=== PATIENT | male | born 1975 | race Caucasian/White ===

== ENCOUNTER 2019-09-21 13:01 | Emergency (ER) | payer OTHER, SELFPAY ==
[2019-09-21 13:05] VITALS: BP 135/97; PULSE 77; RESP 19; TEMP 36.5; O2SAT 97
[2019-09-21] MEDS: KETOROLAC 30 MG/ML VIAL (*BKC) IV PUSH (13:42)
[2019-09-21] MEDS: SODIUM CHLORIDE 0.9% IV 1,000 ML 999 ML IV CONT (13:43)
[2019-09-21 13:52] LABS: Basophils Percent Auto 0.3 % (0.2-1.2); Eosinophils Percent Auto 0.2 % (0-4.4); Hemoglobin 14.9 g/dL (14.0-18.0); Immature Granulocyte Absolute 0.02 K/mm3 (0.00-0.031); Immature Granulocyte Percent A 0.3 % (0-0.5); Lymphocytes Absolute Auto 1.05 K/mm3 (0.9-3.2); Lymphocytes Percent Auto 16.6 % (18.3-44.2); Mean Corpuscular HGB Conc 35.5 g/dl (32-36); Mean Corpuscular Hemoglobin 31.5 pg (26-34); Mean Corpuscular Volume 88.8 fl (80-100); Mean Platelet Volume 10.4 fl (7.4-10.4); Monocytes Absolute Auto 0.8 K/mm3 (0.1-0.6); Monocytes Percent Auto 12.1 % (2.6-8.5); Neutrophils Absolute Auto 4.5 K/mm3 (1.3-6.7); Neutrophils Percent Auto 70.5 % (45.5-73.1); Platelet Count Result 156 k/mm3 (150-375); Red Blood Count 4.73 M/mm3 (4.6-6.20); Red Cell Distribution Width 12.9 % (11.5-14.5); White Blood Count 6.3 K/mm3 (4.5-10.0)
[2019-09-21 14:04] LABS: Alanine Aminotransferase 34 U/L (4-50); Albumin Level 4.3 g/dL (3.5-5.1); Alkaline Phosphatase 56 U/L (38-126); Aspartate Amino Transferase 37 U/L (17-59); Bilirubin,Total 0.7 mg/dL (0.2-1.3); Blood Urea Nitrogen 16 mg/dL (9-20); Calcium 8.4 mg/dL (8.4-10.2); Carbon Dioxide 27 mmol/L (22-30); Chloride 98 mmol/L (98-107); Estimated CRCL calculation 99 ml/min; Estimated Glomerular Filt Rate > 60; Glucose 103 mg/dL (75-110); Potassium 3.5 mmol/L (3.4-5.0); Sodium 135 mmol/L (137-145)
--- NOTE | 2019-09-21 14:13 | ED.FEVER ---
HPI - Fever General Chief Complaint: Fever Stated Complaint: , PATRICIA, fever Time Seen by Provider: 09/21/19 13:04 Source: patient Mode of arrival: ambulatory Limitations: no limitations History of Present Illness HPI Narrative: Patient is a 44-year-old male who presents to emergency department for evaluation of sore throat fever chills body aches had negative COVID testing Wednesday in urgent care patient notes that he has not had any known sick contacts denies vomiting diarrhea or cough has been taking Augmentin prescribed at the urgent care with minimal improvement noting he continues to have moderate aching pain to the throat worse with swallowing Related Data Allergies Allergy/AdvReac Type Severity Reaction Status Date / Time codeine Allergy Mild Unknown Verified 09/21/19 13:34 Review of Systems Review of Systems: All systems reviewed & are unremarkable except as noted in HPI and below PMFSH Social History Social History (Updated 09/21/19 @ 14:14 by Andi Chu PA-C) Smoking status: Never smoker Gender identity (if verbalized by the patient): Male Exam Narrative: Exam Narrative: GENERAL: Well-appearing, well-nourished, and in no acute distress. HEAD: Normocephalic, atraumatic. EYES: PERRLA and EOMI. ENT: Nares clear, no rhinorrhea or epistaxis. Mucous membranes moist. Oropharynx with erythema tonsillar and without hypertrophy exudate or other lesions. Bilateral TMs pearly jenkins nonbulging NECK: Supple. Anterior adenopathy noted CHEST: Clear to auscultation. No respiratory distress. No wheezes rales or rhonchi HEART: Regular rate and rhythm. No murmur heard. EXTREMITIES: Normal range of motion. No edema. SKIN: Warm, dry, no rash. NEURO: No focal deficits. Alert and oriented x3. Cranial nerves II through XII grossly intact PSYCH: Normal mood and affect. 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 Patient in the room in no distress afebrile nontoxic-appearing no distress will be discharged home with medications for his symptoms Vital Signs Vital signs: Vital Signs Temperature 97.7 F 09/21/19 13:05 Pulse Rate 77 09/21/19 13:05 Respiratory Rate 19 09/21/19 13:05 Blood Pressure 135/97 H 09/21/19 13:05 Pulse Oximetry 97 09/21/19 13:05 Temperature 98.2 F 09/21/19 14:44 Pulse Rate 88 09/21/19 14:44 Respiratory Rate 20 09/21/19 14:44 Blood Pressure 127/87 09/21/19 14:44 Pulse Oximetry 99 09/21/19 14:44 MDM - Fever MDM Narrative Medical decision making narrative: Patient in the room in no distress aware of case findings treatment plan and diagnosis agreeing to follow-up as directed or to return if symptoms worsen or concerns patient is afebrile nontoxic-appearing no distress and felt appropriate for outpatient reevaluation patient provided with reasons to return and ENT follow-up Lab Data Result diagrams: 09/21/19 13:46 09/21/19 13:46 Labs: Lab Results 09/21/19 09/21/19 09/21/19 Range/Units 13:46 13:46 13:46 WBC 6.3 (4.5-10.0) K/mm3 RBC 4.73 (4.6-6.20) M/mm3 Hgb 14.9 (14.0-18.0) g/dL Hct 42.0 (42.0-52.0) % MCV 88.8 (80-100) fl MCH 31.5 (26-34) pg MCHC 35.5 (32-36) g/dl RDW 12.9 (11.5-14.5) % Plt Count 156 (150-375) k/mm3 MPV 10.4 (7.4-10.4) fl Immature Gran % (Auto) 0.3 (0-0.5) % Neut % (Auto) 70.5 (45.5-73.1) % Lymph % (Auto) 16.6 L (18.3-44.2) % [place] % (Auto) 12.1 H (2.6-8.5) % Eos % (Auto) 0.2 (0-4.4) % Baso % (Auto) 0.3 (0.2-1.2) % Lymph # (Auto) 1.05 (0.9-3.2) K/mm3 [place] # (Auto) 0.8 H (0.1-0.6) K/mm3 Eos # (Auto) 0.0 (0-0.3) K/mm3 Baso # (Auto) 0.0 (0.0-0.1) K/mm3 Abs Immat Gran (auto) 0.02 (0.00-0.031) K/mm3 Absolute Neuts (auto) 4.5 (1.3-6.7) K/mm3 Absolute Nucleated RBC 0.0 (0.0-0.012) K/mm3 Nucleated RBC % 0.0 (0.0-0.2) % Sodium 135 L (137-145) mmol/L Potassium 3.5 (3.4-5.0) mmol/L Chloride 98 (98-1
[2019-09-21 14:36] LABS: Monoscreen Negative (Negative); Negative Monotest Control Negative (Negative); Positive Monotest Control Positive (Positive)
[2019-09-21 14:44] VITALS: BP 127/87; PULSE 88; RESP 20; TEMP 36.8; O2SAT 99
[2019-09-21 15:19] VITALS: BP 120/70; PULSE 80; RESP 18; O2SAT 99
== END 2019-09-21 15:21 | disposition home or self-care (01) ==
PROVIDERS: Emergency Medicine Emergency Medical Services; Emergency Provider Emergency Medicine
DX: J02.9 Acute pharyngitis, unspecified (principal)
CPT/HCPCS: 36415; 80053; 85025; 86308; 87081; 87880; 96361; 96374; 96375; 99284; J1100; J1885; J7030

== ENCOUNTER 2020-08-27 09:56 | Emergency (ER) | payer OTHER, SELFPAY ==
--- NOTE | ~2020-08-27 | CT_ITS ---
EXAMINATION: CT abdomen pelvis wo con DATE: 08/27/2020 12:13 INDICATION: Left flank pain TECHNIQUE: Computed tomography (CT) of the abdomen and pelvis was performed without intravenous contr ast. The dose-length product (DLP) was 1233.16 mGy-cm. Automated exposure control and iterative recon struction technique were employed. COMPARISON: None FINDINGS: Minimal dependent atelectasis is present in the lung bases. The heart size is normal. The l iver is diffusely low in attenuation when compared with the spleen, consistent with hepatic steatosis . The spleen, pancreas, gallbladder, and adrenal glands are normal. The kidneys are unremarkable. No stones are identified in the kidneys, ureters, or bladder. There is no hydronephrosis or hydroureter. No pathologically enlarged abdominal or pelvic lymph nodes are identified. There is no free intraper itoneal gas or evidence of bowel obstruction. There is moderate lumbar spondylosis at L5-S1. A fat-co ntaining umbilical hernia is noted. IMPRESSION: 1. No CT correlate for the patient's symptoms. 2. Diffuse hepatic steatosis. Reviewed, dictated and finalized at location A.
[2020-08-27 10:07] VITALS: BP 161/57; PULSE 75; RESP 18; TEMP 36.3; O2SAT 94
[2020-08-27 10:24] LABS: Basophils Percent Auto 0.5 % (0.2-1.2); Eosinophils Absolute Auto 0.1 K/mm3 (0-0.3); Eosinophils Percent Auto 1.8 % (0-4.4); Hematocrit 42.8 % (42.0-52.0); Hemoglobin 14.5 g/dL (14.0-18.0); Immature Granulocyte Absolute 0.01 K/mm3 (0.00-0.031); Immature Granulocyte Percent A 0.2 % (0-0.5); Lymphocytes Absolute Auto 0.83 K/mm3 (0.9-3.2); Lymphocytes Percent Auto 18.9 % (18.3-44.2); Mean Corpuscular HGB Conc 33.9 g/dl (32-36); Mean Corpuscular Hemoglobin 30.5 pg (26-34); Mean Corpuscular Volume 90.1 fl (80-100); Mean Platelet Volume 9.5 fl (7.4-10.4); Monocytes Absolute Auto 0.4 K/mm3 (0.1-0.6); Neutrophils Percent Auto 68.6 % (45.5-73.1); Platelet Count Result 188 k/mm3 (150-375); Red Blood Count 4.75 M/mm3 (4.6-6.20); Red Cell Distribution Width 13.4 % (11.5-14.5); White Blood Count 4.4 K/mm3 (4.5-10.0)
[2020-08-27 10:33] LABS: Anion Gap 7 mmol/L (8-16); Blood Urea Nitrogen 16 mg/dL (9-20); Carbon Dioxide 28 mmol/L (22-30); Chloride 107 mmol/L (98-107); Estimated CRCL calculation 84 ml/min; Estimated Glomerular Filt Rate > 60; Glucose 109 mg/dL (75-110); Potassium 4.4 mmol/L (3.4-5.0); Sodium 142 mmol/L (137-145)
[2020-08-27 10:41] LABS: Add Urine Microscopic? YES; Appearance Urine Clear (Clear); Bilirubin Urine Negative (Negative); Blood Urine 1+ (Negative); Color Urine Yellow (Yellow); Glucose Urine UA Negative (Negative); Ketones Urine Negative (Negative); Leukocyte Esterase Ur Negative LEU/UL (Negative); Mucus Urine Rare /lpf; Nitrate Urine Negative (Negative); Protein Urine Negative (Negative); RBC Urine 0-2 /hpf (0-2); Specific Grav Ur 1.019 (1.001-1.035); Urobilinogen Urine Negative mg/dL (<2.0)
--- NOTE | 2020-08-27 11:08 | PC.NURSE ---
Bedside report given to Ronal BALLESTEROS at this time.
[2020-08-27 11:17] LABS: Lipase 101 U/L (23-300)
[2020-08-27 11:21] LABS: Alanine Aminotransferase 59 U/L (4-50); Albumin Level 4.5 g/dL (3.5-5.1); Alkaline Phosphatase 66 U/L (38-126); Aspartate Amino Transferase 50 U/L (17-59); Bilirubin,Total 0.7 mg/dL (0.2-1.3)
--- NOTE | 2020-08-27 12:08 | PC.NURSE ---
Patient in CT
[2020-08-27] MEDS: SODIUM CHLORIDE 0.9% IV 1,000 ML 999 ML IV CONT (12:27)
--- NOTE | 2020-08-27 12:38 | ED.GENADULT ---
HPI - General Adult General Chief complaint: Abdominal Pain Stated complaint: ABDOMINAL PAIN Time Seen by Provider: 08/27/20 10:34 Source: patient and RN notes reviewed Mode of arrival: ambulatory Limitations: no limitations History of Present Illness HPI narrative: Patient is a 45-year-old male who presents to emergency department for evaluation of left flank pain that began acutely this morning was seen by primary care given a shot of Toradol referred to emergency department noting that his pain resolved after the Toradol shot patient denies similar occurrence noted chills sweats and nausea with the intense pain that he had experienced Related Data Home Medications Medication Instructions Recorded Confirmed No Home Medications 08/27/20 08/27/20 Allergies Allergy/AdvReac Type Severity Reaction Status Date / Time codeine Allergy Mild Unknown Verified 08/27/20 10:13 Review of Systems Review of Systems: All systems reviewed & are unremarkable except as noted in HPI and below PMFSH Social History Social History (Updated 08/27/20 @ 12:39 by Andi Chu PA-C) Smoking status: Never smoker Gender identity (if verbalized by the patient): Male Exam Narrative: Exam Narrative: GENERAL: Well-appearing, well-nourished, and in no acute distress. HEAD: Normocephalic, atraumatic. EYES: PERRLA and EOMI. ENT: Nares clear, no rhinorrhea or epistaxis. Mucous membranes moist. CHEST: Clear to auscultation. No respiratory distress. No wheezes rales or rhonchi HEART: Regular rate and rhythm. No murmur heard. Normal peripheral pulses. ABDOMEN: Soft, nontender, nondistended EXTREMITIES: Normal range of motion. No edema. SKIN: Warm, dry, no rash. NEURO: No focal deficits. Alert and oriented x3. PSYCH: Normal mood and affect. Course Course Emergency Course: Patient in the room no distress aware of case findings treatment plan diagnosis afebrile nontoxic-appearing Vital Signs Vital signs: Vital Signs Temperature 97.3 F L 08/27/20 10:07 Pulse Rate 75 08/27/20 10:07 Respiratory Rate 18 08/27/20 10:07 Blood Pressure 161/57 H 08/27/20 10:07 Pulse Oximetry 94 08/27/20 10:07 Temperature 97.3 F L 08/27/20 10:07 Pulse Rate 75 08/27/20 10:07 Respiratory Rate 18 08/27/20 10:07 Blood Pressure 161/57 H 08/27/20 10:07 Pulse Oximetry 94 08/27/20 10:07 Medical Decision Making [facility] Narrative Medical decision making narrative: Patient presents in no distress aware of case findings treatment plan diagnosis ABCs and vital signs intact and stable nontoxic-appearing no pain hydrated medicated in the emergency department potential for passed kidney stone Vital Signs Vital Signs: Vital Signs Temperature 97.3 F L 08/27/20 10:07 Pulse Rate 75 08/27/20 10:07 Respiratory Rate 18 08/27/20 10:07 Blood Pressure 161/57 H 08/27/20 10:07 Pulse Oximetry 94 08/27/20 10:07 Temperature 97.3 F L 08/27/20 10:07 Pulse Rate 75 08/27/20 10:07 Respiratory Rate 18 08/27/20 10:07 Blood Pressure 161/57 H 08/27/20 10:07 Pulse Oximetry 94 08/27/20 10:07 Lab Data Result diagrams: 08/27/20 10:17 08/27/20 10:17 Labs: Lab Results 08/27/20 08/27/20 08/27/20 Range/Units 10:17 10:17 10:17 WBC 4.4 L (4.5-10.0) K/mm3 RBC 4.75 (4.6-6.20) M/mm3 Hgb 14.5 (14.0-18.0) g/dL Hct 42.8 (42.0-52.0) % MCV 90.1 (80-100) fl MCH 30.5 (26-34) pg MCHC 33.9 (32-36) g/dl RDW 13.4 (11.5-14.5) % Plt Count 188 (150-375) k/mm3 MPV 9.5 (7.4-10.4) fl Immature Gran % (Auto) 0.2 (0-0.5) % Neut % (Auto) 68.6 (45.5-73.1) % Lymph % (Auto) 18.9 (18.3-44.2) % [place] % (Auto) 10.0 H (2.6-8.5) % Eos % (Auto) 1.8 (0-4.4) % Baso % (Auto) 0.5 (0.2-1.2) % Lymph # (Auto) 0.83 L (0.9-3.2) K/mm3 [place] # (Auto) 0.4 (0.1-0.6) K/mm3 Eos # (Auto) 0.1 (0-0.3) K/mm3 Baso # (Auto) 0.0 (0.0-0.1) K/mm3 Abs
[2020-08-27 12:58] VITALS: BP 160/59; PULSE 73; RESP 18; O2SAT 97
== END 2020-08-27 12:59 | disposition home or self-care (01) ==
PROVIDERS: Emergency Medicine Emergency Medical Services; Emergency Provider Emergency Medicine; PCP Nurse Practitioner Family
DX: R10.9 Unspecified abdominal pain (principal); K76.0 Fatty (change of) liver, not elsewhere classified
CPT/HCPCS: 36415; 74176; 80048; 80076; 81001; 83690; 85025; 96360; 99284; J7030

== ENCOUNTER 2024-03-13 07:40 | Emergency (ER) | payer OTHER, SELFPAY ==
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
[2024-03-13 07:45] VITALS: BP 155/94; PULSE 75; RESP 20; TEMP 36.7; O2SAT 97
[2024-03-13] MEDS: ACETAMINOPHEN 325 MG TABLET 650 MG PO (07:55)
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
[2024-03-13 09:17] VITALS: BP 144/88; PULSE 80; RESP 20; O2SAT 100
--- NOTE | 2024-03-13 09:20 | PC.NURSE ---
Per verbal order by EDP thumb spica placed to right thumb/hand.
== END 2024-03-13 09:17 | disposition home or self-care (01) ==
LOC: ANHED 08:52
PROVIDERS: Emergency Provider Emergency Medicine; PCP Nurse Practitioner Family
DX: S63.91XA Sprain of unspecified part of right wrist and hand, initial encounter (principal); I10 Essential (primary) hypertension; V49.40XA Driver injured in collision with unspecified motor vehicles in traffic accident, initial encounter
CPT/HCPCS: 29125; 73130; 99283; 99284; A9270

== ENCOUNTER 2024-03-19 11:06 | Emergency (ER) | payer OTHER, SELFPAY ==
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
[2024-03-19 11:14] VITALS: BP 147/86; PULSE 69; RESP 20; TEMP 36.6; O2SAT 98
[2024-03-19 11:24] VITALS: BP 152/100; PULSE 57; RESP 16; O2SAT 95
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
[2024-03-19 12:52] VITALS: BP 147/106; PULSE 60; RESP 16; TEMP 36.6; O2SAT 95
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
--- OUTSIDE RECORDS SUMMARY | 2024-03-24 01:43 | XMS_ITS | Encounter Summary ---
Author Organization [facility] Address [address] [place] [address]. [place], [place] [phone] [place] [address] Care Team Providers Care Music Professionals Name Role Phone Zeus Vo MD Primary Care Provider [phone] Encounter Details Date Type Department Care Team (Latest Contact Info) Description 03/15/2024 Travel Social History Tobacco Use Types Packs/Day Years Used Date Smoking Tobacco: Never Smokeless Tobacco: Never Comments:counseled by Dr Patricia oconnor Alcohol Use Standard Drinks/Week Comments Yes 3.3 [...] Recorded Patient Health Questionnaire-2 Score 0 07/22/2022 [facility]at [facility] Health - Occupational Stress [...] on file documented as of this encounter Plan of Treatment Upcoming Encounters Date Type Department Care Team (Late st Contact Info) Description 04/07/2024 7:40 AM DIAGNOSTIC MEDICAL SONOGRAPHER Office Visit [facility] Multispecialty Care - [place] [address] [address] [place] [address] Zeus Vo MD [address] [place] [id number] documented as of this encounter Visit Diagnoses Not on filedocumented in this encounter Additional Health Concerns Assessment Noted Time PHQ-9 Depression Total Score: 0 05/14/19 7:24 AM DIAGNOSTIC MEDICAL SONOGRAPHER documented as of this encounter Care Teams Music Professionals Relationship Specialty Start Date End Date Zeus Vo MD [address] [place] [address] PCP - General INTERNAL MEDICINE 04/07/21 documented as of this encounter
--- OUTSIDE RECORDS SUMMARY | 2024-03-24 01:43 | XMS_ITS | Encounter Summary ---
Author Organization [facility] Address [address] [place] [address] [place] [address] Care Team Providers Care Holistic Health Practitioner Name Role Phone Zeus Vo MD Primary Care Provider Reason for Visit * Reason Comments Hypertension Patient presents wit h c/o heart fluttering last pm, blood pressure running high at 150/100, use to take bp medication but has been off for a few months. He did take a Losartan Encounter Details Date Type Department Care Team (Late st Contact Info) Description 07/01/2023 9:00 AM CDT Office Visit [facility] Family Medicine - [place] [address] [place] [phone] Teagan Pierre, AILYN [address] [place] [address] [place] [phone] Hypertension (Patient presents with c/o heart fluttering last pm, blood pressure running high at 150/100, use to take bp medication but has been off for a few months. He did take a Losartan ) Social History Tobacco Use Types Packs/Day Years Used Date Smoking Tobacco: Never Smokeless Tobacco: Never Tobacco Cessation:Counseling Given: No Comments:counseled by Dr Vo Alcohol Use Standard [...] Recorded Patient Health Questionnaire-2 Score 0 07/22/2022 [facility] Occupat ional Health - Occupational Stress [...] Sign Reading Time Taken Comments Blood Pressure 118/80 07/01/2023 9:36 AM CDT Pulse 71 07/01/2023 9:15 AM CDT Temperature 36.6 ??C (97.9 ??F) 07/01/2023 9:15 AM CD T Respiratory Rate 18 07/01/2023 9:15 AM CDT Oxygen Saturation 97% 07/01/2023 9:15 AM CDT Inhaled Oxygen Concentration - - Weight 108 kg (238 lb) 07/01/2023 9:15 AM CDT Height 175.3 cm (5' 9 ) 07/01/2023 9:15 AM CDT Body Mass Index 35.15 07/01/2023 9:15 AM CDT documented in this encounter Progress Notes * Teagan Pierre NP - 07/01/2023 9:00 AM CDT Reason for Visit: Hypertension (Patient presents with c/o heart fluttering last pm, blood pressure running high at 150/100, use to take bp medication but has been off for a few months. He did take a Losartan ) History of Present Illness: Manuel is a 47-year-old male with hx of hypertension, severe HAYLEY, obesity, gout patient of Dr. 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 Patient states he used to takelosartan 25 mg but has not taken for a few months d/t running out.yesterday his BP was checked ant it was running 145/100 but cuff was small. He had some tea yesterday and has been caffeine free for 2 years so he thinks that maybe what caused his fluttering in his chest. States the flutter only lasted for 5 seconds. Patient also has hx of severe sleep apnea. Follows with Dr. Parekh. Has not been wearing his CPAP d/tnot tolerating. He is needing to discuss with his pulm other options. Denies chest pain, palpitations, shortness of breath, dizziness, lightheadedness, or lower extremity edema. Medications: Current Outpatient Medications: amLODIPine (NORVASC) 2.5 MG tablet, Take 1 tablet (2.5 mg total) by mouth daily., Disp: 90 tablet, Rfl: 1 CPAP DEVICE, DME,, 1 Device by Does not apply route nightly at bedtime. Sending to [employer] Disp:1 Device, Rfl: 0 Review of patient's allergies indicates: Allergen Reactions Codeine Hyperactive Past Medical History: Diagnosis Date Essential (primary) hypertension Gout, unspecified HAYLEY (obstructive sleep apnea) Past Surgical History: Procedure Laterality Date NONE Social History Tobacco Use Smoking status: Never Smokeless tobacco: Never Tobacco comments: counseled by Dr Vo Vaping Use Vaping Use: Never used Substance Use Topics Alcohol use: Yes Alcohol/week: 3.3 standard drinks of alcohol Types: 2 Cans of beer per week Drug use: Never Family History Problem Relation Name Age of Onset Diabetes Father Diabetes Paternal Grandmother Diabetes Paternal Grandfather ROS: Review of Systems Constitutional: Negative for chills, diaphoresis, fever, malaise/fatigue and weight loss. HENT: Negative for congestion, ear discharge, ear pain, hearing loss, nosebleeds, sinus pain, sore throat and tinnitus. Eyes: Negative for blurred vision, double vision, photophobia, pain, discharge and redness. Respiratory: Negative for cough, hemoptysis, sputum production, shortness of breath, wheezing and stridor. Cardiovascular: Negative for chest pain, palpitations, orthopnea, claudication, leg swelling and PND. Gastrointestinal: Negative for abdominal pain, blood in stool, constipation, diarrhea, heartburn, melena, nausea and vomiting. Genitourinary: Negative for dysuria, flank pain, frequency, hematuria and urgency. Musculoskeletal: Negative for back pain, falls, joint pain, myalgias and neck pain. Skin: Negative for itching and rash. Neurological: Negative for dizziness, tingling, tremors, sensory change, speech change, focal weakness, seizures, loss of consciousness, weakness and headaches. Endo/Heme/Allergies: Negative for environmental allergies and polydipsia. Does not bruise/bleed easily. Psychiatric/Behavioral: Negative for depression, hallucinations, memory loss, substance abuse and suicidal ideas. The patient is not nervous/anxious and does not have insomnia. Physical Exam Constitutional: General: He is not in acute distress. Appearance: Normal appearance. He is obese. He is not ill-appearing, toxic- appearing or diaphoretic. HENT: Nose: Nose normal. Mouth/Throat: Mouth: Mucous membranes are moist. Eyes: Pupils: Pupils are equal, round, and reactive to light. Cardiovascular: Rate and Rhythm: Normal rate and regular rhythm. Pulses: Normal pulses. Heart sounds: Normal heart sounds. Pulmonary: Effort: Pulmonary effort is normal. Breath sounds: Normal breath sounds. Musculoskeletal: Cervical back: Normal range of motion. Right lower leg: No edema. Left lower leg: No edema. Skin: General: Skin is warm and dry. Findings: No rash. Neurological: General: No focal deficit present. Mental Status: He is alert and oriented to person, place, and time. Psychiatric: Mood and Affect: Mood normal. Behavior: Behavior normal. Thought Content: Thought content normal. Judgment: Judgment normal. Filed Vitals: 07/01/23 0915 07/01/23 0936 BP: (!) 148/82 118/80 Pulse: 71 Resp: 18 Temp: 97.9 ??F (36.6 ??C) TempSrc: Temporal SpO2: 97% Weight: 108 kg (238 lb) Height: 1.753 m (5' 9 ) Assessment/Recommendations/Plan 1. Hypertension, unspecified type BP stable with recheck with large cuff. Patient was instructed to monitor blood pressure closely athome and if running higher than 140/90 to begin low-dose amlodipine. Discussed with patient how to take and side effects No palpitations noted on exam. Encourage lifestyle modifications to include healthy eating, decrease salt and caffeine in diet, routine exercise, and weight loss, - amLODIPine (NORVASC) 2.5 MG tablet; Take 1 tablet (2.5 mg total) by mouth daily. Dispense: 90 tablet; Refill: 1 2. Severe obstructive sleep apnea -Patient was highly encouraged to follow back up with his edge trimming machine operator to discuss other treatment options for his sleep apnea since patient has severe HAYLEY and not on CPAP. Follow up: With PCP within 4 weeks for BP check, annual physical and labs. TEAGAN PIERRE NP 07/01/2023 9:41 AM documented in this encounter Plan of Treatment Upcoming Encounters Date Type Department Care Team (Late st Contact Info) Description 04/07/2024 7:40 AM FOOD EQUIPMENT SERVICE TECHNICIAN Office Visit [facility] Multispecialty [facility] [place] [address] [address] [place] [address] Zeus Vo MD [address] [place] [id number] documented as of this encounter Visit Diagnoses Diagnosis Hypertension, unspecified type Severe obstructive sleep apnea Obstructive sleep apnea (adult) (pediatric) documented in this encounter Additional Health Concerns Assessment Noted Time PHQ-9 Depression Total Score: 0 05/14/19 22 7:24 AM FOOD EQUIPMENT SERVICE TECHNICIAN documented as of this encounter Care Teams Holistic Health Practitioner Relationship Specialty Start Date End Date Zeus Vo MD [address] [place] [id number] PCP - General INTERNAL MEDICINE 04/07/21 documented as of this encounter
--- OUTSIDE RECORDS SUMMARY | 2024-03-24 01:43 | XMS_ITS | Encounter Summary ---
Author Organization [facility] Address [address] [place] [address]. [place], [place] [address] [place] [address] Care Team Providers Care Biztalk Software Developer Name Role Phone Zeus Vo MD Primary Care Provider [phone] Reason for Visit * Reason Comments Hypertension 6 month f/u Follow Up Follow up chronic me dical issues Encounter Details Date Type Department Care Team (Latest Contact Info) Description 01/13/2023 7:00 AM CDT Office Visit [facility] Medical Group Multispecialty Care - [address] [address] [address] [place] [address] Zeus Vo MD [address] [place] [address] [address] [place], [place] [id number] Hypertension (6 month f/u ); Follow Up (Follow up chronic medical issues) Social History Tobacco Use Types Packs/Day Years Used Date Smoking Tobacco: Never Smokeless Tobacco: Never Tobacco Cessation:Counseling Given: Yes Comments:counseled by Dr Vo Alcohol Use Standard [...] Recorded Patient Health Questionnaire-2 Score 0 07/22/2022 [facility] Occupat ional Health - Occupational Stress [...] Sign Reading Time Taken Comments Blood Pressure 138/88 01/13/2023 7:44 AM CDT done manually per pt. request Pulse 62 01/13/2023 7:07 AM CDT Temperature 36.4 ??C (97.5 ??F) 01/13/2023 7 :07 AM CDT Respiratory Rate - - Oxygen Saturation 98% 01/13/2023 7:0 7 AM CDT Inhaled Oxygen Concentration - - Weight 106.6 kg (235 lb) 01/13/2023 7:0 7 AM CDT Height 175.3 cm (5' 9 ) 01/13/2023 7:07 AM CDT Body Mass Index 34.7 01/13/2023 7:07 AM CDT documented in this encounter Patient Instructions * Patient Instructions* Zeus Vo MD - 01/13/2023 7:00 AM CDT Follow up in March 2023 for your blood pressure and weight. * Attachments The following attachments cannot be sent through Care Everywhere. * DASH Diet (Czech) documented in this encounter Progress Notes * Zeus Vo MD - 01/13/2023 7:00 AM CDTSummary: Follow-up note Images from the original note were not included. Internal Medicine Outpatient Progress Note CC: Hypertension (6 month f/u ) and Follow Up (Follow up chronic medical issues) HPI: Manuel Hall is a 47-year-old male who presents for follow-up for chronic medical issues and reports he has been taking only allopurinol 100 mg daily instead of 200 mg daily. Patient reports he was not taking his medication prior to the dose increase in the setting of elevated uric acid levels. He is back on taking regularly his allopurinol 100 mg daily and will be checking his uric acid levels at today's visit. Has long standing history of hyperuricemia. Denies any recent concerns for kidney stones. Denies any flank pain. Patient also with hypertension and currently not taking his valsartan- hydrochlorothiazide 320-25 mg1 tablet daily. He reports after his pneumonia, he has not been on medication. His medication was held during his admission. Currently patient reports his home blood pressures have been averaging around 1 32-1 35 for his systolics and 82 mmhg for his diastolics. Denies any headaches or shortness ofbreath or chest pain with activity. He has underlining obstructive sleep apnea and tells me he has been using his CPAP machine but not very frequently throughout the night. He usually has difficulty sleeping on his back and therefore is unable to maintain using his CPAP throughout the night. He wasscheduled to have seen pulmonary in January 2023 but this appointment was canceled. Patient encouraged to call to schedule his appointment with pulmonary. His repeat blood pressure at today's visit was still not optimally controlled. He has not had his colon cancer screening done and will prefer to have a Cologuard done instead. Nofamily history of colon cancer or recent concerns for blood in stool or melena. He would like to hold off getting his flu shot at this time. He wants to read up on pneumonia vaccine prior to getting this done. Problem List Patient Active Problem List Diagnosis Primary hypertension Fatigue Obese Elevated liver enzymes HAYLEY (obstructive sleep apnea) Gout Past Medical History: Diagnosis Date Essential (primary) hypertension Gout, unspecified HAYLEY (obstructive sleep apnea) Past Surgical History: Procedure Laterality Date NONE Family History Problem Relation Name Age of Onset Diabetes Father Diabetes Paternal Grandmother Diabetes Paternal Grandfather Social History Tobacco Use Smoking status: Never Smokeless tobacco: Never Tobacco comments: counseled by Dr Vo Vaping Use Vaping Use: Never used Substance Use Topics Alcohol use: Yes Alcohol/week: 3.3 standard drinks Types: 2 Cans of beer per week Drug use: Never Medications: Outpatient Medications Marked as Taking for the 01/13/23 encounter (Office Visit) with Zeus Vo MD Medication Sig Dispense Refill allopurinol (ZYLOPRIM) 100 MG tablet Take 1 tablet (100 mg total) by mouth daily. 90 tablet 1 CPAP DEVICE, DME, 1 Device by Does not apply route nightly at bedtime. Sending to [facility]. Ad Summos Device 0 losartan (COZAAR) 25 MG tablet Take 1 tablet (25 mg total) by mouth daily. 90 tablet 1 Allergies: Review of patient's allergies indicates: Allergen Reactions Codeine Hyperactive Review of Systems Constitutional: Negative for chills, diaphoresis, fever, malaise/fatigue and weight loss. HENT: Negative. Eyes: Negative. Respiratory: Negative. Cardiovascular: Negative for chest pain, palpitations, orthopnea, claudication, leg swelling and PND. Gastrointestinal: Negative. Genitourinary: Negative. Musculoskeletal: Negative. Neurological: Negative. Psychiatric/Behavioral: Negative. Objective: Filed Vitals: 01/13/23 0707 01/13/23 0743 01/13/23 0744 BP: (!) 144/94 (!) 140/90 138/88 Pulse: 62 Temp: 97.5 ??F (36.4 ??C) SpO2: 98% Weight: 106.6 kg (235 lb) Height: 5' 9 (1.753 m) Body mass index is 34.7 kg/m??. General alert, cooperative, no distress HEENT EOM's intact. Oral mucosa normal. Nasal septum is midline. Neck Supple, symmetrical, trachea midline, no adenopathy, no thyromegaly, no JVD. Lungs No acute respiratory distress, no accessory muscle use, symmetric motion of the chest wall, lungs are clear to auscultation bilaterally, no wheezes or rales. Heart Regular rate and regular rhythm. S1, S2 normal. No murmurs. No rubs, clicks, or gallops. Abdomen Soft, non-tender, non-distended. Bowel sounds normal. No masses. No hepatomegaly appreciated. Extremities Extremities atraumatic, no cyanosis, 2+ pedal pulses, no edema Skin Skin color, texture, turgor normal. No rashes or lesions appreciated. Neurologic No focal deficits, motor strength is grossly normal and symmetric Psych Normal mood and affect MSK No synovitis, no bony tenderness, no joint effusions Lymph No cervical or supraclavicular adenopathy Assessment and Plan: Encounter Diagnose(s) ICD-10-CM SNOMED CT(R) 1. Primary hypertension I10 ESSENTIAL HYPERTENSION COMPREHENSIVE METABOLIC PANEL LIPID PANEL losartan (COZAAR) 25 MG tablet COMPREHENSIVE METABOLIC PANEL LIPID PANEL 2. HAYLEY (obstructive sleep apnea) G47.33 OBSTRUCTIVE SLEEP APNEA SYNDROME 3. Class 1 obesity due to excess calories with serious comorbidity and body mass index (BMI) of 34.0 to 34.9 in adult E66.09 OBESITY CAUSED BY ENERGY IMBALANCE Z68.34 4. Gout, unspecified cause, unspecified chronicity, unspecified site M10.9 GOUT URIC ACID BLOOD allopurinol (ZYLOPRIM) 100 MG tablet URIC ACID BLOOD 5. Elevated liver enzymes R74.8 LIVER ENZYMES LEVEL ABOVE REFERENCE RANGE COMPREHENSIVE METABOLIC PANEL 6. Hyperuricemia E79.0 HYPERURICEMIA allopurinol (ZYLOPRIM) 100 MG tablet 7. Screen for colon cancer Z12.11 PATIENT ENCOUNTER STATUS DARREN (7digital) 1. Primary hypertension -Currently blood pressures not optimally controlled. Patient has not been taking blood pressure medications at home. He reports his home blood pressures have been averaging less than 140/90 but closer to 138 for the systolics. Repeat blood pressure at today's visit manually also confirmed. Discontinue valsartan hydrochlorothiazide for now. Changing to losartan 25 mg daily with close follow- up in 2 months. DASH diet recommended. Exercise 150 minutes/week. - Patient currently controlled on current treatment for hypertension. Will continue. Continued to discuss weight loss, adequate cardiovascular fitness. DASH diet was discussed as well as decrease in sodium intake. BP goal of < 140/90 expressed. Recent labs reviewed. - COMPREHENSIVE METABOLIC PANEL; Future - LIPID PANEL; Future -Changed to losartan (COZAAR) 25 MG tablet; Take 1 tablet (25 mg total) by mouth daily. Dispense: 90 tablet; Refill: 1 - COMPREHENSIVE METABOLIC PANEL - LIPID PANEL 2. HAYLEY (obstructive sleep apnea) -CPAP compliance encouraged. Patient encouraged to schedule with pulmonary. Weight loss encouraged. 3. Class 1 obesity due to excess calories with serious comorbidity and body mass index (BMI) of 34.0 to 34.9 in adult --Pt has elevated weight with BMI Body mass index is 34.7 kg/m??., and will need to work hard on reducing carbohydrates and total calories. -You may use the free smart phone apps such as yuilop SL to help track calories and try to reduce by 15% every 4 weeks. -Patient will work on reducing total portion sizes to try to reduce the size of their stomach. -Exercising about 30 minutes every day with cardio work outs. -Avoid regular soda, juices and alcohol. -Recommended limiting GPS foods (Grains, Potatoes, Sugars) as much as possible. Eating food that itis not highly processed and that they can recognize. Eating when they are hungry and not by a time schedule. -Lets aim to have them loose about 1 pound per week and 5 pounds per month. -Follow-up in March to discuss weight loss again 4. Gout, unspecified cause, unspecified chronicity, unspecified site - URIC ACID BLOOD; Future -Continue with allopurinol (ZYLOPRIM) 100 MG tablet; Take 1 tablet (100 mg total) by mouth daily. Dispense: 90 tablet; Refill: 1 - URIC ACID BLOOD -Patient never changed to 200 mg of allopurinol. He tells me he previously was not taking his medication and therefore felt he needed to take the lower dose. I agree. Checking his uric acid levels atthis time and will adjust dose as appropriate 5. Elevated liver enzymes - COMPREHENSIVE METABOLIC PANEL; Future 6. Hyperuricemia -Continue with allopurinol (ZYLOPRIM) 100 MG tablet; Take 1 tablet (100 mg total) by mouth daily. Dispense: 90 tablet; Refill: 1 7. Screen for colon cancer - DARREN (7digital) Counseling given: Yes Tobacco comments: counseled by Dr Vo I personally spent a total of 30 minutes on the day of the encounter. This includes ojgs-in-cazh and gux-ucxi-dy-face time I provided on the day of the encounter & excludes time spent performing separately reportable services. Side effects and less common but more severe adverse effects of recommended medical therapies were explained to the patient. Follow up office visit in 6 months. Requested MyChart or telephone follow up prn if symptoms change, worsen, or persist, or if side effect of treatment is experienced. CARA: This dictation was at least in part performed using [employer] and there may be some inherent flaws in this chemist physical due to the nature of this program. Zeus Vo MD Internal Medicine [facility], [facility]. documented in this encounter Plan of Treatment Upcoming Encounters Date Type Department Care Team (Late st Contact Info) Description 04/07/2024 7:40 AM PLANER CHAIN OFFBEARER Office Visit [facility] Medical Group Multispecialty Care - [address] [address] [address] [place] [address] Zeus Vo MD [address] [place] [address] Scheduled Orders Name Type Priority Associated Diagnoses Orde r Schedule COMPREHENSIVE METABOLIC PANEL Lab Routine Primary hypertension Elevated liver enzymes Expected: 01/13/2023, Expires: 01/10/2024 URIC ACID BLOOD Lab Routine Gout, unspecified cause, unspecified chronicity, unspecified site Expected: 01/13/2023, Expires: 01/09/2024 LIPID PANEL Lab Routine Primary hypertension Expected: 01/13/2023, Expires: 01/14/2024 documented as of this encounter Visit Diagnoses Diagnosis Primary hypertension- Primary Unspecified essential hypertension HAYLEY (obstructive sleep apnea) Obstructive sleep apnea (adult) (pediatric) Class 1 obesity due to excess calories with serious comorbidity and body mass index (BMI) of 34.0 to 34.9 in adult Gout, unspecified cause, unspecified chronicity, unspecified site Elevated liver enzymes Nonspecific elevation of levels of transaminase or lactic acid dehydrogenase (LDH) Hyperuricemia Other abnormal blood chemistry Screen for colon cancer Special screening for malignant neoplasms, colon documented in this encounter Additional Health Concerns Assessment Noted Time PHQ-9 Depression Total Score: 0 05/14/19 22 7:24 AM PLANER CHAIN OFFBEARER documented as of this encounter Care Teams Biztalk Software Developer Relationship Specialty Start Date End Date Zeus Vo MD [address] [place] [id number] PCP - General INTERNAL MEDICINE 04/07/21 documented as of this encounter
--- OUTSIDE RECORDS SUMMARY | 2024-03-24 01:43 | XMS_ITS | Encounter Summary ---
Author Organization [facility] Address [address] [place] [address]. [place], [place] [address] [place] [address] Care Team Providers Care Horse Trader Name Role Phone Zeus Vo MD Primary Care Provider [phone] Encounter Details Date Type Department Care Team (Latest Contact Info) Description 12/28/2022 Scan [facility] HEALTH INFO SRVCS Scanned, Doc Med Group Social History Tobacco Use Types Packs/Day Years [...] Recorded Patient Health Questionnaire-2 Score 0 07/22/2022 [facility] [place] of Occupat ional Health - Occupational Stress [...] st Contact Info) Description 04/07/2024 7:40 AM FIELD APPLICATIONS SPECIALIST Office Visit [facility] Medical Group Multispecialty [address] [address] [address] [place] [address] Zeus Vo MD [address] [place] [address] documented as of this encounter Visit Diagnoses Not on filedocumented in this encounter Additional Health Concerns Assessment Noted Time PHQ-9 Depression Total Score: 0 05/14/19 7:24 AM FIELD APPLICATIONS SPECIALIST documented as of this encounter Care Teams Horse Trader Relationship Specialty Start Date End Date Zeus Vo MD [address] [place] [phone] PCP - General INTERNAL MEDICINE 04/07/21 documented as of this encounter
--- OUTSIDE RECORDS SUMMARY | 2024-03-24 01:43 | XMS_ITS | Encounter Summary ---
Author Organization [facility] Address [address] [place] [address]. [place], [place] [address] [place] [address] Care Team Providers Care Implementation Project Manager Name Role Phone Zeus Vo MD Primary Care Provider [phone] Encounter Details Date Type Department Care Team (Latest Contact Info) Description 03/13/2024 Scan [facility] HEALTH INFO SRVCS Scanned, Doc [...] Recorded Patient Health Questionnaire-2 Score 0 07/22/2022 [facility] [place] of Occupat ional Health - Occupational Stress [...] st Contact Info) Description 04/07/2024 7:40 AM OIL WELL DRILLER Office Visit [facility] Medical Group Multispecialty [address] [address] [address] [place] [address] Zeus Vo MD [address] [place] [address] documented as of this encounter Visit Diagnoses Not on filedocumented in this encounter Additional Health Concerns Assessment Noted Time PHQ-9 Depression Total Score: 0 05/14/19 7:24 AM OIL WELL DRILLER documented as of this encounter Care Teams Implementation Project Manager Relationship Specialty Start Date End Date Zeus Vo MD [address] [place] [id number] PCP - General INTERNAL MEDICINE 04/07/21 documented as of this encounter
--- OUTSIDE RECORDS SUMMARY | 2024-03-24 01:43 | XMS_ITS | Encounter Summary ---
Author Organization [facility] Address [address] [place] [address]. [place], [place] [id number] [place] [address] Care Team Providers Care Senior Sales Consultant Name Role Phone Zeus Vo MD Primary Care Provider [phone] Encounter Details Date Type Department Care Team (Latest Contact Info) Description 01/13/2023 Travel Social History Tobacco Use Types Packs/Day [...] Recorded Patient Health Questionnaire-2 Score 0 07/22/2022 [facility] of Occupat ional Health - Occupational [...] st Contact Info) Description 04/07/2024 7:40 AM CAKE BATTER MIXER Office Visit [facility] Medical Group Multispecialty Care - [place] [address] [address] [address] [place] [address] Zeus Vo MD [address] [place] [address] documented as of this encounter Visit Diagnoses Not on filedocumented in this encounter Additional Health Concerns Assessment Noted Time PHQ-9 Depression Total Score: 0 05/14/19 7:24 AM CAKE BATTER MIXER documented as of this encounter Care Teams Senior Sales Consultant Relationship Specialty Start Date End Date Zeus Vo MD [address] [place] [address] PCP - General INTERNAL MEDICINE 04/07/21 documented as of this encounter
--- OUTSIDE RECORDS SUMMARY | 2024-03-24 01:43 | XMS_ITS | Patient Health Summary ---
Author Organization [facility] Address [address] [place] [address] Care Team Providers Care Hall Clerk Name Role Phone Unknown, Provider Primary Care Provider Unavaila ble Note from [facility],non-owned Affiliates and Associated Physician Practices is amultiple site organization consisting of ambulatory clinics and hospital sitesin [place], [place], [place] and [place]. This disclosure is being madepursuant to the Care Everywhere program and may not contain all information available regarding this patient. Last updated 17.[facility] Allergies * Codeine Medications Be aware that medications may not be up to date on this document. Always verify current medications with the patient. No known medications Social History Tobacco Use Types Packs/Day Years Used Date Smoking Tobacco: Never Sex and Gender Information Value Date Recorded Sex Assigned at Not on file Gender Identity Not on file Sexual Orientation Not on file Last Filed Vital Signs Vital Sign Reading Time Taken Comments Blood Pressure 104/72 04/25/2016 12:20 PM ROLLER MILL TENDER Pulse 87 04/25/2016 12:20 PM ROLLER MILL TENDER Temperature 36.5 ??C (97.7 ??F) 04/25/2016 12:[address] Respiratory Rate 16 04/25/2016 12:20 PM ROLLER MILL TENDER Oxygen Saturation 98% 04/25/2016 12:20 PM ROLLER MILL TENDER Inhaled Oxygen Concentration - - Weight 104.3 kg (230 lb) 04/25/2016 12:20 PM ROLLER MILL TENDER Height 175.3 cm (5' 9 ) 04/25/2016 12:20 PM ROLLER MILL TENDER Body Mass Index 33.97 04/25/2016 12:20 PM ROLLER MILL TENDER Procedures * CALL/FAX/TEST RESULTS(Performed 10/10/2009) * LAB MISC TEST(Performed 10/10/2009) Care Teams Hall Clerk Relationship Specialty Start Date End Date Unknown, Provider PCP - General 04/25/16
--- OUTSIDE RECORDS SUMMARY | 2024-03-24 01:43 | XMS_ITS | Encounter Summary ---
Author Organization [facility] Address [address] [place] [address]. [place], [place] [address] [place] [address] Care Team Providers Care Pharmacy Intake Coordinator Name Role Phone Zeus Vo MD Primary Care Provider [phone] Encounter Details Date Type Department Care Team (Latest Contact Info) Description 02/11/2024 Travel Social History Tobacco Use Types Packs/Day [...] Recorded Patient Health Questionnaire-2 Score 0 07/22/2022 [facility] of Occupat ional Health - [...] st Contact Info) Description 04/07/2024 7:40 AM FLIGHT OPERATIONS DISPATCH CLERK Office Visit [facility] Medical Group Multispecialty Care - [place] [address] [address] [address] [place] [address] Zeus Vo MD [address] [place] [address] documented as of this encounter Visit Diagnoses Not on filedocumented in this encounter Additional Health Concerns Assessment Noted Time PHQ-9 Depression Total Score: 0 05/14/19 7:24 AM FLIGHT OPERATIONS DISPATCH CLERK documented as of this encounter Care Teams Pharmacy Intake Coordinator Relationship Specialty Start Date End Date Zeus Vo MD [address] [place] [id number] PCP - General INTERNAL MEDICINE 04/07/21 documented as of this encounter
--- OUTSIDE RECORDS SUMMARY | 2024-03-24 01:43 | XMS_ITS | Encounter Summary ---
Author Organization [facility] Address [facility] [place] [address] Care Team Providers Care Ship Engines Operating Engineer Name Role Phone Unknown, Provider Primary Care Provider Unavaila ble Reason for Visit * Reason Comments Sinusitis Encounter Details Date Type Department Care Team (Late st Contact Info) Description 04/25/2016 12:20 PM HIDE HANDLER Office Visit [facility] AT [address] [id number] Provider, [facility] Acute maxillary sinusitis, recurrence not specified (Primary Dx) Social History Tobacco Use Types Packs/Day Years Used Date Smoking Tobacco: Never Sex and Gender Information Value Date Recorded Sex Assigned at Not on file Gender Identity Not on file Sexual Orientation Not on file documented as of this encounter Last Filed Vital Signs Vital Sign Reading Time Taken Comments Blood Pressure 104/72 04/25/2016 12:20 PM HIDE HANDLER Pulse 87 04/25/2016 12:20 PM HIDE HANDLER Temperature 36.5 ??C (97.7 ??F) 04/25/2016 12:[address] Respiratory Rate 16 04/25/2016 12:20 PM HIDE HANDLER Oxygen Saturation 98% 04/25/2016 12:20 PM HIDE HANDLER Inhaled Oxygen Concentration - - Weight 104.3 kg (230 lb) 04/25/2016 12:20 PM HIDE HANDLER Height 175.3 cm (5' 9 ) 04/25/2016 12:20 PM HIDE HANDLER Body Mass Index 33.97 04/25/2016 12:20 PM HIDE HANDLER documented in this encounter Patient Instructions * Patient Instructions* Rober Gray, JUAN-SUPERVISING LIBRARIAN - 04/25/2016 12:32 PM HIDE HANDLER Drink plenty of fluids Get plenty of rest Cool mist humidifier Elevate head of bed Tylenol or Ibuprofen per package direction for discomfort\fever (if not allergic) HANDLER documented in this encounter Progress Notes * Rober Gray APRN-CNP - 04/25/2016 12:31 PM CST Subjective: Manuel Hall is a 40 y.o. male who presents for evaluation of congestion, sinus pressure, non productive cough. Symptoms: congestion, sinus pressure, non productive cough with no fever, chills, or night sweats Onset: 1 week Course: gradually worsening Hydration history: is drinking plenty of fluids.. Past history: no history of pneumonia or bronchitis. Smoker: non-smoker. Past Medical History Diagnosis Date ??? NEGATIVE PAST MEDICAL HISTORY - SEE PROBLEM LIST No family history on file. Current Outpatient Prescriptions Medication Sig Dispense Refill ??? amoxicillin-clavulanate (AUGMENTIN) 875-125 MG tablet Take 1 Tab by mouth every 12 hours for 10days 20 Tab 0 No current facility-administered medications for this visit. Allergies Allergen Reactions ??? Codeine Social History Occupational History ??? Not on file. Social History Main Topics ??? Smoking status: Never Smoker ??? Smokeless tobacco: Not on file ??? Alcohol use: Not on file ??? Drug use: Not on file ??? Sexual activity: Not on file Review of Systems Pertinent items are noted in HPI Objective: BP 104/72 (BP SITE: LEFT ARM, BP POSITION: SITTING, BP CUFF SIZE: Large Adult) Pulse 87 Temp 97.7 ??F (Oral) Resp 16 Ht 1.753 m (5' 9 ) Wt 104.3 kg (230 lb) SpO2 98% BMI 33.97 kg/m2 Ears: canals clear, tympanic membranes normal, hearing intact to voice Nose: nares open; no septal deviation is noted, mucosa erythematous and swollen, maxillary tenderness bilaterally Throat: no mucous membrane abnormalities Lungs: breath sounds normal and symmetric; no rales or wheezes Heart: regular rhythm, normal S1 and S2, without murmurs, gallops or rubs Assessment: Acute bacterial sinusitis Plan: Follow up in 2 days or return if symptoms worsen or persist. HANDLER documented in this encounter Plan of Treatment Not on file documented as of this encounter Visit Diagnoses Diagnosis Acute maxillary sinusitis, recurrence not specified- Primary documented in this encounter Care Teams Ship Engines Operating Engineer Relationship Specialty Start Date End Date Unknown, Provider PCP - General 04/25/16 documented as of this encounter
--- OUTSIDE RECORDS SUMMARY | 2024-03-24 01:43 | XMS_ITS | Encounter Summary ---
Author Organization [facility] Address [address] [place] [address]. [place], [place] [id number] [place] [address] Care Team Providers Care Aircraft Powertrain Repairer Name Role Phone Zeus Vo MD Primary Care Provider [phone] Reason for Visit * Reason Onset Date Comments Information 03/17/2024 Encounter Details Date Type Department Care Team (Late st Contact Info) Description 03/17/2024 Telephone [facility] - [place] [address] [address] [place], [place] [phone] Zeus Vo MD [address] [place] [address] [address] [place] [address] Information Social History Tobacco Use Types Packs/Day Years [...] Questionnaire-2 Score 0 07/22/2022 [facility] - Occupational Stress Questionnaire Answer Date Recorded [...] on file documented as of this encounter Progress Notes * Judy Dominguez MA - 03/17/2024 8:44 AM CST Rubi [facility] [place] called and said that this pt contacted their office but is a pt of Dr. Vo's. Attempted to call but the mail box is full and I wasn't able to leave a message. ING MACHINE TENDER HELPER documented in this encounter Plan of Treatment Upcoming Encounters Date Type Department Care Team (Late st Contact Info) Description 04/07/2024 7:40 AM CUTTING MACHINE TENDER HELPER Office Visit [facility] - [place] [address] [address] [place] [address] Zeus Vo MD [address] [place] [id number] documented as of this encounter Visit Diagnoses Not on filedocumented in this encounter Additional Health Concerns Assessment Noted Time PHQ-9 Depression Total Score: 0 05/14/19 22 7:24 AM CUTTING MACHINE TENDER HELPER documented as of this encounter Care Teams Aircraft Powertrain Repairer Relationship Specialty Start Date End Date Zeus Vo MD [address] [place] [id number] PCP - General INTERNAL MEDICINE 04/07/21 documented as of this encounter
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
--- OUTSIDE RECORDS SUMMARY | 2024-03-24 01:43 | XMS_ITS | Encounter Summary ---
Author Organization [facility] Address [address] [place] [address] Care Team Providers Care Corrugator Machine Operator Name Role Phone None, Pcp Primary Care Provider Unavailabl e Encounter Details Date Type Department Care Team (Late st Contact Info) Description 10/10/2009 11:19 AM CDT - 10/10/2009 11:59 PM CDT Hospital Encounter [facility] Laboratory [address] [place] [address] Paul Aguirre MD [facility] [address] [place] [address] Laboratory Discharge Disposition: Home or Self Care Social History Tobacco Use Types Packs/Day Years Used Date Smoking Tobacco: Never Assessed Sex and Gender Information Value Date Recorded Sex Assigned at Not on file Gender Identity Not on file Sexual Orientation Not on file documented as of this encounter Miscellaneous Notes * Miscellaneous Scans - Document, Scanned - 11/09/2009 2:38 PM CDT * Miscellaneous Scans - Document, Scanned - 10/10/2009 12:00 AM CDT * Miscellaneous Scans - Document, Scanned - 10/10/2009 12:00 AM CDT * Miscellaneous Scans - Document, Scanned - 10/10/2009 12:00 AM CDT documented in this encounter Plan of Treatment Pending Results Name Type Priority Associated Diagnoses Date /Time LAB MISC TEST Lab Routine 10/10/2009 12:15 PM CDT CALL/FAX/TEST RESULTS Lab Routine 11/2009 12:15 PM CDT documented as of this encounter Procedures Procedure Name Priority Date/Time Associated Diagnosis Comments LAB MISC TEST Routine 10/10/2009 12:15 PM CDT CALL/FAX/TEST RESULTS Routine 10/10/2009 12:15 PM CDT documented in this encounter Visit Diagnoses Not on filedocumented in this encounter Care Teams Corrugator Machine Operator Relationship Specialty Start Date End Date None, Pcp [place] [address] PCP - General 10/10/09 documented as of this encounter
--- OUTSIDE RECORDS SUMMARY | 2024-03-24 01:43 | XMS_ITS | Encounter Summary ---
Author Organization [facility] Address [address] [place] [address]. [place], [place] [id number] [place] [address] Care Team Providers Care Hand Former Name Role Phone Zeus Vo MD Primary Care Provider [phone] Reason for Visit * Reason Comments Hypertension Encounter Details Date Type Department Care Team (Late st Contact Info) Description 02/11/2024 3:20 PM UPHOLSTERER APPRENTICE Office Visit [facility] Mult[facility] Care - [place] [address] [place] [address] Kiara Estrada, ASSISTANT STORE MANAGER [address] [facility] [address] [place] [address] Hypertension Social History Tobacco Use Types Packs/Day Years [...] Recorded Patient Health Questionnaire-2 Score 0 07/22/2022 [facility] - Occupational Stress Questionnaire Answer Date Recorded [...] Sign Reading Time Taken Comments Blood Pressure 142/102 02/11/2024 3:52 PM UPHOLSTERER APPRENTICE Pulse 73 02/11/2024 3:23 PM UPHOLSTERER APPRENTICE Temperature 36.8 ??C (98.2 ??F) 02/11/2024 3:23 PM CS T Respiratory Rate 18 02/11/2024 3:23 PM UPHOLSTERER APPRENTICE Oxygen Saturation 97% 02/11/2024 3:23 PM UPHOLSTERER APPRENTICE Inhaled Oxygen Concentration - - Weight 109.8 kg (242 lb) 02/11/2024 3:23 PM UPHOLSTERER APPRENTICE Height 175.3 cm (5' 9 ) 02/11/2024 3:23 PM UPHOLSTERER APPRENTICE Body Mass Index 35.74 02/11/2024 3:23 PM UPHOLSTERER APPRENTICE documented in this encounter Patient Instructions * Patient Instructions* Kiara Estrada NP - 02/11/2024 3:20 PM UPHOLSTERER APPRENTICE Losartan once daily in the morning Monitor BP at nurses office Follow up in April Fasting labs before appointment LSTERER APPRENTICE documented in this encounter Progress Notes * Kiara Estrada NP - 02/11/2024 3:20 PM CSTSummary: annual physical Images from the original note were not included. ANNUAL PHYSICAL NOTES Encounter Date: 02/11/2024 Chief Complaint: 48-year-old male presents for Hypertension . HPI: The patient is being seen for a health maintenance evaluation. The last health maintenance exam wasover one year ago. 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 Parekh Nose/mouth mask, wears intermittent trouble tolerating Gout Intermittent flares every few years Patient Active Problem List Diagnosis Primary hypertension Fatigue Obese Elevated liver enzymes HAYLEY (obstructive sleep apnea) Gout General Health: good Dental Health: Sees dentist regularly and Brushes regularly Vision Health: No vision correction Hearing Health: No hearing problems Immunizations Needed: UTD Weight: Overweight Body mass index is 35.74 kg/m??. Physical Activity: Excersises regularly and Acitve lifestyle - lifting 4 times weekly, not much cardio Prostate Cancer Screening: n/a, no family history Colorectal Cancer Screening: None Metabolic Screening: Patient has not been screened previously within the past year. HCV Screening: Patient does not meet criteria for screening PHQ-9 Screening Score: PHQ-9: 07/22/2022 7:29 AM 01/07/2022 8:32 AM PHQ2/PHQ 9 DEPRESSION SCREEN QUESTIONAIRE Little interest or pleasure in doing things Not at all Feeling down, depressed, or hopeless Not at all Patient Health Questionnaire-2 Score 0 How difficult have these problems made it for you to do your work, take care of things at home, or get along with other people? Not difficult at all LITTLE INTEREST OR PLEASURE IN DOING THINGS 0-Not at All FEELING DOWN, DEPRESSSED,OR HOPELESS 0-Not at All PHQ2 DEPRESSION TOTAL SCORE 0 CALEB-7 (Generalized Anxiety Disorder) Screening 05/14/2021 7:00 AM 07/22/2022 7:00 AM CAELB-7 Feeling nervous, anxious and on edge 2 - more than half the days 0 - not at all Not being able to stop or control worrying 0 - not at all 0 - not at all Worrying too much about different things 0 - not at all 0 - not at all Trouble Relaxing 0 - not at all 0 - not at all Being so restless that it's hard to sit still 0 - not at all 0 - not at all Becoming easily annoyed or irritable 0 - not at all 0 - not at all Feeling afraid as if something awful might happen 0 - not at all 0 - not at all Total Score 2 0 If you checked off any problems, how difficult have those problems made it for you to do your work take care of things at home or get along with other people? not difficult at all not difficult at all Smoking Status: History Smoking Status Never Smokeless Tobacco Never Patient does not meet criteria for Low Dose CT screening Sleep Apnea Risk Factors: has HAYLEY Review of Systems Constitutional: Negative. Negative for chills and fever. HENT: Negative. Eyes: Negative. Respiratory: Negative. Negative for cough and shortness of breath. Cardiovascular: Negative. Negative for palpitations and leg swelling. Gastrointestinal: Negative. Negative for abdominal pain, constipation, diarrhea, nausea and vomiting. Genitourinary: Negative. Musculoskeletal: Negative. Skin: Negative. Neurological: Negative. Psychiatric/Behavioral: Negative. Negative for depression. The patient is not nervous/anxious. Past Medical History: Diagnosis Date Essential (primary) hypertension Gout, unspecified HAYLEY (obstructive sleep apnea) Past Surgical History: Procedure Laterality Date NONE Family History Problem Relation Name Age of Onset Diabetes Father Fred Hall Diabetes Paternal Grandmother Allyn Hall Diabetes Paternal Grandfather Jorge Hall Social History Socioeconomic History Marital status: Spouse name: Not on file Number of children: Not on file Years of education: Not on file Highest education level: Not on file Occupational History Not on file Tobacco Use Smoking status: Never Smokeless tobacco: Never Tobacco comments: counseled by Dr Vo Vaping Use Vaping status: Never Used Substance and Sexual Activity Alcohol use: Yes Alcohol/week: 3.3 standard drinks of alcohol Types: 2 Cans of beer per week Drug use: Never Sexual activity: Yes Partners: Female Other Topics Concern Not on file Social History Narrative Not on file Social Drivers of Health Financial Resource Strain: Not on file Food Insecurity: Not on file Transportation Needs: Not on file Physical Activity: Unknown (03/21/2020) Exercise Vital Sign Days of Exercise per Week: 3 days Minutes of Exercise per Session: Not on file Stress: Stress Concern Present (03/21/2020) [facility] - Occupational Stress Questionnaire Feeling of Stress : To some extent Social Connections: Not on file Intimate Partner Violence: Not on file Housing Stability: Not on file Immunization History Administered Date(s) Administered Fluzone 6 Months+ Quad (0.5 mL Prefilled Syringe) 01/13/2020, 01/14/2020 Hepatitis B (Generic: Adult) 04/27/2000, 06/02/2000 Influenza Adult (Generic) 01/14/2020, 01/11/2021 MODERNA COVID-19 (12+) MRNA, LNP-S, PF, 100 MCG/ 0.5 ML DOSE 05/07/2020, 06/04/2020 Tdap (Adacel) 11/05/2020 Tdap (Generic) 04/05/2009, 04/05/2009 Current Outpatient Medications Medication Sig Dispense Refill CPAP DEVICE, DME, 1 Device by Does not apply route nightly at bedtime. Sending to [employer]. 1 Device 0 losartan (COZAAR) 25 MG tablet Take 1 tablet (25 mg total) by mouth daily. 30 tablet 2 No current facility-administered medications for this visit. Current Outpatient Medications on File Prior to Visit Medication Sig CPAP DEVICE, DME, 1 Device by Does not apply route nightly at bedtime. Sending to [facility]. No current facility-administered medications on file prior to visit. Review of patient's allergies indicates: Allergen Reactions Codeine Hyperactive Objective: Filed Vitals: 02/11/24 1523 02/11/24 1552 BP: (!) 138/92 (!) 142/102 Pulse: 73 Resp: 18 Temp: 98.2 ??F (36.8 ??C) TempSrc: Temporal SpO2: 97% Weight: 109.8 kg (242 lb) Height: 1.753 m (5' 9 ) Physical Exam Constitutional: Appearance: Normal appearance. HENT: Right Ear: Tympanic membrane and ear canal normal. Left Ear: Tympanic membrane and ear canal normal. Eyes: Pupils: Pupils are equal, round, and reactive to light. Neck: Thyroid: Thyromegaly present. Cardiovascular: Rate and Rhythm: Normal rate and regular rhythm. Heart sounds: Normal heart sounds. No murmur heard. Pulmonary: Effort: Pulmonary effort is normal. No respiratory distress. Breath sounds: Normal breath sounds. No wheezing. Abdominal: General: Abdomen is flat. Bowel sounds are normal. Palpations: Abdomen is soft. Tenderness: There is no abdominal tenderness. Musculoskeletal: Cervical back: Normal range of motion and neck supple. Right lower leg: No edema. Left lower leg: No edema. Lymphadenopathy: Cervical: Cervical adenopathy present. Right cervical: Superficial cervical adenopathy present. Left cervical: Superficial cervical adenopathy present. Skin: General: Skin is warm and dry. Neurological: General: No focal deficit present. Mental Status: He is alert. Psychiatric: Mood and Affect: Mood normal. Behavior: Behavior normal. Assessment & Plan: Manuel was seen today for hypertension. Diagnoses and all orders for this visit: Annual physical exam -Patient past medical, surgical, family history and social history updated. Allergies, immunizations and medications updated. Also did discuss healthy lifestyle including exercising, dietary changes and safe sexual practices as well as safe habits common to patient age group including wearing seat belt when transporting in a vehicle and limiting alcohol and avoiding smoking/second hand smoking. - Reviewed with the patient BMI, blood pressure, diet, exercise, and encouraged healthy lifestyle choices. Screened for substance use, risk factors for STIs, diet and exercise habits, and symptoms ofdepression. Emphasized normal blood pressure of < 140/90 and lipid and diabetes screening for all men > 35 or for men 20-34 with risk factors. Recommended US screening for AAA for all men 65-75 who have ever smoked. Recommended prostate screening. Colon screening starting at 45. Recommended preventive immunizations according to age. Order cologuard Vaccinations UTD Declines flu and covid vaccine Schedule nurse visit for labs - CBC W/DIFF AUTOMATED; Future - COMPREHENSIVE METABOLIC PANEL; Future - LIPID PANEL; Future - TSH W/REFLEX; Future - VITAMIN D, 25 OH; Future - URINALYSIS; Future Screening for colon cancer - COLOGUARD (EXACT SCIENCE) Gout, unspecified cause, unspecified chronicity, unspecified site Stable without treatment uses colchicine every few years for flare. Repeat level. - URIC ACID BLOOD; Future Elevated liver enzymes Repeat labs, alcohol intermittent not frequently Screening for diabetes mellitus - HEMOGLOBIN, GLYCOSYLATED; Future Primary hypertension Not controlled. Resume Losartan once daily. Monitor at home. Egfr reduced on last set of labs. Add microalbumin to labs. - losartan (COZAAR) 25 MG tablet; Take 1 tablet (25 mg total) by mouth daily. RTC in April to see PCP and follow up on blood pressure. Getting new insurance now has high deductible would like to discuss his left shoulder pain at follow up next year. Nurse visit for fasting labs I personally spent a total of 40 minutes on the day of the encounter. This includes [id number] and [id number]-face time I provided on the day of the encounter & excludes time spent performing separately reportable services. CARA: This dictation was at least in part performed using [employer] and there may be some inherent flaws in this health education teacher due to the nature of this program. KIARA ESTRADA NP 02/11/2024 [place], [place] LSTERER APPRENTICE documented in this encounter Plan of Treatment Upcoming Encounters Date Type Department Care Team (Late st Contact Info) Description 04/07/2024 7:40 AM UPHOLSTERER APPRENTICE Office Visit [facility] Multispecialty Care - [place] [address] [address] [place] [address] Zeus Vo MD [address] [facility] [address] [place], [place] [id number] Scheduled Orders Name Type Priority Associated Diagnoses Orde r Schedule COLOGUARD (EXACT SCIENCE) Microbiology Routine Screening for colon cancer Ordered: 02/11/2024 CBC W/DIFF AUTOMATED Lab Routine Annual physical exam Expected: 02/11/2024, Expires: 02/10/2025 COMPREHENSIVE METABOLIC PANEL Lab Routine Annual physical exam Expected: 02/11/2024, Expires: 02/10/2025 LIPID PANEL Lab Routine Annual physical exam Expected: 02/11/2024, Expires: 02/10/2025 TSH W/REFLEX Lab Routine Annual physical exam Expected: 02/11/2024, Expires: 02/10/2025 VITAMIN D, 25 OH Lab Routine Annual physical exam Expected: 02/11/2024, Expires: 02/10/2025 URINALYSIS Lab Routine Annual physical exam Expected: 02/11/2024, Expires: 02/10/2025 URIC ACID BLOOD Lab Routine Gout, unspecified cause, unspecified chronicity, unspecified site Expected: 02/11/2024, Expires: 02/10/2025 HEMOGLOBIN, GLYCOSYLATED Lab Routine Screening for diabetes mellitus Expected: 02/11/2024, Expires: 02/10/2025 ALBUMIN URINE RANDOM W/CREATININE Lab Routine Type 2 diabetes mellitus without complication, without long-term current use of insulin ([facility]) Expected: 02/11/2024, Expires: 02/10/2025 documented as of this encounter Procedures Procedure Name Priority Date/Time Associated Diagnosis Comments VENIPUNC ARM DRAW Routine 02/11/2024 4:00 PM UPHOLSTERER APPRENTICE Annual physical exam documented in this encounter Visit Diagnoses Diagnosis Annual physical exam- Primary Routine general medical examination at a health care facility Screening for colon cancer Special screening for malignant neoplasms, colon Gout, unspecified cause, unspecified chronicity, unspecified site Elevated liver enzymes Nonspecific elevation of levels of transaminase or lactic acid dehydrogenase (LDH) Screening for diabetes mellitus Primary hypertension Unspecified essential hypertension Type 2 diabetes mellitus without complication, without long-term current use of insulin ([facility]) documented in this encounter Additional Health Concerns Assessment Noted Time PHQ-9 Depression Total Score: 0 05/14/19 7:24 AM UPHOLSTERER APPRENTICE documented as of this encounter Care Teams Hand Former Relationship Specialty Start Date End Date Zeus Vo MD [address] [address] PCP - General INTERNAL MEDICINE 04/07/21 documented as of this encounter
--- OUTSIDE RECORDS SUMMARY | 2024-03-24 01:43 | XMS_ITS | Clinical Summary ---
Author Organization [facility] Address [address] [place] [address]. [place] [address] [place] [address] Care Team Providers Care Log Deckman Name Role Phone Zeus Vo MD Primary Care Provider [phone] Allergies Active Allergy Reactions Criticality Noted Date Comments Codeine Hyperactive 04/25/2016 Medications CPAP DEVICE, DME,Indications: HAYLEY (obstructive sleep apnea) 1 Device by Does not apply route nightly at bedtime. Sending to [employer] [facility] 08/07/19 22 Active losartan (COZAAR) 25 MG tabletIndication s:Primary hypertension Take 1 tablet (25 mg total) by mouth daily. 30 tablet 2 02/11/20 24 Active HYDROcodone-acet aminophen (NORCO) 5-325 MG tabletIndication s:Acute Pain < 7 Day Supply Take 1 tablet by mouth every 6 (six) hours as needed for Pain. Indications : Acute Pain < 7 Day Supply 28 tablet 03/22/20 24 Active diclofenac potassium (CATAFLAM) 50 MG tabletIndication s:Pain in lower jaw Take 1 tablet (50 mg total) by mouth 3 (three) times daily as needed. FOR PAIN 90 tablet 1 03/22/20 24 Active naproxen (NAPROSYN) 375 MG tablet Take 1 tablet (375 mg total) by mouth 2 (two) times daily with meals. 024 Discontinued ibuprofen (MOTRIN) 600 MG tabletIndication s:Right wrist pain,Right hand pain Take 1 tablet (600 mg total) by mouth every 6 (six) hours as needed for Pain. 120 tablet 1 03/15/20 24 024 Discontinued diclofenac potassium (CATAFLAM) 50 MG tablet Take 1 tablet (50 mg total) by mouth 3 (three) times daily as needed. FOR PAIN 03/19/20 024 Discontinued(Re order) HYDROcodone-acet aminophen (NORCO) 5-325 MG tablet Take 1 tablet by mouth every 6 (six) hours as needed for Pain. 03/19/20 24 024 Discontinued Active Problems Problem Noted Date Diagnosed Date HAYLEY (obstructive sleep apnea) 08/06/2021 Gout 08/06/2021 Elevated liver enzymes 05/15/2021 Primary hypertension 05/14/2021 Fatigue 05/14/2021 Obese 05/14/2021 Resolved Problems Problem Noted Date Diagnosed Date Resolved Date Overactive bladder 08/27/2020 Encounters Date Type Department Care Team Description 03/22/2024 12:40 PM HEAD COOK Office Visit [place] [address] [place] [address] [address] [place] [address] Pauline Estrada, MANAGER OF APPLICATION DEVELOPMENT ER F/U 03/22/2024 Travel 03/21/2024 Telephone [place] [address] [place] [address] [place] [address] Zeus Vo MD Results 03/17/2024 Telephone [place] [address] [place] [address] [place] [id number] Zeus Vo MD Referral 03/17/2024 Telephone [place] [address] [place] [address] [place] [address] Zeus Vo MD Information 03/15/2024 10:40 AM HEAD COOK Office Visit [place] [address] [place] [address] [place] [address] Pauline Estrada, MANAGER OF APPLICATION DEVELOPMENT ER F/U 03/15/2024 Travel 03/13/2024 Scan HEALTH INFO SRVCS Scanned, [facility] 02/11/2024 3:20 PM HEAD COOK Office Visit [facility]pec[facility] Care - [address] [place] [address] Pauline Estrada NP Hypertension 02/11/2024 Travel from Last 3 Months Immunizations Name Administration Dates Next Due Fluzone 6 Months+ Quad (0.5 mL Prefilled Syringe ) 01/14/2020,01/13/2020 Hepatitis B (Generic: Adult) 06/02/2000,04/27/19 Influenza Adult (Generic) 01/11/2021,01/14/2020 Tdap (Adacel) 11/05/2020 Tdap (Generic) 04/05/2009,04/05/2009 Family History Medical History Relation Comments Diabetes Father Diabetes Paternal Grandfather Diabetes Paternal Grandmother Relation Status Comments Father Paternal Grandfather Paternal Grandmother Social History Tobacco Use Types Packs/Day Years [...] Recorded Patient Health Questionnaire-2 Score 0 07/22/2022 [facility] [...] Sign Reading Time Taken Comments Blood Pressure 128/84 03/22/2024 3:40 PM HEAD COOK Pulse 77 03/22/2024 12:47 PM HEAD COOK Temperature 37 ??C (98.6 ??F) 03/22/2024 12:47 PM HEAD COOK Respiratory Rate 18 03/22/2024 12:47 PM HEAD COOK Oxygen Saturation 99% 03/22/2024 12:47 PM HEAD COOK Inhaled Oxygen Concentration - - Weight 108.9 kg (240 lb) 03/22/2024 12:47 PM HEAD COOK Height 175.3 cm (5' 9 ) 03/22/2024 12:47 PM HEAD COOK Body Mass Index 35.44 03/22/2024 12:47 PM HEAD COOK Plan of Treatment Upcoming Encounters Date Type Department Care Team (Late st Contact Info) Description 04/07/2024 7:40 AM HEAD COOK Office Visit [facility] Multispecialty Care - [place] [address] [address] [place] [address] [place] [address] [place] [address] [address] [place] [address] Health Maintenance Due Date Last Done Comments Colorectal Cancer Screening Colonoscopy (10 Years) 1976 Kidney Health Evaluation 1976 Pneumococcal Vaccine: Pediatrics (0 to 5 Years) and At-Risk Patients (6 to 64 Years) (1 of 2 - PCV) 1982 Diabetes: Retinopathy Eye Exam 1994 Hepatitis B Vaccines (3 of 3 - 19+ 3-dose series) 10/25/2000 06/02/2000, 04/27/2000 Hemoglobin A1C 01/21/2023 07/22/2022, 05/14/2021 Lipid Panel 07/23/2023 07/22/2022, 02/0 12/2021, 10/21/2020, Additional history exists COVID-19 Vaccine ( - season) 2023 06/04/2020, 05/07/2020 Influenza Adult (#1) 2024 01/11/2021, 01/14/2020, 01/14/2020, Additional history exists Annual Physical 02/10/2025 02/11/2024, 07/04, 05/14/2021, Additional history exists DTaP, Tdap and Td Vaccines (4 - Td or Tdap) 11/05/2030 11/05/2020, 04/05/2009, 04/05/2009 Hepatitis C Completed 05/14/2021 Meningococcal Vaccine Aged Out No beau jana eligible based on patient's age to complete this topic RSV Immunizations Under 20 Months Aged Out No longer eligible based on patient's age to complete this topic Procedures Procedure Name Priority Date/Time Associated Diagnosis Comments VENIPUNC ARM DRAW Routine 02/11/2024 4:0 0 PM HEAD COOK Annual physical exam LIPID PANEL Routine 07/22/2022 7:45 AM CDT Annual physical exam General medical exam Screening for hyperlipidemia Primary hypertension HEMOGLOBIN, GLYCOSYLATED Routine 07/22/2022 7:45 AM CDT Annual physical exam General medical exam Screening for diabetes mellitus Primary hypertension HEPATITIS C ANTIBODY Routine 05/14/2021 7:46 AM HEAD COOK Annual physical exam General medical exam Encounter for hepatitis C screening test for low risk patient from Last 3 Months or Most Recently Relevant to Health Maintenance Results * (ABNORMAL) HEMOGLOBIN, GLYCOSYLATED (07/22/2022 7:45 AM CDT) Pathologist [facility] HGB A1C 5.4 4.5 - 6.2 % 07/22/2022 4:20 PM CDT [facility] ESTIMATED AVG GLUCOSE 108(H) 74 - 106 MG/DL 07/22/2022 4:20 PM CDT [facility] 07/22/2022 7:45 AM CDT Zeus Vo MD LABORATORY Final Result [facility] [address] [place] [address], [place] [phone] * (ABNORMAL) LIPID PANEL (07/22/2022 7:45 AM CDT) [facility] CHOLESTEROL 165 <200 MG/DL 07/22/2022 4:20 PM CDT [facility] TRIGLYCERIDES 121 <150 MG/DL 07/22/2022 4:20 PM CDT [facility] HDL 37(L) >40 MG/DL 07/22/2022 4:20 PM CDT [facility] LDL-C 104(H) <100 MG/DL 07/22/2022 4:20 PM CDT [facility] VLDL CALCULATION 24 5 - 28 MG/DL 07/22/2022 4:20 PM CDT [facility] CHOL/HDL RATIO 4.5(H) 0.0 - 4.0 07/22/2022 4:20 PM CDT [facility] LDL/HDL 2.8(H) 0.41 - 2.13 07/22/2022 4:20 PM CDT [facility] NON HDL CHOLESTEROL 128 <140 MG/DL 07/22/2022 4:20 PM CDT [facility] 07/22/2022 7:45 AM CDT us Zeus Vo MD LABORATORY Final Result [facility] [address] [place] [address], * HEPATITIS C ANTIBODY (05/14/2021 7:46 AM HEAD COOK) Pathologist [facility] HEPATITIS C AB NON-REACTI VE NON-REACT ADAM 05/14/2021 8:31 PM HEAD COOK [facility] Comment: ANTIBODIES TO HCV NOT DETECTED. DOES NOT EXCLUDE THE POSSIBILITY OF EXPOSURE TO HCV. 05/14/2021 7:46 AM HEAD COOK us Zeus Vo MD LABORATORY Final Result [facility] [address] [place] [address], [id number] from Last 3 Months or Most Recently Relevant to Health Maintenance [place] [address] [place] [address] Care Teams Log Deckman Relationship Specialty Start Date End Date Zeus Vo MD [address] [address] PCP - General INTERNAL MEDICINE 04/07/21
--- OUTSIDE RECORDS SUMMARY | 2024-03-24 01:43 | XMS_ITS | Clinical Summary ---
Author Organization [facility] Address [address] [place] [address] Care Team Providers Care Intermediate Teacher Name Role Phone Unknown, Provider Primary Care Provider Unavaila ble Source Comments [facility],non-owned Affiliates and Associated Physician Practices is amultiple site organization consisting of ambulatory clinics and hospital sitesin [place], [place], [place] and [place]. This disclosure is being madepursuant to the Care Everywhere program and may not contain all information available regarding this patient. Last updated 17.[facility] Allergies Active Allergy Reactions Criticality Noted Date Comments Codeine 04/25/2016 Medications Be aware that medications may not [...] Comments Blood Pressure 104/72 04/25/2016 12:20 PM SOLE TRIMMER Pulse 87 04/25/2016 12:20 PM SOLE TRIMMER Temperature 36.5 ??C (97.7 ??F) 04/25/2016 12:[address] Respiratory Rate 16 04/25/2016 12:20 PM SOLE TRIMMER Oxygen Saturation 98% 04/25/2016 12:20 PM SOLE TRIMMER Inhaled Oxygen Concentration - - Weight 104.3 kg (230 lb) 04/25/2016 12:20 PM SOLE TRIMMER Height 175.3 cm (5' 9 ) 04/25/2016 12:20 PM SOLE TRIMMER Body Mass Index 33.97 04/25/2016 12:20 PM SOLE TRIMMER Plan of Treatment Health Maintenance Due Date Last Done Comments COLOGUARD (AGES 45-75) - COL ON CA SCREENING 1976 COLON MONITORING 1976 COLONOSCOPY - COLON CA SCREENING 1976 CT COLONOGRAPHY - COLON CA SCREENING 1976 Colorectal Cancer Screening 1976 FIT - COLON CA SCREENING 1976 FLEX SIG - COLON CA SCREENING 1976 LIPID TESTING 1976 HIV SCREENING 08/20/1991 HEPATITIS C SCREENING 08/15/1994 DTAP/TDAP/TD VACCINES (1 - Tdap) 08/20/1995 HEPATITIS B VACCINE (1 of 3 - 19+ 3-dose series) 08/20/1995 DEPRESSION SCREENING 04/05/2023 COVID-19 VACCINE (1 - 2023-2 5 season) 2023 INFLUENZA VACCINE (#1) 2023 ZOSTER VACCINE (1 of 2) 2026 HIB VACCINE Aged Out No longer eligi ble based on patient's age to complete this topic HPV VACCINE Aged Out No longer eligi ble based on patient's age to complete this topic MENINGOCOCCAL VACCINE Aged Out No beau jana eligible based on patient's age to complete this topic PNEUMOCOCCAL VACCINE Aged Out No long er eligible based on patient's age to complete this topic Care Teams Intermediate Teacher Relationship Specialty Start Date End Date Unknown, Provider PCP - General 04/25/16
--- OUTSIDE RECORDS SUMMARY | 2024-03-24 01:43 | XMS_ITS | Encounter Summary ---
Author Organization [facility] Address [address] [place] [address]. [place], [place] [address] [place] [address] Care Team Providers Care Mail Service Coordinator Name Role Phone Zeus Vo MD Primary Care Provider [phone] Encounter Details Date Type Department Care Team (Latest Contact Info) Description 07/01/2023 Travel Social History Tobacco Use Types Packs/Day [...] Recorded Patient Health Questionnaire-2 Score 0 07/22/2022 [facility] Occupat ional Health - Occupational [...] st Contact Info) Description 04/07/2024 7:40 AM METROLOGY MANAGER Office Visit [facility] Medical Group Multispecialty Care - [place] [address] [address] [place] [address] Zeus Vo MD [address] [place] [address] documented as of this encounter Visit Diagnoses Not on filedocumented in this encounter Additional Health Concerns Assessment Noted Time PHQ-9 Depression Total Score: 0 05/14/19 7:24 AM METROLOGY MANAGER documented as of this encounter Care Teams Mail Service Coordinator Relationship Specialty Start Date End Date Zeus Vo MD [address] [place] [address] PCP - General INTERNAL MEDICINE 04/07/21 documented as of this encounter
--- OUTSIDE RECORDS SUMMARY | 2024-03-24 01:43 | XMS_ITS | Referral Summary ---
Author Organization [facility] Address [address] [place] [address] Care Team Providers Care Water Trainer Name Role Phone Unknown, Provider Primary Care Provider Unavaila ble Source Comments [facility],non-owned Affiliates and Associated Physician Practices is amultiple site organization consisting of ambulatory clinics and hospital sitesin [place], [place], [place] and [place]. This disclosure is being madepursuant to the Care Everywhere program and may not contain all information available regarding this patient. Last updated 17.[facility] Allergies Active Allergy Reactions Criticality Noted Date [...] Comments Blood Pressure 104/72 04/25/2016 12:20 PM MACHINE SLAT BASKET MAKER Pulse 87 04/25/2016 12:20 PM MACHINE SLAT BASKET MAKER Temperature 36.5 ??C (97.7 ??F) 04/25/2016 12:[address] Respiratory Rate 16 04/25/2016 12:20 PM MACHINE SLAT BASKET MAKER Oxygen Saturation 98% 04/25/2016 12:20 PM MACHINE SLAT BASKET MAKER Inhaled Oxygen Concentration - - Weight 104.3 kg (230 lb) 04/25/2016 12:20 PM MACHINE SLAT BASKET MAKER Height 175.3 cm (5' 9 ) 04/25/2016 12:20 PM MACHINE SLAT BASKET MAKER Body Mass Index 33.97 04/25/2016 12:20 PM MACHINE SLAT BASKET MAKER Plan of Treatment Not on file Care Teams Water Trainer Relationship Specialty Start Date End Date Unknown, Provider PCP - General 04/25/16
--- OUTSIDE RECORDS SUMMARY | 2024-03-24 01:44 | XMS_ITS | Encounter Summary ---
Author Organization [facility] Address [address] [place] [address]. [place] [address] [place] [address] Care Team Providers Care Project Manager Industrial Name Role Phone Zeus Vo MD Primary Care Provider Reason for Visit * Reason Onset Date Comments Orders 01/07/2022 Encounter Details Date Type Department Care Team (Late st Contact Info) Description 01/07/2022 Telephone [facility] Medical Group Multispecialty Care - [facility] [address] [facility] [place] [phone] Daniel Parekh MD [address] [facility] [address] [place] [address] Orders Social History Tobacco Use Types Packs/Day Years [...] than monthly 03/21/2020 PHQ-2 Answer Date Recorded PHQ-2 Score - If the patient scores above 3, please move on to questions 3-9 0 01/07/2022 [facility] [place] [facility] - Occupational Stress [...] on file Sexual Orientation Not on file COVID-19 Exposure Response Date Recorded In the last 10 days, have yo u been in contact with someone who was confirmed or suspected to have Coronavirus/COVID-19? No / Unsure 01/07/2022 8:23 AM CDT documented as of this encounter Progress Notes * Cece [place] MA - 01/07/2022 8:54 AM CDT Order faxed to IV * Cece [place] MA - 01/07/2022 8:54 AM CDT ----- Message from Daniel Parekh MD sent at 01/07/2022 8:41 AM CDT ----- Regarding: Start autoCPAP Start autoCPAP 4-20 cmH2O. Daniel Parekh MD documented in this encounter Plan of Treatment Upcoming Encounters Date Type Department Care Team (Late st Contact Info) Description 04/07/2024 7:40 AM ELECTRICAL LINE WORKER Office Visit [facility] Medical Group Multispecialty Care - [place] [address] [address] [place] [address] Zeus Vo MD [address] [place] [address] [address] [place], [place] [phone] documented as of this encounter Visit Diagnoses Not on filedocumented in this encounter Additional Health Concerns Assessment Noted Time PHQ-9 Depression Total Score: 0 05/14/19 22 7:24 AM ELECTRICAL LINE WORKER documented as of this encounter Care Teams Project Manager Industrial Relationship Specialty Start Date End Date Zeus Vo MD [address] [address] PCP - General INTERNAL MEDICINE 04/07/21 documented as of this encounter
--- OUTSIDE RECORDS SUMMARY | 2024-03-24 01:44 | XMS_ITS | Encounter Summary ---
Author Organization [facility] Address [address] [place] [address]. [place], [place] [address] [place] [address] Care Team Providers Care Mandrel Maker Name Role Phone Zeus Vo MD Primary Care Provider [phone] Reason for Visit * Reason Comments Lab (SCAN) Encounter Details Date Type Department Care Team (Latest Contact Info) Description 08/31/2022 Scan HEALTH INFO [facility] Scanned, Doc Med Group Lab (SCAN) Social History Tobacco Use Types Packs/Day Years [...] Recorded Patient Health Questionnaire-2 Score 0 07/22/2022 [facility] - Occupational Stress Questionnaire Answer [...] st Contact Info) Description 04/07/2024 7:40 AM LINE OUT MAN Office Visit [facility] Medical Group Multispecialty Care - [place] [address] [address] [place] [address] Zeus Vo MD [address] [place] [address] documented as of this encounter Procedures Procedure Name Priority Date/Time Associated Diagnosis Comments OUTSIDE LAB COVID-19 (SCAN ORDER) Routine 08/31/2022 documented in this encounter Results * OUTSIDE LAB COVID-19 (SCAN) (08/31/2022) CORONAVIRUS SARS COV 2 PCR (RESP) NOT DETECTED HS ONBASE 08/31/2022 us Doc Med Group Scanned SCANNING Final Resu lt [facility] ONBASE documented in this encounter Visit Diagnoses Not on filedocumented in this encounter Additional Health Concerns Assessment Noted Time PHQ-9 Depression Total Score: 0 05/14/19 22 7:24 AM LINE OUT MAN documented as of this encounter Care Teams Mandrel Maker Relationship Specialty [place] [address] [place] [address] PCP - General INTERNAL MEDICINE 04/07/21 documented as of this encounter
--- OUTSIDE RECORDS SUMMARY | 2024-03-24 01:44 | XMS_ITS | Encounter Summary ---
Author Organization [facility] Address [address] [place] [address]. [place], [place] [address] [place] [address] Care Team Providers Care Engineering Clerk Name Role Phone Zeus Vo MD Primary Care Provider [phone] Reason for Visit * Reason Onset Date Comments Medication 07/27/2022 Encounter Details Date Type Department Care Team (Late st Contact Info) Description 07/27/2022 Telephone [facility] Medical Group Multispecialty Care - [place] [address] [address] [place], [place] [phone] Zeus Vo MD [address] [place] [address] [address] [place] [address] Medication Social History Tobacco Use Types Packs/Day Years [...] Recorded Patient Health Questionnaire-2 Score 0 07/22/2022 [facility] - Occupational Stress Questionnaire Answer Date [...] suspected to have Coronavirus/COVID-19? No / Unsure 07/22/2022 6:51 AM CDT documented as of this encounter Progress Notes * Chuyita Luu MA - 07/27/2022 12:55 PM CDT Pharmacy sent 2nd fax requesting Allopurinol 100mg , take 2 tabs daily * Chuyita Luu MA - 07/27/2022 7:38 AM CDT Pharmacy sent fax stating the Allopurinol needs to be sent in as generic for insurance to cover it documented in this encounter Plan of Treatment Upcoming Encounters Date Type Department Care Team (Late st Contact Info) Description 04/07/2024 7:40 AM ELECTRONICS PROCESSOR Office Visit [facility] Medical Group Multispecialty Care - [address] [place] [address] Zeus Vo MD [address] [place] [address] [address] [place] [address] documented as of this encounter Visit Diagnoses Diagnosis Gout, unspecified cause, unspecified chronicity, unspecified site- Primary Hyperuricemia Other abnormal blood chemistry documented in this encounter Additional Health Concerns Assessment Noted Time PHQ-9 Depression Total Score: 0 05/14/19 22 7:24 AM ELECTRONICS PROCESSOR documented as of this encounter Care Teams Engineering Clerk Relationship Specialty Start Date End Date Zeus Vo MD [address] [address] PCP - General INTERNAL MEDICINE 04/07/21 documented as of this encounter
--- OUTSIDE RECORDS SUMMARY | 2024-03-24 01:44 | XMS_ITS | Encounter Summary ---
Author Organization [facility] Address [address] [facility] [place], [place] [address] [place] [address] Care Team Providers Care Glue Size Machine Operator Name Role Phone Zeus Vo MD Primary Care Provider [phone] Reason for Visit * Reason Comments Obstructive Sleep Apnea Here to get CPAP * Consultation (Routine) - Closed Specialty Diagnoses / Procedures Referred By Contac t Referred To Contact SLEEP & RESPIRATORY CARE Diagnoses HAYLEY (obstructive sleep apnea) Zeus Vo MD [address] [facility] [address] [place] [address] Phone: tel: fax: Daniel Parekh MD [address] [facility] [address] [place] [address] Phone: tel: fax: Referral ID Status Reason Start Date Expiration Date V isits Requested Visits Authorized [id number] Closed Specialty Services 08/06/2021 09/05/2022 100 100 Encounter Details Date Type Department Care Team (Latest Contact Info) Description 01/07/2022 8:20 AM CDT Office Visit [facility] Medical [facility] Multispecialty Care - [facility] [address] [facility] [place] [address] Daniel Parekh MD [address] [facility] [address] [place] [address] Obstructive Sleep Apnea (Here to get CPAP ) Social History Tobacco Use Types Packs/Day [...] move on to questions 3-9 0 01/07/2022 [facility] Occupat ional Health - Occupational Stress [...] AM CDT documented as of this encounter Last Filed Vital Signs Vital Sign Reading Time Taken Comments Blood Pressure 116/80 01/07/2022 8:27 AM CDT Pulse 67 01/07/2022 8:27 AM CDT Temperature 36.7 ??C (98.1 ??F) 01/07/2022 8:27 AM CD T Respiratory Rate 12 01/07/2022 8:27 AM CDT Oxygen Saturation 98% 01/07/2022 8:27 AM CDT Inhaled Oxygen Concentration - - Weight 105.7 kg (233 lb) 01/07/2022 8:27 AM CDT Height 175.3 cm (5' 9 ) 01/07/2022 8:27 AM CDT Body Mass Index 34.41 01/07/2022 8:27 AM CDT documented in this encounter Progress Notes * Daniel Parekh MD - 01/07/2022 8:20 AM CDT [facility] PULMONARY MEDICINE History Chief Complaint Patient presents with ??? Obstructive Sleep Apnea Here to get CPAP Referring provider: MD Manuel Ibarra Marquise Hall is a 46-year-old male with a past medical history of hypertension who is referred to pulmonary clinic for evaluation of obstructive sleep apnea. He describes his sleep as horrible. He goes to bed between 10 and 10:30 PM. He wakes of the day around 5:45 in the morning. Notes that he wakes up a few times throughout the night either to use therestroom or because of the feels uncomfortable. He does not feel refreshed in the morning. 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 He has never fallen asleep while driving. Notes dry mouth in the morning. Deniesmorning headaches. Endorses snoring and witnessed apnea. Denies snort arousals. Never smoker. 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 Past Medical History: Diagnosis Date ??? Essential (primary) hypertension ??? Gout, unspecified ??? HAYLEY (obstructive sleep apnea) Past Surgical History: Procedure Laterality Date ??? NONE Social History Tobacco Use ??? Smoking status: Never Smoker ??? Smokeless tobacco: Never Used ??? Tobacco comment: counseled by Dr Vo Vaping Use ??? Vaping Use: Never used Substance Use Topics ??? Alcohol use: Yes Alcohol/week: 3.3 standard drinks Types: 2 Cans of beer per week ??? Drug use: Never Family History Problem Relation Name Age of Onset ??? Diabetes Father ??? Diabetes Paternal Grandmother ??? Diabetes Paternal Grandfather Current Outpatient Medications Medication Sig Dispense Refill ??? allopurinol (ZYLOPRIM) 100 MG tablet Take 1 tablet (100 mg total) by mouth daily. 90 tablet 2 ??? lisinopril (PRINIVIL) 40 MG tablet Take 1 tablet (40 mg total) by mouth daily. 90 tablet 1 ??? CPAP DEVICE, DME, 1 Device by Does not apply route nightly at bedtime. Sending to [facility]. 1 Device 0 ??? phentermine (ADIPEX-P) 37.5 MG tablet Take one tablet every other morning 30 min with water only before breakfast. 30 tablet 0 No current facility-administered medications for this visit. Allergies Allergen Reactions ??? Codeine Hyperactive Immunization History Administered Date(s) Administered ??? Fluzone 6 Months+ Quad (0.5 mL Prefilled Syringe) 01/13/2020, 01/14/2020 ??? Hepatitis B (Generic: Adult) 04/27/2000, 06/02/2000 ??? Influenza Adult (Generic) 01/14/2020, 01/11/2021 ??? MODERNA COVID-19, MRNA, LNP-S, PF, 100 MCG/ 0.5 ML DOSE 05/07/2020, 06/04/2020 ??? Tdap (Adacel) 11/05/2020 ??? Tdap (Generic) 04/05/2009, 04/05/2009 Review of Systems Constitutional: Negative for chills, fever and weight loss. HENT: Negative for ear pain, hearing loss and nosebleeds. Eyes: Negative for blurred vision, double vision and redness. Respiratory: Negative for cough, hemoptysis, sputum production, shortness of breath and wheezing. Cardiovascular: Negative for chest pain, palpitations, orthopnea, leg swelling and PND. Gastrointestinal: Negative for heartburn, nausea and vomiting. Genitourinary: Negative for dysuria, frequency and urgency. Musculoskeletal: Negative for myalgias. Skin: Negative for rash. Neurological: Negative for dizziness, tingling and headaches. Endo/Heme/Allergies: Does not bruise/bleed easily. Psychiatric/Behavioral: Negative for depression and suicidal ideas. Physical Exam Filed Vitals: 01/07/22 0827 BP: 116/80 Pulse: 67 Resp: 12 Temp: 98.1 ??F (36.7 ??C) TempSrc: Temporal SpO2: 98% Weight: 105.7 kg (233 lb) Height: 5' 9 (1.753 m) Body mass index is 34.41 kg/m??. Physical Exam: General: Alert, pleasant, in NAD Neuro: Alert, appropriate Psych: Affect normal Head: NC, AT EENT: No Sinus tenderness to palpation, mallampati 4 Neck: Supple Lymph: No appreciable cervical lymphadenopathy Respiratory: non-labored, ctab, no wheezes/crackles Cardiovascular: s1,s2, rrr, no audible murmur GI: non-distended, bs+ Musc: Bilateral wrist ROM wnl Ext: no edema, no clubbing Skin: No visible rashes, No visible tattoos Sleep Studies: 07/01/2021 home sleep study AHI 54.7/h Pertinent Labs Reviewed [place] Sleepiness Scale Score: No flowsheet data found. Assessment 1. Severe obstructive sleep apnea 2. Hypertension Plan -Start auto CPAP 4 to 20 cm H2O - Use distilled water - Change the mask and straps, tubing every 3 to 6 months Return in about 6 months (around 07/08/2022). Daniel Parekh MD documented in this encounter Plan of Treatment Upcoming Encounters Date Type Department Care Team (Late st Contact Info) Description 04/07/2024 7:40 AM WAITER/WAITRESS CABIN CLASS Office Visit [facility] Medical Group Multispecialty Care - [place] [address] [address] [place] [address] Zeus Vo MD [address] [place] [address] documented as of this encounter Visit Diagnoses Diagnosis HAYLEY (obstructive sleep apnea)- Primary Obstructive sleep apnea (adult) (pediatric) documented in this encounter Additional Health Concerns Assessment Noted Time PHQ-9 Depression Total Score: 0 05/14/19 7:24 AM WAITER/WAITRESS CABIN CLASS documented as of this encounter Care Teams Glue Size Machine Operator Relationship Specialty Start Date End Date Zeus Vo MD [address] [place] [address] PCP - General INTERNAL MEDICINE 04/07/21 documented as of this encounter
--- OUTSIDE RECORDS SUMMARY | 2024-03-24 01:44 | XMS_ITS | Encounter Summary ---
Author Organization [facility] Address [address] [place] [address]. [place], [place] [address] [place] [address] Care Team Providers Care Anaesthesiologist Name Role Phone Zeus Vo MD Primary Care Provider [phone] Reason for Visit * Reason Onset Date Comments Follow Up Call 11/07/2021 Encounter Details Date Type Department Care Team (Late st Contact Info) Description 11/07/2021 Telephone [facility] Medical Group Multispecialty Care - [place] [address] [address] [place] [address] Zeus Vo MD [address] [place] [address] 157 [place] [address] Follow Up Call Social History Tobacco Use Types Packs/Day Years [...] please move on to questions 3-9 0 05/14/2021 [facility] [place] of Occupat ional Health - Occupational Stress [...] suspected to have Coronavirus/COVID-19? No / Unsure 11/05/2021 10:15 AM CDT documented as of this encounter Progress Notes * Zeus Vo MD - 11/07/2021 4:12 PM CDT I called patient. All questions answered. Has not been consistent with taking his allopurinol. Decrease allopurinol to 100 mg daily. We will plan to check uric acid levels in 3 months. Zeus Vo MD Internal Medicine [facility]. documented in this encounter Plan of Treatment Upcoming Encounters Date Type Department Care Team (Late st Contact Info) Description 04/07/2024 7:40 AM BOX TOE STITCHER Office Visit [facility] Multispecialty Care - [place] [address] [address] [place] [address] Zeus Vo MD [address] [place] [address] documented as of this encounter Visit Diagnoses Diagnosis Hyperuricemia Other abnormal blood chemistry documented in this encounter Additional Health Concerns Assessment Noted Time PHQ-9 Depression Total Score: 0 05/14/19 22 7:24 AM BOX TOE STITCHER documented as of this encounter Care Teams Anaesthesiologist Relationship Specialty Start Date End Date Zeus Vo MD [address] [place] [address] PCP - General INTERNAL MEDICINE 04/07/21 documented as of this encounter
--- OUTSIDE RECORDS SUMMARY | 2024-03-24 01:44 | XMS_ITS | Encounter Summary ---
Author Organization [facility] Address [address] [place] [address]. [place], [place] [address] [place] [id number] Care Team Providers Care Police Sergeant Precinct Name Role Phone Zeus Vo MD Primary Care Provider [phone] Reason for Visit * Reason Comments Respiratory Symptoms Exposed to COVID 19 Encounter Details Date Type Department Care Team (Latest Contact Info) Description 03/03/2022 1:00 PM KENO MANAGER Office Visit [facility] Multispecialty Care - [place] [address] [address] [address] [place] [address] Zeus Vo MD [address] [place] [address] [address] [place], [place] [id number] Respiratory Symptoms (Exposed to COVID 19) Social History Tobacco Use Types Packs/Day Years [...] move on to questions 3-9 0 01/07/2022 [facility] [place] of Occupat ional Health - Occupational Stress [...] suspected to have Coronavirus/COVID-19? No / Unsure 03/03/2022 12:52 PM KENO MANAGER documented as of this encounter Last Filed Vital Signs Vital Sign Reading Time Taken Comments Blood Pressure 157/91 03/03/2022 8:11 PM KENO MANAGER Pulse 96 03/03/2022 1:33 PM KENO MANAGER Temperature 36.8 ??C (98.2 ??F) 03/03/2022 1:33 PM CS T Respiratory Rate 18 03/03/2022 1:33 PM KENO MANAGER Oxygen Saturation 98% 03/03/2022 1:33 PM KENO MANAGER Inhaled Oxygen Concentration - - Weight 107.5 kg (237 lb) 03/03/2022 1:33 PM KENO MANAGER Height 175.3 cm (5' 9 ) 03/03/2022 1:33 PM KENO MANAGER Body Mass Index 35 03/03/2022 1:33 PM KENO MANAGER documented in this encounter Patient Instructions * Attachments The following attachments cannot be sent through Care Everywhere. * Cough Discharge Instructions, Adult (Jamaican) documented in this encounter Progress Notes * Zeus Vo MD - 03/03/2022 1:00 PM CSTSummary: Acute visit notes Images from the original note were not included. Internal Medicine Outpatient Progress Note CC: Respiratory Symptoms (Exposed to COVID 19) HPI: Manuel Hall is a 46-year-old male who presents for acute concerns for acute respiratory symtpoms that started about four days ago. According to patient, her girlfriend recently came down with respiratory symptoms and upon subsequent testing was also positive for COVID-19. He tells me he was around girlfriend during all this while. Started to experience sinus congestion with a productive cough that is thick and dark greenish in color. Has since felt very congested and fatigued. No concerns for shortness of breath or chest tightness with breathing. Notes heaviness in the sinuses. No fever or chills. Notes associated headache with a mild sore throat. He also noticed loss of voice. Gi isauro persistent nature of symptoms, patient decided to report today. He has tried conservative management without any significant improvement. His blood pressures are noted to be elevated at today's visit. Patient tells me he has been taking all his medications for his blood pressure as directed. Problem List Patient Active Problem List Diagnosis ??? Primary hypertension ??? Fatigue ??? Obese ??? Elevated liver enzymes ??? HAYLEY (obstructive sleep apnea) ??? Gout Past Medical History: Diagnosis Date ??? Essential (primary) hypertension ??? Gout, unspecified ??? HAYLEY (obstructive sleep apnea) Past Surgical History: Procedure Laterality Date ??? NONE Family History Problem Relation Name Age of Onset ??? Diabetes Father ??? Diabetes Paternal Grandmother ??? Diabetes Paternal Grandfather Social History Tobacco Use ??? Smoking status: Never ??? Smokeless tobacco: Never ??? Tobacco comments: counseled by Dr Vo Vaping Use ??? Vaping Use: Never used Substance Use Topics ??? Alcohol use: Yes Alcohol/week: 3.3 standard drinks Types: 2 Cans of beer per week ??? Drug use: Never Medications: Outpatient Medications Marked as Taking for the 03/03/22 encounter (Office Visit) with Zeus Vo MD Medication Sig Dispense Refill ??? allopurinol (ZYLOPRIM) 100 MG tablet Take 1 tablet (100 mg total) by mouth daily. 90 tablet 2 ??? amoxicillin-clavulanate (AUGMENTIN) 875-125 MG tablet Take 1 tablet (875 mg total) by mouth 2 (two) times daily for 7 days. 14 tablet 0 ??? benzonatate (TESSALON PERLES) 100 MG capsule Take 1 capsule (100 mg total) by mouth 3 (three) times daily as needed for Cough. 20 capsule 0 ??? CPAP DEVICE, DME, 1 Device by Does not apply route nightly at bedtime. Sending to [employer]. 1 Device 0 ??? lisinopril (PRINIVIL) 40 MG tablet Take 1 tablet (40 mg total) by mouth daily. 90 tablet 1 ??? methylPREDNISolone, RAMIN, (MEDROL DOSEPAK) 4 MG tablet 6 TABLETS ON DAY ONE, 5 TABLETS DAY TWO, 4 TABLETS DAY THREE, 3 TABLETS DAY FOUR, 2 TABLETS DAY FIVE, AND 1 TABLET DAY SIX 1 each 0 ??? phentermine (ADIPEX-P) 37.5 MG tablet Take one tablet every other morning 30 min with water only before breakfast. 30 tablet 0 ??? pseudoephedrine-guaiFENesin ER (MUCINEX D) 60-600 MG TABLET SR 12 HR 12 hr tablet Take 1 tabletby mouth 2 (two) times daily. 30 tablet 0 Allergies: Allergies Allergen Reactions ??? Codeine Hyperactive Review of Systems Constitutional: Negative for chills, diaphoresis, fever, malaise/fatigue and weight loss. HENT: Positive for congestion, sinus pain and sore throat. Negative for ear discharge, ear pain, hearing loss, nosebleeds and tinnitus. Eyes: Negative. Respiratory: Positive for cough and sputum production. Negative for hemoptysis, shortness of breath, wheezing and stridor. Cardiovascular: Negative for chest pain, palpitations, orthopnea, claudication, leg swelling and PND. Gastrointestinal: Negative. Genitourinary: Negative. Musculoskeletal: Negative. Skin: Negative. Objective: Filed Vitals: 03/03/22 1333 03/03/222010 BP: (!) 157/91 (!) 157/91 Pulse: 96 Resp: 18 Temp: 98.2 ??F (36.8 ??C) TempSrc: Temporal SpO2: 98% Weight: 107.5 kg (237 lb) Height: 5' 9 (1.753 m) Body mass index is 35 kg/m??. General alert, cooperative, no distress HEENT [...] adenopathy Assessment and Plan: Encounter Diagnose(s) ICD-10-CM ICD-9-CM SNOMED CT(R) 1. Acute maxillary sinusitis, recurrence not specified J01.00 461.0 ACUTE MAXILLARY SINUSITIS methylPREDNISolone, RAMIN, (MEDROL DOSEPAK) 4 MG tablet benzonatate (TESSALON PERLES) 100 MG capsule amoxicillin-clavulanate (AUGMENTIN) 875-125 MG tablet pseudoephedrine-guaiFENesin ER (MUCINEX D) 60-600 MG TABLET SR 12 HR 12 hr tablet CORONAVIRUS (COVID-19) INFLUENZA A & B ANTIGEN IA PANEL CORONAVIRUS (COVID 19) PCR RAPID STREP A CULTURE STREP A (MG/SJS/SMD Only) CULTURE STREP A (MG/SJS/SMD Only) CORONAVIRUS (COVID 19) PCR 2. Exposure to confirmed case of COVID-19 Z20.822 V01.79 EXPOSURE TO SARS-COV-2 CORONAVIRUS (COVID-19) INFLUENZA A & B ANTIGEN IA PANEL CORONAVIRUS (COVID 19) PCR CORONAVIRUS (COVID 19) PCR 1. Acute maxillary sinusitis, recurrence not specified - methylPREDNISolone, RAMIN, (MEDROL DOSEPAK) 4 MG tablet; 6 TABLETS ON DAY ONE, 5 TABLETS DAY TWO, 4TABLETS DAY THREE, 3 TABLETS DAY FOUR, 2 TABLETS DAY FIVE, AND 1 TABLET DAY SIX Dispense: 1 each; Refill: 0 - benzonatate (TESSALON PERLES) 100 MG capsule; Take 1 capsule (100 mg total) by mouth 3 (three) times daily as needed for Cough. Dispense: 20 capsule; Refill: 0 - amoxicillin-clavulanate (AUGMENTIN) 875-125 MG tablet; Take 1 tablet (875 mg total) by mouth 2 (two) times daily for 7 days. Dispense: 14 tablet; Refill: 0 - pseudoephedrine-guaiFENesin ER (MUCINEX D) 60-600 MG TABLET SR 12 HR 12 hr tablet; Take 1 tablet by mouth 2 (two) times daily. Dispense: 30 tablet; Refill: 0 - CORONAVIRUS (COVID-19) INFLUENZA A & B ANTIGEN IA PANEL - CORONAVIRUS (COVID 19) PCR; Future - RAPID STREP A - CULTURE STREP A (MG/SJS/SMD Only); Future - CULTURE STREP A (MG/SJS/SMD Only) - CORONAVIRUS (COVID 19) PCR 2. Exposure to confirmed case of COVID-19 - CORONAVIRUS (COVID-19) INFLUENZA A & B ANTIGEN IA PANEL - CORONAVIRUS (COVID 19) PCR; Future - CORONAVIRUS (COVID 19) PCR Counseling given: Yes Tobacco comments: counseled by Dr Vo I spent 30 minutes today reviewing the patient's medical record, obtaining history, performing an exam, ordering medications, tests, and/or procedures, documenting in the medical record, referring and/or communicating with other health care providers, counseling and educating the patient, reviewingand communicating test results and coordinating care. Side effects and less common but more severe adverse effects of recommended medical therapies were explained to the patient. Requested MyChart or telephone follow up prn if symptoms change, worsen, or persist, or if side effect of treatment is experienced. DRAGON: This dictation was at least in part performed using SkyPhrase and there may be some inherent flaws in this metal sponge making machine operator due to the nature of this program. Zeus Vo MD Internal Medicine [facility], [facility]. MANAGER documented in this encounter Plan of Treatment Upcoming Encounters Date Type Department Care Team (Late st Contact Info) Description 04/07/2024 7:40 AM KENO MANAGER Office Visit [facility] Medical Group Multispecialty Care - [place] [address] [address] [place] [address] Zeus Vo MD [address] [place] [address] documented as of this encounter Procedures Procedure Name Priority Date/Time Associated Diagnosis Comments CULTURE STREP A Routine 03/03/2022 2:54 PM KENO MANAGER Acute maxillary sinusitis, recurrence not specified CORONAVIRUS (COVID 19) PCR Routine 03/03/2022 2:54 PM KENO MANAGER Acute maxillary sinusitis, recurrence not specified Exposure to confirmed case of COVID-19 CORONAVIRUS (COVID-19) INFLUENZA A & B ANTIGEN IA PANEL Routine 03/03/2022 Acute maxillary sinusitis, recurrence not specified Exposure to confirmed case of COVID-19 RAPID STREP A Routine 03/03/2022 Acute maxillary sinusitis, recurrence not specified documented in this encounter Results * CULTURE STREP A (MG/SJS/SMD Only) (03/03/2022 2:54 PM KENO MANAGER) SPEC DESCRIPTION THROAT 03/03/2022 2:55 PM KENO MANAGER [facility] SPECIAL REQUESTS NO SPECIAL REQUEST 03/03/2022 2:55 PM KENO MANAGER [facility] CULTURE RESULT NO STREPTOCOCCUS PYOGENES (GROUP A) ISOLATED 03/06/2022 2:16 PM KENO MANAGER [facility] THROAT SWAB / Unknown 03/03/2022 2:54 PM KENO MANAGER 03/04/2022 2:31 PM KENO MANAGER Zeus Vo MD MICROBIOLOGY - GENERAL ORDERABLE S Final Result [facility] [address] [place] [address], [id number] * CORONAVIRUS (COVID 19) PCR (03/03/2022 2:54 PM KENO MANAGER) SPEC DESCRIPTION NASAL 03/03/20 2:55 PM KENO MANAGER [facility] () [facility] CORONAVIRUS SARS COV 2 PCR (RESP) NEGATIVE NEGATIVE 03/05/2022 1:12 AM KENO MANAGER [facility] Comment: THE SARS-CoV-2 TEST HAS BEEN AUTHORIZED BY THE FDA UNDER AN EUA FOR USE BY AUTHORIZED LABORATORIES. PERFORMED BY NUCLEIC ACID AMPLIFICATION PCR FIRST TEST NO 03/03/2022 2:55 PM [facility] EMPLOYED IN HEALTHCARE NO 03/03/2022 2:55 PM [facility] SYMPTOMATIC DEFINED BY CDC YES 03/03/2022 2:55 PM KENO MANAGER [facility] DATE OF SYMPTOM ONSET 2022030203/03/2022 2:55 PM KENO MANAGER [facility] HOSPITALIZATION STATUS NO 03/03/2022 2:55 PM [facility] PATIENT IN ICU NO 03/03/2022 2:55 PM [facility] RESIDENT OF [facility] CARE NO 03/03/2022 2:55 PM [facility] NASOPHARYNGEAL SWAB / Unknown 03/03/2022 2:54 PM KENO MANAGER Zesu Vo MD MICROBIOLOGY - GENERAL ORDERABLE S Final Result [facility] [address] [place] [address], [place] [phone] * RAPID STREP A (03/03/2022) [facility] RAPID STREP TEST NEGATIVE NEGATIVE [address], [place] Internal Control: VALID VALID [address], [place] STRUCTURE OF ANTERIOR PORTION OF NECK / Unknown 03/03/2022 Zeus oV MD MICROBIOLOGY - GENERAL ORDERABLE S Final Result Performing Organization Address City/[facility]/ZIP Co de Phone Number [id number], [place] [address] [place] [address], [place] [phone] * CORONAVIRUS (COVID-19) INFLUENZA A & B ANTIGEN IA PANEL (03/03/2022) CORONAVIRUS ANTIGEN IA NEGATIVE NEGATIVE [id number], [place] INFLUENZA A NEGATIVE NEGATIVE [address], [place] INFLUENZA B NEGATIVE NEGATIVE MG[address], [place] Internal Control: VALID VALID [address], [place] NASAL STRUCTURE / Unknown 03/03/2022 us Zeus Vo MD MICROBIOLOGY - GENERAL ORDERABLE S Final Result [address], [place] [address] [facility] [address] [place] [address], documented in this encounter Visit Diagnoses Diagnosis Acute maxillary sinusitis, recurrence not specified- Primary Exposure to confirmed case of COVID-19 documented in this encounter Additional Health Concerns Assessment Noted Time PHQ-9 Depression Total Score: 0 05/14/19 22 7:24 AM KENO MANAGER documented as of this encounter Care Teams Police Sergeant Precinct Relationship Specialty Start Date End Date Zeus Vo MD [address] [facility] [address] [place] [address] PCP - General INTERNAL MEDICINE 04/07/21 documented as of this encounter
--- OUTSIDE RECORDS SUMMARY | 2024-03-24 01:44 | XMS_ITS | Encounter Summary ---
Author Organization [facility] Address [address] [place] [address]. [place], [place] [address] [place] [address] Care Team Providers Care Social Work Faculty Member Name Role Phone Zeus Vo MD Primary Care Provider [phone] Reason for Visit * Reason Comments Hypertension Sleep Apnea Gout Encounter Details Date Type Department Care Team (Latest Contact Info) Description 04/21/2022 7:20 AM PROJECT ENGINEERING MANAGER Office Visit [facility] Medical Group Multispecialty Care - [place] [address] [address] [place] [address] Zeus Vo MD [address] [place] [address] [address] [place] [address] Hypertension; Sleep Apnea; Gout Social History Tobacco Use Types Packs/Day Years [...] move on to questions 3-9 0 01/07/2022 [facility] [place] of Occupat ional Health - Occupational Stress [...] suspected to have Coronavirus/COVID-19? No / Unsure 04/21/2022 7:16 AM PROJECT ENGINEERING MANAGER documented as of this encounter Last Filed Vital Signs Vital Sign Reading Time Taken Comments Blood Pressure 141/86 04/21/2022 7:42 AM PROJECT ENGINEERING MANAGER Pulse 69 04/21/2022 7:24 AM PROJECT ENGINEERING MANAGER Temperature 36.4 ??C (97.5 ??F) 04/21/2022 7:24 AM CS T Respiratory Rate 18 04/21/2022 7:24 AM PROJECT ENGINEERING MANAGER Oxygen Saturation 96% 04/21/2022 7:24 AM PROJECT ENGINEERING MANAGER Inhaled Oxygen Concentration - - Weight 109.6 kg (241 lb 9.6 oz) 04/21/2022 7:24 AM PROJECT ENGINEERING MANAGER Height 175.3 cm (5' 9 ) 04/21/2022 7:24 AM PROJECT ENGINEERING MANAGER Body Mass Index 35.68 04/21/2022 7:24 AM PROJECT ENGINEERING MANAGER documented in this encounter Patient Instructions * Patient Instructions* Zeus Vo MD - 04/21/2022 7:20 AM PROJECT ENGINEERING MANAGER Follow-up in 3 months for your annual physical. Please come fasting during that visit. ECT ENGINEERING MANAGER * Attachments The following attachments cannot be sent through Care Everywhere. * Lowering Your Risk of High Blood Pressure (Yi) documented in this encounter Progress Notes * Zeus Vo MD - 04/21/2022 7:20 AM CSTSummary: Follow up notes Images from the original note were not included. Internal Medicine Outpatient Progress Note CC: Hypertension, Sleep Apnea, and Gout HPI: Manuel Hall is a 46-year-old male who presents for follow-up for uncontrolled hypertension. Previously, patient was on lisinopril 40 mg daily and medication was changed in March 2022 from lisinopril to losartan hydrochlorothiazide 100-12.5 mg daily. He comes in today for follow-up forhis uncontrolled hypertension. Patient tells me he has been taking medications as directed without side effects. Denies any concerns for lightheadedness. Denies any concerns with chest pain at rest or with activity, shortness of breath, palpitations or ankle swelling. Blood pressure at today's visit is still uncontrolled. Home blood pressures average 110/70 mmhg. Not a known diabetic and currently does not follow with cardiology. Of note, patient with sleep apnea currently on CPAP. He tells me he has been using his machine as directed most days but misses using other days. He follows with Dr Parekh and missed his April 2022 appointment. ?? Patient is also here for follow-up for hyperuricemia. He is currently on allopurinol 100 mg daily. His last gout flare was some time last year. He tells me he has since not taken his alloupurinol in the last 30 days. We discussed taking his medications as directed. Will defer checking his uric acidlevels today and check during his next visit. Problem List Patient Active Problem List Diagnosis [...] Outpatient Medications Marked as Taking for the 04/21/22 encounter (Office Visit) with Zeus Vo MD Medication Sig Dispense Refill ??? allopurinol (ZYLOPRIM) 100 MG tablet Take 1 tablet (100 mg total) by mouth daily. 90 tablet 2 ??? CPAP DEVICE, DME, 1 Device by Does not apply route nightly at bedtime. Sending to [employer]. 1 Device 0 ??? valsartan-hydroCHLOROthiazide (DIOVAN-HCT) 320-12.5 MG tablet Take 1 tablet by mouth daily. 90 tablet 1 Allergies: Allergies Allergen Reactions ??? Codeine Hyperactive Review of Systems Constitutional: Negative for chills, diaphoresis, fever, malaise/fatigue and weight loss. HENT: Negative. Eyes: Negative. Respiratory: Negative. Cardiovascular: Negative for chest pain, palpitations, orthopnea, claudication, leg swelling and PND. Gastrointestinal: Negative. Genitourinary: Negative. Musculoskeletal: Negative. Neurological: Negative. Psychiatric/Behavioral: Negative. Objective: Filed Vitals: 04/21/22 0724 04/21/22 0742 BP: (!) 146/87 (!) 141/86 Pulse: 69 Resp: 18 Temp: 97.5 ??F (36.4 ??C) TempSrc: Temporal SpO2: 96% Weight: 109.6 kg (241 lb 9.6 oz) Height: 5' 9 (1.753 m) Body mass index is 35.68 kg/m??. General alert, cooperative, no distress HEENT [...] Encounter Diagnose(s) ICD-10-CM ICD-9-CM SNOMED CT(R) 1. Primary hypertension I10 401.9 ESSENTIAL HYPERTENSION valsartan- hydroCHLOROthiazide (DIOVAN-HCT)320-12.5 MG tablet 2. HAYLEY (obstructive sleep apnea) G47.33 327.23 OBSTRUCTIVE SLEEP APNEA SYNDROME 3. Gout, unspecified cause, unspecified chronicity, unspecified site M10.9 274.9 GOUT 4. Hyperuricemia E79.0 790.6 HYPERURICEMIA allopurinol (ZYLOPRIM) 100 MG tablet 1. Primary hypertension -Patient blood pressure still uncontrolled - Patient currently uncontrolled on current treatment for hypertension. Will continue and adjust medications as ordered. Continued to discuss weight loss, adequate cardiovascular fitness. DASH diet was discussed as well as decrease in sodium intake. BP goal of < 140/90 expressed. - Lifestyle modification including dietary changes to include less saturated fats, lean meat, more vegetables and exercise at least 30 min every day. -Changed to valsartan-hydroCHLOROthiazide (DIOVAN-HCT) 320-12.5 MG tablet; Take 1 tablet by mouth daily. Dispense: 90 tablet; Refill: 1 2. HAYLEY (obstructive sleep apnea) -CPAP usage compliance encouraged. Currently not as compliant as he would have wished to be. Follow-up with pulmonary as planned for future appointments. Patient encouraged to continue to work on weight loss. 3. Gout, unspecified cause, unspecified chronicity, unspecified site -Stable with no acute flares. Has been off his medications for the past 1 month. No recent flares. His last flareup was many months ago. Encouraged to take his allopurinol as directed. Will defer checking uric acid levels and check during subsequent visits. 4. Hyperuricemia -Continue allopurinol (ZYLOPRIM) 100 MG tablet; Take 1 tablet (100 mg total) by mouth daily. Dispense: 90 tablet; Refill: 2 Counseling given: Yes Tobacco comments: counseled by [...] was at least in part performed using Tebla and there may be some inherent flaws in this photographic reproduction technician due to the nature of this program. Zeus Vo MD Internal Medicine [facility], [facility]. ECT ENGINEERING MANAGER documented in this encounter Plan of Treatment Upcoming Encounters Date Type Department Care Team (Late st Contact Info) Description 04/07/2024 7:40 AM PROJECT ENGINEERING MANAGER Office Visit [facility] Medical Group Multispecialty [facility] [place] - [place] [address] [address] [place] [address] Zeus Vo MD [address] [place] [address] documented as of this encounter Visit Diagnoses Diagnosis Primary hypertension- Primary Unspecified essential hypertension HAYLEY (obstructive sleep apnea) Obstructive sleep apnea (adult) (pediatric) Gout, unspecified cause, unspecified chronicity, unspecified site Hyperuricemia Other abnormal blood chemistry documented in this encounter Additional Health Concerns Assessment Noted Time PHQ-9 Depression Total Score: 0 05/14/19 7:24 AM PROJECT ENGINEERING MANAGER documented as of this encounter Care Teams Social Work Faculty Member Relationship Specialty Start Date End Date Zeus Vo MD [address] [place] [address] PCP - General INTERNAL MEDICINE 04/07/21 documented as of this encounter
--- OUTSIDE RECORDS SUMMARY | 2024-03-24 01:44 | XMS_ITS | Encounter Summary ---
Author Organization [facility] Address [address] [place] [address]. [place], [place] [address] [place] [address] Care Team Providers Care Hosiery Mender Name Role Phone Zeus Vo MD Primary Care Provider [phone] Encounter Details Date Type Department Care Team (Latest Contact Info) Description 03/13/2022 Travel Social History Tobacco Use Types Packs/Day [...] move on to questions 3-9 0 01/07/2022 [facility] [place] of Occupat ional Health - Occupational Stress [...] suspected to have Coronavirus/COVID-19? No / Unsure 03/13/2022 7:19 AM GRINDER OUTSIDE DIAMETER documented as of this encounter Plan of Treatment Upcoming Encounters Date Type Department Care Team (Late st Contact Info) Description 04/07/2024 7:40 AM GRINDER OUTSIDE DIAMETER Office Visit [facility] Medical Group Multispecialty Care - [place] [address] [address] [place] [address] Zeus Vo MD [address] [place] [phone] documented as of this encounter Visit Diagnoses Not on filedocumented in this encounter Additional Health Concerns Assessment Noted Time PHQ-9 Depression Total Score: 0 05/14/19 7:24 AM GRINDER OUTSIDE DIAMETER documented as of this encounter Care Teams Hosiery Mender Relationship Specialty Start Date End Date Zeus Vo MD [address] [place] [address] [phone] PCP - General INTERNAL MEDICINE 04/07/21 documented as of this encounter
--- OUTSIDE RECORDS SUMMARY | 2024-03-24 01:44 | XMS_ITS | Encounter Summary ---
Author Organization [facility] Address [address] [place] [address]. [place], [place] [id number] [place] [address] Care Team Providers Care Lsat Instructor Name Role Phone Zeus Vo MD Primary Care Provider Encounter Details Date Type Department Care Team (Late st Contact Info) Description 11/05/2021 [employer] Message Enc [facility] Multispecialty Care - [address] [place] [address] Zeus Vo MD [address] [place] [address] [address] [place] [address] Order for CPAP Social History Tobacco Use Types Packs/Day Years [...] move on to questions 3-9 0 05/14/2021 [facility] [place] of Occupat ional Health - Occupational Stress [...] AM CDT documented as of this encounter Plan of Treatment Upcoming Encounters Date Type Department Care Team (Late st Contact Info) Description 04/07/2024 7:40 AM CHEF DE PARTIE Office Visit [facility] Multispecialty Care - [address] [address] [address] [place] [address] Zeus Vo MD [address] [place] [address] documented as of this encounter Visit Diagnoses Not on filedocumented in this encounter Additional Health Concerns Infection Onset Date Last Indicated Resolved Time COVID-19 Rule Out 03/03/2022 03/03/2022 03/03/2022 2:54 PM CHEF DE PARTIE COVID-19 Rule Out 03/03/2022 03/03/2022 03/05/2022 1:12 AM CHEF DE PARTIE Assessment Noted Time PHQ-9 Depression Total Score: 0 05/14/19 7:24 AM CHEF DE PARTIE documented as of this encounter Care Teams Lsat Instructor Relationship Specialty Start Date End Date Zeus Vo MD [address] [place] [address] PCP - General INTERNAL MEDICINE 04/07/21 documented as of this encounter
--- OUTSIDE RECORDS SUMMARY | 2024-03-24 01:44 | XMS_ITS | Encounter Summary ---
Author Organization [facility] Address [address] [place] [address]. [place], [place] [id number] [place] [address] Care Team Providers Care Auto Radiator Mechanic Name Role Phone Zeus Vo MD Primary Care Provider Encounter Details Date Type Department Care Team (Latest Contact Info) Description 12/09/2022 Scan [facility] Scanned, Doc [...] Recorded Patient Health Questionnaire-2 Score 0 07/22/2022 [facility] [place] of Occupat ional Health - Occupational Stress [...] st Contact Info) Description 04/07/2024 7:40 AM FLANGE TURNER Office Visit [facility] [place] [facility] Multispecialty [place] [address] [address] [address] [place] [address] Zeus Vo MD [address] [place] [address] documented as of this encounter Visit Diagnoses Not on filedocumented in this encounter Additional Health Concerns Assessment Noted Time PHQ-9 Depression Total Score: 0 05/14/19 7:24 AM FLANGE TURNER documented as of this encounter Care Teams Auto Radiator Mechanic Relationship Specialty Start Date End Date Zeus oV MD [address] [place] [address] PCP - General INTERNAL MEDICINE 04/07/21 documented as of this encounter
--- OUTSIDE RECORDS SUMMARY | 2024-03-24 01:44 | XMS_ITS | Encounter Summary ---
Author Organization [facility] Address [address] [place] [address]. [place] [address] [place] [address] Care Team Providers Care Pillar Man Name Role Phone Zeus Vo MD Primary Care Provider [phone] Reason for Visit * Reason Onset Date Comments Appointment Request 01/29/2022 Encounter Details Date Type Department Care Team (Late st Contact Info) Description 01/29/2022 Telephone [facility] Multispecialty Care - [facility] [address] [facility] [place] [phone] Daniel Parekh MD [address] [facility] [address] [place] [address] Appointment Request Social History Tobacco Use Types Packs/Day Years [...] move on to questions 3-9 0 01/07/2022 [facility] of Occupat ional Health - Occupational Stress [...] as of this encounter Progress Notes * Ana Maria Bell CRT - 01/29/2022 11:28 AM CDT called patient and LMOM stating that his appointment with Dr. Parekh 06/2022 will be cancelled since he needs to be seen sooner for CPAP compliance. Advised patient to call back to get rescheduled. - if patient calls back, please see if the patient can come in on 04/09/[address] at [address] Parekh at [facility] * Ana Maria Bell CRT - 01/29/2022 11:26 AM CDT Images from the original note were not included. documented in this encounter Plan of Treatment Upcoming Encounters Date Type Department Care Team (Late st Contact Info) Description 04/07/2024 7:40 AM SHELL SHOP SUPERVISOR Office Visit [facility] Multispecialty Care - [place] [address] [address] [address] [place] [address] Zeus Vo MD [address] [place] [address] [address] [place] [address] documented as of this encounter Visit Diagnoses Not on filedocumented in this encounter Additional Health Concerns Assessment Noted Time PHQ-9 Depression Total Score: 0 05/14/19 22 7:24 AM SHELL SHOP SUPERVISOR documented as of this encounter Care Teams Pillar Man Relationship Specialty Start Date End Date Zeus Vo MD [address] [facility] [address] [place] [address] PCP - General INTERNAL MEDICINE 04/07/21 documented as of this encounter
--- OUTSIDE RECORDS SUMMARY | 2024-03-24 01:44 | XMS_ITS | Encounter Summary ---
Author Organization [facility] Address [address] [place] [address]. [place], [place] [id number] [place] [address] Care Team Providers Care Stone Chimney Mason Name Role Phone Zeus Vo MD Primary Care Provider [phone] Encounter Details Date Type Department Care Team (Late st Contact Info) Description 09/04/2022 [employer] Message Enc [facility] Multispecialty Care - [place] [address] [address] [address] [place] [address] Zeus Vo MD [address] [place] [address] [address] [place] [address] Meds Social History Tobacco Use Types Packs/Day Years [...] Recorded Patient Health Questionnaire-2 Score 0 07/22/2022 [facility] [place] of Occupat ional Health - Occupational Stress [...] st Contact Info) Description 04/07/2024 7:40 AM DENTAL HYGIENE ADMINISTRATIVE ASSISTANT Office Visit [facility] Multispecialty [facility] - [place] [address] [address] [address] [place] [address] Zeus Vo MD [address] [place] [address] documented as of this encounter Visit Diagnoses Not on filedocumented in this encounter Additional Health Concerns Assessment Noted Time PHQ-9 Depression Total Score: 0 05/14/19 22 7:24 AM DENTAL HYGIENE ADMINISTRATIVE ASSISTANT documented as of this encounter Care Teams Stone Chimney Mason Relationship Specialty Start Date End Date Zeus Vo MD [address] [place] [address] PCP - General INTERNAL MEDICINE 04/07/21 documented as of this encounter
--- OUTSIDE RECORDS SUMMARY | 2024-03-24 01:44 | XMS_ITS | Encounter Summary ---
Author Organization [facility] Address [address] [place] [address]. [place], [place] [address] [place] [address] Care Team Providers Care Senior Ruby Developer Name Role Phone Zeus Vo MD Primary Care Provider [phone] Encounter Details Date Type Department Care Team (Latest Contact Info) Description 08/06/2021 Travel Social History Tobacco Use Types Packs/Day [...] move on to questions 3-9 0 05/14/2021 [facility] [place] of Occupat ional Health - Occupational Stress [...] suspected to have Coronavirus/COVID-19? No / Unsure 08/06/2021 6:57 AM CDT documented as of this encounter Plan of Treatment Upcoming Encounters Date Type Department Care Team (Late st Contact Info) Description 04/07/2024 7:40 AM SHIP PROPELLER FINISHER Office Visit [facility] Group Multispecialty Care - [place] [address] [address] [address] [place] [address] Zeus Vo MD [address] [place] [address] documented as of this encounter Visit Diagnoses Not on filedocumented in this encounter Additional Health Concerns Assessment Noted Time PHQ-9 Depression Total Score: 0 05/14/19 22 7:24 AM SHIP PROPELLER FINISHER documented as of this encounter Care Teams Senior Ruby Developer Relationship Specialty Start Date End Date Zeus Vo MD [address] [place] [address] PCP - General INTERNAL MEDICINE 04/07/21 documented as of this encounter
--- OUTSIDE RECORDS SUMMARY | 2024-03-24 01:44 | XMS_ITS | Encounter Summary ---
Author Organization [facility] Address [address] [place] [address]. [place], [place] [address] [place] [id number] Care Team Providers Care Bandoleer Packer Name Role Phone Zeus Vo MD Primary Care Provider [phone] Reason for Visit * Reason Comments Physical Follow Up Chronic medical issu es Encounter Details Date Type Department Care Team (Latest Contact Info) Description 07/22/2022 7:00 AM CDT Office Visit [facility] Multispecialty Care - [place] [address] [address] [place] [address] Zeus Vo MD [address] [place] [address] [address] [place], [place] [id number] Physical; Follow Up (Chronic medical issues) Social History Tobacco Use Types [...] Recorded Patient Health Questionnaire-2 Score 0 07/22/2022 [facility] [place] [facility] Occup[facility] ional Health - Occupational Stress [...] Sign Reading Time Taken Comments Blood Pressure 120/80 07/22/2022 7:29 AM CDT manual/148/86 machine Pulse 60 07/22/2022 7:09 AM CDT Temperature 36.6 ??C (97.8 ??F) 07/22/2022 7 :09 AM CDT Respiratory Rate 18 07/22/2022 7:09 AM CDT Oxygen Saturation 98% 07/22/2022 7:0 9 AM CDT Inhaled Oxygen Concentration - - Weight 105.9 kg (233 lb 6.4 oz) 07/22/2022 7:09 AM CDT Height 175.3 cm (5' 9 ) 07/22/2022 7:09 AM CDT Body Mass Index 34.47 07/22/2022 7:09 AM CDT documented in this encounter Patient Instructions * Patient Instructions* Zeus Vo MD - 07/22/2022 7:00 AM CDT Follow up in 6 months from now. See me for your weight if you have any issues. * Attachments The following attachments cannot be sent through Care Everywhere. * Yearly Physical for Adults ([place] Citizen) documented in this encounter Progress Notes * Zeus Vo MD - 07/22/2022 7:00 AM CDTAddended by: ZEUS VO on: 07/22/2022 08:09 PM Modules accepted: Orders * Zeus Vo MD - 07/22/2022 7:00 AM CDTSummary: Annual physical notes Images from the original note were not included. ANNUAL PHYSICAL NOTES Encounter Date: 07/22/2022 Chief Complaint: 46-year-old male presents for Physical and Follow Up (Chronic medical issues) HPI The patient is being seen for a health maintenance evaluation and for follow-up of chronic medical issues. Hypertension Currently patient is on valsartan hydrochlorothiazide 320-25 mg and takes 1 tablet daily. Compliantwith medications without any adverse side effects. Denies any concerns for lightheadedness, chest pain at rest or with activity, shortness of breath, palpitations or ankle swelling. His home blood pressures usually average 1289/78 mmhg. He currently does not follow routinely with cardiology. Exercising regularly by mainly lifting weights. His blood pressure at today's visit is controlled. Hyperuricemia with gout Currently patient is on allopurinol 100 mg daily. His last uric acid levels was 9.5. Since then, patient has made significant dietary changes. No flareups of gout since his last blood work. Overall patient doing well and tolerating medications. Obstructive sleep apnea on CPAP He got his cpap from [employer] and has been on since February 2022. Has a referral to pulmonary and plans to call them to schedule his next follow-up. Patient has been using his CPAP machine as directed. He is working also on his weight. His weight at today's visit is 233 pounds. Obesity Currently patient weight at 233 pounds. Lost about 10 pounds since his heaviest weight in the last time. Currently exercising regularly by mainly lifting weights. Occasionally does jogging. No prior history of weight loss surgery. He was last on phentermine to help with weight loss around November 2021. Patient Active Problem List Diagnosis ??? Primary hypertension ??? Fatigue ??? Obese ??? Elevated liver enzymes ??? HAYLEY (obstructive sleep apnea) ??? Gout General Health: good Dental Health: Sees dentist regularly Vision Health: No vision correction Hearing Health: No hearing problems Immunizations Needed: COVID Weight: Obese Body mass index is 34.47 kg/m??. Physical Activity: Excersises regularly and Acitve lifestyle Prostate Cancer Screening: none Testicular Cancer Screening: None Colorectal Cancer Screening: Due and patient will complete his Cologuard at home Metabolic Screening: Patient needs to be screened today. HCV Screening: done PHQ-9 Screening Score: PHQ-9: 01/07/2022 8:32 AM 07/22/2022 7:29 AM PHQ2/PHQ 9 DEPRESSION SCREEN QUESTIONAIRE Little [...] Screening 05/14/2021 7:00 AM 07/22/2022 7:00 AM CALEB-7 Feeling nervous, anxious and on edge 2 [...] at all Smoking Status: History Smoking Status ??? Never Smokeless Tobacco ??? Never Patient does not meet criteria for Low Dose CT screening Sleep Apnea Risk Factors: None Review of Systems Constitutional: Negative for chills, diaphoresis, fever, malaise/fatigue and weight loss. HENT: Negative. Eyes: Negative. Respiratory: Negative. Cardiovascular: Negative for chest pain, palpitations, orthopnea, claudication, leg swelling and PND. Gastrointestinal: Negative. Genitourinary: Negative. Musculoskeletal: Negative. Neurological: Negative. Psychiatric/Behavioral: Negative. Past Medical History: Diagnosis Date ??? Essential (primary) hypertension ??? Gout, unspecified ??? HAYLEY (obstructive sleep apnea) Past Surgical History: Procedure Laterality Date ??? NONE Family History Problem Relation Name Age of Onset ??? Diabetes Father ??? Diabetes Paternal Grandmother ??? Diabetes Paternal Grandfather Social History Socioeconomic History ??? Marital status: Spouse name: Not on file ??? Number of children: Not on file ??? Years of education: Not on file ??? Highest education level: Not on file Occupational History ??? Not on file Tobacco Use ??? Smoking status: Never ??? Smokeless tobacco: Never ??? Tobacco comments: counseled by Dr Vo Vaping Use ??? Vaping Use: Never used Substance and Sexual Activity ??? Alcohol use: Yes Alcohol/week: 3.3 standard drinks Types: 2 Cans of beer per week ??? Drug use: Never ??? Sexual activity: Yes Other Topics Concern ??? Not on file Social History Narrative ??? Not on file Social Determinants of Health Financial Resource Strain: Not on file Food Insecurity: Not on file Transportation Needs: Not on file Physical Activity: Not on file Stress: Not on file Social Connections: Not on file Intimate Partner Violence: Not on file Housing Stability: Not on file Immunization History Administered Date(s) Administered ??? Fluzone 6 Months+ Quad (0.5 mL Prefilled Syringe) 01/13/2020, 01/14/2020 ??? Hepatitis B (Generic: Adult) 04/27/2000, 06/02/2000 ??? Influenza Adult (Generic) 01/14/2020, 01/11/2021 ??? MODERNA COVID-19, MRNA, LNP-S, PF, 100 MCG/ 0.5 ML DOSE 05/07/2020, 06/04/2020 ??? Tdap (Adacel) 11/05/2020 ??? Tdap (Generic) 04/05/2009, 04/05/2009 Current Outpatient Medications Medication Sig Dispense Refill ??? allopurinol (ZYLOPRIM) 100 MG tablet Take 1 tablet (100 mg total) by mouth daily. 90 tablet 2 ??? CPAP DEVICE, DME, 1 Device by Does not apply route nightly at bedtime. Sending to [facility]. 1 Device 0 ??? valsartan-hydroCHLOROthiazide (DIOVAN-HCT) 320-25 MG tablet Take 1 tablet by mouth daily. 90 tablet 1 No current facility-administered medications for this visit. Current Outpatient Medications on File Prior to Visit Medication Sig ??? CPAP DEVICE, DME, 1 Device by Does not apply route nightly at bedtime. Sending to [facility]. No current facility-administered medications on file prior to visit. Allergies Allergen Reactions ??? Codeine Hyperactive Objective: Filed Vitals: 07/22/22 0709 07/22/22 0729 BP: (!) 153/86 120/80 Pulse: 60 Resp: 18 Temp: 97.8 ??F (36.6 ??C) TempSrc: Temporal SpO2: 98% Weight: 105.9 kg (233 lb 6.4 oz) Height: 5' 9 (1.753 m) Physical Exam Vitals and nursing note reviewed. Constitutional: General: He is not in acute distress. Appearance: He is normal weight. He is not ill-appearing, toxic-appearing or diaphoretic. HENT: Head: Normocephalic and atraumatic. Right Ear: Tympanic membrane, ear canal and external ear normal. There is no impacted cerumen. Left Ear: Tympanic membrane, ear canal and external ear normal. There is no impacted cerumen. Nose: Nose normal. Mouth/Throat: Mouth: Mucous membranes are moist. Pharynx: Oropharynx is clear. No oropharyngeal exudate. Eyes: General: No scleral icterus. Right eye: No discharge. Left eye: No discharge. Conjunctiva/sclera: Conjunctivae normal. Pupils: Pupils are equal, round, and reactive to light. Neck: Thyroid: No thyromegaly. Vascular: No carotid bruit or JVD. Trachea: No tracheal deviation. Cardiovascular: Rate and Rhythm: Normal rate and regular rhythm. Pulses: Normal pulses. Heart sounds: Normal heart sounds. No murmur heard. No friction rub. No gallop. Pulmonary: Effort: Pulmonary effort is normal. No respiratory distress. Breath sounds: Normal breath sounds. No stridor. No wheezing, rhonchi or rales. Chest: Chest wall: No tenderness. Abdominal: General: Bowel sounds are normal. There is no distension. Palpations: Abdomen is soft. There is no mass. Tenderness: There is no abdominal tenderness. There is no right CVA tenderness, left CVA tenderness, guarding or rebound. Hernia: No hernia is present. Musculoskeletal: General: No swelling, tenderness, deformity or signs of injury. Normal range of motion. Cervical back: Normal range of motion and neck supple. No rigidity or tenderness. Right lower leg: No edema. Left lower leg: No edema. Lymphadenopathy: Cervical: No cervical adenopathy. Skin: General: Skin is warm. Coloration: Skin is not jaundiced or pale. Findings: No bruising, erythema, lesion or rash. Neurological: Mental Status: He is alert and oriented to person, place, and time. Cranial Nerves: No cranial nerve deficit. Sensory: No sensory deficit. Motor: No weakness or abnormal muscle tone. Coordination: Coordination normal. Gait: Gait is intact. Gait normal. Deep Tendon Reflexes: Reflexes are normal and symmetric. Reflexes normal. Psychiatric: Mood and Affect: Mood and affect normal. Behavior: Behavior normal. Thought Content: Thought content normal. Cognition and Memory: Memory normal. Judgment: Judgment normal. Assessment & Plan: Manuel was seen today for physical and follow up. Diagnoses and all orders for this visit: Annual physical exam - Patient past medical, surgical, family history and social history updated. Allergies, immunizations and medications updated. Also did discuss healthy lifestyle including exercising, dietary changes and safe sexual practices as well as safe habits common to patient age group including wearing seat belt when transporting in a vehicle and limiting alcohol and avoiding smoking/second hand smoking. Patient will set up [employer]. Patient will fax over any remaining outside records that would be relevant to care provided. Complete cologuard. He is not interested in getting Covid booster shots at this time. - VENIPUNC ARM DRAW - CBC W/DIFF AUTOMATED; Future - COMPREHENSIVE METABOLIC PANEL; Future - LIPID PANEL; Future - TSH W/REFLEX; Future - HEMOGLOBIN, GLYCOSYLATED; Future - URINALYSIS AUTO DIP - URIC ACID BLOOD; Future - ALBUMIN URINE RANDOM - URIC ACID BLOOD - HEMOGLOBIN, GLYCOSYLATED - TSH W/REFLEX - LIPID PANEL - COMPREHENSIVE METABOLIC PANEL - CBC W/DIFF AUTOMATED General medical exam - Patient past medical, surgical, family history and social history updated. Allergies, immunizations and medications updated. Also did discuss healthy lifestyle including exercising, dietary changes and safe sexual practices as well as safe habits common to patient age group including wearing seat belt when transporting in a vehicle and limiting alcohol and avoiding smoking/second hand smoking. Patient will set up [employer]. Patient will fax over any remaining outside records that would be relevant to care provided. - VENIPUNC ARM DRAW - CBC W/DIFF AUTOMATED; Future - COMPREHENSIVE METABOLIC PANEL; Future - LIPID PANEL; Future - TSH W/REFLEX; Future - HEMOGLOBIN, GLYCOSYLATED; Future - URINALYSIS AUTO DIP - URIC ACID BLOOD; Future - ALBUMIN URINE RANDOM - URIC ACID BLOOD - HEMOGLOBIN, GLYCOSYLATED - TSH W/REFLEX - LIPID PANEL - COMPREHENSIVE METABOLIC PANEL - CBC W/DIFF AUTOMATED Screening for diabetes mellitus - HEMOGLOBIN, GLYCOSYLATED; Future - URINALYSIS AUTO DIP - ALBUMIN URINE RANDOM - HEMOGLOBIN, GLYCOSYLATED Screening for hyperlipidemia - LIPID PANEL; Future - LIPID PANEL Screening for hypothyroidism - TSH W/REFLEX; Future - TSH W/REFLEX Primary hypertension - Controlled - Patient currently controlled on current treatment for hypertension. Will continue. Continued to discuss weight loss, adequate cardiovascular fitness. DASH diet was discussed as well as decrease in sodium intake. BP goal of < 140/90 expressed. - Lifestyle modification including dietary changes to include less saturated fats, lean meat, more vegetables and exercise at least 30 min every day. - CBC W/DIFF AUTOMATED; Future - COMPREHENSIVE METABOLIC PANEL; Future - LIPID PANEL; Future - TSH W/REFLEX; Future - HEMOGLOBIN, GLYCOSYLATED; Future - URINALYSIS AUTO DIP - valsartan-hydroCHLOROthiazide (DIOVAN-HCT) 320-25 MG tablet; Take 1 tablet by mouth daily. - HEMOGLOBIN, GLYCOSYLATED - TSH W/REFLEX - LIPID PANEL - COMPREHENSIVE METABOLIC PANEL - CBC W/DIFF AUTOMATED Elevated liver enzymes - CBC W/DIFF AUTOMATED; Future - COMPREHENSIVE METABOLIC PANEL; Future - COMPREHENSIVE METABOLIC PANEL - CBC W/DIFF AUTOMATED HAYLEY (obstructive sleep apnea) - continue to use CPAP - Follow up with pulmonary- call to schedule an appointment - Weight loss encouraged - This patient should maintain good sleep hygiene techniques, maintain a consistent sleep/wake schedule with adequate hours of sleep, and avoid hazardous activities when sleepy. The patient should becautioned about factors that may potentially exacerbate snoring and sleep-related problems, such asCNS depressants, especially at bedtime. Gout, unspecified cause, unspecified chronicity, unspecified site - Doing well and no recent flare up - URIC ACID BLOOD; Future - Goal uric acid of less than 6.0 - For now continue with allopurinol (ZYLOPRIM) 100 MG tablet; Take 1 tablet (100 mg total) by mouthdaily. - URIC ACID BLOOD Class 1 obesity due to excess calories with serious comorbidity and body mass index (BMI) of 34.0 to 34.9 in adult - -Pt has elevated weight with BMI Body mass index is 34.47 kg/m??., and will need to work hard on reducing carbohydrates and total calories. -You may use the free smart phone apps such as [employer]is[employer] to help track calories and try to [...] per week and 5 pounds per month. - he will follow up sooner if having difficulty with weight loss Hyperuricemia - Checking uric acid today; will aim for uric acid levels of less than 6.0 - continue allopurinol (ZYLOPRIM) 100 MG tablet; Take 1 tablet (100 mg total) by mouth daily. I personally spent a total of 50 minutes on the day of the encounter. This includes [id number] and gub-fufo-by-face time I provided on the day of the encounter & excludes time spent performing separately reportable services. CARA: This dictation was at least in part performed using Jamn and there may be some inherent flaws in this brim stitcher due to the nature of this program. MD Zeus BRUNNER MD Internal Medicine [facility], [facility] [place]. 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 Office Visit [facility] Multispecialty Care - [place] [address] [facility] [address] [place] [address] Zeus Vo MD [address] [facility] [address] [place] [address] documented as of this encounter Procedures Procedure Name Priority Date/Time Associated Diagnosis Comments TSH W/REFLEX Routine 07/22/2022 7:45 AM CDT Annual physical exam General medical exam Screening for hypothyroidism Primary hypertension HEMOGLOBIN, GLYCOSYLATED Routine 07/22/2022 7:45 AM CDT Annual physical exam General medical exam Screening for diabetes mellitus Primary hypertension COMPREHENSIVE METABOLIC PANEL Routine 07/22/2022 7:45 AM CDT Annual physical exam General medical exam Primary hypertension Elevated liver enzymes LIPID PANEL Routine 07/22/2022 7:45 AM CDT Annual physical exam General medical exam Screening for hyperlipidemia Primary hypertension CBC W/DIFF AUTOMATED Routine 07/22/2022 7:45 AM CDT Annual physical exam General medical exam Primary hypertension Elevated liver enzymes URIC ACID BLOOD Routine 07/22/2022 7:45 AM CDT Annual physical exam General medical exam Gout, unspecified cause, unspecified chronicity, unspecified site VENIPUNC ARM DRAW Routine 07/22/2022 7:2 4 AM CDT Annual physical exam General medical exam URINALYSIS AUTO DIP Routine 07/22/2022 Annual physical exam General medical exam Screening for diabetes mellitus Primary hypertension ALBUMIN URINE RANDOM W/CREATININE Routine 07/22/2022 Annual physical exam General medical exam Screening for diabetes mellitus documented in this encounter Results * (ABNORMAL) URIC ACID BLOOD (07/22/2022 7:45 AM CDT) URIC ACID 8.4(H) 3.5 - 7.2 MG/DL 07/22/2022 3:55 PM CDT [facility] 07/22/2022 7:45 AM CDT us Zeus Vo MD LABORATORY Final Result Performing Organization Address [facility]/ZIP Co de Phone Number [facility] [address] [place] [address], [place] [phone] * (ABNORMAL) HEMOGLOBIN, GLYCOSYLATED (07/22/2022 7:45 AM CDT) HGB A1C 5.4 4.5 - 6.2 % 07/22/2022 4:20 PM CDT [facility] ESTIMATED AVG GLUCOSE 108(H) 74 - 106 MG/DL 07/22/2022 4:20 PM CDT [facility] 07/22/2022 7:45 AM CDT us Zeus Vo MD LABORATORY Final Result Performing Organization Address [facility] Co de Phone Number [place] [address] [place] [address], [place] [phone] * TSH W/REFLEX (07/22/2022 7:45 AM CDT) TSH 1.992 0.358 - 3.740 uIU/ML 07/22/2022 4:20 PM CDT [facility] 07/22/2022 7:45 AM CDT us Zeus Vo MD LABORATORY Final Result Performing Organization Address City/[facility]/ZIP Co de Phone Number [facility] [address] [place] [address], [place] [phone] * (ABNORMAL) LIPID PANEL (07/22/2022 7:45 AM CDT) CHOLESTEROL 165 <200 MG/DL 07/22/2022 4:20 PM CDT [facility] TRIGLYCERIDES 121 <150 MG/DL 07/22/2022 4:20 PM CDT [facility] HDL 37(L) >40 MG/DL 07/22/2022 4:20 PM CDT [facility] LDL-C 104(H) <100 MG/DL 07/22/2022 4:20 PM CDT [facility] VLDL CALCULATION 24 5 - 28 MG/DL 07/22/2022 4:20 PM CDT [facility] CHOL/HDL RATIO 4.5(H) 0.0 - 4.0 07/22/2022 4:20 PM CDT [facility] LDL/HDL 2.8(H) 0.41 - 2.13 07/22/2022 4:20 PM CDT [facility] NON HDL CHOLESTEROL 128 <140 MG/DL 07/22/2022 4:20 PM CDT [facility] 07/22/2022 7:45 AM CDT Zeus Vo MD LABORATORY Final Result [facility] [address] [place] [address], * (ABNORMAL) COMPREHENSIVE METABOLIC PANEL (07/22/2022 7:45 AM CDT) SODIUM S/P/B 141 136 - 145 MMOL/L 07/22/2022 4:20 PM CDT [facility] POTASSIUM S/P/B 4.3 3.5 - 5.1 MMOL/L 07/22/2022 4:20 PM CDT [facility] CHLORIDE S/P/B 106 98 - 107 MMOL/L 07/22/2022 4:20 PM CDT -[facility] CO2 23.7 21 - 32 MMOL/L 07/22/2022 4:20 PM T [facility] GLUCOSE 89 70 - 99 MG/DL 07/22/2022 4:20 PM T -[facility] BUN 11 7 - 18 MG/DL 07/22/2022 4:20 PM CDT [facility] CREATININE S/P/B 1.17 0.70 - 1.30 MG/DL 07/22/2022 4:20 PM T [facility] CALCIUM S/P/B 9.2 8.4 - 10.5 MG/DL 07/22/2022 4:20 PM T [facility] BILIRUBIN TOTAL S/P/B 1.0 0.2 - 1.0 MG/DL 07/22/2022 4:20 PM T [facility] ALKALINE PHOSPHATASE S/P/B 65 45 - 115 U/L 07/22/2022 4:20 PM CDT [facility] AST 37 15 - 37 U/L 07/22/2022 4:20 PM T [facility] ALT 69(H) 16 - 63 U/L 07/22/2022 4:20 PM T [facility] TOTAL PROTEIN S/P/B 7.4 6.4 - 8.2 G/DL 07/22/2022 4:20 PM CDT [facility] ALBUM[facility] S/P/B 4.3 3.4 - 5.0 G/DL 07/22/2022 4:20 PM T [facility] ANION GAP 11.3 5 - 15 MMOL/L 07/22/2022 4:20 PM T [facility] Comment:REFERENCE RANGE NOT ESTABLISHED OSMOLALITY (CALC) 291 MOSM/KG 023 4:20 PM CDT [facility] Comment:REFERENCE RANGE NOT ESTABLISHED GFR ESTIMATE 78(L) >90 ML/MIN/1. 73 M2 07/22/2022 4:20 PM CDT [facility] GFR NOTES GFR REFERENCE S: 07/22/2022 4:20 PM CDT [facility] Comment: THE ESTIMATED GFR IS CALCULATED USING THE 2020 CKD-EPI EQUATION. THE FOLLOWING CATEGORIES FOR GRADING RENAL FUNCTION ARE RECOMMENDED BY THE INTERNATIONAL SOCIETY OF NEPHROLOGY (KDIGO 2012 CLINICAL PRACTICE GUIDELINE). G1,NORMAL OR HIGH: >89 ml/min/1.73 m2 G2,MILDLY DECREASED: 60-89 ml/min/1.73 m2 G3A,MILDLY TO MODERATELY DECREASED: 45-59 ml/min/1.73 m2 G3B,MODERATELY TO SEVERELY DECREASED: 30-44 ml/min/1.73 m2 G4,SEVERELY DECREASED: 15-29 ml/min/1.73 m2 G5,KIDNEY FAILURE: <15 ml/min/1.73 m2 07/22/2022 7:45 AM CDT Zeus Vo MD LABORATORY Final Result [facility] [address] [place] [address], * (ABNORMAL) CBC W/DIFF AUTOMATED (07/22/2022 7:45 AM CDT) WBC 3.58(L) 4.00 - 10.80 x10'3/uL 07/22/2022 3:20 PM CDT [facility] RBC 4.77 4.50 - 6.10 x10'6/uL 07/22/2022 3:20 PM CDT [facility] HGB 15.1 13.0 - 18.0 G/DL 07/22/2022 3:20 PM CDT [facility] HCT 43.7 37.0 - 52.0 % 07/22/2022 3:20 PM CDT [facility] MCV 91.6 78.0 - 100.0 FL 07/22/2022 3:20 PM CDT [facility] MCH 31.7(H) 27.0 - 31.0 PG 07/22/2022 3:20 PM CDT [facility] MCHC 34.6 33.0 - 36.0 G/DL 07/22/2022 3:20 PM CDT -[facility] RDW 12.8 11.5 - 14.5 % 07/22/2022 3:20 PM CDT [facility] PLT 217 150 - 350 x10'3/uL 07/22/2022 3:20 PM CDT [facility] MPV 11.0(H) 7.4 - 10.4 FL 07/22/2022 3:20 PM CDT [facility] DIFFERENTIAL TYPE AUTOMATED DIFFERENTIAL 07/22/2022 3:20 PM CDT -[facility] NEUTROPHILS % 53.0 % 07/22/2022 3:20 PM CDT [facility] LYMPHOCYTES % 34.6 % 07/22/2022 3:20 PM CDT [facility] MONOCYTES % 9.8 % 07/22/2022 3:20 PM CDT [facility] EOSINOPHILS % 2.0 % 07/22/2022 3:20 PM CDT [facility] BASOPHILS % 0.6 % 07/22/2022 3:20 PM CDT [facility] IMMATURE GRANS % 0.0 % 07/22/2022 3:20 PM CDT -[facility] ABS. NEUTROPHILS 1.90 1.60 - 8.30 x10'3/uL 07/22/2022 3:20 PM CDT [facility] ABS. LYMPHOCYTES 1.24 0.80 - 4.70 x10'3/uL 07/22/2022 3:20 PM CDT [facility] ABS. MONOCYTES 0.35 0.00 - 1.50 x10'3/uL 07/22/2022 3:20 PM CDT [facility] ABS. EOSINOPHILS 0.07 0.00 - 0.40 x10'3/uL 07/22/2022 3:20 PM CDT [facility] ABS. BASOPHILS 0.02 0.00 - 0.20 x10'3/uL 07/22/2022 3:20 PM CDT [facility] ABS. IMMATURE GRANULOCYTES 0.00 0.00 - 0.03 x10'3/uL 07/22/2022 3:20 PM CDT [facility] 07/22/2022 7:45 AM CDT us Zeus Vo MD LABORATORY Final Result Performing Organization Address [facility]/ZIP Co de Phone Number [facility] [address] [place] [address], [place] [phone] * ALBUMIN URINE RANDOM (07/22/2022) MICROALBUMIN (U) 10 MG- [address] [place] CREATININE RANDOM (U) 300 [address] [place] MICROALB/CREAT <30 MG-[address], [place] Comment:normal URINE SPECIMEN / Unknown 07/22/2022 us Zeus Vo MD URINE ORDERABLES Final Result Performing Organization Address City/[facility]/ZIP Co de Phone Number [address], [place] [address] [place] [address], [place] [phone] * URINALYSIS AUTO DIP (07/22/2022) COLOR (U) YELLOW [address], [place] TRANSPARENCY CLEAR [address], [place] GLUCOSE (U) NEGATIVE MG/DL [address], [place] BILIRUBIN (U) NEGATIVE MG[address], [place] KETONES MG/DL (U) NEGATIVE MG/DL [address], [place] SPECIFIC GRAVITY (U) >=1.030 [address], [place] BLOOD (U) NEGATIVE [address], [place] U PH 6.0 [address], [place] PROTEIN (U) NEGATIVE mg/dL MG[address], [place] UROBILINOGEN 0.2 EU/dL = mg/dL MG[address], [place] NITRITES NEGATIVE MG/DL MG[address], [place] LEUKOCYTES (U) NEGATIVE MG-[address], [place] URINE SPECIMEN OBTAINED BY CLEAN CATCH PROCEDURE / Unknown 07/22/2022 Zeus Vo MD URINE ORDERABLES Final Result [address], [place] [address] [facility] [address] [place] [address], [place] [phone] documented in this encounter Visit Diagnoses Diagnosis Annual physical exam- Primary Routine general medical examination at a health care facility General medical exam Unspecified general medical examination Screening for diabetes mellitus Screening for hyperlipidemia Screening for lipoid disorders Screening for hypothyroidism Screening for thyroid disorder Primary hypertension Unspecified essential hypertension Elevated liver enzymes Nonspecific elevation of levels of transaminase or lactic acid dehydrogenase (LDH) [place] (obstructive sleep apnea) Obstructive sleep apnea (adult) (pediatric) Gout, unspecified cause, unspecified chronicity, unspecified site Class 1 obesity due to excess calories with serious comorbidity and body mass index (BMI) of 34.0 to 34.9 in adult Hyperuricemia Other abnormal blood chemistry documented in this encounter Additional Health Concerns Assessment Noted Time PHQ-9 Depression Total Score: 0 05/14/19 22 7:24 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
--- OUTSIDE RECORDS SUMMARY | 2024-03-24 01:44 | XMS_ITS | Encounter Summary ---
Author Organization [facility] Address [address] [place] [address]. [place], [place] [id number] [place] [id number] Care Team Providers Care Marketing Support Specialist Name Role Phone Zeus Vo MD Primary Care Provider [phone] Encounter Details Date Type Department Care Team (Latest Contact Info) Description 03/03/2022 Hospital Encounter [facility] [address] [facility] [place] [address] Zeus Vo MD [address] [address] Discharge Disposition: Home or Self Care (Routine Discharge) Social History Tobacco Use Types Packs/Day Years [...] move on to questions 3-9 0 01/07/2022 [facility] [place] [facility] - Occupational Stress [...] on file documented as of this encounter Medications at Time of Discharge CPAP DEVICE, DME,Indications:OS A (obstructive sleep apnea) 1 Device by Does not apply route nightly at bedtime. Sending to [facility]. 1 Device 08/06/2021 allopurinol (ZYLOPRIM) 100 MG tabletIndications: Hyperuricemia Take 1 tablet (100 mg total) by mouth daily. 90 tablet 2 12/10/2021 3 lisinopril (PRINIVIL) 40 MG tabletIndications: Primary hypertension Take 1 tablet (40 mg total) by mouth daily. 90 tablet 1 12/03/2021 2 phentermine (ADIPEX-P) 37.5 MG tabletIndications: Class 1 obesity due to excess calories with serious comorbidity and body mass index (BMI) of 34.0 to 34.9 in adult Take one tablet every other morning 30 min with water only before breakfast. 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
--- OUTSIDE RECORDS SUMMARY | 2024-03-24 01:44 | XMS_ITS | Encounter Summary ---
Author Organization [facility] Address [address] [place] [address]. 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 Name Role Phone Zeus Vo MD Primary Care Provider [phone] Reason for Referral * Consultation (Routine) - Closed Specialty Diagnoses / Procedures Referred By Contac t Referred To Contact SLEEP & RESPIRATORY CARE Diagnoses HAYLEY (obstructive sleep apnea) Zeus Vo MD [address] [place] [id number] Phone: tel: fax: Daniel Parekh MD [address] [place] [address] Phone: tel: fax: Referral ID Status Reason Start Date Expiration Date V isits Requested Visits Authorized [id number] Closed Specialty Services 08/06/2021 09/05/2022 100 100 Reason for Visit * Reason Comments Follow Up patient is here for weight loss follow up and gout,BP,and sleep study results Encounter Details Date Type Department Care Team (Latest Contact Info) Description 08/06/2021 7:00 AM CDT Office Visit [facility] Multispecialty Care - [address] [place] [address] Zeus Vo MD [address] [place] [address] [address] [place] [address] Follow Up (patient is here for weight loss follow up and gout,BP,and sleep study results) Social History Tobacco Use Types Packs/Day Years [...] move on to questions 3-9 0 05/14/2021 [facility] - Occupational [...] Sign Reading Time Taken Comments Blood Pressure 103/69 08/06/2021 7:10 AM CDT Pulse 69 08/06/2021 7:10 AM CDT Temperature 36.4 ??C (97.6 ??F) 08/06/2021 7:10 AM CD T Respiratory Rate 18 08/06/2021 7:10 AM CDT Oxygen Saturation 98% 08/06/2021 7:10 AM CDT Inhaled Oxygen Concentration - - Weight 105.2 kg (232 lb) 08/06/2021 7:10 AM CDT Height 175.3 cm (5' 9 ) 08/06/2021 7:10 AM CDT Body Mass Index 34.26 08/06/2021 7:10 AM CDT documented in this encounter Patient Instructions * Patient Instructions* Zeus Vo MD - 08/06/2021 7:00 AM CDT Images from the original note were not included. Please follow up with getting your abdominal ultrasound done. Lifestyle modification including dietary changes to include less saturated fats, lean meat, more vegetables and exercise at least 30 min every day. Patient Education Patient Education Gout Discharge Instructions About this topic Gout causes pain and swelling in a joint, which is a form of arthritis. Gout can happen in some people who have too much uric acid in their blood. Everyone has some uric acid in their blood. It is produced when the body breaks down certain foods. In some cases, too much uric acid builds up. Uric acid can form sharp crystals that can sometimes build up in different parts of your body, likeyour joints. Then you may have pain and swelling. This is called a gout flare or attack. Most of the time a painful joint from gout will get better, especially with treatment, within a few days to a few weeks. Proper treatment may improve signs and help prevent more gout attacks. Treatments needed are drugs,diet, and lifestyle changes. Surgery may be needed if the gouty part (tophi) is affecting your movement. What care is needed at home? ?? Ask your doctor what you need to do when you go home. Make sure you ask questions if you do not understand what the doctor says. ?? Take all your medicines as ordered for treating your gout flare. This may include medicines ordered by your doctor or medicines like ibuprofen or naproxen for swelling and pain. These are nonsteroidal anti-inflammatory drugs (NSAIDS). Some caaa-una-eduxeye medicines and prescription medicines contain the same drug. Do not take multiple medicines without talking to your doctor first. ?? Do not take aspirin to treat your gout flare. ?? Rest your joint. Prop it on pillows, keeping it above the level of your heart. This may help lessen pain and swelling. ?? Ice may help with your pain. Place an ice pack or a bag of frozen vegetables wrapped in a towel over the painful part. Never put ice right on the skin. Do not leave the ice on more than 10 to 15 minutes at a time. ?? Eat a healthy diet that includes plenty of fruits, vegetables, whole grain, and low-fat dairy products. ?? Drink plenty of water. Limit sugary drinks and alcohol as they can make your gout flare worse. ?? Talk with your regular doctor about other medicines or lifestyle changes that can help prevent gout flares. Keeping a healthy weight or losing weight in a healthy way may help. What follow-up care is needed? ?? Your doctor may ask you to make visits to the office to check on your progress. Be sure to keep these visits. ?? You may need to have blood tests to measure your uric acid levels. The doctor may also order tests to check how well your kidneys are working. What drugs may be needed? The doctor may order drugs to: ?? Help with pain and swelling ?? Lower uric acid levels ?? Prevent gout attacks Your doctor may also change some of the drugs you are taking. Certain drugs may increase your uric acid levels and this makes gout worse. Will physical activity be limited? Exercise regularly. This can help reduce pain and improve your body function. Your doctor can help you figure out the best exercise for you. What changes to diet are needed? ?? Ask for a dietitian to review your food choices. ?? Avoid high-purine foods such as: ? Red meats like steak and hamburgers ? Organ meat like kidney, liver, or brains ? Wild game like rabbit, venison, quail, pheasant, and goose ? Pulliam, anchovies, sardines, or caviar ? Seafood and shellfish like shrimp, lobsters, mackerel, sardines, mussels, tuna, trout, codfish, maranda, garcia, or scallops ? Beer, wine, and mixed drinks (alcohol) ? Dried beans and peas ? Some vegetables, such as asparagus, mushrooms, spinach, and cauliflower ? Gravy ?? Avoid high-fructose foods such as: ? Sweetened drinks and juices ? Foods with added fructose corn syrup like sodas, enriched fruit drinks, cereals, ice creams, and candy What problems could happen? ?? Kidney stones and other kidney problems ?? Long-lasting joint problem ?? Ongoing very bad pain What can be done to prevent this health problem? Tell your doctor if you are taking drugs for heart and kidney problems. Tell your doctor about all the drugs, vitamins, herbs, supplements, and any nyht-arh-qtrjgsa drugs you are taking. If you need to stop taking these drugs, ask your doctor first. When do I need to call the doctor? ?? You have a fever of 100.4??F (38??C) or higher or chills with severe joint pain that does not get better with treatment. ?? You have pain with passing urine. ?? Your symptoms are not improving within 2 to 3 days or your pain does not go away completely after a few weeks. Teach Back: Helping You Understand The Teach Back Method helps you understand the information we are giving you. After you talk with the staff, tell them in your own words what you learned. This helps to make sure the staff has described each thing clearly. It also helps to explain things that may have been confusing. Before going home, make sure you can do these: ?? I can tell you about my condition. ?? I can tell you what may help ease my pain. ?? I can tell you what changes I need to make with my diet or drugs. ?? I can tell you what I will do if I have warm, red, swollen joints or very bad pain. Where can I learn more? [place] [employer] https://familydoctor.org/condition/gout/ [employer] [place]th[employer] and Musculoskeletal and Skin Diseases http://www.niams.nih.gov/Health_Info/Gout/default.asp NHS https://www.nhs.uk/conditions/gout/ Last Reviewed Date 2021-02-07 Consumer Information Use and Disclaimer This generalized information is a limited summary of diagnosis, treatment, and/or medication information. It is not meant to be comprehensive and should be used as a tool to help the user understand and/or assess potential diagnostic and treatment options. It does NOT include all information about conditions, treatments, medications, side effects, or risks that may apply to a specific patient. Itis not intended to be medical advice or a substitute for the medical advice, diagnosis, or treatment of a health care provider based on the health care provider's examination and assessment of a patient???s specific and unique circumstances. Patients must speak with a health care provider for complete information about their health, medical questions, and treatment options, including any risks orbenefits regarding use of medications. This information does not endorse any treatments or medications as safe, effective, or approved for treating a specific patient. [employer] and its affiliates disclaim any warranty or liability relating to this information or the use thereof. The use of this information is governed by the Terms of Use, available at https://www.[employer]./en/know/bzhqywry-duohirrypnpmr-xoayp Copyright Copyright ?? 2021 [employer]. and its affiliates and/or licensors. All rights reserved. Patient Education Patient Education Low Purine Diet About this topic Purines are a natural substance in some foods. They help many systems in our body like our heart and our digestive system. They are also the building blocks for our DNA. Because of some illnesses, you may need to limit the amount of purines in your diet. General A low purine diet limits the amount of purines you eat. When your body digests purines, a waste product called uric acid is made. Uric acid crystals can build up in your joints causing a painful kindof arthritis called gout. When you limit foods high in purines, you may be able to prevent painful attacks. What will the results be? This diet may help you: ?? Have fewer problems with gout ?? Have fewer kidney stones ?? Lower the amount of uric acid in your body Who should use this diet? This diet is used by people who have high uric acid levels. It is also used by people who have a history of uric acid kidney stones. Who should not use this diet? You should not use this food plan if you have not talked with your doctor about a low purine diet. What foods are good to eat? ?? Water, tea, coffee, cocoa ?? Popcorn ?? Low fat or fat free milk, low fat yogurt, low fat cheese ?? Eggs, nuts, peanut butter ?? Vegetables (except those that are moderate in purines) ?? Potatoes, bread, rice, pasta ?? Fruits (especially cherries) and fruit juices ?? Condiments like salt, herbs, olives, pickles, relishes, and vinegar What foods should be limited or avoided? Foods that are high in purines and those that raise uric acid levels include: ?? Beer ?? Gravies and sauces made with meat ?? Anchovies, sardines, caviar, garcia, mussels, tuna, codfish, scallops, trout, and maranda ?? Foods high in fat like pulliam, red meats, fatty poultry, dark meats, skin of poultry, high-fat dairy products ?? Organ meats like liver, kidney, tripe, and sweetbreads ?? Wild game like veal, venison, and duck ?? High fructose corn syrup in foods and drinks ?? Yeast Foods that are moderate in purines include: ?? Oatmeal. Limit to 2/3 cup (65 g) uncooked each day. ?? Wheat bran and wheat germ. Limit to 1/4 cup (30 g) dry each day. ?? Meat, poultry, crab, lobsters, oysters, and shrimp are moderate in purines. Limit to 4 to 6 ounces of these foods per day. ?? Lunch meats, especially high-fat versions ?? Asparagus, spinach, cauliflower, and mushrooms. Limit these vegetables to 1/2 cup per day (75 g). ?? Dried beans, peas, and lentils. Limit these to 1 cup (240 g) cooked each day. ?? Most kinds of alcohol Where can I learn more? [place] [employer] http://familydoctor.org/familydoctor/en/prevention-wellness/food-nutrition/weigh t-loss/iyp-katazu-hcnt.html Last Reviewed Date 2020-12-20 Consumer Information Use and Disclaimer This generalized information is a limited summary of diagnosis, treatment, and/or medication information. It is not meant to be comprehensive and should be used as a tool to help the user understand and/or assess potential diagnostic and treatment options. It does NOT include all information about conditions, treatments, medications, side effects, or risks that may apply to a specific patient. Itis not intended to be medical advice or a substitute for the medical advice, diagnosis, or treatment of a health care provider based on the health care provider's examination and assessment of a patient???s specific and unique circumstances. Patients must speak with a health care provider for complete information about their health, medical questions, and treatment options, including any risks orbenefits regarding use of medications. This information does not endorse any treatments or medications as safe, effective, or approved for treating a specific patient. [employer] and its affiliates disclaim any warranty or liability relating to this information or the use thereof. The use of this information is governed by the Terms of Use, available at https://www.[employer]./en/know/idtqrodf-ylwvowqyjnmkd-gpsph Copyright Copyright ?? 2021 [employer]. and its affiliates and/or licensors. All rights reserved. documented in this encounter Progress Notes * Zeus Vo MD - 08/06/2021 7:00 AM CDTSummary: Follow-up notes Images from the original note were not included. Internal Medicine Outpatient Progress Note CC: Follow Up (patient is here for weight loss follow up and gout,BP,and sleep study results) HPI: Manuel Hall is a 45-year-old male who presents for follow- up for weight loss medication, hypertension, recent gout and to discuss sleep study results. This is patient's fourth refill for phentermine. Has been tolerating phentermine without any side effects. Weight is down from 233 pounds to 232 pounds. Denies any side effects from current dose of medication such as shortness of breath, palpitations, ankle swelling or orthopnea.No prior history ofweight loss surgery. He tells me he has not been able to exercise much this past month. He recentlywas prescribed liraglutide to help with weight loss and yet to be approved by his insurance. Patient also here for follow-up for hypertension. He is currently on lisinopril 40 mg daily. Compliant with medications without any side effects. Denies any concerns for shortness of breath, palpitations, chronic cough, orthopnea or paroxysmal nocturnal dyspnea or chest pain. His blood pressures better today. Patient also here for recent gout episode. He did call for colchicine for recent gout flare. He very rarely gets a flare up and his last one was about 2-3 years ago. This episode occurred on top of the right foot. His recent gout flare was on about 6 days ago and resolved with colchicine. He is noton any long-term medications to help with gout. Patient is also here for follow-up to discuss recent sleep study results. Recently patient had a sleep study done on 07/01/2021 which showed severe obstructive sleep apnea. He is working on weight loss. Due to concerns for fatigue and snoring study was ordered. Denies any shortness of breath with act ivity. Problem List Patient Active Problem List Diagnosis ??? Primary hypertension ??? Fatigue ??? Obese ??? Elevated liver enzymes ??? HAYLEY (obstructive sleep apnea) ??? Gout History reviewed. No pertinent past medical history. History reviewed. No pertinent surgical history. Family History Problem Relation Name Age of Onset ??? Diabetes Father ??? Diabetes Paternal Grandmother ??? Diabetes Paternal Grandfather Social History Tobacco Use ??? Smoking status: Never Smoker ??? Smokeless tobacco: Never Used ??? Tobacco comment: counseled by Dr Vo Vaping Use ??? Vaping Use: Never assessed Substance Use Topics ??? Alcohol use: Yes Alcohol/week: 3.3 standard drinks Types: 2 Cans of beer per week ??? Drug use: Never Medications: Outpatient Medications Marked as Taking for the 08/06/21 encounter (Office Visit) with Zeus Vo MD Medication Sig Dispense Refill ??? B-D UF III MINI PEN NEEDLES 31G X 5 MM Misc ??? colchicine 0.6 MG tablet 1.2 mg at the first sign of flare, followed by 0.6 mg after 1 hour andand 0.6 mg once or twice daily until flare resolves. 30 tablet 0 ??? CPAP DEVICE, DME, 1 Device by Does not apply route nightly at bedtime. [facility] 1 Device 0 ??? Insulin Pen Needle (BD PEN NEEDLE MICRO U/F) 32G X 6 MM Misc Use daily with Saxenda. 100 each 5 ??? liraglutide, Weight Management, 18 MG/3ML injection Start With: 0.6 mg (0.1 mL) SC once daily x7 days, then 1.2 mg (0.2 mL) SC once daily x7 days, then 1.8 mg (0.3 mL) SC once daily x 7 days, then 2.4 mg (0.4 mL) SC once daily x 7 days, then 3 mg (0.5 mL) SC once daily. 5 pen 3 ??? lisinopril 40 MG tablet Take 1 tablet (40 mg total) by mouth daily. 90 tablet 1 ??? phentermine 37.5 MG tablet Take 1 tablet (37.5 mg total) by mouth every morning before breakfast for 30 days. 30 tablet 0 Allergies: Allergies Allergen Reactions ??? Codeine Hyperactive Review of Systems Constitutional: Negative for chills, diaphoresis, fever, malaise/fatigue and weight loss. HENT: Negative. Eyes: Negative. Respiratory: Negative. Cardiovascular: Negative for chest pain, palpitations, orthopnea, claudication, leg swelling and PND. Gastrointestinal: Negative. Genitourinary: Negative. Musculoskeletal: Negative. Neurological: Negative. Psychiatric/Behavioral: Negative. Objective: Filed Vitals: 08/06/21 0710 BP: 103/69 Pulse: 69 Resp: 18 Temp: 97.6 ??F (36.4 ??C) TempSrc: Temporal SpO2: 98% Weight: 105.2 kg (232 lb) Height: 5' 9 (1.753 m) Body mass index is 34.26 kg/m??. General alert, cooperative, no distress HEENT [...] 1. Primary hypertension I10 401.9 ESSENTIAL HYPERTENSION lisinopril 40 MG tablet 2. Class 1 obesity due to excess calories with serious comorbidity and body mass index (BMI) of 34.0 to 34.9 in adult E66.09 278.00 OBESITY phentermine 37.5 MG tablet Z68.34 V85.34 3. HAYLEY (obstructive sleep apnea) G47.33 327.23 OBSTRUCTIVE SLEEP APNEA SYNDROME CPAP DEVICE, DME, Ambulatory referral to Pulmonology ([facility]) 4. Gout, unspecified cause, unspecified chronicity, unspecified site M10.9 274.9 GOUT URIC ACID BLOOD 1. Primary hypertension - controlled - Patient currently controlled on current treatment for hypertension. Will continue. Continued to discuss weight loss, adequate cardiovascular fitness. DASH diet was discussed as well as decrease in sodium intake. BP goal of < 140/90 expressed. - continue with lisinopril 40 MG tablet; Take 1 tablet (40 mg total) by mouth daily. Dispense: 90 tablet; Refill: 1 2. Class 1 obesity due to excess calories with serious comorbidity and body mass index (BMI) of 34.0 to 34.9 in adult - this is his 4th refill for phentermine - -Pt has elevated weight with BMI Body mass index is 34.26 kg/m??., and will need to work hard on reducing carbohydrates and total calories. -You may use the free smart phone apps such as [employer] to help track calories and try to [...] week and 5 pounds per month. - continue phentermine 37.5 MG tablet; Take 1 tablet (37.5 mg total) by mouth every morning before breakfast for 30 days. Dispense: 30 tablet; Refill: 0 3. AHYLEY (obstructive sleep apnea) - CPAP DEVICE, DME,; 1 Device by Does not apply route nightly at bedtime. Sending to [employer]. Dispense: 1 Device; Refill: 0 - Ambulatory referral to Pulmonology ([facility]) - notes attached to order and sleep study results 4. Gout, unspecified cause, unspecified chronicity, unspecified site - URIC ACID BLOOD; Future - no need for allopurinol - AVS with instruction on diet Counseling given: Yes Comment: counseled by Dr Vo I spent 30 minutes today reviewing the patient's medical record, obtaining history, performing an exam, ordering medications, tests, and/or procedures, documenting in the medical record, referring and/or communicating with other health care providers, counseling and educating the patient/family/caregiver, reviewing and communicating test results and coordination of care. Side effects and less common but more severe adverse effects of recommended medical therapies were explained to the patient. Follow up office visit in 1 month. Requested MyChart or telephone follow up prn if symptoms change,worsen, or persist, or if side effect of treatment is experienced. DRAGON: This dictation was at least in part performed using Silk speak and there may be some inherent flaws in this retail parts pro due to the nature of this program. Zeus Vo MD Internal Medicine [facility], [facility]. 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 Office Visit [facility] Multispecialty Care - [place] [address] [address] [place] [address] Zeus Vo MD [address] [place] [address] [address] [place] [address] Scheduled Referrals Name Type Priority Associated Diagnoses Orde r Schedule Ambulatory referral to Pulmonology ([facility]) Referral Routine HAYLEY (obstructive sleep apnea) Ordered: 08/06/2021 documented as of this encounter Procedures Procedure Name Priority Date/Time Associated Diagnosis Comments URIC ACID BLOOD Routine 08/06/2021 7:37 AM CDT Gout, unspecified cause, unspecified chronicity, unspecified site documented in this encounter Results * (ABNORMAL) URIC ACID BLOOD (08/06/2021 7:37 AM CDT) URIC ACID 9.7(H) 3.5 - 7.2 MG/DL 08/06/2021 3:01 PM CDT [facility] 08/06/2021 7:37 AM CDT Zeus Vo MD LABORATORY Final Result [facility] [address] [place] [address], documented in this encounter Visit Diagnoses Diagnosis Primary hypertension- Primary Unspecified essential hypertension Class 1 obesity due to excess calories with serious comorbidity and body mass index (BMI) of 34.0 to 34.9 in adult HAYLEY (obstructive sleep apnea) Obstructive sleep apnea (adult) (pediatric) Gout, unspecified cause, unspecified chronicity, unspecified site documented in this encounter Additional Health Concerns Assessment Noted Time PHQ-9 Depression Total Score: 0 05/14/19 22 7:24 AM 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
--- OUTSIDE RECORDS SUMMARY | 2024-03-24 01:44 | XMS_ITS | Encounter Summary ---
Author Organization [facility] Address [address] [place] [address]. [place], [place] [address] [place] [address] Care Team Providers Care Infant Toddler Lead Teacher Name Role Phone Zeus Vo MD Primary Care Provider [phone] Reason for Visit * Reason Onset Date Comments Other 07/11/2021 Encounter Details Date Type Department Care Team (Late st Contact Info) Description 07/11/2021 Telephone [facility] Multispecialty Care [place] [address] [address] [place] [address] Zeus Vo MD [address] [place] [address] [address] [place] [address] Other Social History Tobacco Use Types Packs/Day Years [...] move on to questions 3-9 0 05/14/2021 [facility] [place] of Occupat ional Health - Occupational Stress [...] suspected to have Coronavirus/COVID-19? No / Unsure 07/09/2021 7:09 AM CDT documented as of this encounter Progress Notes * Laura Engel MA - 07/14/2021 8:45 AM CDT Pt informed. He already picked up medication. * Zeus Vo MD - 07/11/2021 3:33 PM CDT Colchicine sent for acute gout flare. Zeus Vo MD Internal Medicine [facility], [facility]. * Laura Engel MA - 07/11/2021 3:33 PM CDT Please advise. * Melissa Jesus - 07/11/2021 2:23 PM CDT Pt has gout in his right foot, would like a script called in for him , came on very suddenly he said, in a lot of pain Pharmacy [facility] [place] documented in this encounter Plan of Treatment Upcoming Encounters Date Type Department Care Team (Late st Contact Info) Description 04/07/2024 7:40 AM ECONOMICS TEACHER Office Visit [facility] Multispecialty Care [place] [address] [address] [address] [place] [address] Zeus Vo MD [address] [place] [address] documented as of this encounter Visit Diagnoses Diagnosis Acute gout, unspecified cause, unspecified site- Primary documented in this encounter Additional Health Concerns Assessment Noted Time PHQ-9 Depression Total Score: 0 05/14/19 7:24 AM ECONOMICS TEACHER documented as of this encounter Care Teams Infant Toddler Lead Teacher Relationship Specialty Start Date End Date Zeus Vo MD [address] [place] [address] PCP - General INTERNAL MEDICINE 04/07/21 documented as of this encounter
--- OUTSIDE RECORDS SUMMARY | 2024-03-24 01:44 | XMS_ITS | Encounter Summary ---
Author Organization [facility] Address [address] [place] [address]. [place], [place] [address] [place] [address] Care Team Providers Care Handkerchief Sample Clerk Name Role Phone Zeus Vo MD Primary Care Provider [phone] Reason for Visit * Reason Onset Date Comments Other 05/05/2022 Encounter Details Date Type Department Care Team (Late st Contact Info) Description 05/05/2022 Telephone [facility] Medical [facility] Multispecialty Care - [place] [address] [address] [place] [address] [place] [address] [place] [address] [address] [place] [address] Other Social History Tobacco Use [...] move on to questions 3-9 0 01/07/2022 [facility] [place] of Occupat ional Health - Occupational Stress [...] Coronavirus/COVID-19? No / Unsure 04/21/2022 7:16 AM HIGH SCHOOL FOOTBALL COACH documented as of this encounter Progress Notes * Pauline Gamino MA - 05/05/2022 8:13 AM CST Pt came into office for a BP check and it was 154/86 He rested a bit then rechecked it and it was 134/79 SCHOOL FOOTBALL COACH documented in this encounter Plan of Treatment Upcoming Encounters Date Type Department Care Team (Late st Contact Info) Description 04/07/2024 7:40 AM HIGH SCHOOL FOOTBALL COACH Office Visit [facility] Multispecialty Care [place] [address] [address] [address] [place] [address] Zeus Vo MD [address] [place] [address] documented as of this encounter Visit Diagnoses Diagnosis Primary hypertension- Primary Unspecified essential hypertension documented in this encounter Additional Health Concerns Assessment Noted Time PHQ-9 Depression Total Score: 0 05/14/19 7:24 AM HIGH SCHOOL FOOTBALL COACH documented as of this encounter Care Teams Handkerchief Sample Clerk Relationship Specialty Start Date End Date Zeus Vo MD [address] [place] [address] PCP - General INTERNAL MEDICINE 04/07/21 documented as of this encounter
--- OUTSIDE RECORDS SUMMARY | 2024-03-24 01:44 | XMS_ITS | Encounter Summary ---
Author Organization [facility] Address [address] [place] [address]. [place], [place] [address] [place] [address] Care Team Providers Care Metaphysician Name Role Phone Zeus Vo MD Primary Care Provider [phone] Encounter Details Date Type Department Care Team (Late st Contact Info) Description 09/30/2022 MyChart Message Enc [facility] - [facility] [address] [place] [address] [facility] Provider Air Quality Message Social History Tobacco Use Types Packs/Day Years [...] Recorded Patient Health Questionnaire-2 Score 0 07/22/2022 [facility] [place] of Occupat ional Health - Occupational Stress [...] suspected to have Coronavirus/COVID-19? No / Unsure 09/08/2022 11:22 AM CDT documented as of this encounter Plan of Treatment Upcoming Encounters Date Type Department Care Team (Late st Contact Info) Description 04/07/2024 7:40 AM WARP WORKER Office Visit [facility] Multispecialty Care - [place] [address] [address] [place] [address] Zeus Vo MD [address] [place] [address] documented as of this encounter Visit Diagnoses Not on filedocumented in this encounter Additional Health Concerns Assessment Noted Time PHQ-9 Depression Total Score: 0 05/14/19 22 7:24 AM WARP WORKER documented as of this encounter Care Teams Metaphysician Relationship Specialty Start Date End Date Zeus Vo MD [address] [place] [address] PCP - General INTERNAL MEDICINE 04/07/21 documented as of this encounter
--- OUTSIDE RECORDS SUMMARY | 2024-03-24 01:44 | XMS_ITS | Encounter Summary ---
Author Organization [facility] Address [address] [place] [address]. [place], [place] [address] [place] [address] Care Team Providers Care Spray Blender Name Role Phone Zeus Vo MD Primary Care Provider [phone] Reason for Visit * Reason Comments Image (SCAN) Encounter Details Date Type Department Care Team (Latest Contact Info) Description 08/30/2022 Scan HEALTH INFO [facility] Scanned, Doc Med Group Image (SCAN) Social History Tobacco Use Types Packs/Day [...] Recorded Patient Health Questionnaire-2 Score 0 07/22/2022 [facility] - Occupational Stress Questionnaire Answer [...] st Contact Info) Description 04/07/2024 7:40 AM ALL SOURCE INTELLIGENCE TECHNICIAN Office Visit [facility] Medical Group Multispecialty [facility] - [place] [address] [address] [place] [address] Zeus Vo MD [facility] [address] documented as of this encounter Procedures Procedure Name Priority Date/Time Associated Diagnosis Comments IMAGE GENERIC 08/30/2022 documented in this encounter Results * IMAGE GENERIC (08/30/2022) Anatomical Region Laterality Modality Other 08/30/2022 us Doc Med Group Scanned SCANNING Final Resu lt documented in this encounter Visit Diagnoses Not on filedocumented in this encounter Additional Health Concerns Assessment Noted Time PHQ-9 Depression Total Score: 0 05/14/19 22 7:24 AM ALL SOURCE INTELLIGENCE TECHNICIAN documented as of this encounter Care Teams Spray Blender Relationship Specialty Start Date End Date Zeus Vo MD [address] [address] PCP - General INTERNAL MEDICINE 04/07/21 documented as of this encounter
--- OUTSIDE RECORDS SUMMARY | 2024-03-24 01:44 | XMS_ITS | Encounter Summary ---
Author Organization [facility] Address [address] [place] [address]. [place], [place] [address] [place] [address] Care Team Providers Care Supervisor Television Chassis Repair Name Role Phone Zeus Vo MD Primary Care Provider [phone] Reason for Visit * Reason Comments Weight Problem Phentermine f/u Sleep Apnea Gout Hypertension Follow Up Discussed screening testing for colon cancer Encounter Details Date Type Department Care Team (Latest Contact Info) Description 11/05/2021 10:20 AM CDT Office Visit [facility] Medical Group Multispecialty Care - [place] [address] [address] [place] [address] Zeus Vo MD [address] [place] [address] [address] [place] [address] Weight Problem (Phentermine f/u); Sleep Apnea; Gout; Hypertension; Follow Up (Discussed screening testing for colon cancer) Social History Tobacco Use Types Packs/Day Years [...] move on to questions 3-9 0 05/14/2021 [facility] [place] of Occupat ional Health - Occupational Stress [...] Sign Reading Time Taken Comments Blood Pressure 142/79 11/05/2021 11:19 AM CDT Pulse 69 11/05/2021 10:55 AM CDT Temperature 36.4 ??C (97.5 ??F) 11/05/2021 1 0:55 AM CDT Respiratory Rate 18 11/05/2021 10:5 5 AM CDT Oxygen Saturation 96% 11/05/2021 10: 55 AM CDT Inhaled Oxygen Concentration - - Weight 105.6 kg (232 lb 12.8 oz) 2021 10:55 AM CDT Height 175.3 cm (5' 9 ) 11/05/2021 10:5 5 AM CDT Body Mass Index 34.38 11/05/2021 10:55 AM CDT documented in this encounter Patient Instructions * Patient Instructions* Zeus Vo MD - 11/05/2021 10:20 AM CDT Follow up in 4 weeks and your blood pressure. * Attachments The following attachments cannot be sent through Care Everywhere. * DASH Diet (Guinean) documented in this encounter Progress Notes * Zeus Vo MD - 11/05/2021 10:20 AM Chye: Follow-up notes Images from the original note were not included. Internal Medicine Outpatient Progress Note CC: Weight Problem (Phentermine f/u), Sleep Apnea, Gout, Hypertension, and Follow Up (Discussed screening testing for colon cancer) HPI: Manuel Hall is a 46-year-old male who presents for follow- up for obstructive sleep apnea, gout, weight issues and to discuss colon cancer screening. Patient recently diagnosed with severe obstructive sleep apnea. He has an order for a CPAP machine and patient tells me he is yet to receive a call from [employer] about his CPAP order. He has since been referred to establish care with pulmonary and has an appointment in January 2022. Currently working on weight loss and patient is here for follow-up for phentermine refill. This is his fifth visit for phentermine refill. His weight is stable at 232 pounds. Currently continues to exercise regularly by cycling. No prior history of weight loss surgery. Recently Saxenda was prescribed and this was denied however patient would like us to try again to see if it would get approved. Patient also with gout and currently on allopurinol 100 mg daily. He also uses colchicine as neededfor acute flares. His last flareup for gout was in July 2021. His last uric acid levels in August 2021 was 9.7. Patient has been compliant with taking his allopurinol without any side effects. Patient is also here to discuss colon cancer screening. He recently turned 46 years. No concerns for melena or blood in stool. He is interested in getting the Cologuard is done. Patient's blood pressure is noted to be elevated at today's visit. Patient with hypertension. He tells me he has not taken his medications in about a month due to recent travels. Patient made aware to call should he need refills at any time. No concerns for chest pain or shortness of breath or chest tightness with activity or at rest. Denies any ankle edema or chronic cough. Problem List Patient Active Problem List Diagnosis [...] ??? Tobacco comment: counseled by Dr Vo Substance Use Topics ??? Alcohol use: Yes Alcohol/week: 3.3 standard drinks Types: 2 Cans of beer per week ??? Drug use: Never Medications: Outpatient Medications Marked as Taking for the 11/05/21 encounter (Office Visit) with Zeus Vo MD Medication Sig Dispense Refill ??? allopurinol (ZYLOPRIM) 100 MG tablet Take 1 tablet (100 mg total) by mouth daily. 90 tablet 1 ??? colchicine 0.6 MG tablet 1.2 mg at the first sign of flare, followed by 0.6 mg after 1 hour andand 0.6 mg once or twice daily until flare resolves. 30 tablet 0 ??? CPAP DEVICE, DME, 1 Device by Does not apply route nightly at bedtime. Sending to [facility]. 1 Device 0 ??? Insulin Pen Needle (BD PEN NEEDLE MICRO U/F) 32G X 6 MM Misc Use daily with Saxenda. 100 each 5 ??? liraglutide, Weight Management, (SAXENDA) 18 MG/3ML injection Start With: 0.6 mg (0.1 mL) SC once daily x7 days, then 1.2 mg (0.2 mL) SC once daily x7 days, then 1.8 mg (0.3 mL) SC once daily x 7days, then 2.4 mg (0.4 mL) SC once daily x 7 days, then 3 mg (0.5 mL) SC once daily. 5 pen 3 ??? lisinopril (PRINIVIL) 40 MG tablet Take 1 tablet (40 mg total) by mouth daily. 90 tablet 1 ??? phentermine (ADIPEX-P) 37.5 MG tablet Take 1 tablet (37.5 [...] Negative. Genitourinary: Negative. Musculoskeletal: Negative. Neurological: Negative. Objective: Filed Vitals: 11/05/21 1055 11/05/21 1119 BP: (!) 150/84 (!) 142/79 Pulse: 69 Resp: 18 Temp: 97.5 ??F (36.4 ??C) TempSrc: Temporal SpO2: 96% Weight: 105.6 kg (232 lb 12.8 oz) Height: 5' 9 (1.753 m) Body mass index is 34.38 kg/m??. General alert, cooperative, no distress HEENT [...] Encounter Diagnose(s) ICD-10-CM ICD-9-CM SNOMED CT(R) 1. HAYLEY (obstructive sleep apnea) G47.33 327.23 OBSTRUCTIVE SLEEP APNEA SYNDROME 2. Gout, unspecified cause, unspecified chronicity, unspecified site M10.9 274.9 GOUT COMPREHENSIVEMETABOLIC PANEL CBC W/DIFF AUTOMATED URIC ACID BLOOD URIC ACID BLOOD CBC W/DIFF AUTOMATED COMPREHENSIVE METABOLIC PANEL 3. Class 1 obesity due to excess calories with serious comorbidity and body mass index (BMI) of 34.0 to 34.9 in adult E66.09 278.00 OBESITY phentermine (ADIPEX- P) 37.5 MG tablet Z68.34 V85.34 liraglutide, Weight Management, (SAXENDA) 18 MG/3ML injection Insulin Pen Needle (BD PEN NEEDLE MICRO U/F) 32G X 6 MM Misc 4. Screen for colon cancer Z12.11 V76.51 PATIENT ENCOUNTER STATUS COLOGUARD (EXACT SCIENCE) 5. Hyperuricemia E79.0 790.6 HYPERURICEMIA allopurinol (ZYLOPRIM) 100 MG tablet 6. Primary hypertension I10 401.9 ESSENTIAL HYPERTENSION lisinopril (PRINIVIL) 40 MG tablet 1. HAYLEY (obstructive sleep apnea) -Weight loss encouraged; yet to get his CPAP machine. Has been referred to pulmonary and has an appointment in January 2022. CPAP order sent to [facility] and patient given follow-up numbers to follow-up with company. 2. Gout, unspecified cause, unspecified chronicity, unspecified site -Currently stable. Patient's last flareup was in July 2021. -Continue with allopurinol 100 mg daily -Will aim for uric acid levels less than 6 mg/dL -Discussed avoiding precipitating factors for gouty flareups - COMPREHENSIVE METABOLIC PANEL; Future - CBC W/DIFF AUTOMATED; Future - URIC ACID BLOOD; Future - URIC ACID BLOOD - CBC W/DIFF AUTOMATED - COMPREHENSIVE METABOLIC PANEL 3. Class 1 obesity due to excess calories with serious comorbidity and body mass index (BMI) of 34.0 to 34.9 in adult -Weight is currently stable at 232 pounds; tolerating phentermine without any side effects. We willdo 1 more last round during his visit of phentermine. Sending off Saxenda prescription again. This is his fifth refill for phentermine. -Continue phentermine (ADIPEX-P) 37.5 MG tablet; Take 1 tablet (37.5 mg total) by mouth every morning before breakfast for 30 days. Dispense: 30 tablet; Refill: 0 - liraglutide, Weight Management, (SAXENDA) 18 MG/3ML injection; Start With: 0.6 mg (0.1 mL) SC once daily x7 days, then 1.2 mg (0.2 mL) SC once daily x7 days, then 1.8 mg (0.3 mL) SC once daily x 7 days, then 2.4 mg (0.4 mL) SC once daily x 7 days, then 3 mg (0.5 mL) SC once daily. Dispense: 5 pen; Refill: 3 -Follow-up in 4 weeks 4. Screen for colon cancer - DARREN ([employer] SCIENCE) 5. Hyperuricemia -Continue allopurinol (ZYLOPRIM) 100 MG tablet; Take 1 tablet (100 mg total) by mouth daily. Dispense: 90 tablet; Refill: 1 6. Primary hypertension -Uncontrolled due to medication noncompliance. Patient encouraged to take medication daily as directed. - Patient currently uncontrolled on current treatment for hypertension. Will continue and adjust medications as ordered. Continued to discuss weight loss, adequate cardiovascular fitness. DASH diet was discussed as well as decrease in sodium intake. BP goal of < 140/90 expressed. -continue lisinopril (PRINIVIL) 40 MG tablet; Take 1 tablet (40 mg total) by mouth daily. Dispense:90 tablet; Refill: 1 Counseling given: Yes Comment: counseled by Dr Vo I spent 40 minutes today reviewing the patient's medical record, [...] was at least in part performed using [employer] and there may be some inherent flaws in this dock hand due to the nature of this program. Zeus Vo MD Internal Medicine [facility], [facility]. documented in this encounter Plan of Treatment Upcoming Encounters Date Type Department Care Team (Late st Contact Info) Description 04/07/2024 7:40 AM MUSIC PUBLISHER Office Visit [facility] Medical Group Multispecialty Care - [place] [address] [address] [place] [address] Zeus Vo MD [address] [place] [address] [address] [place] [address] documented as of this encounter Procedures Procedure Name Priority Date/Time Associated Diagnosis Comments COMPREHENSIVE METABOLIC PANEL Routine 11/05/2021 11:32 AM CDT Gout, unspecified cause, unspecified chronicity, unspecified site CBC W/DIFF AUTOMATED Routine 11/05/2021 11:32 AM CDT Gout, unspecified cause, unspecified chronicity, unspecified site URIC ACID BLOOD Routine 11/05/2021 11:32 AM CDT Gout, unspecified cause, unspecified chronicity, unspecified site documented in this encounter Results * (ABNORMAL) URIC ACID BLOOD (11/05/2021 11:32 AM CDT) URIC ACID 9.5(H) 3.5 - 7.2 MG/DL 11/05/2021 8:49 PM CDT [facility] 11/05/2021 11:3 2 AM CDT Zeus Vo MD LABORATORY Final Result [facility] [address] [place] [address], * (ABNORMAL) CBC W/DIFF AUTOMATED (11/05/2021 11:32 AM CDT) WBC 3.7(L) 4.0 - 10.8 x10'3/uL 11/05/2021 7:53 PM CDT [facility] RBC 4.83 4.50 - 6.10 x10'6/uL 11/05/2021 7:53 PM CDT [facility] HGB 15.2 13.0 - 18.0 G/DL 11/05/2021 7:53 PM CDT [facility] HCT 44.9 37.0 - 52.0 % 11/05/2021 7:53 PM CDT [facility] MCV 93.0 78.0 - 100.0 FL 11/05/2021 7:53 PM CDT [facility] MCH 31.5(H) 27.0 - 31.0 PG 11/05/2021 7:53 PM CDT [facility] MCHC 33.9 33.0 - 36.0 G/DL 11/05/2021 7:53 PM CDT [facility] RDW 13.2 11.5 - 14.5 % 11/05/2021 7:53 PM CDT [facility] PLT 209 150 - 350 x10'3/uL 11/05/2021 7:53 PM CDT [facility] MPV 10.7(H) 7.4 - 10.4 FL 11/05/2021 7:53 PM CDT [facility] DIFFERENTIAL TYPE AUTOMATED DIFFERENTIAL 11/05/2021 7:53 PM CDT [facility] NEUTROPHILS % 53.7 % 11/05/2021 7:53 PM CDT [facility] LYMPHOCYTES % 34.2 % 11/05/2021 7:53 PM CDT [facility] MONOCYTES % 9.4 % 11/05/2021 7:53 PM CDT [facility] EOSINOPHILS % 1.9 % 11/05/2021 7:53 PM CDT [facility] BASOPHILS % 0.5 % 11/05/2021 7:53 PM CDT [facility] IMMATURE GRANS % 0.3 % 11/05/2021 7:53 PM CDT [facility] ABS. NEUTROPHILS 1.99 1.60 - 8.30 x10'3/uL 11/05/2021 7:53 PM CDT [facility] ABS. LYMPHOCYTES 1.27 0.80 - 4.70 x10'3/uL 11/05/2021 7:53 PM CDT [facility] ABS. MONOCYTES 0.35 0.00 - 1.50 x10'3/uL 11/05/2021 7:53 PM CDT [facility] ABS. EOSINOPHILS 0.07 0.00 - 0.40 x10'3/uL 11/05/2021 7:53 PM CDT -[facility] ABS. BASOPHILS 0.02 0.00 - 0.20 x10'3/uL 11/05/2021 7:53 PM CDT [facility] ABS. IMMATURE GRANULOCYTES 0.01 0.00 - 0.03 x10'3/uL 11/05/2021 7:53 PM CDT [facility] 11/05/2021 11:3 2 AM CDT Zeus Vo MD LABORATORY Final Result [facility] [address] [place] [address], * (ABNORMAL) COMPREHENSIVE METABOLIC PANEL (11/05/2021 11:32 AM CDT) Pathologist [facility] SODIUM S/P/B 142 136 - 145 MMOL/L 11/05/2021 8:49 PM CDT [facility] POTASSIUM S/P/B 4.3 3.5 - 5.1 MMOL/L 11/05/2021 8:49 PM CDT [facility] CHLORIDE S/P/B 106 98 - 107 MMOL/L 11/05/2021 8:49 PM CDT [facility] CO2 26.6 21 - 32 MMOL/L 11/05/2021 8:49 PM CDT [facility] GLUCOSE 87 70 - 99 MG/DL 11/05/2021 8:49 PM CDT [facility] BUN 18 7 - 18 MG/DL 11/05/2021 8:49 PM CDT [facility] CREATININE S/P/B 1.21 0.70 - 1.30 MG/DL 11/05/2021 8:49 PM CDT [facility] CALCIUM S/P/B 9.1 8.4 - 10.5 MG/DL 11/05/2021 8:49 PM T [facility] BILIRUBIN TOTAL S/P/B 0.8 0.2 - 1.0 MG/DL 11/05/2021 8:49 PM CDT [facility] ALKALINE PHOSPHATASE S/P/B 62 45 - 115 U/L 11/05/2021 8:49 PM CDT [facility] AST 57(H) 15 - 37 U/L 11/05/2021 8:49 PM T [facility] ALT 100(H) 16 - 63 U/L 11/05/2021 8:49 PM T [facility] TOTAL PROTEIN S/P/B 7.3 6.4 - 8.2 G/DL 11/05/2021 8:49 PM T [facility] ALBUMIN S/P/B 4.4 3.4 - 5.0 G/DL 11/05/2021 8:49 PM T [facility] ANION GAP 9.4 5 - 15 MMOL/L 11/05/2021 8:49 PM T [facility] Comment:REFERENCE RANGE NOT ESTABLISHED OSMOLALITY (CALC) 295 MOSM/KG 022 8:49 PM CDT [facility] Comment:REFERENCE RANGE NOT ESTABLISHED GFR ESTIMATE 75(L) >90 ML/MIN/1. 73 M2 11/05/2021 8:49 PM CDT [facility] GFR NOTES GFR REFERENCE S: 11/05/2021 8:49 PM T [facility] Comment: THE ESTIMATED GFR IS CALCULATED [...] ml/min/1.73 m2 G5,KIDNEY FAILURE: <15 ml/min/1.73 m2 11/05/2021 11:3 2 AM CDT Zeus Vo MD LABORATORY Final Result Performing Organization Address City/[facility]/ZIP Co de Phone Number [facility] [address] [place] [address], [place] [phone] documented in this encounter Visit Diagnoses Diagnosis HAYLEY (obstructive sleep apnea)- Primary Obstructive sleep apnea (adult) (pediatric) Gout, unspecified cause, unspecified chronicity, unspecified site Class 1 obesity due to excess calories with serious comorbidity and body mass index (BMI) of 34.0 to 34.9 in adult Screen for colon cancer Special screening for malignant neoplasms, colon Hyperuricemia Other abnormal blood chemistry Primary hypertension Unspecified essential hypertension documented in this encounter Additional Health Concerns Assessment Noted Time PHQ-9 Depression Total Score: 0 05/14/19 22 7:24 AM MUSIC PUBLISHER documented as of this encounter Care Teams Supervisor Television Chassis Repair Relationship Specialty Start Date End Date Zeus Vo MD [address] [address] PCP - General INTERNAL MEDICINE 04/07/21 documented as of this encounter
--- OUTSIDE RECORDS SUMMARY | 2024-03-24 01:44 | XMS_ITS | Encounter Summary ---
Author Organization [facility] Address [address] [place] [address]. [place], [place] [address] [place] [address] Care Team Providers Care Market Development Director Name Role Phone Zeus Vo MD Primary Care Provider [phone] Reason for Visit * Reason Onset Date Comments Medication 08/06/2021 Encounter Details Date Type Department Care Team (Late st Contact Info) Description 08/06/2021 Telephone [facility] Medical Group Multispecialty Care - [place] [address] [address] [place], [place] [id number] Zeus Vo MD [address] [place] [address] 157 [place] [address] Medication Social History Tobacco Use [...] move on to questions 3-9 0 05/14/2021 [facility] [place] of Occupat ional Health - Occupational Stress [...] Notes * Zeus Vo MD - 08/06/2021 3:21 PM CDT Allopurinol sent. documented in this encounter Plan of Treatment Upcoming Encounters Date Type Department Care Team (Late st Contact Info) Description 04/07/2024 7:40 AM CEMENTER Office Visit [facility] Medical Group Multispecialty Care - [place] [address] [address] [place] [address] Zeus oV MD [facility] [address] [address] documented as of this encounter Visit Diagnoses Diagnosis Hyperuricemia- Primary Other abnormal blood chemistry documented in this encounter Additional Health Concerns Assessment Noted Time PHQ-9 Depression Total Score: 0 05/14/19 22 7:24 AM CEMENTER documented as of this encounter Care Teams Market Development Director Relationship Specialty Start Date End Date Zeus Vo MD [address] [place] [address] PCP - General INTERNAL MEDICINE 04/07/21 documented as of this encounter
--- OUTSIDE RECORDS SUMMARY | 2024-03-24 01:44 | XMS_ITS | Encounter Summary ---
Author Organization [facility] Address [address] [place] [address]. [place], [place] [address] [place] [address] Care Team Providers Care Operations Business Partner Name Role Phone Zeus Vo MD Primary Care Provider [phone] Reason for Visit * Reason Comments CT (SCAN) Lab (SCAN) Encounter Details Date Type Department Care Team ([facility] Contact Info) Description 08/31/2022 Scan HEALTH INFO [facility]CS Scanned, Doc Med Group CT (SCAN); Lab (SCAN) Social History Tobacco Use Types [...] Recorded Patient Health Questionnaire-2 Score 0 07/22/2022 [facility] [place] of Occupat ional Health - Occupational Stress [...] st Contact Info) Description 04/07/2024 7:40 AM MECHANICAL EXPERT Office Visit [facility] Medical Group Multispecialty Care - [place] [address] [place] [address] [address] [place] [address] Zeus Vo MD 1188 [facility] 157 [place] [address] documented as of this encounter Procedures Procedure Name Priority Date/Time Associated Diagnosis Comments CT GENERIC 08/31/2022 OUTSIDE PT/INR (SCAN ORDER) 08/31/2022 OUTSIDE LAB (SCAN ORDER) 08/31/2022 OUTSIDE LAB (SCAN ORDER) 08/31/2022 documented in this encounter Results * OUTSIDE LAB (SCAN) (08/31/2022) 08/31/[address] [employer] [facility] Scanned SCANNING Final Resu lt * OUTSIDE LAB (SCAN) (08/31/2022) 08/31/[address] [employer] [facility] Scanned SCANNING Final Resu lt * OUTSIDE PT/INR (SCAN) (08/31/2022) 08/31/[address] [employer] [facility] Scanned SCANNING Final Resu lt * CT GENERIC (08/31/2022) Anatomical Region Laterality Modality Other 08/31/[address] [employer] [facility] Scanned SCANNING Final Resu lt documented in this encounter Visit Diagnoses Not on filedocumented in this encounter Additional Health Concerns Assessment Noted Time PHQ-9 Depression Total Score: 0 05/14/19 7:24 AM MECHANICAL EXPERT documented as of this encounter Care Teams Operations Business Partner Relationship Specialty Start Date End Date Zeus Vo MD [address] [address] PCP - General INTERNAL MEDICINE 04/07/21 documented as of this encounter
--- OUTSIDE RECORDS SUMMARY | 2024-03-24 01:44 | XMS_ITS | Encounter Summary ---
Author Organization [facility] Address [address] [place] [address]. [place], [place] [address] [place] [address] Care Team Providers Care Ground Hand Name Role Phone Zeus Vo MD Primary Care Provider [phone] Reason for Visit * Reason Onset Date Comments Follow Up Call 09/01/2022 Encounter Details Date Type Department Care Team (Late st Contact Info) Description 09/01/2022 Telephone [facility] Medical Group Multispecialty Care - [place] [address] [address] [place] [address] Zeus Vo MD [address] [place] [address] 157 [place] [address] Follow Up Call Social History [...] Recorded Patient Health Questionnaire-2 Score 0 07/22/2022 [facility] [place] of Occupat ional [facility] - Occupational Stress Questionnaire Answer Date [...] Progress Notes * Chuyita Luu MA - 09/01/2022 10:12 AM CDT Called pt and he is scheduled to follow up on 09/08/22 * Zeus Vo MD - 09/01/2022 9:03 AM CDT Patient was recently seen at [facility] ER on 06/30/2022. Concerns for sinusitis with pneumonia. Recommendations made for repeat CT scan of the chest in 3 months from this time. Please call and schedule patient for an ER follow-up and schedule in 1 to 2 weeks. Thank you. Zeus Vo MD Internal Medicine [facility] Medical [facility], [facility]. documented in this encounter Plan of Treatment Upcoming Encounters Date Type Department Care Team (Late st Contact Info) Description 04/07/2024 7:40 AM ENTRY LEVEL Office Visit [facility] Medical [facility] Multispecialty Care - [address] [place] [address] Zeus Vo MD [address] [place] [address] 157 [place] [address] documented as of this encounter Visit Diagnoses Not on filedocumented in this encounter Additional Health Concerns Assessment Noted Time PHQ-9 Depression Total Score: 0 05/14/19 22 7:24 AM ENTRY LEVEL documented as of this encounter Care Teams Ground Hand Relationship Specialty Start Date End Date Zeus Vo MD 1188 [facility] [address] [place] [address] PCP - General INTERNAL MEDICINE 04/07/21 documented as of this encounter
--- OUTSIDE RECORDS SUMMARY | 2024-03-24 01:44 | XMS_ITS | Encounter Summary ---
Author Organization [facility] Address [address] [place] [address]. [place], [place] [address] [place] [address] Care Team Providers Care Blender / Cook Name Role Phone Zeus Vo MD Primary Care Provider [phone] Encounter Details Date Type Department Care Team (Late st Contact Info) Description 07/23/2022 [employer] Message Enc [facility] Medical Group Multispecialty Care - [address] [place] [address] DXY, [facility] Provider Results Social History Tobacco Use Types Packs/Day Years [...] Recorded Patient Health Questionnaire-2 Score 0 07/22/2022 [facility] [place] of Occupat ional Health - Occupational Stress [...] st Contact Info) Description 04/07/2024 7:40 AM ELECTRIC SERVICEMAN Office Visit [facility] Medical Group Multispecialty Care - [place] [address] [address] [place] [address] Zeus Vo MD [address] [place] [address] documented as of this encounter Visit Diagnoses Not on filedocumented in this encounter Additional Health Concerns Assessment Noted Time PHQ-9 Depression Total Score: 0 05/14/19 22 7:24 AM ELECTRIC SERVICEMAN documented as of this encounter Care Teams Blender / Cook Relationship Specialty Start Date End Date Zeus Vo MD [address] [place] [address] PCP - General INTERNAL MEDICINE 04/07/21 documented as of this encounter
--- OUTSIDE RECORDS SUMMARY | 2024-03-24 01:44 | XMS_ITS | Encounter Summary ---
Author Organization [facility] Address [address] [place] [address]. [place], [place] [address] [place] [address] Care Team Providers Care Lumber Carrier Operator Name Role Phone Zeus Vo MD Primary Care Provider Encounter Details Date Type Department Care Team (Late st Contact Info) Description 07/11/2021 [employer] Message Enc [facility] Medical Group Multispecialty Care - [place] [address] [address] [place] [address] Zeus Vo MD [address] [place] [address] 157 [place] [address] colchicine Social History Tobacco Use Types Packs/Day Years [...] move on to questions 3-9 0 05/14/2021 [facility] of Occupat ional [facility] - Occupational Stress Questionnaire Answer Date [...] st Contact Info) Description 04/07/2024 7:40 AM SIGNAL MAINTENANCE TECHNICIAN Office Visit [facility] Medical Group Multispecialty Care - [place] [address] [address] [place] [address] Zeus Vo MD [address] [place] [address] documented as of this encounter Visit Diagnoses Not on filedocumented in this encounter Additional Health Concerns Infection Onset Date Last Indicated Resolved Time COVID-19 Rule Out 03/03/2022 03/03/2022 03/03/2022 2:54 PM SIGNAL MAINTENANCE TECHNICIAN COVID-19 Rule Out 03/03/2022 03/03/2022 03/05/2022 1:12 AM SIGNAL MAINTENANCE TECHNICIAN Assessment Noted Time PHQ-9 Depression Total Score: 0 05/14/19 7:24 AM SIGNAL MAINTENANCE TECHNICIAN documented as of this encounter Care Teams Lumber Carrier Operator Relationship Specialty Start Date End Date Zeus Vo MD [address] [place] [address] PCP - General INTERNAL MEDICINE 04/07/21 documented as of this encounter
--- OUTSIDE RECORDS SUMMARY | 2024-03-24 01:44 | XMS_ITS | Encounter Summary ---
Author Organization [facility] Address [address] [place] [address]. [place], [place] [address] [place] [address] Care Team Providers Care Aboriginal Education Worker Coordinator Name Role Phone Zeus Vo MD Primary Care Provider [phone] Reason for Visit * Reason Onset Date Comments Medication 09/04/2022 Encounter Details Date Type Department Care Team (Late st Contact Info) Description 09/04/2022 Telephone [facility] Medical Group Multispecialty Care - [place] [address] [address] [place], [place] [address] Zeus Vo MD [address] [place] [address] 157 [place] [address] Medication Social History Tobacco Use [...] Recorded Patient Health Questionnaire-2 Score 0 07/22/2022 [facility] - Occupational Stress Questionnaire Answer Date [...] Progress Notes * Zeus Vo MD - 09/04/2022 3:11 PM CDT No need for steroids. We will send 5 additional days of Augmentin for patient to take. He has upcoming appointment on 09/08/2022 and will reassess. Still has ongoing symptoms. * Zeus Vo MD - 09/04/2022 3:11 PM CDT ----- Message from Manuel Hall sent at 09/04/2022 8:56 AM CDT ----- Regarding: Meds Contact: I visited the ER Wednesday. They gave me augmenten(amox clav) prednisone and an albuteral inhaler...i am out of augmenten tomoro and prednisone i believe tomorrow. I cannot get into see you until wednesday at 1140. Is there anyway to get an extension or different meds. I still am having problems with shortness of breath and worried about meds expiring before i can see you. Because it was a , i had to go to [facility] in [facility] this week instead of [facility] documented in this encounter Plan of Treatment Upcoming Encounters Date Type Department Care Team (Late st Contact Info) Description 04/07/2024 7:40 AM ROUGHENER Office Visit [facility] Medical Group Multispecialty Care - [place] [address] [address] [place] [address] [place] [address] [place] [address] documented as of this encounter Visit Diagnoses Diagnosis Pneumonia due to infectious organism, unspecified laterality, unspecified part of lung- Primary documented in this encounter Additional Health Concerns Assessment Noted Time PHQ-9 Depression Total Score: 0 05/14/19 22 7:24 AM ROUGHENER documented as of this encounter Care Teams Aboriginal Education Worker Coordinator Relationship Specialty Start Date End Date Zeus Vo MD [address] [place] [address] PCP - General INTERNAL MEDICINE 04/07/21 documented as of this encounter
--- OUTSIDE RECORDS SUMMARY | 2024-03-24 01:44 | XMS_ITS | Encounter Summary ---
Author Organization [facility] Address [address] [place] [address]. [place], [place] [address] [place] [address] Care Team Providers Care News Internship Name Role Phone Zeus Vo MD Primary Care Provider [phone] Encounter Details Date Type Department Care Team (Latest Contact Info) Description 04/21/2022 Travel Social History Tobacco Use Types Packs/Day [...] move on to questions 3-9 0 01/07/2022 [facility] [place] of Occupat ional Health - Occupational Stress [...] Coronavirus/COVID-19? No / Unsure 04/21/2022 7:16 AM REWRITE EDITOR documented as of this encounter Plan of Treatment Upcoming Encounters Date Type Department Care Team (Late st Contact Info) Description 04/07/2024 7:40 AM REWRITE EDITOR Office Visit [facility] Medical Group Multispecialty Care - [place] [address] [address] [place] [address] Zeus Vo MD [address] [place] [address] [phone] documented as of this encounter Visit Diagnoses Not on filedocumented in this encounter Additional Health Concerns Assessment Noted Time PHQ-9 Depression Total Score: 0 05/14/19 7:24 AM REWRITE EDITOR documented as of this encounter Care Teams News Internship Relationship Specialty Start Date End Date Zeus Vo MD [address] [place] [address] [id number] PCP - General INTERNAL MEDICINE 04/07/21 documented as of this encounter
--- OUTSIDE RECORDS SUMMARY | 2024-03-24 01:44 | XMS_ITS | Encounter Summary ---
Author Organization [facility] Address [address] [place] [address]. [place], [place] [address] [place] [address] Care Team Providers Care Senior Manager Asset Protection Name Role Phone Zeus Vo MD Primary Care Provider [phone] Reason for Visit * Reason Comments Follow Up Pt is here to follow up on blood pressure and weight loss. Encounter Details Date Type Department Care Team (Latest Contact Info) Description 07/09/2021 7:00 AM CDT Office Visit [facility] Medical Group Multispecialty Care - [place] [address] [address] [place] [address] Zeus Vo MD [address] [place] [address] [phone] Follow Up (Pt is here to follow up on blood pressure and weight loss. ) Social History Tobacco Use Types Packs/Day [...] move on to questions 3-9 0 05/14/2021 [facility] [place] of Occupat ional Health - Occupational Stress [...] Sign Reading Time Taken Comments Blood Pressure 134/85 07/09/2021 7:18 AM CDT Pulse 70 07/09/2021 7:18 AM CDT Temperature 36.1 ??C (97 ??F) 07/09/2021 7:18 AM CDT Respiratory Rate 18 07/09/2021 7:18 AM CDT Oxygen Saturation 98% 07/09/2021 7:18 AM CDT Inhaled Oxygen Concentration - - Weight 105.7 kg (233 lb) 07/09/2021 7:18 AM CDT Height 175.3 cm (5' 9 ) 07/09/2021 7:18 AM CDT Body Mass Index 34.41 07/09/2021 7:18 AM CDT documented in this encounter Patient Instructions * Patient Instructions* Zeus Vo MD - 07/09/2021 7:00 AM CDT Follow up in 4 weeks. documented in this encounter Progress Notes * Zeus Vo MD - 07/09/2021 7:00 AM CDTSummary: Follow-up notes Images from the original note were not included. Internal Medicine Outpatient Progress Note CC: Follow Up (Pt is here to follow up on blood pressure and weight loss. ) HPI: Manuel Hall is a 45-year-old male who presents for follow- up for hypertension and weight concerns. This is patient's third visit for phentermine refill. Currently has made significant healthier dietary changes and continues to actively exercise regularly. Denies any side effects from his current dose of medication. No concerns for chest tightness, palpitations, ankle swelling orthopnea. His weight is down from 240 pounds to 233 pounds. Currently does not follow routinely with a dietitian. No prior history of weight loss surgery. Patient also here for follow-up for hypertension. Currently on lisinopril 20 mg daily. Compliant with medications without any side effects. Denies any chest tightness, shortness of breath, ankle swelling, orthopnea or paroxysmal nocturnal dyspnea or chronic cough. Compliant with medications. No prior history of cardiac stents or cardiac events. Currently actively exercising. Follows a healthy diet. Home blood pressures average high 130/80s. Problem List Patient Active Problem List Diagnosis ??? Overactive bladder ??? Primary hypertension ??? Fatigue ??? Obese ??? Elevated liver enzymes History reviewed. No pertinent past medical history. [...] Outpatient Medications Marked as Taking for the 07/09/21 encounter (Office Visit) with Zeus Vo MD Medication Sig Dispense Refill ??? Insulin Pen Needle (BD PEN NEEDLE [...] Musculoskeletal: Negative. Neurological: Negative. Objective: Filed Vitals: 07/09/21 0718 BP: 134/85 Pulse: 70 Resp: 18 Temp: 97 ??F (36.1 ??C) TempSrc: Temporal SpO2: 98% Weight: 105.7 kg (233 lb) Height: 5' 9 (1.753 m) Body mass index is 34.41 kg/m??. General alert, cooperative, no distress HEENT [...] OBESITY phentermine 37.5 MG tablet Z68.34 V85.34 liraglutide, Weight Management, 18 MG/3ML injection Insulin Pen Needle (BD PEN NEEDLE MICRO U/F) 32G X 6 MM Misc 1. Primary hypertension - Tolerating medication without any side effects; not optimally controlled - low sodium diet, DASH diet, daily exercise for at least 30 minutes 5 days per week - change to lisinopril 40 MG tablet; Take 1 tablet (40 mg total) by mouth daily. Dispense: 90 tablet; Refill: 1 2. Class 1 obesity due to excess calories with serious comorbidity and body mass index (BMI) of 34.0 to 34.9 in adult - This is patients 3rd visit for phentermine - Tolerating medication with no side effects - Lifestyle modification including dietary changes to include less saturated fats, lean meat, more vegetables and exercise at least 30 min every day. - continue phentermine 37.5 MG tablet; Take 1 tablet (37.5 mg total) by mouth every morning before breakfast for 30 days. Dispense: 30 tablet; Refill: 0 - liraglutide, Weight Management, 18 MG/3ML injection; Start With: 0.6 mg (0.1 mL) SC once daily x7days, then 1.2 mg (0.2 mL) SC once daily x7 days, then 1.8 mg (0.3 mL) SC once daily x 7 days, then2.4 mg (0.4 mL) SC once daily x 7 days, then 3 mg (0.5 mL) SC once daily. Dispense: 5 pen; Refill: 3 - Insulin Pen Needle (BD PEN NEEDLE MICRO U/F) 32G X 6 MM Misc; Use daily with Saxenda. Dispense: 100 each; Refill: 5 - follow up in 4 weeks Counseling given: Yes Comment: counseled by Dr [...] was at least in part performed using [employer]ten[employer] and there may be some inherent flaws in this traffic technician due to the nature of this program. Zeus Vo MD Internal Medicine [facility], [facility]. documented in this encounter Plan of Treatment Upcoming Encounters Date Type Department Care Team (Late st Contact Info) Description 04/07/2024 7:40 AM TANK ERECTOR Office Visit [facility] Medical Group Multispecialty Care - [place] [address] [address] [place] [address] Zeus Vo MD [address] [place] [address] documented as of this encounter Visit Diagnoses Diagnosis Primary hypertension- Primary Unspecified essential hypertension Class 1 obesity due to excess calories with serious comorbidity and body mass index (BMI) of 34.0 to 34.9 in adult documented in this encounter Additional Health Concerns Assessment Noted Time PHQ-9 Depression Total Score: 0 05/14/19 7:24 AM TANK ERECTOR documented as of this encounter Care Teams Senior Manager Asset Protection Relationship Specialty Start Date End Date Zeus Vo MD [address] [place] [address] PCP - General INTERNAL MEDICINE 04/07/21 documented as of this encounter
--- OUTSIDE RECORDS SUMMARY | 2024-03-24 01:44 | XMS_ITS | Encounter Summary ---
Author Organization [facility] Address [address] [place] [address]. [place], [place] [address] [place] [address] Care Team Providers Care Stock Preparation Supervisor Name Role Phone Zeus Vo MD Primary Care Provider [phone] Encounter Details Date Type Department Care Team (Latest Contact Info) Description 01/07/2022 Travel Social History Tobacco Use Types Packs/Day [...] move on to questions 3-9 0 01/07/2022 [facility] [place] of Occupat ional Health - Occupational Stress [...] st Contact Info) Description 04/07/2024 7:40 AM OPERATING COST CLERK Office Visit [facility] Medical Group Multispecialty Care - [place] [address] [address] [place] [address] Zeus Vo MD [address] [place] [address] documented as of this encounter Visit Diagnoses Not on filedocumented in this encounter Additional Health Concerns Assessment Noted Time PHQ-9 Depression Total Score: 0 05/14/19 22 7:24 AM OPERATING COST CLERK documented as of this encounter Care Teams Stock Preparation Supervisor Relationship Specialty Start Date End Date Zeus Vo MD [address] [place] [address] PCP - General INTERNAL MEDICINE 04/07/21 documented as of this encounter
--- OUTSIDE RECORDS SUMMARY | 2024-03-24 01:44 | XMS_ITS | Encounter Summary ---
Author Organization [facility] Address [address] [place] [address]. [place], [place] [address] [place] [address] Care Team Providers Care Marketing Data Specialist Name Role Phone Zeus Vo MD Primary Care Provider [phone] Reason for Visit * Reason Comments Sinus Problem Encounter Details Date Type Department Care Team (Late st Contact Info) Description 12/16/2021 8:40 AM CDT Office Visit [facility] Multispecialty Care - [place] [address] [address] [place] [address] Zeus Vo MD [address] [place] [address] [address] [place] [address] Sinus Problem Social History Tobacco Use Types Packs/Day Years [...] move on to questions 3-9 0 05/14/2021 [facility] [place] of Occupat ional Health - Occupational Stress [...] suspected to have Coronavirus/COVID-19? No / Unsure 12/16/2021 8:37 AM CDT documented as of this encounter Last Filed Vital Signs Vital Sign Reading Time Taken Comments Blood Pressure 112/80 12/16/2021 8:45 AM CDT Pulse 60 12/16/2021 8:45 AM CDT Temperature 36.7 ??C (98 ??F) 12/16/2021 8:45 AM CDT Respiratory Rate 18 12/16/2021 8:45 AM CDT Oxygen Saturation - - Inhaled Oxygen Concentration - - Weight 105.2 kg (232 lb) 12/16/2021 8:45 AM CDT Height 175.3 cm (5' 9 ) 12/16/2021 8:45 AM CDT Body Mass Index 34.26 12/16/2021 8:45 AM CDT documented in this encounter Patient Instructions * Attachments The following attachments cannot be sent through Care Everywhere. * Sinus Headache Discharge Instructions (Northern Irish) documented in this encounter Progress Notes * Zeus Vo MD - 12/16/2021 8:40 AM CDTSummary: Acute visit notes Images from the original note were not included. Internal Medicine Outpatient Progress Note CC: Sinus Problem HPI: Manuel Hall is a 46-year-old male who presents for an acute visit for concerns about ongoing sinus drainage. According to patient, he has had similar episodes of sinus infection that occurs around this time. His symptoms started about a few days ago when he was awoken by ongoing worsening postnasal drainage which is currently thick and draining continously. He tells me his sinus drainag e is thick and yellowish in color. He currently has pain along the sinuses bilaterally. Has been using Nasonex and [id number]-[id number] Mucinex without any significant improvement. Denies any sore throat, fever, chills head. No sick contacts. He is not up-to-date with his COVID vaccines. He declines having any test done formally at this time. He thinks is just his sinus infection bothering him at this time. This is not new for patient. He tells me he usually gets better after course of treatment. Problem List Patient Active Problem List Diagnosis [...] Outpatient Medications Marked as Taking for the 12/16/21 encounter (Office Visit) with Zeus Vo MD Medication Sig Dispense Refill ??? allopurinol (ZYLOPRIM) 100 MG tablet Take 1 tablet (100 mg total) by mouth daily. 90 tablet 2 ??? amoxicillin-clavulanate (AUGMENTIN) 875-125 MG tablet Take 1 tablet (875 mg total) by mouth 2 (two) times daily for 7 days. 14 tablet 0 ??? lisinopril (PRINIVIL) 40 MG tablet Take 1 tablet (40 mg total) by mouth daily. 90 tablet 1 ??? phentermine (ADIPEX-P) 37.5 MG tablet Take one tablet every other morning 30 min with water only before breakfast. 30 tablet 0 Allergies: Allergies Allergen Reactions ??? Codeine Hyperactive Review of Systems Constitutional: Negative for chills, diaphoresis, fever, malaise/fatigue and weight loss. HENT: Positive for congestion and sinus pain. Negative for ear discharge, ear pain, hearing loss, nosebleeds, sore throat and tinnitus. Eyes: Negative. Respiratory: Positive for cough (Mild postnasal drainage). Negative for hemoptysis, sputum production, shortness of breath, wheezing and stridor. Cardiovascular: Negative for chest pain, palpitations, orthopnea, claudication, leg swelling and PND. Gastrointestinal: Negative. Genitourinary: Negative. Musculoskeletal: Negative. Skin: Negative. Objective: Filed Vitals: 12/16/21 0845 BP: 112/80 Pulse: 60 Resp: 18 Temp: 98 ??F (36.7 ??C) TempSrc: Temporal Weight: 105.2 kg (232 lb) Height: 5' 9 (1.753 m) Body mass index is 34.26 kg/m??. General alert, cooperative, no distress HEENT EOM's intact. Mild oropharyngeal erythema. Tenderness along both sinuses. Nasal septum is midline. Neck Supple, symmetrical, [...] not specified J01.00 461.0 ACUTE MAXILLARY SINUSITIS amoxicillin-clavulanate (AUGMENTIN) 875-125 MG tablet 1. Acute maxillary sinusitis, recurrence not specified - amoxicillin-clavulanate (AUGMENTIN) 875-125 MG tablet; Take 1 tablet (875 mg total) by mouth 2 (two) times daily for 7 days. Dispense: 14 tablet; Refill: 0 - Patient with acute sinusitis. Onset of worsening symptoms following a viral URI infection that lasted five to six days and was initially improving. Will give abx therapy based on rule in criteria. Patient agrees with course of action. Will treat with prescribed medication. If no relief in the next one week, patient is to return for further workup or change in medications. - continue with nasonex and Mucinex and maintain hydration - okay for Tylenol or advil as needed. Counseling given: Yes Comment: counseled by Dr [...] was at least in part performed using Sensiot[employer] and there may be some inherent flaws in this hat lacer due to the nature of this program. Zeus Vo MD Internal Medicine [facility], [facility]. documented in this encounter Plan of Treatment Upcoming Encounters Date Type Department Care Team (Late st Contact Info) Description 04/07/2024 7:40 AM SEAT PACK INSPECTOR Office Visit [facility] Medical [facility] Multispecialty Care - [place] [address] [address] [place] [address] Zeus Vo MD [address] [place] [address] documented as of this encounter Visit Diagnoses Diagnosis Acute maxillary sinusitis, recurrence not specified- Primary documented in this encounter Additional Health Concerns Assessment Noted Time PHQ-9 Depression Total Score: 0 05/14/19 22 7:24 AM SEAT PACK INSPECTOR documented as of this encounter Care Teams Marketing Data Specialist Relationship Specialty Start Date End Date Zeus Vo MD [address] [address] PCP - General INTERNAL MEDICINE 04/07/21 documented as of this encounter
--- OUTSIDE RECORDS SUMMARY | 2024-03-24 01:44 | XMS_ITS | Encounter Summary ---
Author Organization [facility] Address [address] [place] [address]. [place], [place] [address] [place] [address] Care Team Providers Care Women'S Studies Professor Name Role Phone Zeus Vo MD Primary Care Provider [phone] Reason for Visit * Reason Comments BP Check Encounter Details Date Type Department Care Team (Late st Contact Info) Description 03/13/2022 7:30 AM UTILITY ACCOUNTS DIRECTOR Allied Health/Nurse Visit [facility] Medical Group Multispecialty Care - [place] [address] [address] [place] [address] Zeus Vo MD [address] [place] [address] BP Check Social History Tobacco Use Types Packs/Day Years [...] move on to questions 3-9 0 01/07/2022 [facility] [place] of Occupat ional Health - Occupational Stress [...] Coronavirus/COVID-19? No / Unsure 03/13/2022 7:19 AM UTILITY ACCOUNTS DIRECTOR documented as of this encounter Last Filed Vital Signs Vital Sign Reading Time Taken Comments Blood Pressure 146/92 03/13/2022 7:20 AM UTILITY ACCOUNTS DIRECTOR Pulse - - Temperature - - Respiratory Rate - - Oxygen Saturation - - Inhaled Oxygen Concentration - - Weight - - Height - - Body Mass Index - - documented in this encounter Progress Notes * Pauline Gamino MA - 03/13/2022 7:30 AM CSTAddended by: PAULINE GAMINO on: 03/13/2022 07:30 AM Modules accepted: Level of Service ITY ACCOUNTS DIRECTOR * Rocio Herbert MA - 03/13/2022 7:30 AM CST Pt was in office today for BP check which was 146/ 92. ITY ACCOUNTS DIRECTOR documented in this encounter Plan of Treatment Upcoming Encounters Date Type Department Care Team (Late st Contact Info) Description 04/07/2024 7:40 AM UTILITY ACCOUNTS DIRECTOR Office Visit [facility] Medical Group Multispecialty Care [place] [address] [address] [place] [address] [place] [address] [place] [address] [address] [place], [place] [id number] documented as of this encounter Visit Diagnoses Diagnosis Hypertension- Primary Unspecified essential hypertension documented in this encounter Additional Health Concerns Assessment Noted Time PHQ-9 Depression Total Score: 0 05/14/19 22 7:24 AM UTILITY ACCOUNTS DIRECTOR documented as of this encounter Care Teams Women'S Studies Professor Relationship Specialty Start Date End Date Zeus Vo MD [address] [address] PCP - General INTERNAL MEDICINE 04/07/21 documented as of this encounter
--- OUTSIDE RECORDS SUMMARY | 2024-03-24 01:44 | XMS_ITS | Encounter Summary ---
Author Organization [facility] Address [address] [place] [address]. [place], [place] [address] [place] [address] Care Team Providers Care Well Digger Name Role Phone Zeus Vo MD Primary Care Provider [phone] Encounter Details Date Type Department Care Team (Latest Contact Info) Description 03/03/2022 Hospital Encounter [facility] [address] [place] [address] Zeus Vo MD [address] [address] Discharge Disposition: Home or Self [...] move on to questions 3-9 0 01/07/2022 [facility] [place] of Occupat ional Health - Occupational Stress [...] apply route nightly at bedtime. Sending to [employer]. 1 Device 08/06/2021 allopurinol (ZYLOPRIM) 100 MG [...] st Contact Info) Description 04/07/2024 7:40 AM SUPPLY PERSON Office Visit [facility] Medical Group Multispecialty Care - [place] [address] [address] [place] [address] Zeus Vo MD [address] [place] [address] [address] [place] [address] documented as of this encounter Visit Diagnoses Not on filedocumented in this encounter Additional Health Concerns Assessment Noted Time PHQ-9 Depression Total Score: 0 05/14/19 22 7:24 AM SUPPLY PERSON documented as of this encounter Care Teams Well Digger Relationship Specialty Start Date End Date Zeus Vo MD [address] [facility] [address] [place] [address] PCP - General INTERNAL MEDICINE 04/07/21 documented as of this encounter
--- OUTSIDE RECORDS SUMMARY | 2024-03-24 01:44 | XMS_ITS | Encounter Summary ---
Author Organization [facility] Address [address] [place] [address]. [place], [place] [address] [place] [address] Care Team Providers Care Food Tester Name Role Phone Zeus Vo MD Primary Care Provider [phone] Reason for Visit * Reason Comments Weight Problem Hypertension Encounter Details Date Type Department Care Team (Latest Contact Info) Description 12/03/2021 7:20 AM CDT Office Visit [facility] Medical Group Multispecialty Care - [place] [address] [address] [place] [address] Zeus Vo MD [address] [place] [address] [address] [place] [address] Weight Problem; Hypertension Social History Tobacco Use Types Packs/Day [...] move on to questions 3-9 0 05/14/2021 [facility] [place] of Occupat ional Health - Occupational Stress [...] suspected to have Coronavirus/COVID-19? No / Unsure 12/03/2021 7:14 AM CDT documented as of this encounter Last Filed Vital Signs Vital Sign Reading Time Taken Comments Blood Pressure 123/73 12/03/2021 7:21 AM CDT Pulse 54 12/03/2021 7:21 AM CDT Temperature 36.2 ??C (97.2 ??F) 12/03/2021 7:21 AM CD T Respiratory Rate 18 12/03/2021 7:21 AM CDT Oxygen Saturation 99% 12/03/2021 7:21 AM CDT Inhaled Oxygen Concentration - - Weight 105.4 kg (232 lb 6.4 oz) 12/03/2021 7:21 AM CDT Height 175.3 cm (5' 9 ) 12/03/2021 7:21 AM CDT Body Mass Index 34.32 12/03/2021 7:21 AM CDT documented in this encounter Patient Instructions * Patient Instructions* Zeus Vo MD - 12/03/2021 7:20 AM CDT Follow up with Nohemy for update on your CPAP update [phone] Follow up in 4 months. * Attachments The following attachments cannot be sent through Care Everywhere. * Weight Loss Tips (Sami) documented in this encounter Progress Notes * Zeus Vo MD - 12/03/2021 7:20 AM CDTSummary: Follow-up note Images from the original note were not included. Internal Medicine Outpatient Progress Note CC: Weight Problem and Hypertension HPI: Manuel Hall is a 46-year-old male who presents for follow- up for uncontrolled blood pressures, gout and weight issues. Patient was seen about 4 weeks ago for follow-up. During that visit, patient was prescribed phentermine for weight loss. He comes in today for follow-up. Weight is down from 232 pounds to 232 pounds. This is his sixth visit for phentermine refill. Noted elevated blood pressures during his last visit. He is currently on lisinopril 40 mg daily and has been compliant with taking his medications. Denies any concerns for shortness of breath, chest tightness with activity, palpitations, ankle swelling, orthopnea, paroxysmal nocturnal or chronic cough. Patient is also here for follow-up about. He is currently on allopurinol 100 mg daily. Recently hisdose was increased but had to be decreased back to his previous dose as noncompliance was possibly contributory towards his abnormal uric acid levels. He currently tells me he has been taking his allopurinol daily as instructed. His last uric acid was 9.5 on 11/05/2021. No recent flares for gout arthritis. Problem List Patient Active Problem List Diagnosis [...] Outpatient Medications Marked as Taking for the 12/03/21 encounter (Office Visit) with Zeus Vo MD Medication Sig Dispense Refill ??? allopurinol (ZYLOPRIM) 100 MG tablet Take 1 tablet (100 mg total) by mouth daily. 90 tablet 2 ??? CPAP DEVICE, DME, 1 Device by Does not apply route nightly at bedtime. Sending to [employer]. 1 Device 0 ??? lisinopril (PRINIVIL) 40 [...] Neurological: Negative. Psychiatric/Behavioral: Negative. Objective: Filed Vitals: 12/03/21 0721 BP: 123/73 Pulse: 54 Resp: 18 Temp: 97.2 ??F (36.2 ??C) TempSrc: Temporal SpO2: 99% Weight: 105.4 kg (232 lb 6.4 oz) Height: 5' 9 (1.753 m) Body mass index is 34.32 kg/m??. General alert, cooperative, no distress HEENT [...] ESSENTIAL HYPERTENSION lisinopril (PRINIVIL) 40 MG tablet 2. Gout, unspecified cause, unspecified chronicity, unspecified site M10.9 274.9 GOUT 3. Class 1 obesity due to excess calories with serious comorbidity and body mass index (BMI) of 34.0 to 34.9 in adult E66.09 278.00 OBESITY phentermine (ADIPEX- P) 37.5 MG tablet Z68.34 V85.34 1. Primary hypertension - controlled; currently taking his medications as directed - Patient currently controlled on current treatment for hypertension. Will continue. Continued to discuss weight loss, adequate cardiovascular fitness. DASH diet was discussed as well as decrease in sodium intake. BP goal of < 140/90 expressed. - continue lisinopril (PRINIVIL) 40 MG tablet; Take 1 tablet (40 mg total) by mouth daily. Dispense: 90 tablet; Refill: 1 2. Gout, unspecified cause, unspecified chronicity, unspecified site - currently taking his medications as directed - will plan to check uric acid levels during his next visit - continue with allopurinol 100 mg daily 3. Class 1 obesity due to excess calories with serious comorbidity and body mass index (BMI) of 34.0 to 34.9 in adult - this will be his last refill for phentermine - -Pt has elevated weight with BMI Body mass index is 34.32 kg/m??., and will need to work hard on reducing carbohydrates and total calories. -You may use the free smart phone apps such as StyleTrek to help track calories and try to [...] 5 pounds per month. - continue phentermine (ADIPEX-P) 37.5 MG tablet; Take one tablet every other morning 30 min with water only before breakfast. Dispense: 30 tablet; Refill: 0 Counseling given: Yes Comment: counseled by Dr [...] the patient. Follow up office visit in 4 months. Requested MyChart or telephone follow up prn if symptoms change, worsen, or persist, or if side effect of treatment is experienced. Patient will be getting his flushot from work. DRAGON: This dictation was at least in part performed using [employer] and there may be some inherent flaws in this timber buyer due to the nature of this program. Zeus Vo MD Internal Medicine [facility], [facility]. documented in this encounter Plan of Treatment Upcoming Encounters Date Type Department Care Team (Late st Contact Info) Description 04/07/2024 7:40 AM BELLHOP SERVICE CAPTAIN Office Visit [facility] Medical Group Multispecialty Care - [place] [address] [address] [place] [address] Zeus Vo MD [address] [place] [address] documented as of this encounter Visit Diagnoses Diagnosis Primary hypertension- Primary Unspecified essential hypertension Gout, unspecified cause, unspecified chronicity, unspecified site Class 1 obesity due to excess calories with serious comorbidity and body mass index (BMI) of 34.0 to 34.9 in adult documented in this encounter Additional Health Concerns Assessment Noted Time PHQ-9 Depression Total Score: 0 05/14/19 22 7:24 AM BELLHOP SERVICE CAPTAIN documented as of this encounter Care Teams Food Tester Relationship Specialty Start Date End Date Zeus Vo MD [address] [place] [address] [place] [address] PCP - General INTERNAL MEDICINE 04/07/21 documented as of this encounter
--- OUTSIDE RECORDS SUMMARY | 2024-03-24 01:44 | XMS_ITS | Encounter Summary ---
Author Organization [facility] Address [address] [place] [address]. [place], [place] [address] [place] [address] Care Team Providers Care Watch Assembly Inspector Name Role Phone Zeus Vo MD Primary Care Provider [phone] Encounter Details Date Type Department Care Team (Latest Contact Info) Description 07/09/2021 Travel Social History Tobacco Use Types Packs/Day [...] move on to questions 3-9 0 05/14/2021 [facility] [place] of Occupat ional Health - Occupational [...] st Contact Info) Description 04/07/2024 7:40 AM RITUAL CIRCUMCISER Office Visit [facility] Medical Group Multispecialty Care - [place] [address] [address] [place] [address] Zeus Vo MD [address] [place] [address] documented as of this encounter Visit Diagnoses Not on filedocumented in this encounter Additional Health Concerns Assessment Noted Time PHQ-9 Depression Total Score: 0 05/14/19 22 7:24 AM RITUAL CIRCUMCISER documented as of this encounter Care Teams Watch Assembly Inspector Relationship Specialty Start Date End Date Zeus Vo MD [address] [place] [address] PCP - General INTERNAL MEDICINE 04/07/21 documented as of this encounter
--- OUTSIDE RECORDS SUMMARY | 2024-03-24 01:44 | XMS_ITS | Encounter Summary ---
Author Organization [facility] Address [address] [place] [address]. [place], [place] [address] [place] [address] Care Team Providers Care Global Climate Change Researcher Name Role Phone Zeus Vo MD Primary Care Provider [phone] Reason for Visit * Reason Onset Date Comments Medication Information 07/22/2022 Changing dose of allopurinol from 100 mg to 200 mg daily. Uric acid level 07/22/2022 at 8.4. Encounter Details Date Type Department Care Team (Late st Contact Info) Description 07/22/2022 Telephone [facility] Multispecialty Care - [place] [address] [address] [place] [address] Zeus Vo MD [address] [place] [address] [address] [place], [place] [id number] Medication Information (Changing dose of allopurinol from 100 mg to 200 mg daily. Uric acid level 07/22/2022 at 8.4.) Social History Tobacco Use Types Packs/Day Years [...] Recorded Patient Health Questionnaire-2 Score 0 07/22/2022 [facility] of Occupat ional [facility] - Occupational Stress Questionnaire Answer Date [...] Notes * Zeus Vo MD - 07/22/2022 8:10 PM CDT Uric acid at 8.4 on 07/22/2022. Currently patient is on allopurinol 100 mg daily. Increase to allopurinol 200 mg daily. Will plan to repeat uric acid levels during subsequent visit and aim for uric acid level of less than 6.0. documented in this encounter Plan of Treatment Upcoming Encounters Date Type Department Care Team (Late st Contact Info) Description 04/07/2024 7:40 AM ACCOUNTS RECEIVABLE COORDINATOR Office Visit [facility] Mult[facility]pecialty Care - [place] [address] [address] [place] [address] Zeus Vo MD [address] [place] [address] [address] [place] [address] documented as of this encounter Visit Diagnoses Not on filedocumented in this encounter Additional Health Concerns Assessment Noted Time PHQ-9 Depression Total Score: 0 05/14/19 22 7:24 AM ACCOUNTS RECEIVABLE COORDINATOR documented as of this encounter Care Teams Global Climate Change Researcher Relationship Specialty Start Date End Date Zeus Vo MD [address] [address] PCP - General INTERNAL MEDICINE 04/07/21 documented as of this encounter
--- OUTSIDE RECORDS SUMMARY | 2024-03-24 01:44 | XMS_ITS | Encounter Summary ---
Author Organization [facility] Address [address] [place] [address]. [place], [place] [address] [place] [address] Care Team Providers Care Steam Generating Powerplant Mechanic Name Role Phone Zeus Vo MD Primary Care Provider [phone] Reason for Visit * Reason Onset Date Comments Prior Authorization 08/06/2021 Encounter Details Date Type Department Care Team (Late st Contact Info) Description 08/06/2021 Telephone [facility] Medical Group Multispecialty Care - [place] [address] [address] [place], [place] [address] Zeus Vo MD [address] [place] [address] [address] [place] [address] Prior Authorization Social History Tobacco Use Types Packs/Day Years [...] move on to questions 3-9 0 05/14/2021 [facility] [place] of Occupat ional Health - Occupational Stress [...] Progress Notes * Pauline Gamino MA - 08/06/2021 12:04 PM CDT Faxed consent form back to insurance company with the notes from Dr Vo. Will let patient know either way if denied or approved. documented in this encounter Plan of Treatment Upcoming Encounters Date Type Department Care Team (Late st Contact Info) Description 04/07/2024 7:40 AM QUALITY CONTROL MICROBIOLOGIST Office Visit [facility] Medical Group Multispecialty Care [place] [address] [address] [place] [address] Zeus Vo MD [address] [place] [address] documented as of this encounter Visit Diagnoses Not on filedocumented in this encounter Additional Health Concerns Assessment Noted Time PHQ-9 Depression Total Score: 0 05/14/19 7:24 AM QUALITY CONTROL MICROBIOLOGIST documented as of this encounter Care Teams Steam Generating Powerplant Mechanic Relationship Specialty Start Date End Date Zeus Vo MD [address] [place] [address] PCP - General INTERNAL MEDICINE 04/07/21 documented as of this encounter
--- OUTSIDE RECORDS SUMMARY | 2024-03-24 01:44 | XMS_ITS | Encounter Summary ---
Author Organization [facility] Address [address] [place] [address]. [place], [place] [address] [place] [address] Care Team Providers Care Paper Bundler Name Role Phone Zeus Vo MD Primary Care Provider [phone] Encounter Details Date Type Department Care Team (Latest Contact Info) Description 11/05/2021 Travel Social History Tobacco Use Types Packs/Day [...] move on to questions 3-9 0 05/14/2021 [facility] [place] of Occupat ional Health - Occupational Stress [...] st Contact Info) Description 04/07/2024 7:40 AM DIRECTOR COMPLIANCE Office Visit [facility] Medical Group Multispecialty Care - [place] [address] [address] [place] [address] Zeus Vo MD [address] [place] [address] documented as of this encounter Visit Diagnoses Not on filedocumented in this encounter Additional Health Concerns Assessment Noted Time PHQ-9 Depression Total Score: 0 05/14/19 22 7:24 AM DIRECTOR COMPLIANCE documented as of this encounter Care Teams Paper Bundler Relationship Specialty Start Date End Date Zeus Vo MD [address] [place] [address] PCP - General INTERNAL MEDICINE 04/07/21 documented as of this encounter
--- OUTSIDE RECORDS SUMMARY | 2024-03-24 01:44 | XMS_ITS | Encounter Summary ---
Author Organization [facility] Address [address] [place] [address]. [place], [place] [address] [place] [address] Care Team Providers Care Pharmacy Technician Instructor Name Role Phone Zeus Vo MD Primary Care Provider [phone] Reason for Visit * Reason Comments ER F/U Pt was in the ER for SOB Pneumonia Encounter Details Date Type Department Care Team (Latest Contact Info) Description 09/08/2022 11:40 AM CDT Office Visit [facility] Medical Group Multispecialty Care - [place] [address] [address] [place], [place] [phone] Zeus Vo MD [address] [place] [address] [address] [place] [address] ER F/U (Pt was in the ER for SOB); Pneumonia Social History Tobacco Use Types Packs/Day Years [...] Recorded Patient Health Questionnaire-2 Score 0 07/22/2022 [facility] of Occupat ional Health - [...] Sign Reading Time Taken Comments Blood Pressure 111/74 09/08/2022 11:31 AM CDT Pulse 80 09/08/2022 11:31 AM CDT Temperature 36.6 ??C (97.9 ??F) 09/08/2022 11:31 AM C DT Respiratory Rate 18 09/08/2022 11:31 AM CDT Oxygen Saturation 96% 09/08/2022 11:31 AM CDT Inhaled Oxygen Concentration - - Weight 101.2 kg (223 lb) 09/08/2022 11:31 AM CDT Height 175.3 cm (5' 9 ) 09/08/2022 11:31 AM CDT Body Mass Index 32.93 09/08/2022 11:31 AM CDT documented in this encounter Patient Instructions * Patient Instructions* Zeus Vo MD - 09/08/2022 11:40 AM CDT Follow up around November 3020[address] chest. You will need a Creatinine blood work to check your level prior to your imaging. You can add mucinex to help with the cough. Take medication as directed. Referral call You will receive a call from our referral team ([phone]) regarding your referral. Insurance authorization Our warehouse distribution specialist will contact your insurance company to get prior authorization if needed. Appointment If you have been referred to an [facility] hospital or [facility] Medical Group provider, the hospital or clinic you have been referred to will call you to schedule your appointment. For those outside services of [facility], our referral expects will be in contact by phone or mail regarding your recently placed referral. If you have not heard anything from your referral in about 1 week, please call [phone]. Working with insurance companies can be cumbersome, but we are dedicated to processing your referral timely and efficiently. Please know you have a caring and competent team working on your behalf [facility] continuum of care as quickly as possible. * Attachments The following attachments cannot be sent through Care Everywhere. * Pneumonia Discharge Instructions, Adult (S[place]i) documented in this encounter Progress Notes * Zeus Vo MD - 09/08/2022 11:40 AM CDTSummary: ER follow-up note Images from the original note were not included. Internal Medicine Outpatient Progress Note CC: ER F/U (Pt was in the ER for SOB) and Pneumonia HPI: Manuel Hall is a 47-year-old male who presents for follow-up for recent concerns about pneumonia. Patient was recently admitted at [facility] emergency room and concerns for pneumonia. According to patient, his symptoms started a couple of weeks prior to presenting to the emergency room. He has been experiencing worsening fatigue with productive cough. Symptoms were associated with general malaise. Given the persistent nature of his symptoms, patient patina did check his vital signs and had oxygen saturation in the low 80s. This prompted patient to seek help at [facility] emergency room. His symptoms were associated with chronic fatigue as well as shortness of breath and productive cough. CTA chest done on 08/31/2022 did not show no evidence of pulmonary embolism. Probable a irway disease. Scattered groundglass nodularity probably infectious versus inflammatory bronchiolitis and recommendations made for patient to have CT chest without contrast done in 3 months from thattime. Order has been placed at today's visit. Patient tells me he was only prescribed 5 days of Augmentin and had called me earlier due to persistent symptoms. I had extended his antibiotics for another 5 days (assuming he had previously been given a 7-day course which was not the case). We will doa 14 days total of antibiotics. Repeating steroids due to ongoing coughing with wheezing and shortness of breath with activity. No fever or chills at this time. He still continues to use Mucinex at home. Problem List Patient Active Problem List Diagnosis [...] Outpatient Medications Marked as Taking for the 09/08/22 encounter (Office Visit) with Zeus Vo MD Medication Sig Dispense Refill ??? albuterol sulfate HFA 108 (90 Base) MCG/ACT inhaler ??? allopurinol (ZYLOPRIM) 100 MG tablet Take 2 tablets (200 mg total) by mouth daily. 180 tablet 1 ??? amoxicillin-clavulanate (AUGMENTIN) 875-125 MG tablet Take 1 tablet (875 mg total) by mouth 2 (two) times daily for 5 days. 10 tablet 0 ??? [START ON 09/10/2022] amoxicillin-clavulanate (AUGMENTIN) 875-125 MG tablet Take 1 tablet (875 mgtotal) by mouth 2 (two) times daily for 4 days. 8 tablet 0 ??? Xuuzgdd-Zoishyjquuf-Rvjknavvdy (BREZTRI AEROSPHERE) 160-9-4.8 MCG/ACT Aerosol Inhale 1 puff into the lungs daily. 10.7 g 0 ??? CPAP DEVICE, DME, 1 Device by Does not apply route nightly at bedtime. Sending to [employer]. 1 Device 0 ??? methylPREDNISolone, RAMIN, (MEDROL DOSEPAK) 4 MG tablet 6 TABLETS ON DAY ONE, 5 TABLETS DAY TWO, 4 TABLETS DAY THREE, 3 TABLETS DAY FOUR, 2 TABLETS DAY FIVE, AND 1 TABLET DAY SIX 1 each 0 ??? valsartan-hydroCHLOROthiazide (DIOVAN-HCT) 320-25 MG tablet Take 1 tablet by mouth daily. 90 tablet 1 Allergies: Allergies Allergen Reactions ??? Codeine Hyperactive ROS Objective: Filed Vitals: 09/08/22 1131 BP: 111/74 Pulse: 80 Resp: 18 Temp: 97.9 ??F (36.6 ??C) TempSrc: Temporal SpO2: 96% Weight: 101.2 kg (223 lb) Height: 5' 9 (1.753 m) Body mass index is 32.93 kg/m??. General alert, cooperative, no distress HEENT EOM's intact. Oral mucosa normal. Nasal septum is midline. Neck Supple, symmetrical, trachea midline, no adenopathy, no thyromegaly, no JVD. Lungs No acute respiratory distress, no accessory muscle use, symmetric motion of the chest wall, lungs with decreased air entry bibasilarly with fine crackles. No wheezing appreciated. Heart Regular rate and regular rhythm. S1, [...] Encounter Diagnose(s) ICD-10-CM ICD-9-CM SNOMED CT(R) 1. Pneumonia due to infectious organism, unspecified laterality, unspecified part of lung J18.9 486INFECTIVE PNEUMONIA methylPREDNISolone, RAMIN, (MEDROL DOSEPAK) 4 MG tablet amoxicillin-clavulanate (AUGMENTIN) 875-[address] CHEST WO CON 2. Moderate persistent reactive airway disease with acute exacerbation J45.41 493.92 EXACERBATION OF MODERATE PERSISTENT ASTHMA Gifucpr-Bunltddrmxw-Htxeaqwicr (BREZTRI AEROSPHERE) 160-9-4.8 MCG/ACT Aerosol 3. Ground glass opacity present on imaging of lung R91.[address] 793[address] CHEST WO CON 1. Pneumonia due to infectious organism, unspecified laterality, unspecified part of lung -Patient still symptomatic. For now, we will do a total of 14 days of antibiotics. Repeating steroids at this time. Close monitoring. No longer having oxygen saturation in the 80s. - methylPREDNISolone, RAMIN, (MEDROL DOSEPAK) 4 MG tablet; 6 TABLETS ON DAY ONE, 5 TABLETS DAY TWO, 4TABLETS DAY THREE, 3 TABLETS DAY FOUR, 2 TABLETS DAY FIVE, AND 1 TABLET DAY SIX Dispense: 1 each; Refill: 0 - amoxicillin-clavulanate (AUGMENTIN) 875-125 MG tablet; Take 1 tablet (875 mg total) by mouth 2 (two) times daily for 4 days. Dispense: 8 tablet; Refill: 0 - CT CHEST WO CON; Future 2. Moderate persistent reactive airway disease with acute exacerbation - Hvawlip-Yryyhnxoauw-Siackaragd (BREZTRI AEROSPHERE) 160-9-4.8 MCG/ACT Aerosol; Inhale 1 puff intothe lungs daily. Dispense: 10.7 g; Refill: 0 3. Ground glass opacity present on imaging of lung - CT CHEST WO CON; Future to be done around November 30, 2022 Counseling given: Yes Tobacco comments: counseled by Dr Vo I personally spent a total of 30 minutes on the day of the encounter. This includes kcdc-bx-trqz and ueg-ylmw-ag-face time I provided on the day of [...] was at least in part performed using [employer] and there may be some inherent flaws in this screen cutter and trimmer due to the nature of this program. Zeus Vo MD Internal Medicine [facility], [facility]. documented in this encounter Plan of Treatment Upcoming Encounters Date Type Department Care Team (Late st Contact Info) Description 04/07/2024 7:40 AM JOB BOSS Office Visit [facility] Medical Group Multispecialty Care - [place] [address] [address] [place] [address] Zeus Vo MD [facility] [address] [address] documented as of this encounter Visit Diagnoses Diagnosis Pneumonia due to infectious organism, unspecified laterality, unspecified part of lung- Primary Moderate persistent reactive airway disease with acute exacerbation (HHS/HCC) Ground glass opacity present on imaging of lung documented in this encounter Additional Health Concerns Assessment Noted Time PHQ-9 Depression Total Score: 0 05/14/19 7:24 AM JOB BOSS documented as of this encounter Care Teams Pharmacy Technician Instructor Relationship Specialty Start Date End Date Zeus Vo MD [address] [place] [address] PCP - General INTERNAL MEDICINE 04/07/21 documented as of this encounter
--- OUTSIDE RECORDS SUMMARY | 2024-03-24 01:44 | XMS_ITS | Encounter Summary ---
Author Organization [facility] Address [address] [place] [address]. [place], [place] [address] [place] [address] Care Team Providers Care Laborer Car Barn Name Role Phone Zeus Vo MD Primary Care Provider [phone] Encounter Details Date Type Department Care Team (Latest Contact Info) Description 07/22/2022 Travel Social History Tobacco Use Types Packs/Day [...] Recorded Patient Health Questionnaire-2 Score 0 07/22/2022 [facility] of Occupat ional Health - Occupational Stress [...] st Contact Info) Description 04/07/2024 7:40 AM STOCK CONTROL CLERK Office Visit [facility] Medical Group Multispecialty Care [place] [address] [address] [place] [address] Zeus Vo MD [address] [place] [address] [id number] documented as of this encounter Visit Diagnoses Not on filedocumented in this encounter Additional Health Concerns Assessment Noted Time PHQ-9 Depression Total Score: 0 05/14/19 22 7:24 AM STOCK CONTROL CLERK documented as of this encounter Care Teams Laborer Car Barn Relationship Specialty Start Date End Date Zeus Vo MD [address] [place] [address] PCP - General INTERNAL MEDICINE 04/07/21 documented as of this encounter
--- OUTSIDE RECORDS SUMMARY | 2024-03-24 01:44 | XMS_ITS | Encounter Summary ---
Author Organization [facility] Address [address] [place] [address]. [place], [place] [address] [place] [address] Care Team Providers Care Storm Chaser Name Role Phone Zeus Vo MD Primary Care Provider [phone] Reason for Visit * Reason Onset Date Comments Medication 03/13/2022 Encounter Details Date Type Department Care Team (Late st Contact Info) Description 03/13/2022 Telephone [facility] Medical Group Multispecialty Care - [place] [address] [address] [place], [place] [id number] Zeus Vo MD [address] [place] [address] 157 [place] [address] Medication Social History Tobacco Use [...] move on to questions 3-9 0 01/07/2022 [facility] [place] of Occupat ional Health - Occupational Stress [...] Coronavirus/COVID-19? No / Unsure 03/13/2022 7:19 AM BUSINESS SUPPORT MANAGER documented as of this encounter Progress Notes * Zeus Vo MD - 03/13/2022 12:06 PM CST Blood pressure still uncontrolled. Changing from lisinopril to losartan hydrochlorothiazide. I havenotified patient of plan. Next visit in 1 week for blood pressure recheck. NESS SUPPORT MANAGER documented in this encounter Plan of Treatment Upcoming Encounters Date Type Department Care Team (Late st Contact Info) Description 04/07/2024 7:40 AM BUSINESS SUPPORT MANAGER Office Visit [facility] Medical Group Multispecialty Care [place] [address] [address] [place] [address] Zeus Vo MD [address] [place] [address] documented as of this encounter Visit Diagnoses Diagnosis Primary hypertension- Primary Unspecified essential hypertension documented in this encounter Additional Health Concerns Assessment Noted Time PHQ-9 Depression Total Score: 0 05/14/19 22 7:24 AM BUSINESS SUPPORT MANAGER documented as of this encounter Care Teams Storm Chaser Relationship Specialty Start Date End Date Zeus Vo MD [address] [place] [address] PCP - General INTERNAL MEDICINE 04/07/21 documented as of this encounter
--- OUTSIDE RECORDS SUMMARY | 2024-03-24 01:44 | XMS_ITS | Encounter Summary ---
Author Organization [facility] Address [address] [place] [address]. [place], [place] [address] [place] [address] Care Team Providers Care Channel Rebuilder Name Role Phone Zeus Vo MD Primary Care Provider [phone] Encounter Details Date Type Department Care Team (Latest Contact Info) Description 08/06/2021 Scan [facility] INFO SRVCS Scanned, Documents Social History Tobacco Use Types Packs/Day Years [...] move on to questions 3-9 0 05/14/2021 [facility] [place] of Occupat ional Health - Occupational Stress [...] st Contact Info) Description 04/07/2024 7:40 AM HOME EXTENSION AGENT Office Visit [facility] Medical Group Multispecialty Care - [place] [address] [address] [place] [address] Zeus Vo MD [address] [place] [address] documented as of this encounter Visit Diagnoses Not on filedocumented in this encounter Additional Health Concerns Assessment Noted Time PHQ-9 Depression Total Score: 0 05/14/19 22 7:24 AM HOME EXTENSION AGENT documented as of this encounter Care Teams Channel Rebuilder Relationship Specialty Start Date End Date Zeus Vo MD [address] [place] [address] PCP - General INTERNAL MEDICINE 04/07/21 documented as of this encounter
--- OUTSIDE RECORDS SUMMARY | 2024-03-24 01:44 | XMS_ITS | Encounter Summary ---
Author Organization [facility] Address [address] [place] [address]. [place], [place] [address] [place] [address] Care Team Providers Care Postal Service Mail Processor Name Role Phone Zeus Vo MD Primary Care Provider [phone] Encounter Details Date Type Department Care Team (Latest Contact Info) Description 12/16/2021 Travel Social History Tobacco Use Types Packs/Day [...] move on to questions 3-9 0 05/14/2021 [facility] [place] of Occupat ional Health - Occupational Stress [...] st Contact Info) Description 04/07/2024 7:40 AM TOPOGRAPHY TECHNICIAN Office Visit [facility] Medical Group Multispecialty Care [place] [address] [address] [place] [address] Zeus Vo MD [address] [place] [address] documented as of this encounter Visit Diagnoses Not on filedocumented in this encounter Additional Health Concerns Assessment Noted Time PHQ-9 Depression Total Score: 0 05/14/19 22 7:24 AM TOPOGRAPHY TECHNICIAN documented as of this encounter Care Teams Postal Service Mail Processor Relationship Specialty Start Date End Date Zeus Vo MD [address] [place] [address] PCP - General INTERNAL MEDICINE 04/07/21 documented as of this encounter
--- OUTSIDE RECORDS SUMMARY | 2024-03-24 01:44 | XMS_ITS | Encounter Summary ---
Author Organization [facility] Address [address] [place] [address]. [place], [place] [address] [place] [address] Care Team Providers Care Research Associate Policy Name Role Phone Zeus Vo MD Primary Care Provider [phone] Encounter Details Date Type Department Care Team (Latest Contact Info) Description 12/03/2021 Travel Social History Tobacco Use Types Packs/Day [...] move on to questions 3-9 0 05/14/2021 [facility] [place] of Occupat ional Health - Occupational Stress [...] st Contact Info) Description 04/07/2024 7:40 AM TRACTOR DRIVER TEAMSTER Office Visit [facility] Medical Group Multispecialty [facility] - [place] [address] [address] [place] [address] Zeus Vo MD [address] [place] [address] documented as of this encounter Visit Diagnoses Not on filedocumented in this encounter Additional Health Concerns Assessment Noted Time PHQ-9 Depression Total Score: 0 05/14/19 22 7:24 AM TRACTOR DRIVER TEAMSTER documented as of this encounter Care Teams Research Associate Policy Relationship Specialty Start Date End Date Zeus Vo MD [address] [place] [address] PCP - General INTERNAL MEDICINE 04/07/21 documented as of this encounter
--- OUTSIDE RECORDS SUMMARY | 2024-03-24 01:44 | XMS_ITS | Encounter Summary ---
Author Organization [facility] Address [address] [place] [address]. [place], [place] [address] [place] [address] Care Team Providers Care Social And Human Services Assistant Name Role Phone Zeus Vo MD Primary Care Provider [phone] Encounter Details Date Type Department Care Team (Latest Contact Info) Description 01/07/2022 Scan [facility] INFO SRVCS Scanned, Documents [...] move on to questions 3-9 0 01/07/2022 [facility] [place] of Occupat ional Health - Occupational Stress [...] st Contact Info) Description 04/07/2024 7:40 AM DESK CLERKS SUPERVISOR Office Visit [facility] Medical Group Multispecialty Care - [place] [address] [address] [place] [address] Zeus Vo MD [address] [place] [address] documented as of this encounter Visit Diagnoses Not on filedocumented in this encounter Additional Health Concerns Assessment Noted Time PHQ-9 Depression Total Score: 0 05/14/19 22 7:24 AM DESK CLERKS SUPERVISOR documented as of this encounter Care Teams Social And Human Services Assistant Relationship Specialty Start Date End Date Zeus Vo MD [address] [place] [address] PCP - General INTERNAL MEDICINE 04/07/21 documented as of this encounter
--- OUTSIDE RECORDS SUMMARY | 2024-03-24 01:44 | XMS_ITS | Encounter Summary ---
Author Organization [facility] Address [address] [place] [address]. [place], [place] [address] [place] [address] Care Team Providers Care Supervisor Felting Name Role Phone Zeus Vo MD Primary Care Provider [phone] Encounter Details Date Type Department Care Team (Latest Contact Info) Description 03/03/2022 Travel Social History Tobacco Use Types Packs/Day [...] move on to questions 3-9 0 01/07/2022 [facility] [place] of Occupat ional Health - Occupational Stress [...] Coronavirus/COVID-19? No / Unsure 03/03/2022 12:52 PM STRETCHER OPERATOR documented as of this encounter Plan of Treatment Upcoming Encounters Date Type Department Care Team (Late st Contact Info) Description 04/07/2024 7:40 AM STRETCHER OPERATOR Office Visit [facility] Medical Group Multispecialty Care - [place] [address] [address] [place] [address] Zeus Vo MD [address] [place] [address] documented as of this encounter Visit Diagnoses Not on filedocumented in this encounter Additional Health Concerns Infection Onset Date Last Indicated Resolved Time COVID-19 Rule Out 03/03/2022 03/03/2022 03/03/2022 2:54 PM STRETCHER OPERATOR COVID-19 Rule Out 03/03/2022 03/03/2022 03/05/2022 1:12 AM STRETCHER OPERATOR Assessment Noted Time PHQ-9 Depression Total Score: 0 05/14/19 7:24 AM STRETCHER OPERATOR documented as of this encounter Care Teams Supervisor Felting Relationship Specialty Start Date End Date Zeus Vo MD [address] [place] [address] PCP - General INTERNAL MEDICINE 04/07/21 documented as of this encounter
--- OUTSIDE RECORDS SUMMARY | 2024-03-24 01:44 | XMS_ITS | Encounter Summary ---
Author Organization [facility] Address [address] [place] [address]. [place], [place] [address] [place] [address] Care Team Providers Care Pediatrician/Medical Doctor Name Role Phone Zeus Vo MD Primary Care Provider [phone] Reason for Visit * Reason Onset Date Comments Forms 07/27/2021 Encounter Details Date Type Department Care Team (Late st Contact Info) Description 07/27/2021 Telephone [facility] Medical Group Multispecialty Care - [place] [address] [address] [place], [place] [phone] Zeus Vo MD [address] [place] [address] 157 [place] [address] Forms Social History Tobacco Use Types Packs/Day Years [...] move on to questions 3-9 0 05/14/2021 [facility] [place] of Occupat ional Health - Occupational Stress [...] Progress Notes * Zeus Vo MD - 07/27/2021 4:02 PM CDT Appeal form for [facility] filled out and faxed. Zeus Vo MD Internal Medicine [facility] Medical [facility], [facility]. documented in this encounter Plan of Treatment Upcoming Encounters Date Type Department Care Team (Late st Contact Info) Description 04/07/2024 7:40 AM REFRIGERATOR ASSEMBLER Office Visit [facility] Medical [facility] Multispecialty Care - [place] [address] [address] [place] [address] Zeus Vo MD [address] [place] [address] documented as of this encounter Visit Diagnoses Not on filedocumented in this encounter Additional Health Concerns Assessment Noted Time PHQ-9 Depression Total Score: 0 05/14/19 7:24 AM REFRIGERATOR ASSEMBLER documented as of this encounter Care Teams Pediatrician/Medical Doctor Relationship Specialty Start Date End Date Zeus Vo MD [address] [place] [address] PCP - General INTERNAL MEDICINE 04/07/21 documented as of this encounter
--- OUTSIDE RECORDS SUMMARY | 2024-03-24 01:44 | XMS_ITS | Encounter Summary ---
Author Organization [facility] [place] [facility] Address [address] [place] [address]. [place], [place] [address] [place] [address] Care Team Providers Care Finish Cleaner Name Role Phone Zeus Vo MD Primary Care Provider [phone] Reason for Visit * Reason Onset Date Comments Medication 07/27/2022 Encounter Details Date Type Department Care Team (Late st Contact Info) Description 07/27/[address] [facility] Mult[facility]pecialty Care - [place] [address] [address] [place], [place] [id number] Zeus Vo MD [address] [place] [address] [address] [place] [address] Medication Social History Tobacco Use [...] Recorded Patient Health Questionnaire-2 Score 0 07/22/2022 [facility] - Occupational Stress Questionnaire Answer Date [...] Progress Notes * Zeus Vo MD - 07/27/2022 4:52 PM CDT New prescription sent for allopurinol to preferred pharmacy. documented in this encounter Plan of Treatment Upcoming Encounters Date Type Department Care Team (Late st Contact Info) Description 04/07/2024 7:40 AM BISQUE TILE BURNER Office Visit [facility] [place] [address] [address] [place] [address] Zeus Vo MD [facility] [address] [address] documented as of this encounter Visit Diagnoses Diagnosis Hyperuricemia- Primary Other abnormal blood chemistry documented in this encounter Additional Health Concerns Assessment Noted Time PHQ-9 Depression Total Score: 0 05/14/19 22 7:24 AM BISQUE TILE BURNER documented as of this encounter Care Teams Finish Cleaner Relationship Specialty Start Date End Date Zeus Vo MD [address] [place] [address] PCP - General INTERNAL MEDICINE 04/07/21 documented as of this encounter
--- OUTSIDE RECORDS SUMMARY | 2024-03-24 01:44 | XMS_ITS | Encounter Summary ---
Author Organization [facility] Address [address] [place] [address]. [place], [place] [address] [place] [address] Care Team Providers Care Bush Hog Operator Name Role Phone Zeus Vo MD Primary Care Provider [phone] Reason for Visit * Reason Onset Date Comments Results 11/06/2021 Encounter Details Date Type Department Care Team (Late st Contact Info) Description 11/06/2021 Telephone [facility] Multispecialty Care - [place] [address] [address] [place], [place] [id number] Zeus Vo MD [address] [place] [address] 157 [place] [address] Results Social History Tobacco Use Types Packs/Day [...] move on to questions 3-9 0 05/14/2021 [facility] [place] of Occupat ional Health - Occupational [...] as of this encounter Progress Notes * Shaila Nagel MA - 11/06/2021 2:44 PM CDT Pt called office and was informed of below. He is aware to reach out if not contacted in a few daysto schedule the liver US. * Shaila Nagel MA - 11/06/2021 11:42 AM CDT VMbox full, unable to LM. Vestor message sent. US ABD order has been faxed to [facility] * Shaila Nagel MA - 11/06/2021 11:42 AM CDT ----- Message from Zeus Vo MD sent at 11/06/2021 7:53 AM CDT ----- Please call patient. Uric acid level still up. I would like to increase his allopurinol to 200 mg from 100 mg daily. This will mean taking 2 of his 100 mg tablets at a time. Please encourage patient to get his ultrasound of the liver done. Please fax over order to [facility] for patient to have done. His liver numbers are still up. Encourage patient to cut back onuse of alcohol if he currently does not use it. Thank you Zeus Vo MD Internal Medicine [facility], [facility]. documented in this encounter Plan of Treatment Upcoming Encounters Date Type Department Care Team (Late st Contact Info) Description 04/07/2024 7:40 AM REAL ESTATE LEGAL SECRETARY Office Visit [facility] Multispecialty Care - [place] [address] [address] [place] [address] Zeus Vo MD [address] [place] [address] documented as of this encounter Visit Diagnoses Not on filedocumented in this encounter Additional Health Concerns Assessment Noted Time PHQ-9 Depression Total Score: 0 05/14/19 7:24 AM REAL ESTATE LEGAL SECRETARY documented as of this encounter Care Teams Bush Hog Operator Relationship Specialty Start Date End Date Zeus Vo MD [address] [place] [address] PCP - General INTERNAL MEDICINE 04/07/21 documented as of this encounter
--- OUTSIDE RECORDS SUMMARY | 2024-03-24 01:44 | XMS_ITS | Encounter Summary ---
Author Organization [facility] Address [address] [place] [address]. [place], [place] [address] [place] [address] Care Team Providers Care In Flight Refueling Craftsman Name Role Phone Zeus Vo MD Primary Care Provider [phone] Encounter Details Date Type Department Care Team (Latest Contact Info) Description 01/28/2022 Scan [facility] Scanned, Doc [...] move on to questions 3-9 0 01/07/2022 [facility] [place] of Occupat ional Health - Occupational Stress [...] st Contact Info) Description 04/07/2024 7:40 AM FIRE HYDRANT MECHANIC Office Visit [facility] Multispecialty Care - [place] [address] [address] [place], [place] [id number] Zeus Vo MD [address] [place] [address] documented as of this encounter Visit Diagnoses Not on filedocumented in this encounter Additional Health Concerns Assessment Noted Time PHQ-9 Depression Total Score: 0 05/14/19 22 7:24 AM FIRE HYDRANT MECHANIC documented as of this encounter Care Teams In Flight Refueling Craftsman Relationship Specialty Start Date End Date Zeus Vo MD [address] [place] [id number] PCP - General INTERNAL MEDICINE 04/07/21 documented as of this encounter
--- OUTSIDE RECORDS SUMMARY | 2024-03-24 01:44 | XMS_ITS | Encounter Summary ---
Author Organization [facility] Address [address] [place] [address]. [place], [place] [address] [place] [address] Care Team Providers Care Button Breaker Name Role Phone Zeus Vo MD Primary Care Provider [phone] Encounter Details Date Type Department Care Team (Late st Contact Info) Description 11/06/2021 Orders Only [facility] Multispecialty Care - [place] [address] [address] [place] [address] Zeus Vo MD [address] [place] [address] 157 [place], [place] [id number] Social History Tobacco Use Types Packs/Day Years [...] move on to questions 3-9 0 05/14/2021 [facility] [place] of Occupat ional Health - Occupational Stress [...] Progress Notes * Zeus Vo MD - 11/06/2021 7:52 AM CDT Liver numbers still up. Patient needs to get abdominal ultrasound done. Uric acid still above goal.Currently 9.5. We will aim for uric acid levels of less than 6. Increasing his current dose of allopurinol to 200 mg daily. Zeus Vo MD Internal Medicine [facility], [facility]. documented in this encounter Plan of Treatment Upcoming Encounters Date Type Department Care Team (Late st Contact Info) Description 04/07/2024 7:40 AM OPTIONS ADVISOR Office Visit [facility] Multispecialty Care - [place] [address] [address] [place] [address] Zeus Vo MD [address] [place] [address] documented as of this encounter Visit Diagnoses Diagnosis Hyperuricemia Other abnormal blood chemistry documented in this encounter Additional Health Concerns Assessment Noted Time PHQ-9 Depression Total Score: 0 05/14/19 22 7:24 AM OPTIONS ADVISOR documented as of this encounter Care Teams Button Breaker Relationship Specialty Start Date End Date Zeus Vo MD [address] [place] [address] PCP - General INTERNAL MEDICINE 04/07/21 documented as of this encounter
--- OUTSIDE RECORDS SUMMARY | 2024-03-24 01:44 | XMS_ITS | Encounter Summary ---
Author Organization [facility] Address [address] [place] [address]. [place], [place] [address] [place] [address] Care Team Providers Care Horticultural Specialty Grower Name Role Phone Zeus Vo MD Primary Care Provider [phone] Encounter Details Date Type Department Care Team (Latest Contact Info) Description 09/08/2022 Travel Social History Tobacco Use Types Packs/Day [...] Recorded Patient Health Questionnaire-2 Score 0 07/22/2022 [facility] of Occupat ional Health - [...] st Contact Info) Description 04/07/2024 7:40 AM CASING BLOWER Office Visit [facility] Multispecialty Care [place] [address] [address] [place] [address] Zeus Vo MD [address] [place] [phone] documented as of this encounter Visit Diagnoses Not on filedocumented in this encounter Additional Health Concerns Assessment Noted Time PHQ-9 Depression Total Score: 0 05/14/19 7:24 AM CASING BLOWER documented as of this encounter Care Teams Horticultural Specialty Grower Relationship Specialty Start Date End Date Zeus Vo MD [address] [place] [id number] PCP - General INTERNAL MEDICINE 04/07/21 documented as of this encounter
--- OUTSIDE RECORDS SUMMARY | 2024-03-24 01:44 | XMS_ITS | Encounter Summary ---
Author Organization [facility] Address [address] [place] [address]. [place], [place] [address] [place] [address] Care Team Providers Care Diagnostic Assistant Name Role Phone Zeus Vo MD Primary Care Provider [phone] Encounter Details Date Type Department Care Team (Late st Contact Info) Description 07/27/2022 [employer] Message Enc [facility] Multispecialty Care - [address] [place] [address] [employer], [facility] Provider Lab Results Social History Tobacco Use Types Packs/Day [...] Recorded Patient Health Questionnaire-2 Score 0 07/22/2022 [facility] [place] of Occupat ional Health - Occupational Stress [...] st Contact Info) Description 04/07/2024 7:40 AM CUSTOMS INVESTIGATOR Office Visit [facility] Multispecialty Care - [place] [address] [address] [place] [address] Zeus Vo MD [address] [place] [address] documented as of this encounter Visit Diagnoses Not on filedocumented in this encounter Additional Health Concerns Assessment Noted Time PHQ-9 Depression Total Score: 0 05/14/19 22 7:24 AM CUSTOMS INVESTIGATOR documented as of this encounter Care Teams Diagnostic Assistant Relationship Specialty Start Date End Date Zeus Vo MD [address] [place] [phone] PCP - General INTERNAL MEDICINE 04/07/21 documented as of this encounter
--- OUTSIDE RECORDS SUMMARY | 2024-03-24 01:45 | XMS_ITS | Encounter Summary ---
Author Organization [facility] - [facility] Address [address] [place] [address]. [place], [place] [id number] [place] [id number] Care Team Providers Care Garment Turner Name Role Phone Elvia Rosen BOSTON CUTTER Primary Care Provider Unavailabl e Reason for Visit * Reason Comments Abdominal Pain left side abdominal/ side pain that started today. States he vomitted about 20 minutes before making this appointment Encounter Details Date Type Department Care Team (Latest Contact Info) Description 08/27/2020 9:20 AM CDT Office Visit [facility] Multispecialty Care - [address] [address] [address] [place] [address] Zeus Vo MD [address] [place] [address] [address] [place], [place] [id number] Abdominal Pain (left side abdominal/side pain that started today. States he vomitted about 20 minutes before making this appointment) Social History Tobacco Use Types Packs/Day Years Used Date Smoking Tobacco: Never Smokeless Tobacco: Never Tobacco Cessation:Counseling Given: Yes Alcohol Use Standard Drinks/Week Comments Yes 3.3 [...] please move on to questions 3-9 0 03/21/2020 [facility] of Occupat ional Health - Occupational Stress [...] Exposure Response Date Recorded In the last month, have you been in contact with someone who was confirmed or suspected to have Coronavirus / COVID-19? No / Unsure 08/27/2020 9:17 AM CDT documented as of this encounter Last Filed Vital Signs Vital Sign Reading Time Taken Comments Blood Pressure 150/90 08/27/2020 9:44 AM CDT Pulse 73 08/27/2020 9:23 AM CDT Temperature 36.8 ??C (98.2 ??F) 08/27/2020 9:23 AM CD T Respiratory Rate 18 08/27/2020 9:23 AM CDT Oxygen Saturation 98% 08/27/2020 9:23 AM CDT Inhaled Oxygen Concentration - - Weight 108.4 kg (239 lb) 08/27/2020 9:23 AM CDT Height 175.3 cm (5' 9 ) 08/27/2020 9:23 AM CDT Body Mass Index 35.29 08/27/2020 9:23 AM CDT documented in this encounter Patient Instructions * Patient Instructions* Zeus Vo MD - 08/27/2020 9:20 AM CDT Images from the original note were not included. Go to the emergency room to have blood work done as well as imaging done. Please stay hydrated. You received Toradol 60 mg injection at today's visit. Call with questions. Next Patient Education Patient Education Flank Pain Discharge Instructions About this topic Flank pain, or side pain, causes pain between the upper belly and the middle of the back. The pain can be on either side of the body. Flank pain can be mild or it can be very bad based on what is causing the pain. What care is needed at home? ?? Ask your doctor what you need to do when you go home. Make sure you ask questions if you do not understand what the doctor says. This way you will know what you need to do. ?? The type of care you will need at home will depend on the cause of your pain. Mild pain that only lasts a short while may go away on its own, but pain that is very bad with other signs, such as fever or bleeding, will need to be treated. What follow-up care is needed? ?? Your doctor may ask you to make visits to the office to check on your progress. Be sure to keep these visits. ?? You may need to rest for a while until your pain is better. ?? If your problem needs more care, your doctor may send you to physical therapy (PT). ?? The doctor may send you to a specialist. What drugs may be needed? The doctor may order drugs to: ?? Help with pain and swelling ?? Relax muscles ?? Fight an infection ?? Help you pass a kidney stone What problems could happen? ?? Infection ?? Bleeding ?? Kidney failure What can be done to prevent this health problem? Some causes of flank pain can be stopped or lowered by doing some easy steps: ?? Warm up and stretch before starting a workout. ?? Use your leg muscles and knees to protect your back when lifting. ?? Drink 6 to 8 glasses of water each day. This will help to keep from getting kidney stones and infections. ?? Drink less beer, wine, and mixed drinks (alcohol) to lower your chance of other diseases. ?? Talk to your doctor about getting the shingles vaccine. When do I need to call the doctor? ?? Signs of infection. These include a fever of 100.4??F (38??C) or higher, chills, pain with passing urine. ?? Blood in the urine ?? Not able to eat or drink, very bad upset stomach, throwing up, or belly pain ?? Rash ?? Not able to move or do normal daily actions ?? You are not feeling better in 2 to 3 days or you are feeling worse Teach Back: Helping You Understand The Teach [...] ?? I can tell you about my pain. ?? I can tell you what may help prevent pain in the future. ?? I can tell you what I will do if I have very bad flank or belly pain or fever. Last Reviewed Date 2020-01-31 Consumer Information Use and Disclaimer This information is not specific medical advice and does not replace information you receive from your health care provider. This is only a brief summary of general information. It does NOT include all information about conditions, illnesses, injuries, tests, procedures, treatments, therapies, discharge instructions or life-style choices that may apply to you. You must talk with your health care provider for complete information about your health and treatment options. This information should not be used to decide whether or not to accept your health care provider???s advice, instructions or recommendations. Only your health care provider has the knowledge and training to provide advice that is right for you. Copyright Copyright ?? 2020 [employer]. and its affiliates and/or licensors. All rights reserved. Patient Education Patient Education Kidney Stones Discharge Instructions About this topic The urinary tract is made up of the kidney, ureters, bladder, and urethra. The kidneys make urine and it drains down into tubes called ureters. These ureters are connected to the bladder. The bladderthen squeezes out the urine and it exits the body through the urethra. Sometimes, salts and minerals in your urine build up and form stones. The stones are hard and can get stuck on their way out of the body. Some stones are too large and block the flow of urine. Otherscause bleeding and pain. They may damage the kidney. Treatment depends on the type of stone, size of the stone, and where it is along your urinary tract. Your doctor may send the stone to a lab to learn more about it and how to best treat you. What care is needed at home? ?? Ask your doctor what you need to do when you go home. Make sure you ask questions if you do not understand what the doctor says. This way you will know what you need to do. ?? Your doctor may tell you to watch your fluid intake. You may be asked to drink 8 to 10 glasses of water each day or more. This may help you pass any stones. ?? Your doctor may ask you to use a filter to strain your urine. The filter catches the stones. ?? Your doctor may send the stones to lab to find out what type they are. What follow-up care is needed? ?? Your doctor may ask you to make visits to the office to check on your progress. Be sure to keep these visits. ?? Your doctor will tell you if other tests are needed. ?? Your doctor may send you to a kidney specialist. This kind of doctor is called a urologist. What drugs may be needed? The doctor may order drugs to: ?? Help with pain ?? Prevent infection ?? Help flush out kidney stones ?? Prevent kidney stones Will physical activity be limited? You may have to limit your activity. Talk to your doctor about the right amount of activity for you. What changes to diet are needed? ?? Talk to your doctor or dietitian about your personal diet plan. Ask if there are foods you should eat more or less of, based on the kind of stone you had. ?? Avoid caffeinated drinks that can overwork your urinary tract. What problems could happen? ?? Kidney infection ?? Kidney damage ?? Block in the urinary system ?? High blood pressure What can be done to prevent this health problem? ?? Prevent or treat urinary tract infections. ?? Drink lots of water during the day. When you have less fluid in your body, urine becomes concentrated. This increases your chance of kidney stones. ?? Take drugs as ordered by your doctor. ?? Limit foods or drugs that may cause kidney stones. When do I need to call the doctor? ?? Signs of infection. These include a fever of 100.4??F (38??C) or higher, chills, pain with passing urine. ?? Very bad pain in your back or side that will not go away ?? Throwing up ?? Urine that smells bad, looks cloudy, or has blood in it ?? No urine for more than 6 hours ?? Very bad pain in your chest, shoulder, or belly ?? More swelling of your ankles, legs, and hands or tightness with your shoes or rings ?? You are not feeling better in 2 to 3 days or you are feeling worse Teach Back: Helping You Understand The Teach [...] condition. ?? I can tell you what changes I need to make with my diet or drugs. ?? I can tell you what I will do if I have very bad pain in my back or side. Where can I learn more? [employer] [employer] https://familydoctor.org/condition/kidney-stones/ National Kidney and Urologic Diseases Information Clearinghouse http://kidney.niddk.nih.gov/kudiseases/pubs/stones_ez/ NHS Choices https://www.nhs.uk/conditions/kidney-stones/ Last Reviewed Date 2019-04-18 Consumer Information Use and Disclaimer This information is not specific medical advice and does not replace information you receive from your health care provider. This is only a brief summary of general information. It does NOT include all information about conditions, illnesses, injuries, tests, procedures, treatments, therapies, discharge instructions or life-style choices that may apply to you. You must talk with your health care provider for complete information about your health and treatment options. This information should not be used to decide whether or not to accept your health care provider???s advice, instructions or recommendations. Only your health care provider has the knowledge and training to provide advice that is right for you. Copyright Copyright ?? 2020 [employer]. and its affiliates and/or licensors. All rights reserved. documented in this encounter Progress Notes * Zeus Vo MD - 08/27/2020 9:20 AM CDTSummary: Acute visit notes Images from the original note were not included. Internal Medicine Outpatient Progress Note CC: Abdominal Pain (left side abdominal/side pain that started today. States he vomitted about 20 minutes before making this appointment) HPI: Manuel Hall is a 45-year-old male who presents for with concerns for sudden onset of severe left flank pain. Patient was at work in a sitting position when he suddenly noticed severe onset of left flank pain. This is the first episode. Patient instantly became nauseous. He had a couple of episodes of vomiting. Vomitus was nonbilious, nonbloody. He also had a normal bowel movement that was not watery. Stool was nonbloody. Patient is not constipated. He is passing flatus normally. Patient admits left flank pain radiates to the left groin. Rates his pain as 8/10. Admits to mild intermittent chills but no fever. Denies any headaches. Denies any urinary symptoms such as frequency, urgency, hesitancy, hematuria or dysuria. Patient's last sexual activity was about a month ago. Patient is in a monogamous relationship. Denies lower back pain. Tells me he usually stays hydrated. No recent new medications. Noted prior history of overactive bladder on Ditropan. We discussed going to the ER for IV fluids if patient cannot maintain hydration, CT stone protocol to find out size of stone if present and to find out other possible etiologies for sudden onset of severe left flank abdominal pain. [facility] be [facility] room after this visit. Problem List Patient Active Problem List Diagnosis ??? Overactive bladder History reviewed. No pertinent past medical history. History reviewed. No pertinent surgical history. Family History Problem Relation Name Age of Onset ??? Diabetes Father ??? Diabetes Paternal Grandmother ??? Diabetes Paternal Grandfather Social History Tobacco Use ??? Smoking status: Never Smoker ??? Smokeless tobacco: Never Used Substance Use Topics ??? Alcohol use: Yes Alcohol/week: 3.3 standard drinks Types: 2 Cans of beer per week ??? Drug use: Never Medications: Outpatient Medications Marked as Taking for the 08/27/20 encounter (Office Visit) with Zeus Vo MD Medication Sig Dispense Refill ??? ondansetron (ZOFRAN) 4 MG tablet Take 1 tablet (4 mg total) by mouth every 12 (twelve) hours asneeded for Nausea. 20 tablet 0 ??? tamsulosin (FLOMAX) 0.4 MG Cap Take 1 capsule (0.4 mg total) by mouth daily. 20 capsule 0 Allergies: Allergies Allergen Reactions ??? Codeine Hyperactive Review of Systems Constitutional: Positive for chills. Negative for diaphoresis, malaise/fatigue and weight loss. Eyes: Negative. Respiratory: Negative. Cardiovascular: Negative. Gastrointestinal: Positive for abdominal pain (left flank pain radiating to the left groin), nauseaand vomiting. Negative for blood in stool, constipation, diarrhea and heartburn. Genitourinary: Negative for dysuria, flank pain, frequency, hematuria and urgency. Musculoskeletal: Positive for back pain. Negative for falls, joint pain, myalgias and neck pain. Skin: Negative. Negative for itching and rash. Neurological: Negative. Psychiatric/Behavioral: Negative. Objective: Filed Vitals: 08/27/20 0923 08/27/20 0944 BP: (!) 150/89 (!) 150/90 Pulse: 73 Resp: 18 Temp: 98.2 ??F (36.8 ??C) SpO2: 98% Weight: 108.4 kg (239 lb) Height: 5' 9 (1.753 m) Body mass index is 35.29 kg/m??. General alert, cooperative, patient appears uncomfortable and standing in the room, he appears calm HEENT EOM's intact. Oral mucosa normal. Nasal septum is midline. Neck Supple, symmetrical, trachea midline, no adenopathy, no thyromegaly, no JVD. Lungs No acute respiratory distress, no accessory muscle use, symmetric motion of the chest wall, lungs are clear to auscultation bilaterally, no wheezes or rales. Heart Regular rate and regular rhythm. S1, S2 normal. No murmurs. No rubs, clicks, or gallops. Abdomen abdomen full but soft, tenderness mildly in the left flank, Bowel sounds normal. No masses.No hepatomegaly appreciated. Negative psoas sign, negative Rovsing sign. Extremities Extremities atraumatic, no cyanosis, 2+ pedal pulses, no edema Skin Skin color, texture, turgor normal. No rashes seen or lesions appreciated. Neurologic No focal deficits, motor strength is grossly normal and symmetric Psych Normal mood and affect MSK No synovitis, no bony tenderness, no joint effusions Lymph No cervical or supraclavicular adenopathy Assessment and Plan: Encounter Diagnose(s) ICD-10-CM ICD-9-CM SNOMED CT(R) 1. Acute left flank pain R10.9 789.09 LEFT FLANK PAIN tamsulosin (FLOMAX) 0.4 MG Cap 338.19 ketorolac (TORADOL) injection 60 mg 2. Non-intractable vomiting with nausea, unspecified vomiting type R11.2 787.01 NAUSEA AND VOMITINGondansetron (ZOFRAN) 4 MG tablet 3. Blood pressure elevated without history of HTN R03.0 796.2 ELEVATED BLOOD- PRESSURE READING WITHOUT DIAGNOSIS OF HYPERTENSION 1. Acute left flank pain -Differentials including left kidney stone versus musculoskeletal pain - tamsulosin (FLOMAX) 0.4 MG Cap; Take 1 capsule (0.4 mg total) by mouth daily. Dispense: 20 capsule; Refill: 0 - ketorolac (TORADOL) injection 60 mg 1 time given - Patient will need further blood work i.e. CBC, CMP, imaging i.e. CT stone protocol to rule out kidney stone given history presentation and examination findings and hence he will go the ER immediately after completing todays visit with me- he prefers to go the [facility] ER -Patient encouraged to stay hydrated. AVS with instructions on care -follow up if not improving 2. Nausea and vomiting - take zofran 4mg as needed for nausea and vomiting 3. Elevated blood pressure without diagnosis of hypertension - most likely secondary to patient being in pain; will manage pain as above - will manage underlying precipitating factor as above - patient will follow up in subsequent visits for follow up Tobacco use: Counseling given: Yes I spent 30 minutes today reviewing the [...] was at least in part performed using [employer] and there may be some inherent flaws in this pharmacy informaticist due to the nature of this program. Zeus Vo MD Internal Medicine [facility], [facility]. documented in this encounter Plan of Treatment Upcoming Encounters Date Type Department Care Team (Late st Contact Info) Description 04/07/2024 7:40 AM STERILE TECH Office Visit [facility] Medical Group Multispecialty Care - [address] [address] [address] [place] [address] Zeus Vo MD [address] [facility] [address] [place] [address] documented as of this encounter Visit Diagnoses Diagnosis Acute left flank pain- Primary Abdominal pain, unspecified site Non-intractable vomiting with nausea, unspecified vomiting type Blood pressure elevated without history of HTN Elevated blood pressure reading without diagnosis of hypertension documented in this encounter Administered Medications Inactive Administered Medications - up to 3 most recent administrations Medication Order MAR Action Action Date Dose Rate Site ketorolac (TORADOL) injection 60 mg 60 mg, Intramuscular, Once, 1 dose, On Wed08/27/20 at 1000Indications:Acute left flank pain Given 08/27/2020 9:49 AM CDT 60 mg Right Dorsal Gluteal documented in this encounter Additional Health Concerns Assessment Noted Time PHQ-9 Depression Total Score: 0 03/21/20 20 11:22 AM STERILE TECH documented as of this encounter Care Teams Garment Turner Relationship Specialty Start Date End Date Elvia Rosen, AILYN PCP - General NURSE PRACTITIONER 03/21/20 04/06/21 documented as of this encounter
--- OUTSIDE RECORDS SUMMARY | 2024-03-24 01:45 | XMS_ITS | Encounter Summary ---
Author Organization [facility] Address [address] [place] [address]. [place], [place] [id number] [place] [address] Care Team Providers Care Park Guard Name Role Phone Elvia Rosen PILE DRIVER Primary Care Provider Lien cutler Encounter Details Date Type Department Care Team (Latest Contact Info) Description 04/29/2020 Travel Social History Tobacco Use Types Packs/Day Years Used Date Smoking Tobacco: Never Smokeless Tobacco: Never Alcohol Use Standard Drinks/Week Comments Yes 3.3 [...] move on to questions 3-9 0 03/21/2020 [facility] [place] of Occupat ional Health - Occupational Stress [...] have Coronavirus / COVID-19? No / Unsure 04/29/2020 3:40 PM COUNTER MANAGER documented as of this encounter Plan of Treatment Upcoming Encounters Date Type Department Care Team (Late st Contact Info) Description 04/07/2024 7:40 AM COUNTER MANAGER Office Visit [facility] Medical Group Multispecialty Care - [address] [address] [address] [place] [address] Zeus Vo MD [address] [facility] [address] [place], [place] [id number] documented as of this encounter Visit Diagnoses Not on filedocumented in this encounter Additional Health Concerns Assessment Noted Time PHQ-9 Depression Total Score: 0 03/21/20 20 11:22 AM COUNTER MANAGER documented as of this encounter Care Teams Park Guard Relationship Specialty Start Date End Date Elvia Rsoen, PILE DRIVER PCP - General NURSE PRACTITIONER 03/21/20 04/06/21 documented as of this encounter
--- OUTSIDE RECORDS SUMMARY | 2024-03-24 01:45 | XMS_ITS | Encounter Summary ---
Author Organization [facility] Address [address] [place] [address]. [place], [place] [address] [place] [address] Care Team Providers Care Cigar Head Piercer Name Role Phone Zeus Vo MD Primary Care Provider [phone] Reason for Referral * Imaging (Routine) - Closed Specialty Diagnoses / Procedures Referred By Contac t Referred To Contact RADIOLOGY Diagnoses Elevated liver enzymes Procedures US ABD LIMITED Zeus Vo MD [address] [facility] [address] [place] [address] Phone: tel: fax: [facility] [address] Phone: tel: fax: Referral ID Status Reason Start Date Expiration Date V isits Requested Visits Authorized [id number] Closed Ultrasound 05/15/2021 06/12/2022 1 1 GENCY CARE ATTENDANT Reason for Visit * Reason Onset Date Comments Medication 05/15/2021 Encounter Details Date Type Department Care Team (Late st Contact Info) Description 05/15/2021 Telephone [facility] Medical Group Multispecialty Care - [address] [place] [address] Zeus Vo MD [address] [facility] [address] [place] [address] Medication Social History Tobacco Use [...] move on to questions 3-9 0 05/14/2021 [facility] of Occupat ional Health - Occupational Stress [...] suspected to have Coronavirus/COVID-19? No / Unsure 05/14/2021 7:02 AM EMERGENCY CARE ATTENDANT documented as of this encounter Progress Notes * Zeus Vo MD - 05/15/2021 7:46 AM CST I called patient and updated him on his lab results. Will initiate phentermine to help with weight loss and get an abdominal ultrasound to evaluate his liver. Zeus Vo MD Internal Medicine [facility] Medical Group, [facility]. GENCY CARE ATTENDANT documented in this encounter Plan of Treatment Upcoming Encounters Date Type Department Care Team (Late st Contact Info) Description 04/07/2024 7:40 AM EMERGENCY CARE ATTENDANT Office Visit [facility] Medical Group Multispecialty Care - [place] [address] [address] [place] [address] Zeus Vo MD [address] [address] Scheduled Orders Name Type Priority Associated Diagnoses Orde r Schedule US ABD LIMITED Ultrasound Routine Elevated liver enzymes Expected: 05/15/2021, Expires: 05/15/2022 documented as of this encounter Visit Diagnoses Diagnosis Class 2 severe obesity due to excess calories with serious comorbidity and body mass index (BMI) of 37.0 to 37.9 in adult (CMS/HCC HHS/HCC)- Primary Elevated liver enzymes Nonspecific elevation of levels of transaminase or lactic acid dehydrogenase (LDH) documented in this encounter Additional Health Concerns Assessment Noted Time PHQ-9 Depression Total Score: 0 05/14/19 7:24 AM EMERGENCY CARE ATTENDANT documented as of this encounter Care Teams Cigar Head Piercer Relationship Specialty Start Date End Date Zeus Vo MD [address] [place] [id number] PCP - General INTERNAL MEDICINE 04/07/21 documented as of this encounter
--- OUTSIDE RECORDS SUMMARY | 2024-03-24 01:45 | XMS_ITS | Encounter Summary ---
Author Organization [facility] Address [address] [place] [address]. [place], [place] [id number] [place] [address] Care Team Providers Care Indoor Landscape Architect Name Role Phone Elvia Rosen ACCELERATOR TECHNICIAN Primary Care Provider Unavailabl e Reason for Visit * Reason Comments Lab Draw Encounter Details Date Type Department Care Team (Late st Contact Info) Description 10/21/2020 8:00 AM CDT Allied Health/Nurse Visit [facility] Medical [facility] Multispecialty Care [address] [place] [address] Elvia Rosen, AILYN Lab Draw Social History Tobacco Use Types Packs/Day Years [...] move on to questions 3-9 0 03/21/2020 [place] of Occupat ional Health - Occupational Stress [...] have Coronavirus / COVID-19? No / Unsure 10/21/2020 7:47 AM CDT documented as of this encounter Progress Notes * Elvia Rosen NP - 10/21/2020 8:00 AM CDT Routine Labs ordered today documented in this encounter Plan of Treatment Upcoming Encounters Date Type Department Care Team (Late st Contact Info) Description 04/07/2024 7:40 AM LUCERNE FARMER Office Visit [facility] Medical Group Multispecialty Care - [address] [address] [address] [place] [address] Zeus Vo MD [address] [place] [address] documented as of this encounter Procedures Procedure Name Priority Date/Time Associated Diagnosis Comments COMPREHENSIVE METABOLIC PANEL Routine 10/21/2020 8:18 AM CDT Blood pressure elevated without history of HTN LIPID PANEL Routine 10/21/2020 8:18 AM CDT Blood pressure elevated without history of HTN CBC W/DIFF AUTOMATED Routine 10/21/2020 8:18 AM CDT Blood pressure elevated without history of HTN documented in this encounter Results * (ABNORMAL) COMPREHENSIVE METABOLIC PANEL (10/21/2020 8:18 AM CDT) SODIUM S/P/B 141 136 - 145 MMOL/L 10/21/2020 10:43 PM [facility] POTASSIUM S/P/B 4.3 3.5 - 5.1 MMOL/L 10/21/2020 10:43 PM T -[facility] CHLORIDE S/P/B 106 98 - 107 MMOL/L 10/21/2020 10:43 PM CDT [facility] CO2 22.5 21 - 32 MMOL/L 10/21/2020 10:43 PM T [facility] GLUCOSE 100(H) 70 - 99 MG/DL 10/21/2020 10:43 PM T [facility] BUN 18 6 - 24 MG/DL 10/21/2020 10:43 PM T [facility] CREATININE S/P/B 1.19 0.70 - 1.30 MG/DL 10/21/2020 10:43 PM T [facility] CALCIUM S/P/B 8.7 8.4 - 10.5 MG/DL 10/21/2020 10:43 PM CDT [facility] BILIRUBIN TOTAL S/P/B 0.6 0.2 - 1.0 MG/DL 10/21/2020 10:43 PM T [facility] ALKALINE PHOSPHATASE S/P/B 74 45 - 115 U/L 10/21/2020 10:43 PM T [facility] AST 52(H) 15 - 37 U/L 10/21/2020 10:43 PM CDT [facility] ALT 97(H) 16 - 63 U/L 10/21/2020 10:43 PM CDT [facility] TOTAL PROTEIN S/P/B 7.3 6.4 - 8.2 G/DL 10/21/2020 10:43 PM T [facility] ALBUMIN S/P/B 4.2 3.4 - 5.0 G/DL 10/21/2020 10:43 PM T [facility] ANION GAP 12.5 5 - 15 MMOL/L 10/21/2020 10:43 PM CDT [facility] Comment:REFERENCE RANGE NOT ESTABLISHED OSMOLALITY (CALC) 294 MOSM/KG 10/21/2020 10:43 PM CDT [facility] Comment:REFERENCE RANGE NOT ESTABLISHED EGFR NON-AFR. AMER. 74(L) >90 ML/MIN/1 .73 M2 10/21/2020 10:43 PM CDT [facility] EGFR AFR. AMER. 86(L) >90 ML/MIN/1 .73 M2 10/21/2020 10:43 PM CDT [facility] GFR NOTES THE ESTIMATED GFR IS CALCULATED USING THE 2009 CKD-EPI EQUATION. THE FOLLOWING CATEGORIES FOR GRADING RENAL FUNCTION ARE RECOMMENDED BY THE INTERNATIONAL SOCIETY OF NEPHROLOGY (KDIGO 2012 CLINICAL PRACTICE GUIDELINE). 10/21/2020 10:43 PM CDT [facility] Comment: G1,NORMAL OR HIGH: >89 ml/min/1.73 m2 G2,MILDLY DECREASED: 60-89 ml/min/1.73 m2 G3A,MILDLY TO MODERATELY DECREASED: 45-59 ml/min/1.73 m2 G3B,MODERATELY TO SEVERELY DECREASED: 30-44 ml/min/1.73 m2 G4,SEVERELY DECREASED: 15-29 ml/min/1.73 m2 G5,KIDNEY FAILURE: <15 ml/min/1.73 m2 10/21/2020 8:18 AM CDT us Elvia Rosen NP LABORATORY Final Result [facility] [address] [place] [address], * (ABNORMAL) CBC W/DIFF AUTOMATED (10/21/2020 8:18 AM CDT) WBC 4.1 4.0 - 10.8 x10'3/uL 10/21/2020 7:33 PM CDT [facility] RBC 4.80 4.50 - 6.10 x10'6/uL 10/21/2020 7:33 PM CDT [facility] HGB 15.0 13.0 - 18.0 G/DL 10/21/2020 7:33 PM CDT [facility] HCT 44.6 36.0 - 47.0 % 10/21/2020 7:33 PM CDT [facility] MCV 92.9 78.0 - 100.0 FL 10/21/2020 7:33 PM CDT [facility] MCH 31.3(H) 27.0 - 31.0 PG 10/21/2020 7:33 PM CDT [facility] MCHC 33.6 33.0 - 36.0 G/DL 10/21/2020 7:33 PM CDT [facility] RDW 14.5 11.5 - 14.5 % 10/21/2020 7:33 PM CDT [facility] PLT 191 150 - 350 x10'3/uL 10/21/2020 7:33 PM CDT [facility] MPV 10.7(H) 7.4 - 10.4 FL 10/21/2020 7:33 PM CDT [facility] DIFFERENTIAL TYPE AUTOMATED DIFFERENTIAL 10/21/2020 7:34 PM CDT [facility] NEUTROPHILS % 53.9 % 10/21/2020 7:34 PM CDT [facility] LYMPHOCYTES % 32.0 % 10/21/2020 7:34 PM CDT [facility] MONOCYTES % 11.4 % 10/21/2020 7:34 PM [facility]T [facility] EOSINOPH[facility] 2.2 % 10/21/2020 7:34 PM CDT [facility] BASOPHILS % 0.5 % 10/21/2020 7:34 PM CDT [facility] ABS. NEUTROPHILS 2.22 1.60 - 8.30 x10'3/uL 10/21/2020 7:34 PM CDT [facility] ABS. LYMPHOCYTES 1.32 0.80 - 4.70 x10'3/uL 10/21/2020 7:34 PM CDT [facility] ABS. MONOCYTES 0.47 0.00 - 1.50 x10'3/uL 10/21/2020 7:34 PM CDT [facility] ABS. EOSINOPHILS 0.09 0.00 - 0.40 x10'3/uL 10/21/2020 7:34 PM CDT [facility] ABS. BASOPHILS 0.02 0.00 - 0.20 x10'3/uL 10/21/2020 7:34 PM CDT [facility] 10/21/2020 8:18 AM CDT Elvia Rosen NP LABORATORY Final Result Performing Organization Address City/State/[facility] Co de Phone Number [facility] [address] [place] [address], * (ABNORMAL) LIPID PANEL (10/21/2020 8:18 AM CDT) CHOLESTEROL 179 <200 MG/DL 10/21/2020 10:43 PM CDT [facility] TRIGLYCERIDES 153(H) <150 MG/DL 10/21/2020 10:43 PM CDT [facility] HDL 39(L) >40 MG/DL 10/21/2020 10:43 PM CDT [facility] LDL-C 109(H) <100 MG/DL 10/21/2020 10:43 PM CDT [facility] VLDL CALCULATION 31(H) 5 - 28 MG/DL 10/21/2020 10:43 PM CDT [facility] CHOL/HDL RATIO 4.6(H) 0.0 - 4.0 10/21/2020 10:43 PM CDT [facility] LDL/HDL 2.8(H) 0.41 - 2.13 10/21/2020 10:43 PM CDT [facility] NON HDL CHOLESTEROL 140(H) <140 MG/DL 10/21/2020 10:43 PM CDT [facility] 10/21/2020 8:18 AM CDT Elvia Rosen ACCELERATOR TECHNICIAN LABORATORY Final Result [facility] S[facility] [address] [facility] [address], documented in this encounter Visit Diagnoses Diagnosis Blood pressure elevated without history of HTN- Primary Elevated blood pressure reading without diagnosis of hypertension documented in this encounter Additional Health Concerns Assessment Noted Time PHQ-9 Depression Total Score: 0 03/21/20 20 11:22 AM LUCERNE FARMER documented as of this encounter Care Teams Indoor Landscape Architect Relationship Specialty Start Date End Date Elvia Rosen, ACCELERATOR TECHNICIAN PCP - General NURSE PRACTITIONER 03/21/20 04/06/21 documented as of this encounter
--- OUTSIDE RECORDS SUMMARY | 2024-03-24 01:45 | XMS_ITS | Encounter Summary ---
Author Organization [facility] Address [address] [place] [address]. [place], [place] [address] [place] [address] Care Team Providers Care Reservations Clerk Name Role Phone Zeus Vo MD Primary Care Provider [phone] Encounter Details Date Type Department Care Team (Latest Contact Info) Description 05/14/2021 Travel Social History Tobacco Use Types Packs/Day [...] move on to questions 3-9 0 05/14/2021 [facility] [place] of Occupat ional Health - Occupational Stress [...] Coronavirus/COVID-19? No / Unsure 05/14/2021 7:02 AM INSPECTION CLERK documented as of this encounter Plan of Treatment Upcoming Encounters Date Type Department Care Team (Late st Contact Info) Description 04/07/2024 7:40 AM INSPECTION CLERK Office Visit [facility] Medical Group Multispecialty Care - [address] [address] [address] [place] [address] Zeus Vo MD [address] [place] [address] [phone] documented as of this encounter Visit Diagnoses Not on filedocumented in this encounter Additional Health Concerns Assessment Noted Time PHQ-9 Depression Total Score: 0 05/14/19 7:24 AM INSPECTION CLERK documented as of this encounter Care Teams Reservations Clerk Relationship Specialty Start Date End Date Zeus Vo MD [address] [place] [address] [phone] PCP - General INTERNAL MEDICINE 04/07/21 documented as of this encounter
--- OUTSIDE RECORDS SUMMARY | 2024-03-24 01:45 | XMS_ITS | Encounter Summary ---
Author Organization [facility] Address [address] [place] [address]. [place], [place] [address] [place] [address] Care Team Providers Care [place] Hand Name Role Phone Elvia Rosen PIPE ORGAN TUNER AND REPAIRER Primary Care Provider Lien cutler Encounter Details Date Type Department Care Team (Latest Contact Info) Description 03/21/2020 Travel Social History Tobacco Use Types Packs/Day [...] move on to questions 3-9 0 03/21/2020 [facility] [place] of Occupat ional Health - Occupational Stress [...] have Coronavirus / COVID-19? No / Unsure 03/21/2020 9:58 AM LITIGATION CLAIM REPRESENTATIVE documented as of this encounter Plan of Treatment Upcoming Encounters Date Type Department Care Team (Late st Contact Info) Description 04/07/2024 7:40 AM LITIGATION CLAIM REPRESENTATIVE Office Visit [facility] Medical Group Multispecialty Care - [place] [address] [address] [place] [address] Zeus Vo MD [address] [facility] [address] [place], [place] [phone] documented as of this encounter Visit Diagnoses Not on filedocumented in this encounter Additional Health Concerns Assessment Noted Time PHQ-9 Depression Total Score: 0 03/21/20 20 11:22 AM LITIGATION CLAIM REPRESENTATIVE documented as of this encounter Care Teams [place] Hand Relationship Specialty Start Date End Date Elvia Rosen, AILYN PCP - General NURSE PRACTITIONER 03/21/20 04/06/21 documented as of this encounter
--- OUTSIDE RECORDS SUMMARY | 2024-03-24 01:45 | XMS_ITS | Encounter Summary ---
Author Organization [facility] Address [facility]. [place], [place] [id number] [place] [id number] Care Team Providers Care Operations Planner Name Role Phone Zeus Vo MD Primary Care Provider [phone] Reason for Referral * Sleep Lab (Routine) - Closed Specialty Diagnoses / Procedures Referred By Contac t Referred To Contact Diagnoses Fatigue, unspecified type Procedures Limited Channel Unattended (Home Study) (G0399) [place] [address] [place] [id number] Phone: tel: fax: Referral ID Status Reason Start Date Expiration Date Visits Re quested Visits Authorized [id number] Closed 06/25/2021 12/22/2021 2 2 OPERATOR Reason for Visit * Reason Comments Follow Up Pt is here for a fol low up. He is concerned about fatigue. Encounter Details Date Type Department Care Team (Latest Contact Info) Description 05/14/2021 7:00 AM DRAW OPERATOR Office Visit [facility] [place] [address] [address] [place] [address] Zeus Vo MD [address] [place] [id number] Follow Up (Pt is here for a follow up. He is concerned about fatigue. ) Social History Tobacco Use Types Packs/Day [...] move on to questions 3-9 0 05/14/2021 [facility] Occupat ional [facility] - Occupational Stress [...] Coronavirus/COVID-19? No / Unsure 05/14/2021 7:02 AM DRAW OPERATOR documented as of this encounter Last Filed Vital Signs Vital Sign Reading Time Taken Comments Blood Pressure 160/84 05/14/2021 7:49 AM DRAW OPERATOR Pulse 77 05/14/2021 7:08 AM DRAW OPERATOR Temperature 36.4 ??C (97.6 ??F) 05/14/2021 7:08 AM CS T Respiratory Rate 18 05/14/2021 7:08 AM DRAW OPERATOR Oxygen Saturation 95% 05/14/2021 7:08 AM DRAW OPERATOR Inhaled Oxygen Concentration - - Weight 116.1 kg (256 lb) 05/14/2021 7:08 AM DRAW OPERATOR Height 175.3 cm (5' 9 ) 05/14/2021 7:08 AM DRAW OPERATOR Body Mass Index 37.8 05/14/2021 7:08 AM DRAW OPERATOR documented in this encounter Patient Instructions * Patient Instructions* Zeus Vo MD - 05/14/2021 7:00 AM DRAW OPERATOR Images from the original note were not included. Follow up in 4 weeks for your fatigue. Patient Education Patient Education Fatigue Discharge Instructions About this topic Fatigue is a strong feeling of being tired and weak. This often happens after doing activities thatare very hard to do. Then, you don't have much energy to do other things. Just as your body can be fatigued, your mind can as well. You might have trouble being able to think clearly about things. Some people have little desire to do anything. Fatigue is normal when you have had physical and mentalactivity. Stress can also cause fatigue. Other causes of fatigue can be the flu or other health problems, drugs, or sleep problems. Fatigue can also be a sign of a more serious problem. Some of these are: ?? Low red blood cells ?? Anxiety or worrying too much ?? Low mood ?? Always being in pain ?? Problems with your thyroid, liver, or kidneys ?? Drug or alcohol use ?? Health problems like cancer, arthritis, and heart or lung disease Most of the time, fatigue will get better after a few days of rest. What care is needed at home? ?? Ask your doctor what you need to do when you go home. Make sure you ask questions if you do not understand what the doctor says. This way you will know what to do. ?? Try to get at least 8 hours of sleep at night. Taking a short nap or resting during the day may help. But this can also make it hard to get a good night's sleep. If you take several naps during the day, you may want to not take as many to see if you sleep better at night. ?? Try doing some light exercise each day. This may help give you more energy. You may want to avoid activities that need a lot of energy. Try to find the right amount for you. ?? Ask your doctor or dietitian for foods that will help you get back your strength and energy. Don't eat foods that have a lot of sugar. ?? Try relaxation and breathing exercises. Things like yoga, imagery, and music therapy can also help ease stress. What follow-up care is needed? ?? Your doctor may ask you to make visits to the office to check on your progress. Be sure to keep these visits. ?? You may have some tests to help the doctor find causes for your fatigue. ?? If your fatigue is due to mental stress, your doctor may want you to see a psychologist or counselor to help you with your worries and anxiety. What drugs may be needed? The doctor may order drugs to: ?? Give extra vitamins and minerals ?? Treat the problem that causes the fatigue Will physical activity be limited? Physical activities may be limited until you are feeling better. Go back to your normal activities a little bit at a time. What problems could happen? ?? Body's normal defenses or immune system are lowered ?? Not able to do the things you often do ?? Problems with sex ?? Not feeling hungry ?? Not being able to act as fast or do things as well. This could cause accidents when driving, at work, or at home. ?? Headaches, feeling angry, and not able to think clearly about things. These could cause you to not make good decisions. ?? Trouble with your memory or concentration ?? Having problems walking and exercising ?? Falling asleep during the day ?? Having problems seeing or seeing things that are not really there ?? Feeling like not doing things When do I need to call the doctor? ?? Get help right away if you have any sudden changes with your body such as weakness, numbness, pain, or breathing problems. ?? You faint or pass out. ?? You are too weak to walk and do daily activities. ?? You are not feeling better in [...] my condition. ?? I can tell you ways to help my fatigue. ?? I can tell you what I will do if I have weakness, numbness, pain, or trouble breathing. Where can I learn more? Centers for Disease Control and Prevention https://www.cdc.gov/me-cfs/about/index.html National [place] on Aging https://www.elise.nih.gov/health/stafblx-vsqqw-jtmzec NHS Choices http://www.nhs.uk/livewell/ziblilpim-hha-hrakpha/pages/hktljkmkc-aja-wngaaaf.asp x Last Reviewed Date 2020-05-29 Consumer Information Use and Disclaimer This generalized [...] or approved for treating a specific patient. [employer]. and its affiliates disclaim any warranty or liability relating to this information or the use thereof. The use of this information is governed by the Terms of Use, available at https://www.CicekSepeti.com.[employer]/en/solutions/lexicomp/about/sabina Copyright Copyright ?? 2020 [employer] and its affiliates and/or licensors. All rights reserved. Patient Education Patient Education DASH Diet About this topic DASH stands for Dietary Approaches to Stop Hypertension. The DASH diet may help you lower blood pressure. It may also help keep you from getting high blood pressure. You will eat less fat and more fiber on the DASH diet. This diet gives you more minerals that fight high blood pressure. Some nutrients in this diet are: ?? Potassium ? Acts to help you get rid of salt. This may help to lower blood pressure. ?? Calcium ? Makes blood vessels and muscles work the right way ?? Magnesium - Helps blood vessels relax ?? Fiber ? Helps you feel full. It also helps digestion. What will the results be? The DASH diet may help you: ?? Lower your blood pressure and cholesterol ?? Lower your risk for cancer, heart disease, heart attack, and stroke. It may also lower your riskfor heart failure, kidney stones, and diabetes. ?? Lose weight or keep a healthy weight What lifestyle changes are needed? ?? Add regular exercise to get the most help from this diet. ?? Try to lower stress. Find ways to relax. ?? Stop smoking. Avoid secondhand smoke. ?? Limit alcohol intake. What changes to diet are needed? ?? Know about poor eating habits. Then, you can fix them as you work with the program. ?? This diet encourages fruits and vegetables, whole grains, lean meats, healthy fats, and low-fat or fat-free dairy products. ?? This diet is lower in saturated fats, trans-fats, cholesterol, added sugars, and sodium. Who should use this diet? This eating plan is good for the whole family. It is also good for people with high blood pressure and those at risk for high blood pressure. What foods are good to eat? ?? Grains: Try to eat 6 to 8 servings of whole grain, high fiber foods each day. These are bread, cereals, brown rice, or pasta. ?? Fruits and vegetables: Eat 4 to 5 servings each day. Try to pick many kinds and colors. Fresh orfrozen are best. Look for low sodium or salt-free if you choose canned. ?? Dairy: Try to eat 2 to 3 servings of fat free and low fat milk products each day. ?? Lean meats, poultry, and seafood: Try to eat 6 servings or less of lean meats, poultry, and seafood each day. Try to choose more low fat or lean meats like chicken and turkey. Eat less red meat. Eat more fish instead. ?? Nuts, seeds, and legumes (dry beans and peas): Try to eat 4 to 5 servings each week. Try to picknuts such as almonds and walnuts, sunflower seeds, peanut butter, soy beans, lentils, kidney beans,and split peas. ?? Fats and oils: Try to eat 2 to 3 servings of fats and oils each day. Eat good fats found in fish, nuts, and avocados. Try using olive oil or vegetable oils such as canola oil. Other good oils to try are corn, safflower, sunflower, or soybean oils. Use low-sodium and low-fat salad dressing and mayonnaise. ?? Condiments: Pepper, herbs, spices, vinegar, lemon or nondalton juices are great for seasoning. Be careful to choose low-sodium or salt-free products if you use broths, soups, or soy sauce. ?? Sweets: Try to eat less than 5 servings each week. Choose low-fat and trans fat-free desserts. These are things like fruit flavored gelatin, sorbet, jelly beans, marina crackers, animal crackers, low-fat fig bars, and liliana snaps. Eat fruit to satisfy your desire for sweets. What foods should be limited or avoided? ?? Grains: Salted breads, rolls, crackers, quick breads, self-rising flours, biscuit mixes, regularbread crumbs, instant hot cereals, commercially-prepared rice, pasta, stuffing mixes ?? Fruits and vegetables: Commercially-prepared potatoes and vegetable mixes, regular canned vegetables and juices, vegetables frozen with sauce or pickled vegetables, processed fruits with salt or sodium ?? Milk: Whole milk, malted milk, chocolate milk, buttermilk, cheese, ice cream ?? Meats and beans: Smoked, cured, salted, or canned fish; meats or poultry such as moses, sausages, sardines; high-fat cuts of meat like beef, friedman, or pork; chicken with the skin on it ?? Fats: Cut back on solid fats like butter, lard, and margarine. Eat less food with high saturatedfat, cholesterol and total fat. ?? Condiments and snacks: Salted and canned peas, beans, and olives; salted snack foods; fried foods; soda or other sweetened drinks ?? Sweets: High-fat baked goods such as muffins, donuts, pastries, commercial baked goods, candy bars ?? If you choose to drink alcohol, limit the amount you drink. Women should have 1 drink or less per day and men should have 2 drinks or less per day. Helpful tips ?? Avoid eating canned vegetables and processed foods. These have a lot of salt in them. Look for alow-salt or low-sodium choice. ?? Try baking or broiling instead of frying food. ?? Write down the foods you eat. This will help you track what you have eaten each week. ?? When you go to a grocery store, have a list or a meal plan. Do not shop when you are hungry to avoid cravings for foods. ?? Read food labels with care. They will show you how much is in a serving. The amount is given as a percentage of the total amount you need each day. Reading labels will help you make healthy food choices. ?? Avoid fast foods. ?? Talk to your doctor or dietitian to see if you need vitamin and mineral supplements to help you balance your diet. ?? Talk to a dietitian for help. Where can I learn more? Academy of Nutrition and Dietetics https://www.eatright.org/health/wellness/lqbju-lce-dmootdcdppoium-health/dash-di us-fuaadlqn-eryyqblkxxow-crrbkpf-aduw-hol-lifestyle FamilyDoctor.org http://familydoctor.org/familydoctor/en/prevention-wellness/food-nutrition/weigh t-loss/dtw-xbwb-zgpe-mmnkfky-oasoch-ph-ojcgkrg-esbq-iwnug-pressure.html Last Reviewed Date 2020-06-17 Consumer Information Use and Disclaimer This generalized [...] or approved for treating a specific patient. [employer] and its affiliates disclaim any warranty or liability relating to this information or the use thereof. The use of this information is governed by the Terms of Use, available at https://www.CicekSepeti.com.com/en/solutions/joshmp/about/sabina Copyright Copyright ?? 2020 [employer]. and its affiliates and/or licensors. All rights reserved. OPERATOR OPERATOR OPERATOR documented in this encounter Progress Notes * Zeus Vo MD - 05/14/2021 7:00 AM CSTSummary: Annual physical notes Images from the original note were not included. ANNUAL PHYSICAL NOTES Encounter Date: 05/14/2021 Chief Complaint: 45-year-old male presents for Follow Up (Pt is here for a follow up. He is concerned about fatigue.) HPI The patient is being seen for a health maintenance evaluation and to transfer care from previous provider. At today's visit, patient's main complaint is that of ongoing fatigue with difficulty losingweight. According to patient, over the last 2 months, he has noticed that he is having increasing difficulty losing weight despite actively exercising about 4-5 times per week. Patient tells me he works out in a gym and does a lot of heavy lifting but has noticed difficulty with losing weight. Denies any shortness of breath or chest tightness during this time. He thinks he may have apneic episodes intermi ttently during sleep. Has never had a sleep study before. Not a known hypertensive or diabetic. Does not take any supplements or any chronic long-term medications. Not on any sedatives. Patient concerned and decided to bring this to my attention. No recent illnesses. Noted problem list of overactive bladder currently not on any medication. Obesity with BMI of 37.80kg/m?? and elevated liver enzymes noted on previous blood work with a slight decrease in GFR comes in today for an annual physical. Patient Active Problem List Diagnosis ??? Overactive bladder General Health: good Dental Health: Sees dentist regularly Vision Health: No vision correction Hearing Health: No hearing problems Immunizations Needed: Influenza and COVID Weight: Obese Body mass index is 37.8 kg/m??. Physical Activity: Excersises regularly and Acitve lifestyle Prostate Cancer Screening: none Testicular Cancer Screening: None Colorectal Cancer Screening: None Metabolic Screening: Patient needs to be screened today. HCV Screening: done PHQ-9 Screening Score: PHQ-9: Over the last two weeks, how often have you been bothered by any of the following problems? 03/21/2020 05/14/2021 LITTLE INTEREST OR PLEASURE IN DOING THINGS 0-Not at All 0-Not at All FEELING DOWN, DEPRESSSED,OR HOPELESS 0-Not at All 0-Not at All PHQ2 DEPRESSION TOTAL SCORE 0 0 TROUBLE FALLING OR STAYING ASLEEP OR SLEEPING TOO MUCH 0-Not at All - FEELING TIRED OR HAVING LITTLE ENERGY 0-Not at All - POOR APPETITE OR OVEREATING 0-Not at All - FEELING BAD ABOUT YOURSELF 0-Not at All - TROUBLE CONCENTRATING ON THINGS 0-Not at All - MOVING OR SPEAKING SO SLOWLY THAT OTHER PEOPLE COULD HAVE NOTICED 0-Not at All - THOUGHTS THAT YOU WOULD BE BETTER OFF 0-Not at All - DEPRESSION SCREENING TOTAL SCORE 0 0 IF YOU CHECKED OFF ANY PROBLEMS Not difficult at all Not difficult at all CALEB-7 (Generalized Anxiety Disorder) Screening CALEB-7 05/14/2021 Feeling nervous, anxious and on edge 2 - more than half the days Not being able to stop or control worrying 0 - not at all Worrying too much about different things 0 - not at all Trouble Relaxing 0 - not at all Being so restless that it's hard to sit still 0 - not at all Becoming easily annoyed or irritable 0 - not at all Feeling afraid as if something awful might happen 0 - not at all Total Score 2 If you checked off any problems, how difficult have those problems made it for you to do your work take care of things at home or get along with other people? not difficult at all Smoking Status: History Smoking Status ??? Never Smoker Smokeless Tobacco ??? Never Used Comment: counseled by Dr Vo Patient does not meet criteria for Low Dose CT screening Sleep Apnea Risk Factors: Snoring, Fatigue, Witnessed Apnea, BMI>35, NC>16in and Male Review of Systems Constitutional: Positive for malaise/fatigue. Negative for chills, diaphoresis, fever and weight loss. HENT: Negative. Respiratory: Negative. Cardiovascular: Negative. Gastrointestinal: Negative. Genitourinary: Negative. Musculoskeletal: Negative. Skin: Negative. Neurological: Negative. Psychiatric/Behavioral: Negative. History reviewed. No pertinent past medical history. [...] file Tobacco Use ??? Smoking status: Never Smoker ??? Smokeless tobacco: Never Used ??? Tobacco comment: counseled by Dr Vo Vaping Use ??? Vaping Use: Never assessed Substance and Sexual Activity ??? Alcohol use: [...] file Intimate Partner Violence: Not on file Immunization History Administered Date(s) Administered ??? Fluzone 6 Months+ Quad (0.5 mL Prefilled Syringe) 01/13/2020, 01/14/2020 ??? Hepatitis B (Generic: Adult) 04/27/2000, 06/02/2000 ??? Tdap (Adacel) 11/05/2020 ??? Tdap (Generic) 04/05/2009 Current Outpatient Medications Medication Sig Dispense Refill ??? lisinopril 20 MG tablet Take 1 tablet (20 mg total) by mouth daily. 30 tablet 2 No current facility-administered medications for this visit. No current outpatient medications on file prior to visit. No current facility-administered medications on file prior to visit. Allergies Allergen Reactions ??? Codeine Hyperactive Objective: Filed Vitals: 05/14/21 0708 05/14/21 0749 BP: (!) 174/87 (!) 160/84 Pulse: 77 Resp: 18 Temp: 97.6 ??F (36.4 ??C) TempSrc: Temporal SpO2: 95% Weight: 116.1 kg (256 lb) Height: 5' 9 (1.753 m) Physical Exam Constitutional: General: He is not in acute distress. Appearance: He is obese. He is not ill-appearing, toxic-appearing or diaphoretic. HENT: Head: Normocephalic. Right Ear: Tympanic membrane, ear canal and external ear normal. There is no impacted cerumen. Left Ear: Tympanic membrane, ear canal and external ear normal. There is no impacted cerumen. Nose: Nose normal. No congestion. Mouth/Throat: Mouth: Mucous membranes are moist. Pharynx: Oropharynx is clear. No oropharyngeal exudate or posterior oropharyngeal erythema. Eyes: General: No scleral icterus. Right eye: No discharge. Left eye: No discharge. Extraocular Movements: Extraocular movements intact. Conjunctiva/sclera: Conjunctivae normal. Pupils: Pupils are equal, round, and reactive to light. Neck: Vascular: No carotid bruit. Cardiovascular: Rate and Rhythm: Normal rate and regular rhythm. Pulses: Normal pulses. Heart sounds: Normal heart sounds. No murmur heard. Pulmonary: Effort: Pulmonary effort is normal. No respiratory distress. Breath sounds: Normal breath sounds. No wheezing or rales. Abdominal: General: Bowel sounds are normal. There [...] No bruising, erythema, lesion or rash. Neurological: General: No focal deficit present. Mental Status: He is alert and oriented to person, place, and time. Cranial Nerves: No cranial nerve deficit. Sensory: No sensory deficit. Motor: No weakness. Coordination: Coordination normal. Gait: Gait normal. Deep Tendon Reflexes: Reflexes normal. Psychiatric: Mood and Affect: Mood normal. Behavior: Behavior normal. Thought Content: Thought content normal. Judgment: Judgment normal. Assessment & Plan: Encounter Diagnose(s) ICD-10-CM ICD-9-CM SNOMED CT(R) 1. Annual physical exam Z00.00 V70.0 PATIENT ENCOUNTER STATUS CBC W/DIFF AUTOMATED COMPREHENSIVE METABOLIC PANEL TSH W/REFLEX LIPID PANEL HEPATITIS C ANTIBODY URINALYSIS, AUTO, COMPLETE ALBUMIN URINE RANDOM HEMOGLOBIN, GLYCOSYLATED VENIPUNC ARM DRAW HEMOGLOBIN, GLYCOSYLATED HEPATITIS C ANTIBODY LIPID PANEL TSH W/REFLEX COMPREHENSIVE METABOLIC PANEL CBC W/DIFF AUTOMATED 2. General medical exam Z00.00 V70.9 PATIENT ENCOUNTER STATUS CBC W/DIFF AUTOMATED COMPREHENSIVE METABOLIC PANEL TSH W/REFLEX LIPID PANEL HEPATITIS C ANTIBODY URINALYSIS, AUTO, COMPLETE ALBUMIN URINE RANDOM HEMOGLOBIN, GLYCOSYLATED VENIPUNC ARM DRAW HEMOGLOBIN, GLYCOSYLATED HEPATITIS C ANTIBODY LIPID PANEL TSH W/REFLEX COMPREHENSIVE METABOLIC PANEL CBC W/DIFF AUTOMATED 3. Screening for diabetes mellitus Z13.1 V77.1 PATIENT ENCOUNTER STATUS HEMOGLOBIN, GLYCOSYLATED HEMOGLOBIN, GLYCOSYLATED 4. Screening for hyperlipidemia Z13.220 V77.91 PATIENT ENCOUNTER STATUS LIPID PANEL LIPID PANEL 5. Screening for hypothyroidism Z13.29 V77.0 PATIENT ENCOUNTER STATUS TSH W/REFLEX TSH W/REFLEX 6. Encounter for hepatitis C screening test for low risk patient Z11.59 V73.89 PATIENT ENCOUNTER STATUS HEPATITIS C ANTIBODY HEPATITIS C ANTIBODY 7. Fatigue, unspecified type R53.83 780.79 FATIGUE TESTOSTERONE, TOTAL CORTISOL, TOTAL Limited Channel Unattended (Home Study) (G0399) Limited Channel Unattended (Home Study) (G0399) CORTISOL, TOTAL TESTOSTERONE, TOTAL 8. Class 2 obesity due to excess calories without serious comorbidity with body mass index (BMI) of37.0 to 37.9 in adult E66.09 278.00 OBESITY TSH W/REFLEX Z68.37 V85.37 TESTOSTERONE, TOTAL CORTISOL, TOTAL CORTISOL, TOTAL TESTOSTERONE, TOTAL TSH W/REFLEX 9. Primary hypertension I10 401.9 ESSENTIAL HYPERTENSION lisinopril 20 MG tablet Manuel was seen today for follow up. Diagnoses and all orders for [...] smoking/second hand smoking. Patient will set up MyChart. Patient will fax over any remaining outside records that would be relevant to care provided. - CBC W/DIFF AUTOMATED; Future - COMPREHENSIVE METABOLIC PANEL; Future - TSH W/REFLEX; Future - LIPID PANEL; Future - HEPATITIS C ANTIBODY; Future - URINALYSIS, AUTO, COMPLETE - ALBUMIN URINE RANDOM - HEMOGLOBIN, GLYCOSYLATED; Future - VENIPUNC ARM DRAW General medical exam - Patient past medical, surgical, family history and social history updated. Allergies, immunizations and medications updated. Also did discuss healthy lifestyle including exercising, dietary changes and safe sexual practices as well as safe habits common to patient age group including wearing seat belt when transporting in a vehicle and limiting alcohol and avoiding smoking/second hand smoking. Patient will set up MyChart. Patient will fax over any remaining outside records that would be relevant to care provided. - CBC W/DIFF AUTOMATED; Future - COMPREHENSIVE METABOLIC PANEL; Future - TSH W/REFLEX; Future - LIPID PANEL; Future - HEPATITIS C ANTIBODY; Future - URINALYSIS, AUTO, COMPLETE - ALBUMIN URINE RANDOM - HEMOGLOBIN, GLYCOSYLATED; Future - VENIPUNC ARM DRAW Screening for diabetes mellitus - HEMOGLOBIN, GLYCOSYLATED; Future Screening for hyperlipidemia - LIPID PANEL; Future Screening for hypothyroidism - TSH W/REFLEX; Future Encounter for hepatitis C screening test for low risk patient - HEPATITIS C ANTIBODY; Future Unspecified fatigue - TESTOSTERONE, TOTAL; Future - CORTISOL, TOTAL; Future - Limited Channel Unattended (Home Study) (G0399); Future - AVS with instruction on fatigue Class 2 obesity due to excess calories without serious comorbidity with body mass index (BMI) of 37.0 to 37.9 in adult - TSH W/REFLEX; Future - TESTOSTERONE, TOTAL; Future - CORTISOL, TOTAL; Future - -Pt has elevated weight with BMI Body mass index is 37.8 kg/m??., and will need to work hard on reducing carbohydrates and total calories. -You may use the free smart phone apps such as Humble [employer] to help track calories and try to [...] week and 5 pounds per month. - follow up in 4 weeks Primary hypertension - New diagnosis - Home blood pressure persistently around 140/90mmhg; will initiate medications at this time - Patient with new diagnosis of HTN, uncontrolled. Counseled on diet and exercise techniques to reduce BP including weight loss, adequate cardiovascular fitness, DASH diet, decrease in Na intake, active lifestyle, etc. Handout given.Will obtain BMP, FLP, UA for microalbumin. Patient instructed to keep BP diary and to call if consistently above 140/90. Will start on prescribed medication and monitor labs on medication. - start lisinopril 20 MG tablet; Take 1 tablet (20 mg total) by mouth daily. I spent 30 minutes for his physical and 30 minutes today for EM reviewing the patient's medical record, obtaining history, performing an exam, ordering medications, tests, and/or procedures, documenting in the medical record, referring and/or communicating with other health care providers, counseling and educating the patient/family/caregiver, reviewing and communicating test results and coordination of care. DRAGDESI: This dictation was at least in part performed using [employer] and there may be some inherent flaws in this supervisor pit and auxiliaries due to the nature of this program. MD Zeus BRUNNER MD Internal Medicine [facility] Medical [facility], [facility]. OPERATOR OPERATOR documented in this encounter Plan of Treatment Upcoming Encounters Date Type Department Care Team (Late st Contact Info) Description 04/07/2024 7:40 AM DRAW OPERATOR Office Visit [facility] Medical [facility] Multispecialty Care - [place] [address] [address] [place] [address] Zeus Vo MD [address] [place] [address] [address] [place] [address] documented as of this encounter Procedures Procedure Name Priority Date/Time Associated Diagnosis Comments TSH W/REFLEX Routine 05/14/2021 7:46 AM DRAW OPERATOR Annual physical exam General medical exam Screening for hypothyroidism Class 2 obesity due to excess calories without serious comorbidity with body mass index (BMI) of 37.0 to 37.9 in adult HEMOGLOBIN, GLYCOSYLATED Routine 05/14/2021 7:46 AM DRAW OPERATOR Annual physical exam General medical exam Screening for diabetes mellitus CORTISOL, TOTAL Routine 05/14/2021 7:46 AM DRAW OPERATOR Fatigue, unspecified type Class 2 obesity due to excess calories without serious comorbidity with body mass index (BMI) of 37.0 to 37.9 in adult COMPREHENSIVE METABOLIC PANEL Routine 05/14/2021 7:46 AM DRAW OPERATOR Annual physical exam General medical exam LIPID PANEL Routine 05/14/2021 7:46 AM DRAW OPERATOR Annual physical exam General medical exam Screening for hyperlipidemia HEPATITIS C ANTIBODY Routine 05/14/2021 7:46 AM DRAW OPERATOR Annual physical exam General medical exam Encounter for hepatitis C screening test for low risk patient CBC W/DIFF AUTOMATED Routine 05/14/2021 7:46 AM DRAW OPERATOR Annual physical exam General medical exam TESTOSTERONE, TOTAL Routine 05/14/2021 7 :46 AM DRAW OPERATOR Fatigue, unspecified type Class 2 obesity due to excess calories without serious comorbidity with body mass index (BMI) of 37.0 to 37.9 in adult VENIPUNC ARM DRAW Routine 05/14/2021 7:1 9 AM DRAW OPERATOR Annual physical exam General medical exam URINALYSIS, AUTO, COMPLETE Routine 05/14/2021 Annual physical exam General medical exam ALBUMIN URINE RANDOM W/CREATININE Routine 05/14/2021 Annual physical exam General medical exam documented in this encounter Results * Limited Channel Unattended (Home Study) ([id number]) (07/01/2021 4:15 PM CDT) Narrative [facility] SLEEP LAB - 07/01/2021 4:15 PM CDT Catarino Mooney MD ? 07/15/2021 ??3:25 PM [facility]? [place], [place] ?? HOME SLEEP STUDY INTERPRETATION PATIENT NAME: Manuel Hall DATE OF : 1975 ?? DATE OF SERVICE: 07/01/2021 Ordering Phy Exam Description Zeus Vo M.D. Home Sleep Study ATTENDING PHYSICIAN: Dr. Catarino Mooney REFERRING PHYSICIAN: Dr. Zeus Vo SUMMARY DATA Sleep Study/ Architecture: This patient was studied using [employer] devices using 1 RIP effort belt and a pressure-based flow sensor. The evaluation was initiated at 07/01/2021 at 10:30 PM and was stopped at 07/02/2021 at 5:53 AM. The total recording time was 443.2 minutes, and the total monitoring time was 436.5 minutes. DIAGNOSTIC Total Apnea/ Hypopnea Index: 54.7/hr Average Sleep Oxygen Saturation: 92 Minimum Sleep Oxygen Saturation: Mean Heart Rate during Sleep: ??77 57.7 Assessment/Plan: Severe Obstructive Sleep Apnea. Thompson treatment option should be discussed with the patient and a plan for treatment should be made. Potential health consequences and medical importance of treatment should also be discussed with the patient. This patient? s oxygen saturation was below 89.0% for 68.0 minutes during this evaluation. Possible need to do additional testing with full night titration with possible supplemental oxygen addition if there are still significant desaturations when patient? s AHI is within normal limits should be considered.?? Also, bradycardia was noted during this study. The possibility of additional medical evaluation based on noted desaturations and bradycardia should be considered. This patient should maintain good sleep hygiene techniques, maintain a consistent sleep/wake schedule with adequate hours of sleep, and avoid hazardous activities when sleepy. The patient should be cautioned about factors that may potentially exacerbate snoring and sleep-related problems, such as [employer] SPECIALIST depressants, especially at bedtime. This document was electronically signed by: Catarino Mooney M.D. on 07/15/2021 at 11:48 AM. Zeus Vo MD SLEEP CENTER ORDERABLES Final Re sult Performing Organization Address City/[facility] Co de Phone Number [facility] SLEEP LAB * CORTISOL, TOTAL (05/14/2021 7:46 AM DRAW OPERATOR) CORTISOL 7.8 mcg/dL 05/14/2021 8:31 PM DRAW OPERATOR [facility] Comment: A.M. SPECIMENS: 5.3 TO 22.5 mcg/dL P.M. SPECIMENS: 3.4 TO 16.8 mcg/dL 05/14/2021 7:46 AM DRAW OPERATOR us Zeus Vo MD LABORATORY Final Result Performing Organization Address [facility] Co de Phone Number [facility] [address] [place] [address], [place] [phone] * TESTOSTERONE, TOTAL (05/14/2021 7:46 AM DRAW OPERATOR) Testosterone: 476.2 197.4 - 669.6 NG/DL 05/14/2021 7:50 PM DRAW OPERATOR [facility] 05/14/2021 7:46 AM DRAW OPERATOR us Zeus Vo MD LABORATORY Final Result Performing Organization Address [facility] de Phone Number [facility] [address] [place] [address], [place] [phone] * (ABNORMAL) HEMOGLOBIN, GLYCOSYLATED (05/14/2021 7:46 AM DRAW OPERATOR) HGB A1C 5.6 3.80 - 5.60 % 05/14/2021 6:34 PM DRAW OPERATOR [facility] ESTIMATED AVG GLUCOSE 114(H) 74 - 106 MG/DL 05/14/2021 6:34 PM DRAW OPERATOR [facility] 05/14/2021 7:46 AM DRAW OPERATOR us Zeus Vo MD LABORATORY Final Result Performing Organization Address City/[facility]/ZIP Co de Phone Number [facility] [address] [place] [address], [place] [phone] * HEPATITIS C ANTIBODY (05/14/2021 7:46 AM DRAW OPERATOR) HEPATITIS C AB NON-REACTI VE NON-REACT ADAM 05/14/2021 8:31 PM DRAW OPERATOR [facility] Comment: ANTIBODIES TO HCV NOT DETECTED. DOES NOT EXCLUDE THE POSSIBILITY OF EXPOSURE TO HCV. 05/14/2021 7:46 AM DRAW OPERATOR Zeus Vo MD LABORATORY Final Result Performing Organization Address [facility] Co de Phone Number [facility] [address] [place] [address], [place] [phone] * (ABNORMAL) LIPID PANEL (05/14/2021 7:46 AM DRAW OPERATOR) Pathologist [facility] CHOLESTEROL 193 <200 MG/DL 05/14/2021 3:54 PM DRAW OPERATOR [facility] TRIGLYCERIDES 137 <150 MG/DL 05/14/2021 3:54 PM DRAW OPERATOR [facility] HDL 42 >40 MG/DL 05/14/2021 3:[address] [facility] LDL-C 124(H) <100 MG/DL 05/14/2021 3:54 PM DRAW OPERATOR [facility] VLDL CALCULATION 27 5 - 28 MG/DL 05/14/2021 3:54 PM DRAW OPERATOR [facility] CHOL/HDL RATIO 4.6(H) 0.0 - 4.0 05/14/2021 3:54 PM DRAW OPERATOR [facility] LDL/HDL 3.0(H) 0.41 - 2.13 05/14/2021 3:[address] [facility] NON HDL CHOLESTEROL 151(H) <140 MG/DL 05/14/2021 3:54 PM DRAW OPERATOR [facility] 05/14/2021 7:46 AM DRAW OPERATOR us Zeus Vo MD LABORATORY Final Result [facility] PONDHUJaime ALLENHURST [address] [place] [address], [place] [phone] * TSH W/REFLEX (05/14/2021 7:46 AM DRAW OPERATOR) TSH 2.204 0.358 - 3.740 uIU/ML 05/14/2021 3:54 PM DRAW OPERATOR [facility] 05/14/2021 7:46 AM DRAW OPERATOR us Zeus Vo MD LABORATORY Final Result Performing Organization Address City/[facility]/ZIP Co de Phone Number [facility] PONDHUJaime [id number] [place] [address], [place] [phone] * (ABNORMAL) COMPREHENSIVE METABOLIC PANEL (05/14/2021 7:46 AM DRAW OPERATOR) SODIUM S/P/B 140 136 - 145 MMOL/L 05/14/2021 3:[address] [facility] POTASSIUM S/P/B 4.3 3.5 - 5.1 MMOL/L 05/14/2021 3:[address] [facility] CHLORIDE S/P/B 107 98 - 107 MMOL/L 05/14/2021 3:[address] [facility] CO2 25.0 21 - 32 MMOL/L 05/14/2021 3:[address] [facility] GLUCOSE 107(H) 70 - 99 MG/DL 05/14/2021 3:[address] [facility] BUN 11 6 - 24 MG/DL 05/14/2021 3:[address] [facility] CREATININE S/P/B 1.31(H) 0.70 - 1.30 MG/DL 05/14/2021 3:[address] [facility] CALCIUM S/P/B 8.6 8.4 - 10.5 MG/DL 05/14/2021 3:[address] [facility] BILIRUBIN TOTAL S/P/B 0.7 0.2 - 1.0 MG/DL 05/14/2021 3:[address] [facility] ALKALINE PHOSPHATASE S/P/B 68 45 - 115 U/L 05/14/2021 3:[address] [facility] AST 54(H) 15 - 37 U/L 05/14/2021 3:[address] [facility] ALT 111(H) 16 - 63 U/L 05/14/2021 3:[address] [facility] TOTAL PROTEIN S/P/B 7.2 6.4 - 8.2 G/DL 05/14/2021 3:[address] [facility] ALBUMIN S/P/B 3.9 3.4 - 5.0 G/DL 05/14/2021 3:[address] [facility] ANION GAP 8.0 5 - 15 MMOL/L 05/14/2021 3:[address] [facility] Comment:REFERENCE RANGE NOT ESTABLISHED OSMOLALITY (CALC) 290 MOSM/KG 05/14/2021 3:[address] [facility] Comment:REFERENCE RANGE NOT ESTABLISHED EGFR NON-AFR. AMER. 66(L) >90 ML/MIN/1 .73 M2 05/14/2021 3:[address] [facility] EGFR AFR. AMER. 76(L) >90 ML/MIN/1 .73 M2 05/14/2021 3:[address] [facility] GFR NOTES THE ESTIMATED GFR IS CALCULATED USING THE 2009 CKD-EPI EQUATION. THE FOLLOWING CATEGORIES FOR GRADING RENAL FUNCTION ARE RECOMMENDED BY THE INTERNATIONAL SOCIETY OF NEPHROLOGY (KDIGO 2012 CLINICAL PRACTICE GUIDELINE). 05/14/2021 3:54 PM DRAW OPERATOR [facility] Comment: G1,NORMAL OR HIGH: >89 ml/min/1.73 m2 G2,MILDLY DECREASED: 60-89 ml/min/1.73 m2 G3A,MILDLY TO MODERATELY DECREASED: 45-59 ml/min/1.73 m2 G3B,MODERATELY TO SEVERELY DECREASED: 30-44 ml/min/1.73 m2 G4,SEVERELY DECREASED: 15-29 ml/min/1.73 m2 G5,KIDNEY FAILURE: <15 ml/min/1.73 m2 05/14/2021 7:46 AM DRAW OPERATOR Zeus Vo MD LABORATORY Final Result [facility] IN[facility]UT[facility] ALLENHURST [address] [place] [address], * (ABNORMAL) CBC W/DIFF AUTOMATED (05/14/2021 7:46 AM DRAW OPERATOR) WBC 4.2 4.0 - 10.8 x10'3/uL 05/14/2021 2:27 PM DRAW OPERATOR [facility] RBC 4.56 4.50 - 6.10 x10'6/uL 05/14/2021 2:27 PM DRAW OPERATOR [facility] HGB 14.6 13.0 - 18.0 G/DL 05/14/2021 2:27 PM DRAW OPERATOR [facility] HCT 41.6 37.0 - 52.0 % 05/14/2021 2:27 PM DRAW OPERATOR [facility] MCV 91.2 78.0 - 100.0 FL 05/14/2021 2:27 PM DRAW OPERATOR [facility] MCH 32.0(H) 27.0 - 31.0 PG 05/14/2021 2:27 PM DRAW OPERATOR [facility] MCHC 35.1 33.0 - 36.0 G/DL 05/14/2021 2:[address] [facility] RDW 13.2 11.5 - 14.5 % 05/14/2021 2:[address] [facility] PLT 199 150 - 350 x10'3/uL 05/14/2021 2:[address] [facility] MPV 10.5(H) 7.4 - 10.4 FL 05/14/2021 2:[address] [facility] DIFFERENTIAL TYPE AUTOMATED DIFFERENTIAL 05/14/2021 2:[address] [facility] NEUTROPHILS % 48.5 % 05/14/2021 2:[address] [facility] LYMPHOCYTES % 36.3 % 05/14/2021 2:[address] [facility] MONOCYTES % 10.9 % 05/14/2021 2:[address] [facility] EOSINOPHILS % 3.6 % 05/14/2021 2:[address] [facility] BASOPHILS % 0.5 % 05/14/2021 2:[address] [facility] IMMATURE GRANS % 0.2 % 05/14/2021 2:[address] [facility] ABS. NEUTROPHILS 2.04 1.60 - 8.30 x10'3/uL 05/14/2021 2:[address] [facility] ABS. LYMPHOCYTES 1.53 0.80 - 4.70 x10'3/uL 05/14/2021 2:[address] [facility] ABS. MONOCYTES 0.46 0.00 - 1.50 x10'3/uL 05/14/2021 2:[address] [facility] ABS. EOSINOPHILS 0.15 0.00 - 0.40 x10'3/uL 05/14/2021 2:[address] [facility] ABS. BASOPHILS 0.02 0.00 - 0.20 x10'3/uL 05/14/2021 2:[address] [facility] ABS. IMMATURE GRANULOCYTES 0.01 0.00 - 0.03 x10'3/uL 05/14/2021 2:27 PM DRAW OPERATOR [facility] ALL[facility] 05/14/2021 7:46 AM DRAW OPERATOR us Zeus Vo MD LABORATORY Final Result Performing Organization Address City/[facility]/ZIP Co de Phone Number [facility] ALLENHURST [address] [facility] [place] [address], [place] [phone] * ALBUMIN URINE RANDOM (05/14/2021) MICROALBUMIN (U) 10 MG- [address], [place] CREATININE RANDOM (U) 300 MG[address], [place] MICROALB/CREAT <30 MG-[address], [place] URINE SPECIMEN / Unknown 05/14/2021 us Zeus Vo MD URINE ORDERABLES Final Result Performing Organization Address City/[facility]/ZIP Co de Phone Number MG[address], [place] [address] [place] [address], * URINALYSIS, AUTO, COMPLETE (05/14/2021) COLOR (U) YELLOW [address], [place] TRANSPARENCY CLEAR [address], [place] GLUCOSE (U) NEGATIVE NEGATIVE MG/DL [address], [place] BILIRUBIN (U) NEGATIVE NEGATIVE MG-[address], [place] KETONES MG/DL (U) NEGATIVE NEGATIVE MG/DL [address], [place] SPECIFIC GRAVITY (U) 1.025 1.001 - 1.035 [address], [place] BLOOD (U) TRACE (Non Hemolyzed, Intact) NEGATIVE MG[address], [place] U PH 5.5 5.0 - 9.0 MG[address], [place] PROTEIN (U) NEGATIVE NEGATIVE mg/dL MG-[address], [place] UROBILINOGEN 0.2 0.2 - 1.0 EU/dL = mg/dL [address], [place] NITRITES NEGATIVE NEGATIVE MG/DL MG-[address], [place] LEUKOCYTES (U) NEGATIVE NEGATIVE MG-[address], [place] URINE SPECIMEN OBTAINED BY CLEAN CATCH PROCEDURE / Unknown 05/14/2021 Zeus Vo MD URINE ORDERABLES Final Result [address], [place] [address] [facility] [address] [place] [address], [place] [phone] documented in this encounter Visit Diagnoses Diagnosis Annual physical exam- Primary Routine general medical examination at a health care facility General medical exam Unspecified general medical examination Screening for diabetes mellitus Screening for hyperlipidemia Screening for lipoid disorders Screening for hypothyroidism Screening for thyroid disorder Encounter for hepatitis C screening test for low risk patient Fatigue, unspecified type Class 2 obesity due to excess calories without serious comorbidity with body mass index (BMI) of 37.0 to 37.9 in adult Primary hypertension Unspecified essential hypertension documented in this encounter Additional Health Concerns Assessment Noted Time PHQ-9 Depression Total Score: 0 05/14/19 22 7:24 AM DRAW OPERATOR documented as of this encounter Care Teams Operations Planner Relationship Specialty Start Date End Date Zues Vo MD [address] [facility] [address] [place] [address] PCP - General INTERNAL MEDICINE 04/07/21 documented as of this encounter
--- OUTSIDE RECORDS SUMMARY | 2024-03-24 01:45 | XMS_ITS | Encounter Summary ---
Author Organization [facility] Address [address] [place] [address]. [place], [place] [address] [place] [address] Care Team Providers Care Affirmative Action Officer Name Role Phone Zeus Vo MD Primary Care Provider [phone] Encounter Details Date Type Department Care Team (Latest Contact Info) Description 06/11/2021 Travel Social History Tobacco Use Types Packs/Day [...] move on to questions 3-9 0 05/14/2021 [facility] [place] of Occupat ional Health - Occupational Stress [...] suspected to have Coronavirus/COVID-19? No / Unsure 06/11/2021 6:58 AM CASE COORDINATOR documented as of this encounter Plan of Treatment Upcoming Encounters Date Type Department Care Team (Late st Contact Info) Description 04/07/2024 7:40 AM CASE COORDINATOR Office Visit [facility] Multispecialty Care - [place] [address] [address] [place] [address] Zeus Vo MD [address] [place] [address] [phone] documented as of this encounter Visit Diagnoses Not on filedocumented in this encounter Additional Health Concerns Assessment Noted Time PHQ-9 Depression Total Score: 0 05/14/19 22 7:24 AM CASE COORDINATOR documented as of this encounter Care Teams Affirmative Action Officer Relationship Specialty Start Date End Date Zeus Vo MD [address] [place] [address] [phone] PCP - General INTERNAL MEDICINE 04/07/21 documented as of this encounter
--- OUTSIDE RECORDS SUMMARY | 2024-03-24 01:45 | XMS_ITS | Encounter Summary ---
Author Organization [facility] Address [address] [place] [address]. [place], [place] [address] [place] [address] Care Team Providers Care Automatic Door Mechanic Name Role Phone Elvia Rosen NURSE SUBSTANCE ABUSE Primary Care Provider Lien cutler Encounter Details Date Type Department Care Team (Latest Contact Info) Description 10/21/2020 Travel Social History Tobacco Use Types Packs/Day [...] move on to questions 3-9 0 03/21/2020 [facility] [place] of Occupat ional Health - Occupational Stress [...] st Contact Info) Description 04/07/2024 7:40 AM CORE WINDER MACHINE OPERATOR Office Visit [facility] Multispecialty Care - [place] [address] [address] [place] [address] [place] [address] [place] [address] [address] [place], [place] [phone] documented as of this encounter Visit Diagnoses Not on filedocumented in this encounter Additional Health Concerns Assessment Noted Time PHQ-9 Depression Total Score: 0 03/21/20 20 11:22 AM CORE WINDER MACHINE OPERATOR documented as of this encounter Care Teams Automatic Door Mechanic Relationship Specialty Start Date End Date Elvia Rosen, NURSE SUBSTANCE ABUSE PCP - General NURSE PRACTITIONER 03/21/20 04/06/21 documented as of this encounter
--- OUTSIDE RECORDS SUMMARY | 2024-03-24 01:45 | XMS_ITS | Encounter Summary ---
Author Organization [facility] Address [address] [place] [address]. [place], [place] [address] [place] [address] Care Team Providers Care Guide Dog Trainer Name Role Phone Elvia Rosen SAIL FINISHER MACHINE Primary Care Provider Lien cutler Encounter Details Date Type Department Care Team (Latest Contact Info) Description 11/05/2020 Travel Social History Tobacco Use Types Packs/Day [...] move on to questions 3-9 0 03/21/2020 [facility] of Occupat ional Health - Occupational Stress [...] have Coronavirus / COVID-19? No / Unsure 11/05/2020 8:59 AM CDT documented as of this encounter Plan of Treatment Upcoming Encounters Date Type Department Care Team (Late st Contact Info) Description 04/07/2024 7:40 AM COOKER MEAL Office Visit [facility] Medical [facility] Multispecialty Care - [place] [address] [address] [place] [address] [place] [address] [place] [address] [address] [place], [place] [phone] documented as of this encounter Visit Diagnoses Not on filedocumented in this encounter Additional Health Concerns Assessment Noted Time PHQ-9 Depression Total Score: 0 03/21/20 20 11:22 AM COOKER MEAL documented as of this encounter Care Teams Guide Dog Trainer Relationship Specialty Start Date End Date Elvia Rosen, SAIL FINISHER MACHINE PCP - General NURSE PRACTITIONER 03/21/20 04/06/21 documented as of this encounter
--- OUTSIDE RECORDS SUMMARY | 2024-03-24 01:45 | XMS_ITS | Encounter Summary ---
Author Organization [facility] Address [address] [place] [address]. [place], [place] [address] [place] [address] Care Team Providers Care Hospital Aide Name Role Phone Elvia Davis CONTROL CLERK FOOD AND BEVERAGE Primary Care Provider Unavailabl e Reason for Visit * Reason Comments Establish Care Encounter Details Date Type Department Care Team (Late st Contact Info) Description 03/21/2020 10:20 AM SPRING WINDER Office Visit [facility] - [address] [place] [address] Elvia Davis, CONTROL CLERK FOOD AND BEVERAGE Establish Care Social History Tobacco Use Types Packs/Day [...] move on to questions 3-9 0 03/21/2020 [place] [facility] Occup[facility] ional [facility] - Occupational Stress [...] COVID-19? No / Unsure 03/21/2020 9:58 AM SPRING WINDER documented as of this encounter Last Filed Vital Signs Vital Sign Reading Time Taken Comments Blood Pressure 138/94 03/21/2020 11:00 AM SPRING WINDER Pulse 60 03/21/2020 10:18 AM SPRING WINDER Temperature 36.2 ??C (97.2 ??F) 03/21/2020 10:[address] Respiratory Rate 18 03/21/2020 10:18 AM SPRING WINDER Oxygen Saturation 98% 03/21/2020 10:18 AM SPRING WINDER Inhaled Oxygen Concentration - - Weight 106 kg (233 lb 9.6 oz) 03/21/2020 10:18 A M SPRING WINDER Height 175.3 cm (5' 9 ) 03/21/2020 10:18 AM SPRING WINDER Body Mass Index 34.5 03/21/2020 10:18 AM SPRING WINDER documented in this encounter Patient Instructions * Patient Instructions* Elvia Davis NP - 03/21/2020 10:20 AM SPRING WINDER Patient Education Patient Education Bladder Spasms Discharge Instructions About this topic Your kidneys make urine. It is stored in your bladder. The urethra is a tube at the bottom of the bladder. Urine flows out of this tube. The bladder holds urine before it is released from the body. Bladder spasms happen when your bladder muscle squeezes suddenly. This makes you feel a sudden need to pass urine. You may not be able to control your urine and leaking may happen. Treatment for bladder spasms depends on how serious your condition is. Treatment may include: ?? Drugs ?? Bladder exercises and retraining ?? Diet and exercise regimens ?? Weight loss ?? Biofeedback ?? Surgery What care is needed at home? ?? Ask your doctor what you need to do when you go home. Make sure you ask questions if you do not understand what the doctor says. This way you will know what you need to do. ?? Your doctor will teach you pelvic floor exercises, called Kegels . This will help you strengthen and control your bladder muscles. You may need to set a schedule for your bladder exercises. A special kind of electric test might be done to check how you are doing your bladder exercises. This is called biofeedback. ?? Set times throughout the day when you try to pass urine. Don't pass urine until these times. This is called bladder retraining. Your doctor will give you more information on this. ?? Do not use bubble baths because they can bother your bladder or genital area. ?? Lose weight if you are overweight. ?? Change what you drink and how often. ? Drink lots of water during the day instead of lots of water at one time. ? Stop drinking water or other drinks about 2 hours before you go to bed. ? Stop drinking caffeine and beer, wine, and mixed drinks (alcohol). ?? Avoid spicy, acidic foods, preservatives, and artificial sweeteners or other foods that you findare causing you problems with your bladder ?? Try to avoid hard stools and straining with bowel movements What follow-up care is needed? Your doctor may ask you to make visits to the office to check on your progress. Be sure to keep these visits. What drugs may be needed? The doctor may order drugs to: ?? Relax your bladder muscles ?? Help your bladder work better ?? Treat infection ?? Reduce constipation Will physical activity be limited? You may choose to limit activity if you cannot control your urge to pass urine. What problems could happen? ?? Bladder incontinence ?? Anxiety ?? Urinary tract infection What can be done to prevent this health problem? You cannot prevent this health problem. The most common ways to help reduce signs is a bladder exercise program. When do I need to call the doctor? ?? Signs of infection. These include a fever of 100.4??F (38??C) or higher, chills. ?? Very bad belly pain ?? You are not able to pass urine ?? Blood in the urine ?? Severe back or flank pain Teach Back: Helping You Understand The Teach [...] condition. ?? I can tell you what are good fluids for me to drink and how often I should try to go to the bathroom. ?? I can tell you what I will do if I have a fever, chills, or belly pain. Where can I learn more? [employer] https://familydoctor.org/condition/overactive-bladder/ Women???s Health https://www.womenshealth.gov/a-z-topics/bladder-pain Last Reviewed Date 2019-01-12 Consumer Information Use and Disclaimer This information [...] right for you. Copyright Copyright ?? 2020 [employer]. and its affiliates and/or licensors. All rights reserved. Blood drawn today and will call with results Urine test completed today and negative for infection Start ditropan daily Call office with any concerns or questions NG WINDER NG WINDER NG WINDER documented in this encounter Progress Notes * Elvia Davis NP - 03/21/2020 10:20 AM CSTAddended by: ELVIA DAVIS on: 03/21/2020 11:45 AM Modules accepted: Orders NG WINDER * Elvia Davis NP - 03/21/2020 10:20 AM CST Reason for Visit: Establish Care History of Present Illness: Manuel Hall is a 44-year-old male here for his annual exam and to establish care. Reports that he has frequent urination throughout the day. Reports that he does consume excessive amount of caffeine. Complaints of ringing in his ears at times and has increase in stress recently. He bought a home BP cuff and says that it is often times elevated. Reported Health: good Immunizations up to date: Yes Healthy Diet: Yes Regular Exercise: Yes Weight Concern: Yes Tobacco use: No Alcohol use: Yes ROS: Review of Systems Constitutional: Negative for chills, fever and malaise/fatigue. HENT: Positive for tinnitus. Negative for ear discharge, ear pain and sinus pain. Eyes: Negative for blurred vision. Respiratory: Negative for cough, shortness of breath and wheezing. Cardiovascular: Negative for chest pain and palpitations. Gastrointestinal: Negative. Genitourinary: Positive for frequency. Negative for dysuria. Musculoskeletal: Negative. Negative for back pain. Neurological: Negative for dizziness and tingling. Endo/Heme/Allergies: Negative for environmental allergies. Psychiatric/Behavioral: Negative for depression and suicidal ideas. Medications: Current Outpatient Medications: ??? oxybutynin XL (DITROPAN XL) 10 MG 24 hr tablet, Take 1 tablet (10 mg total) by mouth daily., Disp: 30 tablet, Rfl: 1 Not on File History reviewed. No pertinent past medical history. History reviewed. No pertinent surgical history. Social History Socioeconomic History ??? Marital status: Spouse name: Not on file ??? Number of children: Not on file ??? Years of education: Not on file ??? Highest education level: Not on file Occupational History ??? Not on file Social Needs ??? Financial resource strain: Not on file ??? Food insecurity Worry: Not on file Inability: Not on file ??? Transportation needs Medical: Not on file Non-medical: Not on file Tobacco Use ??? Smoking status: Never Smoker Substance and Sexual Activity ??? Alcohol use: Yes Alcohol/week: 3.3 standard drinks Types: 2 Cans of beer per week Frequency: Monthly or less Drinks per session: 1 or 2 Binge frequency: Less than monthly ??? Drug use: Never ??? Sexual activity: Yes Lifestyle ??? Physical activity Days per week: Not on file Minutes per session: Not on file ??? Stress: Not on file Relationships ??? Social connections Talks on phone: Not on file Gets together: Not on file Attends sabianism service: Not on file Active member of club or organization: Not on file Attends meetings of clubs or organizations: Not on file Relationship status: Not on file ??? Intimate partner violence Fear of current or ex partner: Not on file Emotionally abused: Not on file Physically abused: Not on file Forced sexual activity: Not on file Other Topics Concern ??? Not on file Social History Narrative ??? Not on file Family History Problem Relation Name Age of Onset ??? Diabetes Father ??? Diabetes Paternal Grandmother ??? Diabetes Paternal Grandfather Family Status Relation Name Status ??? Father (Not Specified) ??? PGM (Not Specified) ??? PGF (Not Specified) PHQ-9: Over the last two weeks, how often have you been bothered by any of the following problems? 03/21/2020 LITTLE INTEREST OR PLEASURE IN DOING THINGS 0-Not at All FEELING DOWN, DEPRESSSED,OR HOPELESS 0-Not at All PHQ2 DEPRESSION TOTAL SCORE 0 TROUBLE FALLING OR STAYING ASLEEP OR SLEEPING TOO MUCH 0-Not at All FEELING TIRED OR HAVING LITTLE ENERGY 0-Not at All POOR APPETITE OR OVEREATING 0-Not at All FEELING BAD ABOUT YOURSELF 0-Not at All TROUBLE CONCENTRATING ON THINGS 0-Not at All MOVING OR SPEAKING SO SLOWLY THAT OTHER PEOPLE COULD HAVE NOTICED 0-Not at All THOUGHTS THAT YOU WOULD BE BETTER OFF 0-Not at All DEPRESSION SCREENING TOTAL SCORE 0 IF YOU CHECKED OFF ANY PROBLEMS Not difficult at all Physical Exam Constitutional: Appearance: Normal appearance. HENT: Head: Normocephalic. Nose: Nose normal. No congestion. Mouth/Throat: Mucous membranes are moist. Eyes: Pupils: Pupils are equal, round, and reactive to light. Neck: Musculoskeletal: Normal range of motion. Cardiovascular: Rate and Rhythm: Normal rate and regular rhythm. Pulmonary: Effort: Pulmonary effort is normal. Breath sounds: Normal breath sounds. Abdominal: General: Bowel sounds are normal. Palpations: Abdomen is soft. Musculoskeletal: General: No tenderness. Skin: General: Skin is warm and dry. Neurological: Mental Status: He is alert. Psychiatric: Mood and Affect: Mood normal. Behavior: Behavior normal. Filed Vitals: 03/21/20 1018 BP: 138/88 Pulse: 60 Resp: 18 Temp: 97.2 ??F (36.2 ??C) SpO2: 98% Weight: 106 kg (233 lb 9.6 oz) Height: 5' 9 (1.753 m) Assessment Encounter Diagnose(s) ICD-10-CM ICD-9-CM SNOMED CT(R) 1. Urinary frequency R35.0 788.41 INCREASED FREQUENCY OF URINATION PROSTATE SPECIFIC ANTIGEN,SCREENING oxybutynin XL (DITROPAN XL) 10 MG 24 hr tablet PROSTATE SPECIFIC ANTIGEN,SCREENING URINALYSIS AUTO DIP 2. Encounter for medical examination to establish care Z00.00 V70.9 PATIENT ENCOUNTER STATUS CBC W/DIFF AUTOMATED COMPREHENSIVE METABOLIC PANEL LIPID PANEL TSH W/REFLEX TSH W/REFLEX LIPID PANEL COMPREHENSIVE METABOLIC PANEL CBC W/DIFF AUTOMATED 3. Blood pressure elevated without history of HTN R03.0 796.2 ELEVATED BLOOD- PRESSURE READING WITHOUT DIAGNOSIS OF HYPERTENSION 4. Routine lab draw Z01.89 V72.60 PATIENT ENCOUNTER STATUS VENIPUNC ARM DRAW Recommendations and Plan: Blood drawn today and will call with results Urine test completed today and negative for infection. Start ditropan 10mg daily reevaluate 1 mo Diet and Exercise and recheck BP in 1 mo Call office with any concerns or questions 1. Encounter for medical examination to establish care - CBC W/DIFF AUTOMATED; Future - COMPREHENSIVE METABOLIC PANEL; Future - LIPID PANEL; Future - TSH W/REFLEX; Future - TSH W/REFLEX - LIPID PANEL - COMPREHENSIVE METABOLIC PANEL - CBC W/DIFF AUTOMATED 2. Urinary frequency - PROSTATE SPECIFIC ANTIGEN,SCREENING; Future - oxybutynin XL (DITROPAN XL) 10 MG 24 hr tablet; Take 1 tablet (10 mg total) by mouth daily. Dispense: 30 tablet; Refill: 1 - PROSTATE SPECIFIC ANTIGEN,SCREENING 3. Blood pressure elevated without history of HTN Patient with episodic HTN. Counseled on diet and exercise techniques to reduce BP including weight loss, adequate cardiovascular fitness, DASH diet, decrease in Na intake, active lifestyle, etc. Willobtain CMP, UA for microalbumin. Patient instructed to keep BP diary and to call if consistently above 140/90. Recommend diet and exercise and monitor labs and recheck in 1 month. ELVIA DAVIS NP 03/21/2020 11:22 AM NG WINDER documented in this encounter Plan of Treatment Upcoming Encounters Date Type Department Care Team (Late st Contact Info) Description 04/07/2024 7:40 AM SPRING WINDER Office Visit [facility] - [place] [address] [address] [address] [place] [address] Zeus Vo MD [address] [place] [address] [address] [place] [address] documented as of this encounter Procedures Procedure Name Priority Date/Time Associated Diagnosis Comments VENIPUNC ARM DRAW Routine 03/21/2020 11: 22 AM SPRING WINDER Routine lab draw TSH W/REFLEX Routine 03/21/2020 11:13 AM SPRING WINDER Encounter for medical examination to establish care PROSTATE SPECIFIC ANTIGEN,SCREENING Routine 03/21/2020 11:13 AM SPRING WINDER Urinary frequency COMPREHENSIVE METABOLIC PANEL Routine 03/21/2020 11:13 AM SPRING WINDER Encounter for medical examination to establish care LIPID PANEL Routine 03/21/2020 11:13 AM SPRING WINDER Encounter for medical examination to establish care CBC W/DIFF AUTOMATED Routine 03/21/2020 11:13 AM SPRING WINDER Encounter for medical examination to establish care ALBUMIN URINE RANDOM W/CREATININE Routine 03/21/2020 11:00 AM SPRING WINDER Urinary frequency URINALYSIS AUTO DIP Routine 03/21/2020 Urinary frequency documented in this encounter Results * PROSTATE SPECIFIC ANTIGEN,SCREENING (03/21/2020 11:13 AM SPRING WINDER) PSA 0.48 <4.00 NG/ML 03/21/2020 7:29 PM [facility] Comment:Assay Method: Enzyme Immunoassay 03/21/2020 11:1 3 AM SPRING WINDER us Elvia L Jessika CONTROL CLERK [employer]EVERAGE LABORATORY Final Result Performing Organization Address [facility]/ZIP Co de Phone Number [facility] [place], [place] [address] [place] [address], [place] [phone] * TSH W/REFLEX (03/21/2020 11:13 AM SPRING WINDER) TSH 1.977 0.358 - 3.740 uIU/ML 03/21/2020 7:29 PM [facility] 03/21/2020 11:1 3 AM SPRING WINDER us Elvia Davis CONTROL CLERK [employer] BEVERAGE LABORATORY Final Result Performing Organization Address [facility] Co de Phone Number NANCY PONDHUJaime [place] [address] [place] [address], [place] [phone] * LIPID PANEL (03/21/2020 11:13 AM SPRING WINDER) CHOLESTEROL 189 MG/DL 03/21/2020 7:[address] [facility] Comment:DESIRABLE: <200 TRIGLYCERIDES 163 MG/DL 03/21/2020 7:29 PM [facility] Comment:150-199 BORDERLINE H IGH HDL 40 >39 MG/DL 03/21/2020 7:29 PM [facility] LDL-C 116 MG/DL 03/21/2020 7:29 PM [facility] Comment:160-189 HIGH VLDL CALCULATION 33 MG/DL 03/21/20 20 7:29 PM [facility] Comment:REFERENCE RANGE NOT ESTABLISHED CHOL/HDL RATIO 4.7 03/21/2020 7:[address] [facility] [place] Comment:REFERENCE RANGE NOT ESTABLISHED LD-1/LD-2 RATIO 2.9 0 7:[address] [facility] Comment:REFERENCE RANGE NOT ESTABLISHED NON HDL CHOLESTEROL 149 MG/DL 03/21/2020 7:29 PM SPRING WINDER [facility] Comment:REFERENCE RANGE NOT ESTABLISHED 03/21/2020 11:1 3 AM SPRING WINDER Elvia Davis NP LABORATORY Final Result -ROSALIND MOORE [place] [address] [facility] [place] [address], * (ABNORMAL) COMPREHENSIVE METABOLIC PANEL (03/21/2020 11:13 AM SPRING WINDER) [facility] SODIUM S/P/B 141 136 - 145 MMOL/L 03/21/2020 7:29 PM SPRING WINDER [facility] POTASSIUM S/P/B 4.1 3.5 - 5.1 MMOL/L 03/21/2020 7:29 PM [facility] CHLORIDE S/P/B 104 98 - 107 MMOL/L 03/21/2020 7:29 PM [facility] CO2 31.5 21 - 32 MMOL/L 03/21/2020 7:29 PM SPRING WINDER [facility] GLUCOSE 102(H) 70 - 99 MG/DL 03/21/2020 7:29 PM [facility] BUN 14 6 - 24 MG/DL 03/21/2020 7:29 PM [facility] CREATININE S/P/B 1.17 0.70 - 1.30 MG/DL 03/21/2020 7:29 PM [facility] CALCIUM S/P/B 9.6 8.4 - 10.5 MG/DL 03/21/2020 7:29 PM [facility] BILIRUBIN TOTAL S/P/B 0.9 0.2 - 1.0 MG/DL 03/21/2020 7:29 PM [facility] ALKALINE PHOSPHATASE S/P/B 59 45 - 115 U/L 03/21/2020 7:29 PM [facility] AST 26 15 - 37 U/L 03/21/2020 7:29 PM SPRING WINDER [facility] ALT 71(H) 16 - 63 U/L 03/21/2020 7:29 PM SPRING WINDER NELA [facility] [place] TOTAL PROTEIN S/P/B 7.5 6.4 - 8.2 G/DL 03/21/2020 7:29 PM [facility] NELA MOORE [place] ALBUMIN S/P/B 4.3 3.4 - 5.0 G/DL 03/21/2020 7:29 PM [facility] ROSALIND MOORE [place] ANION GAP 5.5 5 - 15 MMOL/L 03/21/2020 7:29 PM SPRING WINDER [facility] [place] Comment:REFERENCE RANGE NOT ESTABLISHED OSMOLALITY (CALC) 293 MOSM/KG 03/21/2020 7:29 PM [facility] NELA MOORE [place] Comment:REFERENCE RANGE NOT ESTABLISHED EGFR NON-AFR. AMER. 76(L) >90 ML/MIN/1 .73 M2 03/21/2020 7:29 PM [facility] ROSALIND MOORE [place] EGFR AFR. AMER. 88(L) >90 ML/MIN/1 .73 M2 03/21/2020 7:29 PM SPRING WINDER NELA MO[facility] [place] GFR NOTES THE ESTIMATED GFR IS CALCULATED USING THE 2009 CKD-EPI EQUATION. THE FOLLOWING CATEGORIES FOR GRADING RENAL FUNCTION ARE RECOMMENDED BY THE INTERNATIONAL SOCIETY OF NEPHROLOGY (KDIGO 2012 CLINICAL PRACTICE GUIDELINE). 03/21/2020 7:29 PM SPRING WINDER [facility] Comment: G1,NORMAL OR HIGH: >89 ml/min/1.73 m2 G2,MILDLY DECREASED: 60-89 ml/min/1.73 m2 G3A,MILDLY TO MODERATELY DECREASED: 45-59 ml/min/1.73 m2 G3B,MODERATELY TO SEVERELY DECREASED: 30-44 ml/min/1.73 m2 G4,SEVERELY DECREASED: 15-29 ml/min/1.73 m2 G5,KIDNEY FAILURE: <15 ml/min/1.73 m2 03/21/2020 11:1 3 AM SPRING WINDER us Elvia Davis NP LABORATORY Final Result [facility] [address] [address], * (ABNORMAL) CBC W/DIFF AUTOMATED (03/21/2020 11:13 AM SPRING WINDER) [facility] Signature WBC 4.7 4.0 - 10.8 x10'3/uL 03/21/2020 7:29 PM [facility] RBC 4.83 4.50 - 6.10 x10'6/uL 03/21/2020 7:29 PM [facility] HGB 15.3 13.0 - 18.0 G/DL 03/21/2020 7:29 PM [facility] HCT 44.2 36.0 - 47.0 % 03/21/2020 7:29 PM [facility] MCV 91.5 78.0 - 100.0 FL 03/21/2020 7:29 PM [facility] MCH 31.7(H) 27.0 - 31.0 PG 03/21/2020 7:29 PM [facility] MCHC 34.6 33.0 - 36.0 G/DL 03/21/2020 7:29 PM [facility] RDW 13.3 11.5 - 14.5 % 03/21/2020 7:29 PM [facility] PLT 223 150 - 350 x10'3/uL 03/21/2020 7:29 PM [facility] MPV 11.3(H) 7.4 - 10.4 FL 03/21/2020 7:29 PM [facility] DIFFERENTIAL TYPE AUTOMATED DIFFERENTIAL 03/21/2020 7:29 PM [facility] NEUTROPHILS % 46.8 % 03/21/2020 7:29 PM [facility] LYMPHOCYTES % 39.1 % 03/21/2020 7:29 PM [facility] MONOCYTES % 11.6 % 03/21/2020 7:29 PM SPRING WINDER [facility] EOSINOPHILS % 2.1 % 03/21/2020 7:29 PM SPRING WINDER [facility] BASOPHILS % 0.4 % 03/21/2020 7:29 PM [facility] ABS. NEUTROPHILS 2.21 1.60 - 8.30 x10'3/uL 03/21/2020 7:29 PM SPRING WINDER [facility] ABS. LYMPHOCYTES 1.85 0.80 - 4.70 x10'3/uL 03/21/2020 7:29 PM SPRING WINDER [facility] ABS. MONOCYTES 0.55 0.00 - 1.50 x10'3/uL 03/21/2020 7:29 PM SPRING WINDER [facility] ABS. EOSINOPHILS 0.10 0.00 - 0.40 x10'3/uL 03/21/2020 7:29 PM [facility] ABS. BASOPHILS 0.02 0.00 - 0.20 x10'3/uL 03/21/2020 7:29 PM [facility] 03/21/2020 11:1 3 AM SPRING WINDER us Elvia Davis NP LABORATORY Final Result [facility] [address] [place] [address], [place] [phone] * ALBUMIN URINE RANDOM (03/21/2020 11:00 AM SPRING WINDER) MICROALBUMIN (U) negative [facility], [place] Comment:alb 10mg/l, cre 300m g/dl, A:C <30 mg/g URINE SPECIMEN / Unknown 03/21/2020 11:00 AM SPRING WINDER us Elvia Davis NP URINE ORDERABLES Edited Result - Final [facility], [place] [address] [place] [address], [place] [phone] * URINALYSIS AUTO DIP (03/21/2020) COLOR (U) YELLOW [facility] CLEAR [facility], [place] GLUCOSE (U) NEGATIVE NEGATIVE MG/DL [address], [place] BILIRUBIN (U) NEGATIVE NEGATIVE MG[address], [place] KETONES MG/DL (U) NEGATIVE NEGATIVE MG/DL [address], [place] SPECIFIC GRAVITY (U) 1.030 1.001 - 1.035 [address], [place] BLOOD (U) NEGATIVE NEGATIVE [address], [place] U PH 5.5 5.0 - 9.0 [address], [place] PROTEIN (U) NEGATIVE NEGATIVE mg/dL [facility], [place] UROBILINOGEN 0.2 0.2 - 1.0 EU/dL = mg/dL [facility], [place] NITRITES NEGATIVE NEGATIVE MG/DL [facility], [place] LEUKOCYTES (U) NEGATIVE NEGATIVE MG-[address], [place] URINE SPECIMEN OBTAINED BY CLEAN CATCH PROCEDURE / Unknown 03/21/2020 Elvia Davis NP URINE ORDERABLES Final Result [facility], [place] [address] [place] [address], documented in this encounter Visit Diagnoses Diagnosis Urinary frequency- Primary Encounter for medical examination to establish care Blood pressure elevated without history of HTN Elevated blood pressure reading without diagnosis of hypertension Routine lab draw Laboratory examination ordered as part of a routine general medical examination documented in this encounter Additional Health Concerns Assessment Noted Time PHQ-9 Depression Total Score: 0 03/21/20 20 11:22 AM SPRING WINDER documented as of this encounter Care Teams Hospital Aide Relationship Specialty Start Date End Date Elvia Davis, CONTROL CLERK [employer] AND BEVERAGE PCP - General NURSE PRACTITIONER 03/21/20 04/06/21 documented as of this encounter
--- OUTSIDE RECORDS SUMMARY | 2024-03-24 01:45 | XMS_ITS | Encounter Summary ---
Author Organization [facility] Address [address] [place] [address]. [place], [place] [address] [place] [address] Care Team Providers Care Platform Mill Supervisor Name Role Phone Zeus Vo MD Primary Care Provider Encounter Details Date Type Department Care Team (Latest Contact Info) Description 07/01/2021 Travel Social History Tobacco Use Types Packs/Day [...] move on to questions 3-9 0 05/14/2021 [facility] [place] of Occupat ional Health - Occupational Stress [...] suspected to have Coronavirus/COVID-19? No / Unsure 07/01/2021 4:22 PM CDT documented as of this encounter Plan of Treatment Upcoming Encounters Date Type Department Care Team (Late st Contact Info) Description 04/07/2024 7:40 AM MIXING MACHINE OPERATOR Office Visit [facility] Multispecialty Care - [address] [place] [address] [address] [place] [address] Zeus Vo MD [address] [place] [address] documented as of this encounter Visit Diagnoses Not on filedocumented in this encounter Additional Health Concerns Assessment Noted Time PHQ-9 Depression Total Score: 0 05/14/19 22 7:24 AM MIXING MACHINE OPERATOR documented as of this encounter Care Teams Platform Mill Supervisor Relationship Specialty Start Date End Date Zeus Vo MD [address] [place] [id number] PCP - General INTERNAL MEDICINE 04/07/21 documented as of this encounter
--- OUTSIDE RECORDS SUMMARY | 2024-03-24 01:45 | XMS_ITS | Encounter Summary ---
Author Organization [facility] Address [address] [place] [address]. [place], [place] [id number] [place] [address] Care Team Providers Care Pulpit Operator Name Role Phone Elvia Davis STAFF NUCLEAR MEDICINE TECHNOLOGIST Primary Care Provider Unavailabl e Reason for Visit * Reason Comments Follow Up 1 month f/u on urina tion frequency, states the medication is helping a lot Encounter Details Date Type Department Care Team (Latest Contact Info) Description 04/29/2020 3:50 PM PRICK STITCHER Office Visit [facility] Multispecialty Care - [address] [place] [address] Elvia Davis, STAFF NUCLEAR MEDICINE TECHNOLOGIST Follow Up (1 month f/u on urination frequency, states the medication is helping a lot) Social History Tobacco Use Types Packs/Day Years [...] move on to questions 3-9 0 03/21/2020 [facility] [place] of Occupat ional Health - Occupational Stress [...] COVID-19? No / Unsure 04/29/2020 3:40 PM PRICK STITCHER documented as of this encounter Last Filed Vital Signs Vital Sign Reading Time Taken Comments Blood Pressure 118/76 04/29/2020 4:02 PM PRICK STITCHER Pulse 67 04/29/2020 3:45 PM PRICK STITCHER Temperature 36.7 ??C (98.1 ??F) 04/29/2020 3:45 PM CS T Respiratory Rate 18 04/29/2020 3:45 PM PRICK STITCHER Oxygen Saturation 97% 04/29/2020 3:45 PM PRICK STITCHER Inhaled Oxygen Concentration - - Weight 108.9 kg (240 lb) 04/29/2020 3:45 PM PRICK STITCHER Height 175.3 cm (5' 9 ) 04/29/2020 3:45 PM PRICK STITCHER Body Mass Index 35.44 04/29/2020 3:45 PM PRICK STITCHER documented in this encounter Patient Instructions * Patient Instructions* Elvia Davis NP - 04/29/2020 3:50 PM PRICK STITCHER Patient Education Patient Education Bladder Spasms Discharge [...] belly pain. Where can I learn more? [employer] [place] [employer] https://familydoctor.org/condition/overactive-bladder/ Women???s Health [...] right for you. Copyright Copyright ?? 2020 [employer]. and its affiliates and/or licensors. All rights reserved. Continue Ditropan for OAB Fasting blood work 1 week prior to next appointment Follow up in 6 months or sooner if needed. K STITCHER K STITCHER K STITCHER K STITCHER documented in this encounter Progress Notes * Elvia Davis NP - 04/29/2020 3:50 PM CST Reason for Visit: Follow Up (1 month f/u on urination frequency, states the medication is helping a lot) History of Present Illness: Pt. Here for follow up of overactive bladder and reports that the medication is helping. States that he can tell a difference if he does not take it. Pt. Blood pressure today is WNL. ROS: Review of Systems Constitutional: Negative for fever. Eyes: Negative. Negative for pain. Respiratory: Negative. Cardiovascular: Negative for chest pain and palpitations. Gastrointestinal: Negative. Genitourinary: Negative. Negative for frequency (on medication). Musculoskeletal: Negative. Neurological: Negative for dizziness. Psychiatric/Behavioral: Negative for depression and suicidal ideas. Medications: Current Outpatient Medications: ??? oxybutynin XL (DITROPAN XL) 10 MG 24 hr tablet, Take 1 tablet (10 mg total) by mouth daily., Disp: 30 tablet, Rfl: 1 Allergies Allergen Reactions ??? Codeine Hyperactive No past medical history on file. No past surgical history on file. Social History Socioeconomic History ??? Marital status: [...] Smoker ??? Smokeless tobacco: Never Used Substance and Sexual Activity ??? Alcohol use: Yes Alcohol/week: 3.3 standard drinks Types: 2 Cans of beer per week Frequency: Monthly or less Drinks per session: 1 or 2 Binge frequency: Less than monthly ??? Drug use: Never ??? Sexual activity: Yes Lifestyle ??? Physical activity Days per week: 3 days Minutes per session: Not on file ??? Stress: To some extent Relationships ??? Social connections Talks on phone: Not on file Gets together: Not on file Attends gnosticism service: Not on file Active member of [...] PGM (Not Specified) ??? PGF (Not Specified) PHYSICAL EXAM Filed Vitals: 04/29/20 1545 BP: 112/60 Pulse: 67 Resp: 18 Temp: 98.1 ??F (36.7 ??C) SpO2: 97% Weight: 108.9 kg (240 lb) Height: 5' 9 (1.753 m) Assessment Encounter Diagnose(s) ICD-10-CM ICD-9-CM SNOMED CT(R) 1. Overactive bladder N32.81 596.51 OVERACTIVE BLADDER Recommendations and Plan: Continue Ditropan for OAB Fasting blood work 1 week prior to next appointment Follow up in 6 months or sooner if needed. 1. Overactive bladder Continue Ditropan ELVIA DAVIS NP 04/29/2020 3:54 PM Cosigned by Zeus Vo MD at 04/30/2020 7:08 AM PRICK STITCHER K STITCHER K STITCHER documented in this encounter Plan of Treatment Upcoming Encounters Date Type Department Care Team (Late st Contact Info) Description 04/07/2024 7:40 AM PRICK STITCHER Office Visit [facility] Multispecialty Care - [place] [address] [address] [place] [address] Zeus Vo MD [address] [place] [address] [address] [place] [address] documented as of this encounter Visit Diagnoses Diagnosis Overactive bladder- Primary Hypertonicity of bladder documented in this encounter Additional Health Concerns Assessment Noted Time PHQ-9 Depression Total Score: 0 03/21/20 20 11:22 AM PRICK STITCHER documented as of this encounter Care Teams Pulpit Operator Relationship Specialty Start Date End Date Elvia Davis, STAFF NUCLEAR MEDICINE TECHNOLOGIST PCP - General NURSE PRACTITIONER 03/21/20 04/06/21 documented as of this encounter
--- OUTSIDE RECORDS SUMMARY | 2024-03-24 01:45 | XMS_ITS | Encounter Summary ---
Author Organization [facility] Address [address] [place] [address]. [place], [place] [id number] [place] [address] Care Team Providers Care Supervisor Self Service Store Name Role Phone Zeus Vo MD Primary Care Provider [phone] Reason for Visit * Reason Comments Follow Up Pt is here to follow up for hypertension and weight concerns. Encounter Details Date Type Department Care Team (Latest Contact Info) Description 06/11/2021 7:00 AM WET PRESS TENDER Office Visit [facility] Multispecialty Care - [place] [address] [address] [place] [address] Zeus Vo MD [address] [place] [address] Follow Up (Pt is here to follow up for hypertension and weight concerns.) Social History Tobacco Use Types Packs/Day Years [...] move on to questions 3-9 0 05/14/2021 [facility] [place] of Occupat ional Health - Occupational Stress [...] Coronavirus/COVID-19? No / Unsure 06/11/2021 6:58 AM WET PRESS TENDER documented as of this encounter Last Filed Vital Signs Vital Sign Reading Time Taken Comments Blood Pressure 130/83 06/11/2021 7:30 AM WET PRESS TENDER Pulse 76 06/11/2021 7:11 AM WET PRESS TENDER Temperature 36.4 ??C (97.6 ??F) 06/11/2021 7:11 AM CS T Respiratory Rate 18 06/11/2021 7:11 AM WET PRESS TENDER Oxygen Saturation 98% 06/11/2021 7:11 AM WET PRESS TENDER Inhaled Oxygen Concentration - - Weight 108.9 kg (240 lb) 06/11/2021 7:11 AM WET PRESS TENDER Height 175.3 cm (5' 9 ) 06/11/2021 7:11 AM WET PRESS TENDER Body Mass Index 35.44 06/11/2021 7:11 AM WET PRESS TENDER documented in this encounter Patient Instructions * Patient Instructions* Zeus Vo MD - 06/11/2021 7:00 AM WET PRESS TENDER Follow up in 4 weeks. Patient Education Patient Education Lowering Your Risk of High Blood Pressure About this topic High blood pressure happens when your heart must work harder than normal to pump blood to the body.Blood pressure measures the pressure in your arteries when your heart beats. Your arteries are tubes that carry blood from your heart to the rest of your body. If the arteries are clogged, stiff, or squeeze too tightly, the pressure goes up and your heart must work harder than normal. Your blood pressure has two numbers. The top number is the systolic number. It measures the highestamount of pressure in the artery when the heart is beating. The second number or bottom number is the diastolic number. It is the lowest pressure in the artery when the heart is resting. Sometimes diseases, like kidney disease or abnormal hormones, can lead to high blood pressure. Mostpeople have no known cause or reason for high blood pressure. In most cases, high blood pressure cannot be cured. You must control it with drugs and lifestyle changes. If high blood pressure is not controlled, it can lead to heart attack, stroke, and kidney problems. Many people with high blood pressure do not feel sick and don???t know that they have it until their blood pressure is checked. However, this does not mean that you do not need treatment for high blood pressure. General Many things can raise your chances of having high blood pressure. Some of them you can control and others you cannot. It is important to know about all of them. Some health conditions may raise your chances for having high blood pressure. Take extra care and work with your doctor to keep these health problems under control. Your risk for high blood pressure is higher if you have: ?? Diabetes ?? Kidney disease ?? High cholesterol ?? Obstructive sleep apnea ?? Hormone problems - thyroid disease, Luxora???s syndrome, acromegaly, hyperaldosteronism, and pheochromocytoma ?? Lupus ?? Scleroderma You may have control over some things that make you more likely to have high blood pressure. It is important to know about them and work to keep these problems under control. You are at a higher riskof high blood pressure if you: ?? Smoke or use tobacco ?? Use alcohol or illegal drugs ?? Do not exercise regularly ?? Are overweight ?? Have a lot of stress in your life ?? Have a poor diet or a diet high in salt or sodium ?? Have a diet low in potassium ?? Take certain medications Some things you are not able to control, but they are important to know about. For example, men aremore likely to have high blood pressure before about age 60. However, women are more likely to havehigh blood pressure after menopause. You are also at a higher risk for high blood pressure if you: ?? Are older. Your risk gets higher the older you are. ?? Have a family history of high blood pressure ?? Are What lifestyle changes are needed? ?? You may be asked to get a blood pressure monitor to use at home. Learn how to use it and record your blood pressure results between doctor visits. ?? Stop smoking and using tobacco. Smoking causes your arteries to narrow and raises your blood pressure. Talk to your doctor if you need help quitting. ?? Limit how much alcohol you drink to no more than 1 drink a day for women or 2 drinks a day for men. ?? Do not use illegal drugs. Talk to your doctor if you need help quitting. ?? If you are under a great deal of stress, ask your doctor for advice on how to lower the stress. You may need to learn a variety of stress reduction methods, such as yoga, meditation, guided imagery, alia chi, or even have a drug prescribed to help you. ?? Eat a healthy, well-balanced diet. Try to limit how much salt or sodium you eat each day. ?? Lose weight if you are overweight. ?? Get regular exercise. This can help your heart pump better, lower your blood pressure, and help you lose weight. ?? Work with your doctor to treat problems like sleep apnea, diabetes, high cholesterol, and kidneyproblems. ?? Talk with your doctor or pharmacist about all of your drugs, including fcsy-mok-vtgguez medicines, to see if they may cause high blood pressure. What drugs may be needed? Your doctor may order drugs to: ?? Lower blood pressure ?? Control blood sugar ?? Lower cholesterol levels ?? Help with your mood ?? Help you stop using tobacco Take your drugs exactly as ordered. Controlling problems like high blood pressure, diabetes, or high cholesterol are all ways to lower your chances of having high blood pressure. Will physical activity be limited? It is good to get some kind of exercise each day. Walking, gardening, swimming, riding a bike, or dancing are all good ways to add exercise to your life. Always check with your doctor if you have questions about starting an exercise program. What changes to diet are needed? Eat a healthy diet. Talk to your doctor or a dietitian if you need to lose weight. ?? Do not use salt on your food. Use herbs and spices to improve the taste. ?? Do not eat more than 2.3 grams of sodium a day. If you have high blood pressure, aim for 1.5 grams of sodium a day. Read food labels to see how much sodium is in a food. ?? Limit coffee, tea, and soda to 2 cups (480 mL) a day. ?? Eat lots of fruits, vegetables, and low-fat dairy products. ?? Avoid fatty foods, like fried foods or chips. ?? Talk with your dietitian about the diet changes you need and the number of calories you should eat each day. When do I need to call the doctor? Activate the emergency medical system right away if you have signs of a heart attack. Call 911 in the [place] or [place]. The sooner treatment begins, the better your chances for recovery. Call for emergency help right away if you have: ?? Signs of heart attack: ? Chest pain ? Pain in other areas of the upper body (either or both arms, jaw, neck, etc.) ? Trouble breathing ? Fast heartbeat ? Feeling dizzy ?? Signs of stroke: ? Sudden numbness or weakness of the face, arm, or leg, especially on one side of the body ? Sudden confusion, trouble speaking or understanding ? Sudden trouble seeing in one or both eyes ? Sudden trouble walking, dizziness, loss of balance or coordination ? Sudden severe headache with no known cause ? Face droops on one side Call your doctor if you have: ?? Blood pressure that is 20 points higher than your normal top or bottom number ?? Two blood pressure readings higher than 180/120 ?? Very bad headache ?? Confusion ?? Sudden change in hearing or eyesight ?? Nosebleed Where can I learn more? [place] [employer] https://www.heart.org/en/health-topics/wrpz-nerba-xftkipvp/czxrndv-kfq-roc-make- pc-vaajnn-vmrf-blood-pressure [employer] [employer] https://www.heart.org/en/health-topics/obft-bmixk-wrwucvkh/ceu-ibud-fwjqm-pressu xk-gg-z-silent-killer/eiue-crnp-hbjy-zmwgjeq-kee-cazb-blood-pressure Centers for Disease Control and Prevention https://www.cdc.gov/bloodpressure/risk_factors.htm NHS Choices https://www.nhs.uk/conditions/gmta-fodue-ohnjrmvq-hypertension/ Last Reviewed Date 2019-06-29 Consumer Information Use and Disclaimer This generalized [...] or approved for treating a specific patient. [employer] and its affiliates disclaim any warranty or liability relating to this information or the use thereof. The use of this information is governed by the Terms of Use, available at https://www.[employer].C[employer]/en/solutions/[employer] (T.O.H.L.)mp/about/sabina Copyright Copyright ?? 2020 [employer] and its affiliates and/or licensors. All rights reserved. PRESS TENDER documented in this encounter Progress Notes * Zeus Vo MD - 06/11/2021 7:00 AM CSTSummary: Follow-up notes Images from the original note were not included. Internal Medicine Outpatient Progress Note CC: Follow Up (Pt is here to follow up for hypertension and weight concerns.) HPI: Manuel Hall is a 45-year-old male who presents for follow- up for newly diagnosed hypertension and obesity. Patient was seen a couple of weeks ago for elevated blood pressure. I did start him on lisinopril 20 mg daily and patient here for follow-up. Tolerating medications without any side effects such as dry cough, dizziness on standing. Denies any concerns for chest tightness with exertion, shortness ofbreath, palpitations, orthopnea, ankle swelling or paroxysmal nocturnal dyspnea. Notes positive family history of diabetes. Endorses compliance to medications. Does not follow routinely with cardiology. Has an order for a sleep study and patient scheduled on 07/01/2021. Patient also here for follow-up for weight issues. Recently was started on phentermine. Tolerating medications without any side effects. Denies any concerns for shortness of breath, chest tightness, ankle edema. His weight is down from 256 pounds to 240 pounds. No prior history of weight loss surgery. He tells me he has since made current significant changes to his diet and currently actively exercising by way of going to gym regularly and lifting weights. Endorses compliance to medications. Problem List Patient Active Problem List Diagnosis [...] Outpatient Medications Marked as Taking for the 06/11/21 encounter (Office Visit) with Zeus Vo MD Medication Sig Dispense Refill ??? lisinopril 40 MG tablet Take 0.5 tablets (20 mg total) by mouth daily. 90 tablet [...] Musculoskeletal: Negative. Neurological: Negative. Objective: Filed Vitals: 06/11/21 0711 06/11/21 0730 BP: (!) 145/88 130/83 Pulse: 76 Resp: 18 Temp: 97.6 ??F (36.4 ??C) TempSrc: Temporal SpO2: 98% Weight: 108.9 kg (240 lb) Height: 5' 9 (1.753 m) Body mass index is 35.44 kg/m??. General alert, cooperative, no distress HEENT [...] HYPERTENSION lisinopril 40 MG tablet 2. Class 2 severe obesity due to excess calories with serious comorbidity and body mass index (BMI)of 35.0 to 35.9 in adult ([facility]) E66.01 278.01 SEVERE OBESITY phentermine 37.5 MG tablet Z68.35 V85.35 1. Primary hypertension - Patient currently controlled on current treatment for hypertension. Will continue. Continued to discuss weight loss, adequate cardiovascular fitness. DASH diet was discussed as well as decrease in sodium intake. BP goal of < 130/80 expressed. - lisinopril 40 MG tablet; Take 0.5 tablets (20 mg total) by mouth daily. Dispense: 90 tablet; Refill: 1 2. Class 2 severe obesity due to excess calories with serious comorbidity and body mass index (BMI)of 35.0 to 35.9 in adult ([facility]) - this is his second refill for phentermine - Lifestyle modification including dietary changes to include less saturated fats, lean meat, more vegetables and exercise at least 30 min every day. - continue phentermine 37.5 MG tablet; Take 1 tablet (37.5 mg total) by mouth every morning before breakfast for 30 days. Dispense: 30 tablet; Refill: 0 - follow up in 4 weeks Counseling [...] was at least in part performed using [employer] and there may be some inherent flaws in this credit controller due to the nature of this program. Zeus Vo MD Internal Medicine [facility]. PRESS TENDER documented in this encounter Plan of Treatment Upcoming Encounters Date Type Department Care Team (Late st Contact Info) Description 04/07/2024 7:40 AM WET PRESS TENDER Office Visit [facility] Multispecialty Care - [place] [address] [address] [place] [address] Zeus Vo MD [address] [place] [address] documented as of this encounter Visit Diagnoses Diagnosis Primary hypertension- Primary Unspecified essential hypertension Class 2 severe obesity due to excess calories with serious comorbidity and body mass index (BMI) of 35.0 to 35.9 in adult ([facility]) documented in this encounter Additional Health Concerns Assessment Noted Time PHQ-9 Depression Total Score: 0 05/14/19 22 7:24 AM WET PRESS TENDER documented as of this encounter Care Teams Supervisor Self Service Store Relationship Specialty Start Date End Date Zeus oV MD [address] [address] PCP - General INTERNAL MEDICINE 04/07/21 documented as of this encounter
--- OUTSIDE RECORDS SUMMARY | 2024-03-24 01:45 | XMS_ITS | Encounter Summary ---
Author Organization [facility] Address [address] [place] [address]. [place], [place] [address] [place] [address] Care Team Providers Care Nick Setter Name Role Phone Zeus Vo MD Primary Care Provider [phone] Encounter Details Date Type Department Care Team (Latest Contact Info) Description 05/14/2021 - 05/14/2021 11:59 PM [facility] Hospital Encounter [facility] MED [facility] [address] [place] [address] Zeus Vo MD [address] [address] Discharge Disposition: Home or Self [...] on to questions 3-9 0 05/14/2021 [facility] [place] of Occupat ional Health - Occupational Stress [...] Coronavirus/COVID-19? No / Unsure 05/14/2021 7:02 AM HOSPICE NURSE PRACTITIONER documented as of this encounter Medications at Time of Discharge lisinopril 20 MG tabletIndications: Primary hypertension Take 1 tablet (20 mg total) by mouth daily. 30 tablet 2 05/14/2021 06/11/2021 documented as of this encounter Plan of Treatment Upcoming Encounters Date Type Department Care Team (Late st Contact Info) Description 04/07/2024 7:40 AM HOSPICE NURSE PRACTITIONER Office Visit [facility] Medical Group Multispecialty Care - [place] [address] [address] [place] [address] Zeus Vo MD [facility] [address] [address] documented as of this encounter Visit Diagnoses Not on filedocumented in this encounter Additional Health Concerns Assessment Noted Time PHQ-9 Depression Total Score: 0 05/14/19 7:24 AM HOSPICE NURSE PRACTITIONER documented as of this encounter Care Teams Nick Setter Relationship Specialty Start Date End Date Zeus Vo MD [address] [place] [address] PCP - General INTERNAL MEDICINE 04/07/21 documented as of this encounter
--- OUTSIDE RECORDS SUMMARY | 2024-03-24 01:45 | XMS_ITS | Encounter Summary ---
Author Organization [facility] Address [address] [place] [address]. [place], [place] [address] [place] [address] Care Team Providers Care Lieutenant Fire Fighter Name Role Phone Reena Doss MD Primary Care Provider [phone] Encounter Details Date Type Department Care Team (Late st Contact Info) Description 03/30/2013 [facility] [address] [facility] [place], [place] [address] Najma Alexander MD [address] [facility] [address] [place], [place] [address] Social History Tobacco Use Types Packs/Day Years Used Date Smoking Tobacco: Never Assessed Sex and Gender Information Value Date Recorded Sex Assigned at Not on file Legal Sex Male 8:07 PM CDT Gender Identity Not on file Sexual Orientation Not on file documented as of this encounter Plan of Treatment Upcoming Encounters Date Type Department Care Team (Late Contact Info) Description 04/07/2024 7:40 AM DATA MIGRATION CONSULTANT Office Visit [facility] Multispecialty Care - [place] [address] [address] [place] [address] Zeus Vo MD [address] [place] [address] [address] [place] [address] documented as of this encounter Visit Diagnoses Diagnosis Gouty arthropathy Gouty arthropathy, unspecified documented in this encounter Care Teams Lieutenant Fire Fighter Relationship Specialty Start Date End Date Reena Doss MD [address], [place] [address] PCP - General 03/30/13 03/04/20 documented as of this encounter
--- OUTSIDE RECORDS SUMMARY | 2024-03-24 01:45 | XMS_ITS | Encounter Summary ---
Author Organization [facility] Address [address] [place] [address]. [place], [place] [address] [place] [address] Care Team Providers Care Svp Digital Ad Sales Name Role Phone Zeus Vo MD Primary Care Provider [phone] Reason for Visit * Sleep Lab (Routine) - Closed Specialty Diagnoses / Procedures Referred By Contac t Referred To Contact Diagnoses Fatigue, unspecified type Procedures Limited Channel Unattended (Home Study) (G0399) Zeus Vo MD [address] [address] Phone: tel: fax: Referral ID Status Reason Start Date Expiration Date Visits Re quested Visits Authorized [id number] Closed 06/25/2021 12/22/2021 2 2 Encounter Details Date Type Department Care Team (Latest Contact Info) Description 07/01/2021 4:15 PM CDT - 07/01/2021 11:59 PM CDT Hospital Encounter [facility] [address] [place] [address] Zeus Vo MD [address] [address] Discharge Disposition: Home or Self [...] move on to questions 3-9 0 05/14/2021 [facility] Occupat ional Health - Occupational [...] PM CDT documented as of this encounter Medications at Time of Discharge lisinopril 40 MG tabletIndications: Primary hypertension Take 0.5 tablets (20 mg total) by mouth daily. 90 tablet 1 06/11/2021 2 phentermine 37.5 MG tabletIndications: Class 2 severe obesity due to excess calories with serious comorbidity and body mass index (BMI) of 35.0 to 35.9 in adult (CMS/HCC HHS/HCC) Take 1 tablet (37.5 mg total) by mouth every morning before breakfast for 30 days. 30 tablet 06/11/2021 2 documented as of this encounter Procedure Notes * Catarino Mooney MD - 07/01/2021 4:15 PM CDTAssociated Order(s): LIMITED CHANNEL UNATTENDED (HOME STUDY) [facility]???s [facility], [place] HOME SLEEP STUDY INTERPRETATION PATIENT NAME: Manuel Hall DATE OF : 1975 DATE OF SERVICE: 07/01/2021 Ordering Phy Exam Description Zeus Vo M.D. Home Sleep Study ATTENDING PHYSICIAN: Dr. Catarino Mooney REFERRING PHYSICIAN: Dr. Zesu Vo SUMMARY DATA Sleep Study/ Architecture: This patient was studied using [employer]avia NightOne devices using 1 RIP effort belt and a pressure-based flow sensor. The evaluation was initiated at 07/01/2021 at 10:30 PM and was stopped at 07/02/2021 at 5:53 AM. The total recording time was 443.2 minutes,and the total monitoring time was 436.5 minutes. DIAGNOSTIC Total Apnea/ Hypopnea Index: 54.7/hr Average Sleep Oxygen Saturation: 92 Minimum Sleep Oxygen Saturation: Mean Heart Rate during Sleep: 77 57.7 Assessment/Plan: Severe Obstructive Sleep Apnea. [place] treatment option should be discussed with the patient and a plan for treatment should be made. Potential health consequences and medical importance of treatment should also be discussed with the patient. This patient???s oxygen saturation was below 89.0% for 68.0 minutes during this evaluation. Possible need to do additional testing with full night titration with possible supplemental oxygen addition if there are still significant desaturations when patient???s AHI is within normal limits should be [...] factors that may potentially exacerbate snoring and sleep- related problems, such as TECHNICAL SUPPORT ASSISTANT depressants, especially at bedtime. This document was electronically signed by: Catarino Mooney M.D. on 07/15/2021 at 11:48 AM. documented in this encounter Plan of Treatment Upcoming Encounters Date Type Department Care Team (Late st Contact Info) Description 04/07/2024 7:40 AM ENDOSCOPY SPECIALTY TECHNICIAN Office Visit [facility] Multispecialty Care - [place] [address] [address] [address] [place] [address] Zeus Vo MD 1188 [facility] [address] [place] [address] documented as of this encounter Procedures Procedure Name Priority Date/Time Associated Diagnosis Comments LIMITED CHANNEL UNATTENDED (HOME STUDY) Routine 07/01/2021 4:15 PM CDT Fatigue, unspecified type documented in this encounter Results * Limited Channel Unattended (Home Study) (G0399) (07/01/2021 4:15 PM CDT) Narrative [facility] - 07/01/2021 4:15 PM CDT Catarino Mooney MD ? 07/15/2021 ??3:25 PM [facility]? [place], [place] ?? HOME SLEEP STUDY INTERPRETATION PATIENT NAME: Manuel Hall DATE OF : 1975 ?? DATE OF SERVICE: 07/01/2021 Ordering Phy Exam Description Zeus Vo M.D. Home Sleep Study ATTENDING PHYSICIAN: Dr. Catarino Mooney REFERRING PHYSICIAN: Dr. Zeus Vo SUMMARY DATA Sleep Study/ Architecture: This patient was studied using [employer]avia NightOne devices using 1 RIP effort belt and [...] ??77 57.7 Assessment/Plan: Severe Obstructive Sleep Apnea. [place] treatment option should be discussed with the [...] exacerbate snoring and sleep-related problems, such as TECHNICAL SUPPORT ASSISTANT depressants, especially at bedtime. This document was electronically signed by: Catarino Mooney M.D. on 07/15/2021 at 11:48 AM. Zeus Vo MD SLEEP CENTER ORDERABLES Final Re sult [facility] documented in this encounter Visit Diagnoses Not on filedocumented in this encounter Additional Health Concerns Assessment Noted Time PHQ-9 Depression Total Score: 0 05/14/19 22 7:24 AM ENDOSCOPY SPECIALTY TECHNICIAN documented as of this encounter Care Teams Svp Digital Ad Sales Relationship Specialty Start Date End Date Zeus Vo MD [address] [address] PCP - General INTERNAL MEDICINE 04/07/21 documented as of this encounter
--- OUTSIDE RECORDS SUMMARY | 2024-03-24 01:45 | XMS_ITS | Encounter Summary ---
Author Organization [facility] Address [address] [place] [address]. [place], [place] [address] [place] [address] Care Team Providers Care Accounts Supervisor Name Role Phone Elvia Davis CLOTHES MARKER Primary Care Provider Unavailabl e Reason for Visit * Reason Comments Follow Up 6 month f/u Encounter Details Date Type Department Care Team (Latest Contact Info) Description 11/05/2020 8:40 AM CDT Office Visit [facility] Multispecialty Care - [address] [place] [address] Elvia Davis, CLOTHES MARKER Follow Up (6 month f/u) Social History Tobacco Use Types Packs/Day Years [...] on to questions 3-9 0 03/21/2020 [facility] [place] of Occupat ional Health - Occupational Stress [...] Sign Reading Time Taken Comments Blood Pressure 136/82 11/05/2020 9:05 AM CDT Pulse 67 11/05/2020 9:05 AM CDT Temperature 36.8 ??C (98.2 ??F) 11/05/2020 9:05 AM CD T Respiratory Rate 18 11/05/2020 9:05 AM CDT Oxygen Saturation 98% 11/05/2020 9:05 AM CDT Inhaled Oxygen Concentration - - Weight 108.9 kg (240 lb) 11/05/2020 9:05 AM CDT Height 175.3 cm (5' 9 ) 11/05/2020 9:05 AM CDT Body Mass Index 35.44 11/05/2020 9:05 AM CDT documented in this encounter Patient Instructions * Patient Instructions* Elvia Davis NP - 11/05/2020 8:40 AM CDT Patient Education Patient Education Bladder Spasms Discharge [...] regimens ?? Weight loss ?? Biofeedback ?? Botox injections in your bladder ?? Surgery What care is needed at [...] belly pain. Where can I learn more? [employer] https://familydoctor.org/condition/overactive-bladder/ Women???s Health https://www.womenshealth.gov/a-z-topics/bladder-pain Last Reviewed Date 2020-06-20 Consumer Information Use and Disclaimer This information [...] right for you. Copyright Copyright ?? 2020 [employer]. and its affiliates and/or licensors. All rights reserved. Blood work done and will call with results Give DTaP today Increase water intake Follow up in 6 months documented in this encounter Progress Notes * Elvia Davis NP - 11/05/2020 8:40 AM CDTAddended by: ELVIA DAVIS on: 11/05/2020 10:30 AM Modules accepted: Orders * Jasmyn Guerrero MA - 11/05/2020 8:40 AM CDTAddended by: JASMYN GUERRERO on: 11/05/2020 10:38 AM Modules accepted: Orders * Elvia Davis NP - 11/05/2020 8:40 AM CDT Reason for Visit: Follow Up (6 month f/u) History of Present Illness: HPI ROS: Review of Systems Constitutional: Negative. Negative for fatigue and fever. HENT: Negative. Eyes: Negative. Respiratory: Negative. Negative for cough and shortness of breath. Cardiovascular: Negative. Negative for chest pain. Gastrointestinal: Negative for abdominal pain. Endocrine: Negative. Genitourinary: Positive for frequency (resolved after decreasing caffeine). Reports past kidney stone Musculoskeletal: Negative. Negative for back pain. Skin: Negative. Allergic/Immunologic: Negative. Negative for environmental allergies. Neurological: Negative. Hematological: Negative for adenopathy. Psychiatric/Behavioral: Negative. Negative for suicidal ideas (Denies). Medications: No current outpatient medications on file. Allergies Allergen Reactions ??? Codeine Hyperactive History reviewed. No pertinent past medical history. [...] Social Determinants of Health Financial Resource Strain: ??? Difficulty of Paying Living Expenses: Food Insecurity: ??? Worried About Running Out of Food in the Last Year: ??? Ran Out of Food in the Last Year: Transportation Needs: ??? Lack of Transportation (Medical): ??? Lack of Transportation (Non-Medical): Physical Activity: Unknown ??? Days of Exercise per Week: 3 days ??? Minutes of Exercise per Session: Not on file Stress: Stress Concern Present ??? Feeling of Stress : To some extent Social Connections: ??? Frequency of Communication with Friends and Family: ??? Frequency of Social Gatherings with Friends and Family: ??? Attends Confucianist Services: ??? Active Member of Clubs or Organizations: ??? Attends Club or Organization Meetings: ??? Marital Status: Intimate Partner Violence: ??? Fear of Current or Ex-Partner: ??? Emotionally Abused: ??? Physically Abused: ??? Sexually Abused: Family History Problem Relation Name Age of Onset ??? Diabetes Father ??? Diabetes Paternal Grandmother ??? Diabetes Paternal Grandfather Family Status Relation Name Status ??? Father (Not Specified) ??? PGM (Not Specified) ??? PGF (Not Specified) Physical Exam Constitutional: Appearance: Normal appearance. HENT: Head: Normocephalic. Nose: Nose normal. No congestion. Mouth/Throat: Mucous membranes are moist. Eyes: Pupils: Pupils are equal, round, and reactive to light. Cardiovascular: Rate and Rhythm: Normal rate and regular rhythm. Pulmonary: Effort: Pulmonary effort is normal. Breath sounds: Normal breath sounds. Abdominal: General: Bowel sounds are normal. Palpations: Abdomen is soft. Musculoskeletal: General: No tenderness. Cervical back: Normal range of motion. Skin: General: Skin is warm and dry. Neurological: Mental Status: He is alert. Psychiatric: Mood and Affect: Mood normal. Behavior: Behavior normal. I spent 35 minutes today reviewing the patient's medical record, obtaining history, performing an exam, ordering medications, tests, and/or procedures, documenting in the medical record, counseling and educating the patient/family/caregiver, reviewing and communicating test results and coordinationof care. Filed Vitals: 11/05/20 0905 BP: 136/82 Pulse: 67 Resp: 18 Temp: 98.2 ??F (36.8 ??C) SpO2: 98% Weight: 108.9 kg (240 lb) Height: 5' 9 (1.753 m) Assessment Encounter Diagnose(s) ICD-10-CM ICD-9-CM SNOMED CT(R) 1. Overactive bladder N32.81 596.51 OVERACTIVE BLADDER 2. Abnormal kidney function N28.9 593.9 ABNORMAL RENAL FUNCTION VENIPUNC ARM DRAW 3. Need for bgqmicufpz-rbzpvxm-dyerdgwab (Tdap) vaccine Z23 V06.1 REQUIRES DIPHTHERIA, TETANUS AND PERTUSSIS VACCINATION [01189] Boostrix (Tdap) Recommendations and Plan: Blood work done and will call with results Give DTaP today Increase water intake Follow up in 6 months 1. Overactive bladder Call office if symptoms re-occur 2. Abnormal kidney function Increase water inatke - VENIPUNC ARM DRAW 3. Need for qmmaeqnssu-mouwfzh-xminoluxb (Tdap) vaccine - [74151] Boostrix (Tdap) ELVIA DAVIS NP 11/05/2020 10:04 AM documented in this encounter Plan of Treatment Upcoming Encounters Date Type Department Care Team (Late st Contact Info) Description 04/07/2024 7:40 AM SERVICE DESK ASSOCIATE Office Visit [facility] Multispecialty Care - [address] [address] [address] [place] [address] Zeus Vo MD [address] [place] [address] documented as of this encounter Procedures Procedure Name Priority Date/Time Associated Diagnosis Comments COMPREHENSIVE METABOLIC PANEL Routine 11/05/2020 10:38 AM CDT Abnormal kidney function VENIPUNC ARM DRAW Routine 11/05/2020 9:5 9 AM CDT Abnormal kidney function documented in this encounter Results * (ABNORMAL) COMPREHENSIVE METABOLIC PANEL (11/05/2020 10:38 AM CDT) SODIUM S/P/B 142 136 - 145 MMOL/L 11/05/2020 11:20 PM CDT [facility] POTASSIUM S/P/B 4.1 3.5 - 5.1 MMOL/L 11/05/2020 11:20 PM CDT MG-[facility] CHLORIDE S/P/B 107 98 - 107 MMOL/L 11/05/2020 11:20 PM CDT -[facility] CO2 22.9 21 - 32 MMOL/L 11/05/2020 11:20 PM CDT -[facility] GLUCOSE 103(H) 70 - 99 MG/DL 11/05/2020 11:20 PM T -[facility] BUN 12 6 - 24 MG/DL 11/05/2020 11:20 PM CDT [facility] CREATININE S/P/B 1.18 0.70 - 1.30 MG/DL 11/05/2020 11:20 PM T [facility] CALCIUM S/P/B 8.8 8.4 - 10.5 MG/DL 11/05/2020 11:20 PM T [facility] BILIRUBIN TOTAL S/P/B 0.7 0.2 - 1.0 MG/DL 11/05/2020 11:20 PM T -[facility] ALKALINE PHOSPHATASE S/P/B 74 45 - 115 U/L 11/05/2020 11:20 PM CDT -[facility] AST 48(H) 15 - 37 U/L 11/05/2020 11:20 PM CDT [facility] ALT 108(H) 16 - 63 U/L 11/05/2020 11:20 PM T [facility] TOTAL PROTEIN S/P/B 7.2 6.4 - 8.2 G/DL 11/05/2020 11:20 PM CDT [facility] ALBUMIN S/P/B 4.2 3.4 - 5.0 G/DL 11/05/2020 11:20 PM T [facility] ANION GAP 12.1 5 - 15 MMOL/L 11/05/2020 11:20 PM T [facility] Comment:REFERENCE RANGE NOT ESTABLISHED OSMOLALITY (CALC) 294 MOSM/KG 11/05/2020 11:20 PM CDT [facility] Comment:REFERENCE RANGE NOT ESTABLISHED EGFR NON-AFR. AMER. 75(L) >90 ML/MIN/1 .73 M2 11/05/2020 11:20 PM CDT [facility] EGFR AFR. AMER. 86(L) >90 ML/MIN/1 .73 M2 11/05/2020 11:20 PM CDT [facility] GFR NOTES THE ESTIMATED GFR IS CALCULATED USING THE 2009 CKD-EPI EQUATION. THE FOLLOWING CATEGORIES FOR GRADING RENAL FUNCTION ARE RECOMMENDED BY THE INTERNATIONAL SOCIETY OF NEPHROLOGY (KDIGO 2012 CLINICAL PRACTICE GUIDELINE). 11/05/2020 11:20 PM CDT [facility] Comment: G1,NORMAL OR HIGH: >89 ml/min/1.73 m2 G2,MILDLY DECREASED: 60-89 ml/min/1.73 m2 G3A,MILDLY TO MODERATELY DECREASED: 45-59 ml/min/1.73 m2 G3B,MODERATELY TO SEVERELY DECREASED: 30-44 ml/min/1.73 m2 G4,SEVERELY DECREASED: 15-29 ml/min/1.73 m2 G5,KIDNEY FAILURE: <15 ml/min/1.73 m2 11/05/2020 10:3 8 AM CDT us Elvia Davis NP LABORATORY Final Result -[facility] [place] [address] [facility] [place] [address], documented in this encounter Visit Diagnoses Diagnosis Overactive bladder- Primary Hypertonicity of bladder Abnormal kidney function Unspecified disorder of kidney and ureter Need for zgpfcjbean-eralifj-yvpipzcvj (Tdap) vaccine Need for prophylactic vaccination with combined dfpmjtgjmp-xamrick-ryisdwuzb (DTP) vaccine documented in this encounter Additional Health Concerns Assessment Noted Time PHQ-9 Depression Total Score: 0 03/21/20 11:22 AM SERVICE DESK ASSOCIATE documented as of this encounter Care Teams Accounts Supervisor Relationship Specialty Start Date End Date Elvia Davis, CLOTHES MARKER PCP - General NURSE PRACTITIONER 03/21/20 04/06/21 documented as of this encounter
--- OUTSIDE RECORDS SUMMARY | 2024-03-24 01:45 | XMS_ITS | Encounter Summary ---
Author Organization [facility] Address [address] [place] [address]. [place], [place] [address] [place] [address] Care Team Providers Care Egg Packer Name Role Phone Elvia Rosen LAND RESOURCE SPECIALIST Primary Care Provider Unavailabl e Reason for Visit * Reason Comments CT (SCAN) Encounter Details Date Type Department Care Team (Latest Contact Info) Description 08/27/2020 Scan [facility] Scanned, Documents CT (SCAN) Social History Tobacco Use Types Packs/Day [...] move on to questions 3-9 0 03/21/2020 [facility] of Occupat ional Health - Occupational Stress [...] st Contact Info) Description 04/07/2024 7:40 AM ELECTROLYSIST Office Visit [facility] Multispecialty Care - [address] [place], [place] [phone] Zeus Vo MD [address] [place] [address] [address] [place], [place] [phone] documented as of this encounter Procedures Procedure Name Priority Date/Time Associated Diagnosis Comments CT GENERIC 08/27/2020 documented in this encounter Results * CT GENERIC (08/27/2020) Anatomical Region Laterality Modality Other 08/27/2020 Narrative 08/27/2020 Ordered by an unspecified provider. us Documents Scanned SCANNING Final Result documented in this encounter Visit Diagnoses Not on filedocumented in this encounter Additional Health Concerns Assessment Noted Time PHQ-9 Depression Total Score: 0 03/21/20 20 11:22 AM ELECTROLYSIST documented as of this encounter Care Teams Egg Packer Relationship Specialty Start Date End Date Elvia Rosen, AILYN PCP - General NURSE PRACTITIONER 03/21/20 04/06/21 documented as of this encounter
--- OUTSIDE RECORDS SUMMARY | 2024-03-24 01:45 | XMS_ITS | Encounter Summary ---
Author Organization [facility] Address [address] [place] [address]. [place], [place] [address] [place] [address] Care Team Providers Care Haulage Boss Name Role Phone Elvia Rosen METER REPAIR SHOP SUPERVISOR Primary Care Provider Lien cutler Encounter Details Date Type Department Care Team (Latest Contact Info) Description 08/27/2020 Travel Social History Tobacco Use Types Packs/Day [...] move on to questions 3-9 0 03/21/2020 [facility] [place] of Occupat ional Health - Occupational Stress [...] st Contact Info) Description 04/07/2024 7:40 AM SOFTWARE DEVELOPER MANAGER Office Visit [facility] Multispecialty Care - [address] [address] [address] [place] [address] [place] [address] [place] [address] [address] [place], [place] [phone] documented as of this encounter Visit Diagnoses Not on filedocumented in this encounter Additional Health Concerns Assessment Noted Time PHQ-9 Depression Total Score: 0 03/21/20 20 11:22 AM SOFTWARE DEVELOPER MANAGER documented as of this encounter Care Teams Haulage Boss Relationship Specialty Start Date End Date Elvia Rosen, METER REPAIR SHOP SUPERVISOR PCP - General NURSE PRACTITIONER 03/21/20 04/06/21 documented as of this encounter
--- OUTSIDE RECORDS SUMMARY | 2024-03-24 03:39 | XMS_ITS | Clinical Summary ---
Author Organization [facility] Address [address] [place] [address] Care Team Providers Care Heat Treatment Technician Name Role Phone Unknown, Provider Primary Care Provider Unavaila ble Source Comments [facility],non-owned Affiliates and Associated Physician Practices is amultiple site organization consisting of ambulatory clinics and hospital sitesin [place], [place], [place] and [place]. This disclosure is being madepursuant to the Care Everywhere program and may not contain all information available regarding this patient. Last updated 17.[facility] Allergies Active Allergy Reactions Criticality Noted Date [...] Comments Blood Pressure 104/72 04/25/2016 12:[address]ILER Pulse 87 04/25/2016 12:[address]ILER Temperature 36.5 ??C (97.7 ??F) 04/25/2016 12:[address] Respiratory Rate 16 04/25/2016 12:[address]ILER Oxygen Saturation 98% 04/25/2016 12:[address]ILER Inhaled Oxygen Concentration - - Weight 104.3 kg (230 lb) 04/25/2016 12:[address] OILER Height 175.3 cm (5' 9 ) 04/25/2016 12:[address] OILER Body Mass Index 33.97 04/25/2016 12:[address] OILER Plan of Treatment Health Maintenance Due Date [...] age to complete this topic Care Teams Heat Treatment Technician Relationship Specialty Start Date End Date Unknown, Provider PCP - General 04/25/16
--- OUTSIDE RECORDS SUMMARY | 2024-03-24 03:40 | XMS_ITS | Encounter Summary ---
Author Organization [facility] Address [address] [place] [address]. [place], [place] [address] [place] [address] Care Team Providers Care Edge Stripper Name Role Phone Zeus Vo MD Primary Care Provider [phone] Encounter Details Date Type Department Care Team [...] Recorded Patient Health Questionnaire-2 Score 0 07/22/2022 [facility] of Occupat ional Health - Occupational Stress [...] st Contact Info) Description 04/07/2024 7:40 AM GLUE COOK Office Visit [facility] Medical Group Multispecialty Care - [address] [address] [address] [place] [address] Zeus Vo MD [address] [place] [address] documented as of this encounter Visit Diagnoses Not on filedocumented in this encounter Additional Health Concerns Assessment Noted Time PHQ-9 Depression Total Score: 0 05/14/19 7:24 AM GLUE COOK documented as of this encounter Care Teams Edge Stripper Relationship Specialty Start Date End Date Zeus Vo MD [address] [place] [address] PCP - General INTERNAL MEDICINE 04/07/21 documented as of this encounter
--- OUTSIDE RECORDS SUMMARY | 2024-03-24 03:40 | XMS_ITS | Referral Summary ---
Author Organization [facility] Address [address] [address] Care Team Providers Care Restaurant Assistant Manager Name Role Phone Unknown, Provider Primary Care Provider Unavaila ble Source Comments [facility],non-owned Affiliates and Associated Physician Practices is amultiple site organization consisting of ambulatory clinics and hospital sitesin [place], [place], [place] and [place]. This disclosure is being madepursuant to the Care Everywhere program and may not contain all information available regarding this patient. Last updated 17.[facility] Allergies Active Allergy Reactions Criticality Noted Date [...] Comments Blood Pressure 104/72 04/25/2016 12:20 PM STAFF DEVELOPMENT COORDINATOR RN Pulse 87 04/25/2016 12:20 PM STAFF DEVELOPMENT COORDINATOR RN Temperature 36.5 ??C (97.7 ??F) 04/25/2016 12:[address] Respiratory Rate 16 04/25/2016 12:20 PM STAFF DEVELOPMENT COORDINATOR RN Oxygen Saturation 98% 04/25/2016 12:20 PM STAFF DEVELOPMENT COORDINATOR RN Inhaled Oxygen Concentration - - Weight 104.3 kg (230 lb) 04/25/2016 12:20 PM STAFF DEVELOPMENT COORDINATOR RN Height 175.3 cm (5' 9 ) 04/25/2016 12:20 PM STAFF DEVELOPMENT COORDINATOR RN Body Mass Index 33.97 04/25/2016 12:20 PM STAFF DEVELOPMENT COORDINATOR RN Plan of Treatment Not on file Care Teams Restaurant Assistant Manager Relationship Specialty Start Date End Date Unknown, Provider PCP - General 04/25/16
--- OUTSIDE RECORDS SUMMARY | 2024-03-24 03:40 | XMS_ITS | Encounter Summary ---
Author Organization [facility] Address [address] [place] [address]. [place], [place] [address] [place] [address] Care Team Providers Care Assistant Clinical Nurse Manager Name Role Phone Zeus Vo MD Primary Care Provider [phone] Reason for Visit * Reason Comments Hypertension Sleep Apnea Gout Encounter Details Date Type Department Care Team (Latest Contact Info) Description 04/21/2022 7:20 AM KINESEOLOGIST Office Visit [facility] Multispecialty Care - [place] [address] [address] [place] [address] Zeus Vo MD [address] [place] [address] 157 [place] [address] Hypertension; Sleep Apnea; Gout Social [...] move on to questions 3-9 0 01/07/2022 [facility] [place] of Occupat ional Health - Occupational Stress [...] Coronavirus/COVID-19? No / Unsure 04/21/2022 7:16 AM KINESEOLOGIST documented as of this encounter Last Filed Vital Signs Vital Sign Reading Time Taken Comments Blood Pressure 141/86 04/21/2022 7:42 AM KINESEOLOGIST Pulse 69 04/21/2022 7:24 AM KINESEOLOGIST Temperature 36.4 ??C (97.5 ??F) 04/21/2022 7:24 AM CS T Respiratory Rate 18 04/21/2022 7:24 AM KINESEOLOGIST Oxygen Saturation 96% 04/21/2022 7:24 AM KINESEOLOGIST Inhaled Oxygen Concentration - - Weight 109.6 kg (241 lb 9.6 oz) 04/21/2022 7:24 AM KINESEOLOGIST Height 175.3 cm (5' 9 ) 04/21/2022 7:24 AM KINESEOLOGIST Body Mass Index 35.68 04/21/2022 7:24 AM KINESEOLOGIST documented in this encounter Patient Instructions * Patient Instructions* Zeus Vo MD - 04/21/2022 7:20 AM KINESEOLOGIST Follow-up in 3 months for your annual physical. Please come fasting during that visit. SEOLOGIST * Attachments The following attachments cannot be sent through Care Everywhere. * Lowering Your Risk of High Blood Pressure (Frisian) documented in this encounter Progress Notes * [...] apply route nightly at bedtime. Sending to [email or web address]. 1 Device 0 ??? valsartan-hydroCHLOROthiazide (DIOVAN-HCT) 320-12.5 [...] was at least in part performed using [employer] and there may be some inherent flaws in this departure clerk due to the nature of this program. Zeus Vo MD Internal Medicine [facility], [facility]. SEOLOGIST documented in this encounter Plan of Treatment Upcoming Encounters Date Type Department Care Team (Late st Contact Info) Description 04/07/2024 7:40 AM KINESEOLOGIST Office Visit [facility] Multispecialty [facility] - [place] [address] [address] [place] [address] Zeus Vo MD [address] [place] [address] documented as of this encounter Visit Diagnoses Diagnosis Primary hypertension- Primary Unspecified essential hypertension HAYLEY (obstructive sleep apnea) Obstructive sleep apnea (adult) (pediatric) Gout, unspecified cause, unspecified chronicity, unspecified site Hyperuricemia Other abnormal blood chemistry documented in this encounter Additional Health Concerns Assessment Noted Time PHQ-9 Depression Total Score: 0 05/14/19 7:24 AM KINESEOLOGIST documented as of this encounter Care Teams Assistant Clinical Nurse Manager Relationship Specialty Start Date End Date Zeus Vo MD [address] [place] [address] PCP - General INTERNAL MEDICINE 04/07/21 documented as of this encounter
--- OUTSIDE RECORDS SUMMARY | 2024-03-24 03:40 | XMS_ITS | Encounter Summary ---
Author Organization [facility] Address [address] [place] [address]. [place], [place] [address] [place] [address] Care Team Providers Care Custom Decorating Consultant Name Role Phone Zeus Vo MD Primary Care Provider [phone] Encounter Details Date Type Department Care Team [...] move on to questions 3-9 0 01/07/2022 [facility] [place] of Occupat ional Health - Occupational Stress [...] Coronavirus/COVID-19? No / Unsure 04/21/2022 7:16 AM FILM BOOKER documented as of this encounter Plan of Treatment Upcoming Encounters Date Type Department Care Team (Late st Contact Info) Description 04/07/2024 7:40 AM FILM BOOKER Office Visit [facility] Multispecialty Care - [place] [address] [address] [place] [address] Zeus Vo MD [address] [place] [address] [id number] documented as of this encounter Visit Diagnoses Not on filedocumented in this encounter Additional Health Concerns Assessment Noted Time PHQ-9 Depression Total Score: 0 05/14/19 7:24 AM FILM BOOKER documented as of this encounter Care Teams Custom Decorating Consultant Relationship Specialty Start Date End Date Zeus Vo MD [address] [place] [address] [phone] PCP - General INTERNAL MEDICINE 04/07/21 documented as of this encounter
--- OUTSIDE RECORDS SUMMARY | 2024-03-24 03:40 | XMS_ITS | Encounter Summary ---
Author Organization [facility] Address [address] [place] [address]. [place], [place] [address] [place] [address] Care Team Providers Care Practice Administrator Name Role Phone Zeus Vo MD Primary Care Provider [phone] Reason for Visit * Reason Onset Date Comments Information 03/17/2024 Encounter Details Date Type Department Care Team (Late st Contact Info) Description 03/17/2024 Telephone [facility] Multispecialty Care - [place] [address] [address] [place], [place] [address] Zeus Vo MD [address] [place] [address] 157 [place] [address] Information Social History Tobacco Use [...] Recorded Patient Health Questionnaire-2 Score 0 07/22/2022 [facility] - Occupational Stress Questionnaire Answer [...] - 03/17/2024 8:44 AM CST Rubi brenden [place] called and said that this pt contacted their office but is a pt of Dr. Vo's. Attempted to call but the mail box is full and I wasn't able to leave a message. ROOM CUTTER documented in this encounter Plan of Treatment Upcoming Encounters Date Type Department Care Team (Late st Contact Info) Description 04/07/2024 7:40 AM MUSHROOM CUTTER Office Visit [facility] Group Multispecialty Care - [place] [address] [address] [place] [address] Zeus Vo MD [address] [place] [address] documented as of this encounter Visit Diagnoses Not on filedocumented in this encounter Additional Health Concerns Assessment Noted Time PHQ-9 Depression Total Score: 0 05/14/19 22 7:24 AM MUSHROOM CUTTER documented as of this encounter Care Teams Practice Administrator Relationship Specialty Start Date End Date Zeus Vo MD [address] [place] [address] PCP - General INTERNAL MEDICINE 04/07/21 documented as of this encounter
--- OUTSIDE RECORDS SUMMARY | 2024-03-24 03:40 | XMS_ITS | Encounter Summary ---
Author Organization [facility] Address [address] [facility]. [place], [place] [address] [place] [address] Care Team Providers Care Oyster Tonger Name Role Phone Zeus Vo MD Primary Care Provider [phone] Reason for Visit * Reason Comments Obstructive Sleep Apnea Here to get CPAP * Consultation (Routine) - Closed Specialty Diagnoses / Procedures Referred By Contac t Referred To Contact SLEEP [facility] RESPIRATORY [facility]ARE Diagnoses HAY[place] (obstructive sleep apnea) Zeus Vo MD [address] [facility] [address] [place] [address] Phone: tel: fax: Daniel Parekh MD [address] [facility] [address] [place] [address] Phone: tel: fax: Referral ID Status Reason Start Date Expiration Date V isits Requested Visits Authorized [id number] Closed Specialty Services 08/06/2021 09/05/2022 100 100 Encounter Details Date Type Department Care Team (Latest Contact Info) Description 01/07/2022 8:20 AM CDT Office Visit [facility] Multispecialty Care - [facility] [address] [facility] [place] [address] Daniel Parkeh MD [address] [facility] [address] [place] [address] Obstructive Sleep Apnea (Here to get CPAP [...] move on to questions 3-9 0 01/07/2022 [facility] [place] of Occupat ional Health - Occupational Stress [...] Parekh MD - 01/07/2022 8:20 AM CDT [facility] PULMONARY MEDICINE History Chief Complaint Patient presents [...] but 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 He has never fallen asleep while driving. Notes dry mouth in the morning. Deniesmorning headaches. Endorses snoring and witnessed apnea. Denies snort arousals. Never smoker. 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 Past Medical History: Diagnosis Date ??? Essential [...] apply route nightly at bedtime. Sending to [employer]. 1 Device 0 ??? phentermine (ADIPEX-P) 37.5 [...] sleep study AHI 54.7/h Pertinent Labs Reviewed [place] Sleepiness Scale Score: No flowsheet data found. [...] Contact Info) Description 04/07/2024 7:40 AM WARP TESTER Office Visit [facility] Multispecialty Care - [place] [address] [address] [place] [address] Zeus Vo MD [address] [place] [address] documented as of this encounter Visit Diagnoses Diagnosis HAYLEY (obstructive sleep apnea)- Primary Obstructive sleep apnea (adult) (pediatric) documented in this encounter Additional Health Concerns Assessment Noted Time PHQ-9 Depression Total Score: 0 05/14/19 7:24 AM WARP TESTER documented as of this encounter Care Teams Oyster Tonger Relationship Specialty Start Date End Date Zeus Vo MD [address] [place] [address] PCP - General INTERNAL MEDICINE 04/07/21 documented as of this encounter
--- OUTSIDE RECORDS SUMMARY | 2024-03-24 03:40 | XMS_ITS | Encounter Summary ---
Author Organization [facility] Address [address] [place] [address]. [place], [place] [address] [place] [address] Care Team Providers Care Ux Visual Designer Name Role Phone Zeus Vo MD Primary Care Provider [phone] Encounter Details Date Type Department Care Team [...] Recorded Patient Health Questionnaire-2 Score 0 07/22/2022 [facility] of Occupat ional Health - Occupational [...] st Contact Info) Description 04/07/2024 7:40 AM RECOVERY UNIT OPERATOR Office Visit [facility] Medical Group Multispecialty Care - [place] [address] [address] [place] [address] Zeus Vo MD [address] [place] [address] documented as of this encounter Visit Diagnoses Not on filedocumented in this encounter Additional Health Concerns Assessment Noted Time PHQ-9 Depression Total Score: 0 05/14/19 7:24 AM RECOVERY UNIT OPERATOR documented as of this encounter Care Teams Ux Visual Designer Relationship Specialty Start Date End Date Zeus Vo MD [address] [place] [address] PCP - General INTERNAL MEDICINE 04/07/21 documented as of this encounter
--- OUTSIDE RECORDS SUMMARY | 2024-03-24 03:40 | XMS_ITS | Encounter Summary ---
Author Organization [facility] Address [address] [place] [address]. [place], [place] [address] [place] [address] Care Team Providers Care Director Clinical Pharmacology Name Role Phone Zeus Vo MD Primary Care Provider [phone] Encounter Details Date Type Department Care Team (Latest Contact Info) Description 03/03/2022 Hospital Encounter [facility] [address] [place] [address] Zeus Vo MD [address] [address] Discharge Disposition: Home or Self [...] move on to questions 3-9 0 01/07/2022 [facility] [place] of Occupat ional Health - Occupational Stress [...] apply route nightly at bedtime. Sending to [employer]. 1 Device 08/06/2021 allopurinol (ZYLOPRIM) 100 MG [...] st Contact Info) Description 04/07/2024 7:40 AM GUIDANCE DIRECTOR Office Visit [facility] Medical Group Multispecialty Care - [place] [address] [address] [place] [address] Zeus Vo MD [address] [place] [address] 157 [place] [address] documented as of this encounter Visit Diagnoses Not on filedocumented in this encounter Additional Health Concerns Assessment Noted Time PHQ-9 Depression Total Score: 0 05/14/19 22 7:24 AM GUIDANCE DIRECTOR documented as of this encounter Care Teams Director Clinical Pharmacology Relationship Specialty Start Date End Date Zeus Vo MD [address] [facility] [address] [place] [address] PCP - General INTERNAL MEDICINE 04/07/21 documented as of this encounter
--- OUTSIDE RECORDS SUMMARY | 2024-03-24 03:40 | XMS_ITS | Encounter Summary ---
Author Organization [facility] Address [address] [place] [address]. [place], [place] [address] [place] [address] Care Team Providers Care Acid Loader Name Role Phone Zeus Vo MD Primary Care Provider [phone] Reason for Visit * Reason Onset Date Comments Medication 03/13/2022 Encounter Details Date Type Department Care Team (Late st Contact Info) Description 03/13/2022 Telephone [facility] Medical Group Multispecialty Care - [place] [address] [address] [place], [place] [phone] Zeus Vo MD [address] [place] [address] 157 [place] [address] Medication Social History Tobacco Use [...] move on to questions 3-9 0 01/07/2022 [facility] [place] of Occupat ional Health - Occupational Stress [...] Coronavirus/COVID-19? No / Unsure 03/13/2022 7:19 AM BROKERAGE OFFICE MANAGER documented as of this encounter Progress Notes * Zeus Vo MD - 03/13/2022 12:06 PM CST Blood pressure still uncontrolled. Changing from lisinopril to losartan hydrochlorothiazide. I havenotified patient of plan. Next visit in 1 week for blood pressure recheck. ERAGE OFFICE MANAGER documented in this encounter Plan of Treatment Upcoming Encounters Date Type Department Care Team (Late st Contact Info) Description 04/07/2024 7:40 AM BROKERAGE OFFICE MANAGER Office Visit [facility] Medical Group Multispecialty Care - [place] [address] [address] [place] [address] Zeus Vo MD [address] [place] [address] documented as of this encounter Visit Diagnoses Diagnosis Primary hypertension- Primary Unspecified essential hypertension documented in this encounter Additional Health Concerns Assessment Noted Time PHQ-9 Depression Total Score: 0 05/14/19 22 7:24 AM BROKERAGE OFFICE MANAGER documented as of this encounter Care Teams Acid Loader Relationship Specialty Start Date End Date Zeus Vo MD [address] [place] [address] PCP - General INTERNAL MEDICINE 04/07/21 documented as of this encounter
--- OUTSIDE RECORDS SUMMARY | 2024-03-24 03:40 | XMS_ITS | Encounter Summary ---
Author Organization [facility] Address [address] [place] [address]. [place] [address] [place] [address] Care Team Providers Care Industrial Gas Fitter Helper Name Role Phone Zeus Vo MD Primary Care Provider [phone] Reason for Visit * Reason Onset Date Comments Appointment Request 01/29/2022 Encounter Details Date Type Department Care Team (Late st Contact Info) Description 01/29/2022 Telephone [facility] Multispecialty Care - [facility] [address] [facility] [place] [phone] Daniel Parekh MD [address] [facility] [address] [place] [address] Appointment Request Social History Tobacco Use Types [...] move on to questions 3-9 0 01/07/2022 [facility] [place] of Occupat ional Health - Occupational Stress [...] st Contact Info) Description 04/07/2024 7:40 AM AUTOMATIC STACKER Office Visit [facility] Multispecialty Care - [place] [address] [address] [place] [address] Zeus Vo MD [address] [place] [address] 157 [place] [address] documented as of this encounter Visit Diagnoses Not on filedocumented in this encounter Additional Health Concerns Assessment Noted Time PHQ-9 Depression Total Score: 0 05/14/19 22 7:24 AM AUTOMATIC STACKER documented as of this encounter Care Teams Industrial Gas Fitter Helper Relationship Specialty Start Date End Date Zeus Vo MD [address] [facility] [address] [place] [address] PCP - General INTERNAL MEDICINE 04/07/21 documented as of this encounter
--- OUTSIDE RECORDS SUMMARY | 2024-03-24 03:40 | XMS_ITS | Encounter Summary ---
Author Organization [facility] Address [address] [place] [address]. [place], [place] [address] [place] [address] Care Team Providers Care Slackline Operator Name Role Phone Zeus Vo MD Primary Care Provider [phone] Reason for Visit * Reason Onset Date Comments Medication 07/27/2022 Encounter Details Date Type Department Care Team (Late st Contact Info) Description 07/27/2022 Telephone [facility] Medical Group Multispecialty Care - [place] [address] [address] [place], [place] [address] Zeus Vo MD [address] [place] [address] 157 [place] [address] Medication Social History Tobacco Use [...] Recorded Patient Health Questionnaire-2 Score 0 07/22/2022 [facility] - Occupational Stress Questionnaire Answer [...] Contact Info) Description 04/07/2024 7:40 AM CARD PLACER Office Visit [facility] Medical [facility] Multispecialty Care - [address] [place] [address] Zeus Vo MD [address] [place] [address] 157 [place] [address] documented as of this encounter Visit Diagnoses Diagnosis Gout, unspecified cause, unspecified chronicity, unspecified site- Primary Hyperuricemia Other abnormal blood chemistry documented in this encounter Additional Health Concerns Assessment Noted Time PHQ-9 Depression Total Score: 0 05/14/19 22 7:24 AM CARD PLACER documented as of this encounter Care Teams Slackline Operator Relationship Specialty Start Date End Date Zeus Vo MD [address] [address] PCP - General INTERNAL MEDICINE 04/07/21 documented as of this encounter
--- OUTSIDE RECORDS SUMMARY | 2024-03-24 03:40 | XMS_ITS | Encounter Summary ---
Author Organization [facility] Address [address] [place] [address]. [place], [place] [address] [place] [address] Care Team Providers Care Retirement Administrator Name Role Phone Zeus Vo MD Primary Care Provider [phone] Encounter Details Date Type Department Care Team [...] move on to questions 3-9 0 01/07/2022 [facility] [place] of Occupat ional Health - Occupational Stress [...] st Contact Info) Description 04/07/2024 7:40 AM TRAINING PROGRAM DEVELOPER Office Visit [facility] Medical Group Multispecialty Care - [place] [address] [address] [place] [address] Zeus Vo MD [address] [place] [address] documented as of this encounter Visit Diagnoses Not on filedocumented in this encounter Additional Health Concerns Assessment Noted Time PHQ-9 Depression Total Score: 0 05/14/19 22 7:24 AM TRAINING PROGRAM DEVELOPER documented as of this encounter Care Teams Retirement Administrator Relationship Specialty Start Date End Date Zeus Vo MD [address] [place] [address] PCP - General INTERNAL MEDICINE 04/07/21 documented as of this encounter
--- OUTSIDE RECORDS SUMMARY | 2024-03-24 03:40 | XMS_ITS | Encounter Summary ---
Author Organization [facility] Address [address] [place] [address]. [place], [place] [address] [place] [address] Care Team Providers Care Watermelon Harvesting Supervisor Name Role Phone Zeus Vo MD Primary Care Provider [phone] Reason for Visit * Reason Onset Date Comments Follow Up Call 11/07/2021 Encounter Details Date Type Department Care Team (Late st Contact Info) Description 11/07/2021 Telephone [facility] Medical Group Multispecialty Care - [place] [address] [address] [place] [address] Zeus Vo MD [address] [place] [address] 157 [place] [address] Follow Up Call Social History [...] move on to questions 3-9 0 05/14/2021 [facility] [place] of Occupat ional Health - Occupational Stress [...] 3 months. Zeus Vo MD Internal Medicine [facility]. documented in this encounter Plan of Treatment Upcoming Encounters Date Type Department Care Team (Late st Contact Info) Description 04/07/2024 7:40 AM KAITARA TARAKA Office Visit [facility] Multispecialty Care - [place] [address] [address] [place] [address] Zeus Vo MD [address] [place] [address] documented as of this encounter Visit Diagnoses Diagnosis Hyperuricemia Other abnormal blood chemistry documented in this encounter Additional Health Concerns Assessment Noted Time PHQ-9 Depression Total Score: 0 05/14/19 22 7:24 AM KAITARA TARAKA documented as of this encounter Care Teams Watermelon Harvesting Supervisor Relationship Specialty Start Date End Date Zeus Vo MD [address] [place] [address] PCP - General INTERNAL MEDICINE 04/07/21 documented as of this encounter
--- OUTSIDE RECORDS SUMMARY | 2024-03-24 03:40 | XMS_ITS | Encounter Summary ---
Author Organization [facility] Address [address] [place] [address]. [place], [place] [address] [place] [address] Care Team Providers Care Stamping Press Operator Name Role Phone Zeus Vo MD Primary Care Provider [phone] Reason for Visit * Reason Comments Weight Problem Hypertension Encounter Details Date Type Department Care Team (Latest Contact Info) Description 12/03/2021 7:20 AM CDT Office Visit [facility] Medical Group Multispecialty Care - [place] [address] [address] [place] [address] Zeus Vo MD [address] [place] [address] 157 [place] [address] Weight Problem; Hypertension Social History [...] move on to questions 3-9 0 05/14/2021 [facility] [place] of Occupat ional Health - Occupational [...] Nohemy for update on your CPAP update [phone] Follow up in 4 months. * Attachments The following attachments cannot be sent through Care Everywhere. * Weight Loss Tips (Turkish) documented in this encounter Progress Notes * [...] apply route nightly at bedtime. Sending to [employer]. 1 Device 0 ??? lisinopril (PRINIVIL) 40 [...] the free smart phone apps such as D-Sight to help track calories and try to [...] was at least in part performed using [employer] and there may be some inherent flaws in this mold cleaner due to the nature of this program. Zeus Vo MD Internal Medicine [facility], [facility]. documented in this encounter Plan of Treatment Upcoming Encounters Date Type Department Care Team (Late st Contact Info) Description 04/07/2024 7:40 AM POLISHER BRASS Office Visit [facility] Medical Group Multispecialty Care - [place] [address] [address] [place] [address] Zeus Vo MD [address] [place] [address] documented as of this encounter Visit Diagnoses Diagnosis Primary hypertension- Primary Unspecified essential hypertension Gout, unspecified cause, unspecified chronicity, unspecified site Class 1 obesity due to excess calories with serious comorbidity and body mass index (BMI) of 34.0 to 34.9 in adult documented in this encounter Additional Health Concerns Assessment Noted Time PHQ-9 Depression Total Score: 0 05/14/19 22 7:24 AM POLISHER BRASS documented as of this encounter Care Teams Stamping Press Operator Relationship Specialty Start Date End Date Zeus Vo MD [address] [place] [address] [place] [address] PCP - General INTERNAL MEDICINE 04/07/21 documented as of this encounter
--- OUTSIDE RECORDS SUMMARY | 2024-03-24 03:40 | XMS_ITS | Encounter Summary ---
Author Organization [facility] Address [address] [place] [address]. [place], [place] [address] [place] [address] Care Team Providers Care Dry Roller Name Role Phone Zeus Vo MD Primary Care Provider [phone] Encounter Details Date Type Department Care Team [...] move on to questions 3-9 0 05/14/2021 [facility] [place] of Occupat ional Health - Occupational Stress [...] st Contact Info) Description 04/07/2024 7:40 AM MEDIA INTERN Office Visit [facility] Medical [facility] Multispecialty Care - [place] [address] [address] [place] [address] Zues Vo MD [address] [place] [address] documented as of this encounter Visit Diagnoses Not on filedocumented in this encounter Additional Health Concerns Assessment Noted Time PHQ-9 Depression Total Score: 0 05/14/19 22 7:24 AM MEDIA INTERN documented as of this encounter Care Teams Dry Roller Relationship Specialty Start Date End Date Zeus Vo MD [address] [place] [address] PCP - General INTERNAL MEDICINE 04/07/21 documented as of this encounter
--- OUTSIDE RECORDS SUMMARY | 2024-03-24 03:40 | XMS_ITS | Encounter Summary ---
Author Organization [facility] Address [address] [place] [address]. [place], [place] [address] [place] [address] Care Team Providers Care Property Disposal Manager Name Role Phone Zeus Vo MD Primary Care Provider [phone] Reason for Visit * Reason Onset Date Comments Follow Up Call 09/01/2022 Encounter Details Date Type Department Care Team (Late st Contact Info) Description 09/01/2022 Telephone [facility] Medical Group Multispecialty Care - [place] [address] [address] [place] [address] Zeus Vo MD [address] [place] [address] 157 [place] [address] Follow Up Call Social History [...] Recorded Patient Health Questionnaire-2 Score 0 07/22/2022 [facility] [place] of Occupat ional [facility] - Occupational Stress Questionnaire Answer [...] AM CDT Patient was recently seen at [facility] ER on 06/30/2022. Concerns for sinusitis with pneumonia. Recommendations made for repeat CT scan of the chest in 3 months from this time. Please call and schedule patient for an ER follow-up and schedule in 1 to 2 weeks. Thank you. Zeus Vo MD Internal Medicine [facility] Medical [facility], [facility]. documented in this encounter Plan of Treatment Upcoming Encounters Date Type Department Care Team (Late st Contact Info) Description 04/07/2024 7:40 AM MARKET DEVELOPMENT SPECIALIST Office Visit [facility] Medical [facility] Multispecialty Care - [address] [place] [address] Zeus Vo MD [address] [place] [address] 157 [place] [address] documented as of this encounter Visit Diagnoses Not on filedocumented in this encounter Additional Health Concerns Assessment Noted Time PHQ-9 Depression Total Score: 0 05/14/19 22 7:24 AM MARKET DEVELOPMENT SPECIALIST documented as of this encounter Care Teams Property Disposal Manager Relationship Specialty Start Date End Date Zeus Vo MD [address] [facility] [address] [place] [address] PCP - General INTERNAL MEDICINE 04/07/21 documented as of this encounter
--- OUTSIDE RECORDS SUMMARY | 2024-03-24 03:40 | XMS_ITS | Encounter Summary ---
Author Organization [facility] Address [address] [place] [address]. [place], [place] [address] [place] [address] Care Team Providers Care Maintenance Technician 3Rd Shift Name Role Phone Zeus Vo MD Primary Care Provider [phone] Reason for Visit * Reason Onset Date Comments Medication 07/27/2022 Encounter Details Date Type Department Care Team (Late st Contact Info) Description 07/27/2022 Telephone [facility] Medical Group Multispecialty Care - [place] [address] [address] [address] [place], [place] [id number] Zeus Vo MD [address] [place] [address] 157 [place] [address] Medication Social History Tobacco Use [...] Recorded Patient Health Questionnaire-2 Score 0 07/22/2022 [facility] - Occupational Stress Questionnaire Answer Date Recorded [...] st Contact Info) Description 04/07/2024 7:40 AM BARREL STRAIGHTENER Office Visit [facility] Medical Group Multispecialty Care - [place] [address] [address] [address] [place] [address] Zeus Vo MD [facility] [address] [address] documented as of this encounter Visit Diagnoses Diagnosis Hyperuricemia- Primary Other abnormal blood chemistry documented in this encounter Additional Health Concerns Assessment Noted Time PHQ-9 Depression Total Score: 0 05/14/19 22 7:24 AM BARREL STRAIGHTENER documented as of this encounter Care Teams Maintenance Technician 3Rd Shift Relationship Specialty Start Date End Date Zeus Vo MD [address] [place] [address] PCP - General INTERNAL MEDICINE 04/07/21 documented as of this encounter
--- OUTSIDE RECORDS SUMMARY | 2024-03-24 03:40 | XMS_ITS | Encounter Summary ---
Author Organization [facility] Address [address] [place] [address]. [place] [address] [place] [address] Care Team Providers Care Plant Attendant Name Role Phone Zeus Vo MD Primary Care Provider [phone] Reason for Visit * Reason Onset Date Comments Orders 01/07/2022 Encounter Details Date Type Department Care Team (Late st Contact Info) Description 01/07/2022 Telephone [facility] Medical Group Multispecialty Care - [facility] [address] [facility] [place] [phone] Daniel Parekh MD [address] [facility] [address] [place] [address] Orders Social History Tobacco Use Types Packs/Day [...] move on to questions 3-9 0 01/07/2022 [facility] [place] of Occupat ional Health - Occupational Stress [...] st Contact Info) Description 04/07/2024 7:40 AM PROFESSOR OF MUSIC Office Visit [facility] Medical Group Multispecialty Care - [place] [address] [address] [place] [address] Zeus Vo MD [address] [place] [address] 157 [place], [place] [phone] documented as of this encounter Visit Diagnoses Not on filedocumented in this encounter Additional Health Concerns Assessment Noted Time PHQ-9 Depression Total Score: 0 05/14/19 22 7:24 AM PROFESSOR OF MUSIC documented as of this encounter Care Teams Plant Attendant Relationship Specialty Start Date End Date Zeus Vo MD [address] [address] PCP - General INTERNAL MEDICINE 04/07/21 documented as of this encounter
--- OUTSIDE RECORDS SUMMARY | 2024-03-24 03:40 | XMS_ITS | Encounter Summary ---
Author Organization [facility] Address [address] [place] [address]. [place], [place] [address] [place] [address] Care Team Providers Care Electrical Lineman Name Role Phone Zeus Vo MD Primary Care Provider [phone] Encounter Details Date Type Department Care Team [...] Recorded Patient Health Questionnaire-2 Score 0 07/22/2022 [facility] [place] of Occupat ional Health - Occupational Stress [...] st Contact Info) Description 04/07/2024 7:40 AM OUTPATIENT PHYSICAL THERAPIST Office Visit [facility] Medical Group Multispecialty [place] [address] [address] [place] [address] Zeus Vo MD [address] [place] [address] documented as of this encounter Visit Diagnoses Not on filedocumented in this encounter Additional Health Concerns Assessment Noted Time PHQ-9 Depression Total Score: 0 05/14/19 7:24 AM OUTPATIENT PHYSICAL THERAPIST documented as of this encounter Care Teams Electrical Lineman Relationship Specialty Start Date End Date Zeus Vo MD [address] [place] [address] PCP - General INTERNAL MEDICINE 04/07/21 documented as of this encounter
--- OUTSIDE RECORDS SUMMARY | 2024-03-24 03:40 | XMS_ITS | Encounter Summary ---
Author Organization [facility] Address [address] [facility] [place] [address] Care Team Providers Care Engine Research Engineer Name Role Phone None, Pcp Primary Care Provider Unavailabl e Encounter Details Date Type Department Care Team (Late st Contact Info) Description 10/10/2009 11:19 AM CDT - 10/10/2009 11:59 PM CDT Hospital [facility] [address] [place] [address] Paul Aguirre MD [facility] [address] [place] [address] Laboratory Discharge Disposition: Home or [...] on filedocumented in this encounter Care Teams Engine Research Engineer Relationship Specialty Start Date End Date None, [place] [address] PCP - General 10/10/09 documented as of this encounter
--- OUTSIDE RECORDS SUMMARY | 2024-03-24 03:40 | XMS_ITS | Encounter Summary ---
Author Organization [facility] Address [address] [place] [address]. [place], [place] [address] [place] [address] Care Team Providers Care New Car Make Ready Mechanic Name Role Phone Zeus Vo MD Primary Care Provider [phone] Reason for Visit * Reason Onset Date Comments Other 05/05/2022 Encounter Details Date Type Department Care Team (Late st Contact Info) Description 05/05/2022 Telephone [facility] Multispecialty Care - [place] [address] [address] [address] [place] [address] [place] [address] [place] [address] [address] [place] [address] Other Social History Tobacco Use [...] move on to questions 3-9 0 01/07/2022 [facility] [place] of Occupat ional Health - Occupational Stress [...] Coronavirus/COVID-19? No / Unsure 04/21/2022 7:16 AM DRY MIXER documented as of this encounter Progress Notes * Pauline Gamino MA - 05/05/2022 8:13 AM CST Pt came into office for a BP check and it was 154/86 He rested a bit then rechecked it and it was 134/79 MIXER documented in this encounter Plan of Treatment Upcoming Encounters Date Type Department Care Team (Late st Contact Info) Description 04/07/2024 7:40 AM DRY MIXER [facility] Multispecialty Care - [place] [address] [address] [address] [place] [address] Zeus Vo MD [address] [place] [address] documented as of this encounter Visit Diagnoses Diagnosis Primary hypertension- Primary Unspecified essential hypertension documented in this encounter Additional Health Concerns Assessment Noted Time PHQ-9 Depression Total Score: 0 05/14/19 7:24 AM DRY MIXER documented as of this encounter Care Teams New Car Make Ready Mechanic Relationship Specialty Start Date End Date Zeus Vo MD [address] [place] [address] PCP - General INTERNAL MEDICINE 04/07/21 documented as of this encounter
--- OUTSIDE RECORDS SUMMARY | 2024-03-24 03:40 | XMS_ITS | Encounter Summary ---
Author Organization [facility] Address [address] [place] [address]. [place], [place] [address] [place] [address] Care Team Providers Care Research And Insights Executive Name Role Phone Zeus Vo MD Primary Care Provider [phone] Reason for Visit * Reason Comments Weight Problem Phentermine f/u Sleep Apnea Gout Hypertension Follow Up Discussed screening testing for colon cancer Encounter Details Date Type Department Care Team (Latest Contact Info) Description 11/05/2021 10:20 AM CDT Office Visit [facility] Medical Group Multispecialty Care - [place] [address] [address] [address] [place] [address] Zeus Vo MD [address] [place] [address] 157 [place] [address] Weight Problem (Phentermine f/u); Sleep [...] move on to questions 3-9 0 05/14/2021 [facility] of Occupat ional Health - Occupational Stress [...] sent through Care Everywhere. * DASH Diet (Ivorian) documented in this encounter Progress Notes * Zeus Vo MD - 11/05/2021 10:20 AM Chey: Follow-up notes Images from the original note [...] is yet to receive a call from [facility] about his CPAP order. He has since [...] apply route nightly at bedtime. Sending to [facility]. 1 Device 0 ??? Insulin Pen Needle [...] in January 2022. CPAP order sent to [facility] and patient given follow-up numbers to follow-up [...] 4. Screen for colon cancer - DARREN ([employer]) 5. Hyperuricemia -Continue allopurinol (ZYLOPRIM) 100 [...] was at least in part performed using [employer] and there may be some inherent flaws in this still operator helper due to the nature of this program. Zeus Vo MD Internal Medicine [facility], [facility]. documented in this encounter Plan of Treatment Upcoming Encounters Date Type Department Care Team (Late st Contact Info) Description 04/07/2024 7:40 AM C D STILL OPERATOR Office Visit [facility] Medical Group Multispecialty Care - [place] [address] [address] [address] [place] [address] Zeus Vo MD [address] [place] [address] [address] [place] [address] documented as of this encounter Procedures Procedure [...] 7.2 MG/DL 11/05/2021 8:49 PM CDT [facility] 11/05/2021 11:3 2 AM CDT Zeus Vo MD LABORATORY Final Result [facility] [address] [place] [address], * (ABNORMAL) CBC W/DIFF AUTOMATED (11/05/2021 11:32 AM CDT) WBC 3.7(L) 4.0 - 10.8 x10'3/uL 11/05/2021 7:53 PM CDT [facility] RBC 4.83 4.50 - 6.10 x10'6/uL 11/05/2021 7:53 PM CDT [facility] HGB 15.2 13.0 - 18.0 G/DL 11/05/2021 7:53 PM CDT [facility] HCT 44.9 37.0 - 52.0 % 11/05/2021 7:53 PM CDT [facility] MCV 93.0 78.0 - 100.0 FL 11/05/2021 7:53 PM CDT [facility] MCH 31.5(H) 27.0 - 31.0 PG 11/05/2021 7:53 PM CDT [facility] MCHC 33.9 33.0 - 36.0 G/DL 11/05/2021 7:53 PM CDT [facility] RDW 13.2 11.5 - 14.5 % 11/05/2021 7:53 PM CDT [facility] PLT 209 150 - 350 x10'3/uL 11/05/2021 7:53 PM CDT [facility] MPV 10.7(H) 7.4 - 10.4 FL 11/05/2021 7:53 PM CDT [facility] DIFFERENTIAL TYPE AUTOMATED DIFFERENTIAL 11/05/2021 7:53 PM CDT [facility] NEUTROPHILS % 53.7 % 11/05/2021 7:53 PM CDT [facility] LYMPHOCYTES % 34.2 % 11/05/2021 7:53 PM CDT [facility] MONOCYTES % 9.4 % 11/05/2021 7:53 PM CDT [facility] EOSINOPHILS % 1.9 % 11/05/2021 7:53 PM CDT [facility] BASOPHILS % 0.5 % 11/05/2021 7:53 PM CDT [facility] IMMATURE GRANS % 0.3 % 11/05/2021 7:53 PM CDT [facility] ABS. NEUTROPHILS 1.99 1.60 - 8.30 x10'3/uL 11/05/2021 7:53 PM CDT [facility] ABS. LYMPHOCYTES 1.27 0.80 - 4.70 x10'3/uL 11/05/2021 7:53 PM CDT [facility] ABS. MONOCYTES 0.35 0.00 - 1.50 x10'3/uL 11/05/2021 7:53 PM CDT [facility] ABS. EOSINOPHILS 0.07 0.00 - 0.40 x10'3/uL 11/05/2021 7:53 PM CDT -[facility] ABS. BASOPHILS 0.02 0.00 - 0.20 x10'3/uL 11/05/2021 7:53 PM CDT -[facility] ABS. IMMATURE GRANULOCYTES 0.01 0.00 - 0.03 x10'3/uL 11/05/2021 7:53 PM CDT [facility] 11/05/2021 11:3 2 AM CDT Zeus Vo MD LABORATORY Final Result [facility] [address] [place] [address], * (ABNORMAL) COMPREHENSIVE METABOLIC PANEL (11/05/2021 11:32 AM CDT) Pathologist [facility] SODIUM S/P/B 142 136 - 145 MMOL/L 11/05/2021 8:49 PM CDT [facility] POTASSIUM S/P/B 4.3 3.5 - 5.1 MMOL/L 11/05/2021 8:49 PM CDT [facility] CHLORIDE S/P/B 106 98 - 107 MMOL/L 11/05/2021 8:49 PM CDT [facility] CO2 26.6 21 - 32 MMOL/L 11/05/2021 8:49 PM CDT [facility] GLUCOSE 87 70 - 99 MG/DL 11/05/2021 8:49 PM CDT [facility] BUN 18 7 - 18 MG/DL 11/05/2021 8:49 PM CDT [facility] CREATININE S/P/B 1.21 0.70 - 1.30 MG/DL 11/05/2021 8:49 PM CDT [facility] CALCIUM S/P/B 9.1 8.4 - 10.5 MG/DL 11/05/2021 8:49 PM T [facility] BILIRUBIN TOTAL S/P/B 0.8 0.2 - 1.0 MG/DL 11/05/2021 8:49 PM CDT [facility] ALKALINE PHOSPHATASE S/P/B 62 45 - 115 U/L 11/05/2021 8:49 PM CDT [facility] AST 57(H) 15 - 37 U/L 11/05/2021 8:49 PM T [facility] ALT 100(H) 16 - 63 U/L 11/05/2021 8:49 PM T [facility] TOTAL PROTEIN S/P/B 7.3 6.4 - 8.2 G/DL 11/05/2021 8:49 PM T [facility] ALBUMIN S/P/B 4.4 3.4 - 5.0 G/DL 11/05/2021 8:49 PM T [facility] ANION GAP 9.4 5 - 15 MMOL/L 11/05/2021 8:49 PM T [facility] Comment:REFERENCE RANGE NOT ESTABLISHED OSMOLALITY (CALC) 295 MOSM/KG 022 8:49 PM CDT [facility] Comment:REFERENCE RANGE NOT ESTABLISHED GFR ESTIMATE 75(L) >90 ML/MIN/1. 73 M2 11/05/2021 8:49 PM CDT [facility] GFR NOTES GFR REFERENCE S: 11/05/2021 8:49 PM T [facility] Comment: THE ESTIMATED GFR IS CALCULATED [...] MD LABORATORY Final Result Performing Organization Address City/[facility]/ZIP Co de Phone Number [facility] [address] [place] [address], [place] [phone] documented in this encounter Visit Diagnoses Diagnosis [...] Total Score: 0 05/14/19 22 7:24 AM C D STILL OPERATOR documented as of this encounter Care Teams Research And Insights Executive Relationship Specialty Start Date End Date Zeus Vo MD [address] [address] PCP - General INTERNAL MEDICINE 04/07/21 documented as of this encounter
--- OUTSIDE RECORDS SUMMARY | 2024-03-24 03:40 | XMS_ITS | Encounter Summary ---
Author Organization [facility] Address [address] [place] [address]. [place], [place] [address] [place] [address] Care Team Providers Care Garnett Fixer Name Role Phone Zeus Vo MD Primary [...] Recorded Patient Health Questionnaire-2 Score 0 07/22/2022 [facility] [place] of Occupat ional Health - Occupational Stress [...] st Contact Info) Description 04/07/2024 7:40 AM CONTROLLER OPERATIONS AND HR MANAGER Office Visit [facility] Medical Group Multispecialty [place] [address] [address] [place] [address] Zeus Vo MD [address] [place] [address] documented as of this encounter Visit Diagnoses Not on filedocumented in this encounter Additional Health Concerns Assessment Noted Time PHQ-9 Depression Total Score: 0 05/14/19 7:24 AM CONTROLLER OPERATIONS AND HR MANAGER documented as of this encounter Care Teams Garnett Fixer Relationship Specialty Start Date End Date Zeus Vo MD [address] [place] [address] PCP - General INTERNAL MEDICINE 04/07/21 documented as of this encounter
--- OUTSIDE RECORDS SUMMARY | 2024-03-24 03:40 | XMS_ITS | Encounter Summary ---
Author Organization [facility] Address [address] [place] [address]. [place], [place] [address] [place] [address] Care Team Providers Care News Videotape Editor Name Role Phone Zeus Vo MD Primary Care Provider [phone] Reason for Visit * Reason Comments Respiratory Symptoms Exposed to COVID 19 Encounter Details Date Type Department Care Team (Latest Contact Info) Description 03/03/2022 1:00 PM CERTIFIED NOVELL ADMINISTRATOR Office Visit [facility] Multispecialty Care - [place] [address] [address] [place] [address] Zeus Vo MD [address] [place] [address] [address] [place], [place] [id number] Respiratory Symptoms (Exposed to COVID 19) Social [...] move on to questions 3-9 0 01/07/2022 [facility] [place] of Occupat ional Health - Occupational Stress [...] Coronavirus/COVID-19? No / Unsure 03/03/2022 12:52 PM CERTIFIED NOVELL ADMINISTRATOR documented as of this encounter Last Filed Vital Signs Vital Sign Reading Time Taken Comments Blood Pressure 157/91 03/03/2022 8:11 PM CERTIFIED NOVELL ADMINISTRATOR Pulse 96 03/03/2022 1:33 PM CERTIFIED NOVELL ADMINISTRATOR Temperature 36.8 ??C (98.2 ??F) 03/03/2022 1:33 PM CS T Respiratory Rate 18 03/03/2022 1:33 PM CERTIFIED NOVELL ADMINISTRATOR Oxygen Saturation 98% 03/03/2022 1:33 PM CERTIFIED NOVELL ADMINISTRATOR Inhaled Oxygen Concentration - - Weight 107.5 kg (237 lb) 03/03/2022 1:33 PM CERTIFIED NOVELL ADMINISTRATOR Height 175.3 cm (5' 9 ) 03/03/2022 1:33 PM CERTIFIED NOVELL ADMINISTRATOR Body Mass Index 35 03/03/2022 1:33 PM CERTIFIED NOVELL ADMINISTRATOR documented in this encounter Patient Instructions * Attachments The following attachments cannot be sent through Care Everywhere. * Cough Discharge Instructions, Adult (Solomon Islander) documented in this encounter Progress Notes * [...] apply route nightly at bedtime. Sending to [employer]. 1 Device 0 ??? lisinopril (PRINIVIL) 40 [...] was at least in part performed using [employer] and there may be some inherent flaws in this technical solution architect due to the nature of this program. Zeus Vo MD Internal Medicine [facility], [facility]. IFIED NOVELL ADMINISTRATOR documented in this encounter Plan of Treatment Upcoming Encounters Date Type Department Care Team (Late st Contact Info) Description 04/07/2024 7:40 AM CERTIFIED NOVELL ADMINISTRATOR Office Visit [facility] Medical [facility] Multispecialty Care - [place] [address] [address] [place] [address] Zeus Vo MD [address] [place] [address] documented as of this encounter Procedures Procedure Name Priority Date/Time Associated Diagnosis Comments CULTURE STREP A Routine 03/03/2022 2:54 PM CERTIFIED NOVELL ADMINISTRATOR Acute maxillary sinusitis, recurrence not specified CORONAVIRUS (COVID 19) PCR Routine 03/03/2022 2:54 PM CERTIFIED NOVELL ADMINISTRATOR Acute maxillary sinusitis, recurrence not specified Exposure to confirmed case of COVID-19 CORONAVIRUS (COVID-19) INFLUENZA A & B ANTIGEN IA PANEL Routine 03/03/2022 Acute maxillary sinusitis, recurrence not specified Exposure to confirmed case of COVID-19 RAPID STREP A Routine 03/03/2022 Acute maxillary sinusitis, recurrence not specified documented in this encounter Results * CULTURE STREP A (MG/SJS/SMD Only) (03/03/2022 2:54 PM CERTIFIED NOVELL ADMINISTRATOR) SPEC DESCRIPTION THROAT 03/03/2022 2:55 PM CERTIFIED NOVELL ADMINISTRATOR [facility] SPECIAL REQUESTS NO SPECIAL REQUEST 03/03/2022 2:55 PM CERTIFIED NOVELL ADMINISTRATOR [facility] CULTURE RESULT NO STREPTOCOCCUS PYOGENES (GROUP A) ISOLATED 03/06/2022 2:16 PM CERTIFIED NOVELL ADMINISTRATOR [facility] THROAT SWAB / Unknown 03/03/2022 2:54 PM CERTIFIED NOVELL ADMINISTRATOR 03/04/2022 2:31 PM CERTIFIED NOVELL ADMINISTRATOR Zeus Vo MD MICROBIOLOGY - GENERAL ORDERABLE S Final Result [facility] [address] [place] [address], [id number] * CORONAVIRUS (COVID 19) PCR (03/03/2022 2:54 PM CERTIFIED NOVELL ADMINISTRATOR) SPEC DESCRIPTION NASAL 03/03/20 2:55 PM CERTIFIED NOVELL ADMINISTRATOR [facility] () [facility] CORONAVIRUS SARS COV 2 PCR (RESP) NEGATIVE NEGATIVE 03/05/2022 1:12 AM CERTIFIED NOVELL ADMINISTRATOR [facility] Comment: THE SARS-CoV-2 TEST HAS BEEN AUTHORIZED BY THE FDA UNDER AN EUA FOR USE BY AUTHORIZED LABORATORIES. PERFORMED BY NUCLEIC ACID AMPLIFICATION PCR FIRST TEST NO 03/03/2022 2:[address] [facility] EMPLOYED IN HEALTHCARE NO 03/03/2022 2:[address] [facility] SYMPTOMATIC DEFINED BY CDC YES 03/03/2022 2:55 PM CERTIFIED NOVELL ADMINISTRATOR [facility] DATE OF SYMPTOM ONSET 2022030203/03/2022 2:55 PM CERTIFIED NOVELL ADMINISTRATOR [facility] HOSPITALIZATION STATUS NO 03/03/2022 2:[address] [facility] PATIENT IN ICU NO 03/03/2022 2:[address] [facility] RESIDENT OF CRITICAL ACCESS HOSPITAL CARE NO 03/03/2022 2:[address] [facility] NASOPHARYNGEAL SWAB / Unknown 03/03/2022 2:54 PM CERTIFIED NOVELL ADMINISTRATOR Zeus Vo MD MICROBIOLOGY - GENERAL ORDERABLE S Final Result [facility] [address] [place] [address], [place] [phone] * RAPID STREP A (03/03/2022) [facility] RAPID STREP TEST NEGATIVE NEGATIVE [id number], [place] Internal Control: VALID VALID [id number], [place] STRUCTURE OF ANTERIOR PORTION OF NECK / Unknown 03/03/2022 Zeus Vo MD MICROBIOLOGY - GENERAL ORDERABLE S Final Result Performing Organization Address City/[facility]/ZIP Co de Phone Number [id number], [place] [address] [place] [address], [place] [phone] * CORONAVIRUS (COVID-19) INFLUENZA A & B ANTIGEN IA PANEL (03/03/2022) CORONAVIRUS ANTIGEN IA NEGATIVE NEGATIVE [id number], [place] INFLUENZA A NEGATIVE NEGATIVE [id number], [place] INFLUENZA B NEGATIVE NEGATIVE [id number], [place] Internal Control: VALID VALID [id number], [place] NASAL STRUCTURE / Unknown 03/03/2022 us Zeus Vo MD MICROBIOLOGY - GENERAL ORDERABLE S Final Result [id number], [place] [address] [facility] [address] [place] [address], documented in this encounter Visit Diagnoses Diagnosis Acute maxillary sinusitis, recurrence not specified- Primary Exposure to confirmed case of COVID-19 documented in this encounter Additional Health Concerns Assessment Noted Time PHQ-9 Depression Total Score: 0 05/14/19 22 7:24 AM CERTIFIED NOVELL ADMINISTRATOR documented as of this encounter Care Teams News Videotape Editor Relationship Specialty Start Date End Date Zeus Vo MD [address] [facility] [address] [place] [address] PCP - General INTERNAL MEDICINE 04/07/21 documented as of this encounter
--- OUTSIDE RECORDS SUMMARY | 2024-03-24 03:40 | XMS_ITS | Patient Health Summary ---
Author Organization [facility] Address [address] [place] [address] Care Team Providers Care Railroad Dining Car Stewardess Name Role Phone Unknown, Provider Primary Care Provider Unavaila ble Note from [facility],non-owned Affiliates and Associated Physician Practices is amultiple site organization consisting of ambulatory clinics and hospital sitesin [place], [place], [place] and [place]. This disclosure is being madepursuant to the Care Everywhere program and may not contain all information available regarding this patient. Last updated 17.[facility] Allergies * Codeine Medications Be aware that [...] Comments Blood Pressure 104/72 04/25/2016 12:20 PM SCHEDULE HANGER Pulse 87 04/25/2016 12:20 PM SCHEDULE HANGER Temperature 36.5 ??C (97.7 ??F) 04/25/2016 12:[address] Respiratory Rate 16 04/25/2016 12:20 PM SCHEDULE HANGER Oxygen Saturation 98% 04/25/2016 12:20 PM SCHEDULE HANGER Inhaled Oxygen Concentration - - Weight 104.3 kg (230 lb) 04/25/2016 12:20 PM SCHEDULE HANGER Height 175.3 cm (5' 9 ) 04/25/2016 12:20 PM SCHEDULE HANGER Body Mass Index 33.97 04/25/2016 12:20 PM SCHEDULE HANGER Procedures * CALL/FAX/TEST RESULTS(Performed 10/10/2009) * LAB MISC TEST(Performed 10/10/2009) Care Teams Railroad Dining Car Stewardess Relationship Specialty Start Date End Date Unknown, Provider PCP - General 04/25/16
--- OUTSIDE RECORDS SUMMARY | 2024-03-24 03:40 | XMS_ITS | Encounter Summary ---
Author Organization [facility] Address [address] [place] [address]. [place], [place] [address] [place] [address] Care Team Providers Care Engineering Production Worker Name Role Phone Zeus Vo MD Primary Care Provider Reason for Visit * Reason Onset Date Comments Prior Authorization 08/06/2021 Encounter Details Date Type Department Care Team (Late st Contact Info) Description 08/06/2021 Telephone [facility] Medical Group Multispecialty Care - [place] [address] [address] [place], [place] [address] Zeus Vo MD [address] [place] [address] [address] [place] [address] Prior Authorization Social History Tobacco [...] move on to questions 3-9 0 05/14/2021 [facility] [place] of Occupat ional Health - Occupational Stress [...] st Contact Info) Description 04/07/2024 7:40 AM MIDDLEWARE ADMINISTRATOR Office Visit [facility] Multispecialty Care - [place] [address] [address] [place] [address] Zeus Vo MD [address] [place] [address] documented as of this encounter Visit Diagnoses Not on filedocumented in this encounter Additional Health Concerns Assessment Noted Time PHQ-9 Depression Total Score: 0 05/14/19 7:24 AM MIDDLEWARE ADMINISTRATOR documented as of this encounter Care Teams Engineering Production Worker Relationship Specialty Start Date End Date Zeus Vo MD [address] [place] [address] PCP - General INTERNAL MEDICINE 04/07/21 documented as of this encounter
--- OUTSIDE RECORDS SUMMARY | 2024-03-24 03:40 | XMS_ITS | Encounter Summary ---
Author Organization [facility] Address [address] [place] [address]. [place], [place] [address] [place] [address] Care Team Providers Care Dictaphone Transcriber Name Role Phone Zeus Vo MD Primary Care Provider [phone] Encounter Details Date Type Department Care Team [...] move on to questions 3-9 0 05/14/2021 [facility] [place] of Occupat ional Health - Occupational Stress [...] st Contact Info) Description 04/07/2024 7:40 AM JACQUARD LOOM HEDDLES TIER Office Visit [facility] Medical Group Multispecialty Care - [place] [address] [address] [place] [address] Zeus Vo MD [address] [place] [address] documented as of this encounter Visit Diagnoses Not on filedocumented in this encounter Additional Health Concerns Assessment Noted Time PHQ-9 Depression Total Score: 0 05/14/19 22 7:24 AM JACQUARD LOOM HEDDLES TIER documented as of this encounter Care Teams Dictaphone Transcriber Relationship Specialty Start Date End Date Zeus Vo MD [address] [place] [address] PCP - General INTERNAL MEDICINE 04/07/21 documented as of this encounter
--- OUTSIDE RECORDS SUMMARY | 2024-03-24 03:40 | XMS_ITS | Encounter Summary ---
Author Organization [facility] Address [address] [place] [address]. [place], [place] [address] [place] [address] Care Team Providers Care Cue Worker Name Role Phone Zeus Vo MD Primary Care Provider [phone] Reason for Visit * Reason Comments Image [...] Score 0 07/22/2022 [facility] - Occupational Stress Questionnaire Answer [...] st Contact Info) Description 04/07/2024 7:40 AM COLLAR POINTER Office Visit [facility] Medical Group Multispecialty [facility] - [place] [address] [address] [place] [address] Zeus Vo MD [facility] [address] documented as of this encounter Procedures Procedure [...] Total Score: 0 05/14/19 22 7:24 AM COLLAR POINTER documented as of this encounter Care Teams Cue Worker Relationship Specialty Start Date End Date Zeus Vo MD [address] [address] PCP - General INTERNAL MEDICINE 04/07/21 documented as of this encounter
--- OUTSIDE RECORDS SUMMARY | 2024-03-24 03:40 | XMS_ITS | Encounter Summary ---
Author Organization [facility] Address [address] [place] [address]. [place], [place] [address] [place] [address] Care Team Providers Care Investments Manager Name Role Phone Zeus Vo MD Primary Care Provider [phone] Encounter Details Date Type Department Care Team (Late st Contact Info) Description 11/06/2021 Orders Only [facility] Medical Group Multispecialty Care - [place] [address] [address] [place] [address] Zeus Vo MD [address] [place] [address] [address] [place], [place] [id number] Social History Tobacco Use Types Packs/Day Years [...] move on to questions 3-9 0 05/14/2021 [facility] [place] of Occupat ional Health - Occupational Stress [...] mg daily. Zeus Vo MD Internal Medicine [facility], [facility]. documented in this encounter Plan of Treatment Upcoming Encounters Date Type Department Care Team (Late st Contact Info) Description 04/07/2024 7:40 AM TOY DEPARTMENT MANAGER Office Visit [facility] Multispecialty Care [place] [address] [address] [place] [address] Zeus Vo MD [address] [place] [address] documented as of this encounter Visit Diagnoses Diagnosis Hyperuricemia Other abnormal blood chemistry documented in this encounter Additional Health Concerns Assessment Noted Time PHQ-9 Depression Total Score: 0 05/14/19 22 7:24 AM TOY DEPARTMENT MANAGER documented as of this encounter Care Teams Investments Manager Relationship Specialty Start Date End Date Zeus Vo MD [address] [place] [address] PCP - General INTERNAL MEDICINE 04/07/21 documented as of this encounter
--- OUTSIDE RECORDS SUMMARY | 2024-03-24 03:40 | XMS_ITS | Encounter Summary ---
Author Organization [facility] Address [address] [place] [address]. [place], [place] [address] [place] [address] Care Team Providers Care Distribution Center Supervisor Name Role Phone Zeus Vo MD Primary Care Provider [phone] Encounter Details Date Type Department Care Team (Late st Contact Info) Description 09/04/2022 [employer]t Message Enc [facility] Medical Group Multispecialty Care - [place] [address] [address] [place] [address] Zeus Vo MD [address] [place] [address] 157 [place] [address] Meds Social History Tobacco Use [...] Recorded Patient Health Questionnaire-2 Score 0 07/22/2022 [facility] [place] of Occupat ional Health - Occupational Stress [...] st Contact Info) Description 04/07/2024 7:40 AM SENIOR C SOFTWARE ENGINEER Office Visit [facility] Medical Group Multispecialty [facility] - [place] [address] [address] [place] [address] Zeus Vo MD [address] [place] [address] documented as of this encounter Visit Diagnoses Not on filedocumented in this encounter Additional Health Concerns Assessment Noted Time PHQ-9 Depression Total Score: 0 05/14/19 22 7:24 AM SENIOR C SOFTWARE ENGINEER documented as of this encounter Care Teams Distribution Center Supervisor Relationship Specialty Start Date End Date Zeus Vo MD [address] [place] [address] PCP - General INTERNAL MEDICINE 04/07/21 documented as of this encounter
--- OUTSIDE RECORDS SUMMARY | 2024-03-24 03:40 | XMS_ITS | Encounter Summary ---
Author Organization [facility] Address [address] [place] [address]. [place], [place] [address] [place] [address] Care Team Providers Care Roll Forming Machine Operator Name Role Phone Zeus Vo MD Primary Care Provider [phone] Reason for Visit * Reason Comments ER F/U Pt was in the ER for SOB Pneumonia Encounter Details Date Type Department Care Team (Latest Contact Info) Description 09/08/2022 11:40 AM CDT Office Visit [facility] Medical Group Multispecialty Care - [place] [address] [address] [place], [place] [address] Zeus Vo MD [address] [place] [address] [address] [place] [address] ER F/U (Pt was in [...] Recorded Patient Health Questionnaire-2 Score 0 07/22/2022 [facility] of Occupat ional Health - Occupational [...] receive a call from our referral team ([phone]) regarding your referral. Insurance authorization Our senior technical specialist will contact your insurance company to get prior authorization if needed. Appointment If you have been referred to an [facility] hospital or [facility] Medical [facility] provider, the hospital or clinic you have been referred to will call you to schedule your appointment. For those outside services of [facility], our referral expects will be in contact by phone or mail regarding your recently placed referral. If you have not heard anything from your referral in about 1 week, please call [phone]. Working with insurance companies can be cumbersome, but we are dedicated to processing your referral timely and efficiently. Please know you have a caring and competent team working on your behalf [facility] continuum of care as quickly as possible. * Attachments The following attachments cannot be sent through Care Everywhere. * Pneumonia Discharge Instructions, Adult (Mexican) documented in this encounter Progress Notes * [...] about pneumonia. Patient was recently admitted at [facility] emergency room and concerns for pneumonia. According [...] This prompted patient to seek help at [facility] emergency room. His symptoms were associated with [...] for 4 days. 8 tablet 0 ??? Xyhombs-Lraawwfhydq-Zzfodrkrhe (BREZTRI AEROSPHERE) 160-9-4.8 MCG/ACT Aerosol Inhale 1 puff into the lungs daily. 10.7 g 0 ??? CPAP DEVICE, DME, 1 Device by Does not apply route nightly at bedtime. Sending to [employer]. 1 Device 0 ??? methylPREDNISolone, RAMIN, (MEDROL [...] J45.41 493.92 EXACERBATION OF MODERATE PERSISTENT ASTHMA Zhxuylr-Dmxzbdoiiiq-Zhjnjvulke (BREZTRI AEROSPHERE) 160-9-4.8 MCG/ACT Aerosol 3. Ground [...] reactive airway disease with acute exacerbation - Eqmxpwh-Jobkvsoraai-Srvxlhhwma (BREZTRI AEROSPHERE) 160-9-4.8 MCG/ACT Aerosol; Inhale 1 puff intothe lungs daily. Dispense: 10.7 g; Refill: 0 3. Ground glass opacity present on imaging of lung - CT CHEST WO CON; Future to be done around November 30, 2022 Counseling given: Yes Tobacco comments: counseled by Dr Vo I personally spent a total of 30 minutes on the day of the encounter. This includes yhyk-ts-swzt and qzr-eelw-zy-face time I provided on the day of [...] was at least in part performed using [employer] and there may be some inherent flaws in this background check coordinator due to the nature of this program. Zeus Vo MD Internal Medicine [facility], [facility]. documented in this encounter Plan of Treatment Upcoming Encounters Date Type Department Care Team (Late st Contact Info) Description 04/07/2024 7:40 AM LOCK ASSEMBLER Office Visit [facility] Medical Group Multispecialty Care - [place] [address] [address] [place] [address] Zesu Vo MD [facility] [address] [address] documented as of this encounter Visit Diagnoses Diagnosis Pneumonia due to infectious organism, unspecified laterality, unspecified part of lung- Primary Moderate persistent reactive airway disease with acute exacerbation (HHS/HCC) Ground glass opacity present on imaging of lung documented in this encounter Additional Health Concerns Assessment Noted Time PHQ-9 Depression Total Score: 0 05/14/19 7:24 AM LOCK ASSEMBLER documented as of this encounter Care Teams Roll Forming Machine Operator Relationship Specialty Start Date End Date Zeus Vo MD [address] [place] [address] PCP - General INTERNAL MEDICINE 04/07/21 documented as of this encounter
--- OUTSIDE RECORDS SUMMARY | 2024-03-24 03:40 | XMS_ITS | Encounter Summary ---
Author Organization [facility] Address [address] [place] [address]. [place], [place] [address] [place] [address] Care Team Providers Care Musculoskeletal Physician Name Role Phone Zeus Vo MD Primary Care Provider [phone] Encounter Details Date Type Department Care Team [...] move on to questions 3-9 0 05/14/2021 [facility] [place] of Occupat ional Health - Occupational Stress [...] st Contact Info) Description 04/07/2024 7:40 AM LUBE ATTENDANT Office Visit [facility] Medical Group Multispecialty Care - [place] [address] [address] [place] [address] Zeus Vo MD [address] [place] [address] documented as of this encounter Visit Diagnoses Not on filedocumented in this encounter Additional Health Concerns Assessment Noted Time PHQ-9 Depression Total Score: 0 05/14/19 22 7:24 AM LUBE ATTENDANT documented as of this encounter Care Teams Musculoskeletal Physician Relationship Specialty Start Date End Date Zeus oV MD [address] [place] [address] PCP - General INTERNAL MEDICINE 04/07/21 documented as of this encounter
--- OUTSIDE RECORDS SUMMARY | 2024-03-24 03:40 | XMS_ITS | Encounter Summary ---
Author Organization [facility] Address [address] [place] [address]. [place], [place] [address] [place] [address] Care Team Providers Care Harness Fitter Name Role Phone Zeus Vo MD Primary Care Provider [phone] Encounter Details Date Type Department Care Team [...] move on to questions 3-9 0 01/07/2022 [facility] [place] of Occupat ional Health - Occupational Stress [...] Coronavirus/COVID-19? No / Unsure 03/03/2022 12:52 PM INFORMATION SYSTEMS PROJECT MANAGER documented as of this encounter Plan of Treatment Upcoming Encounters Date Type Department Care Team (Late st Contact Info) Description 04/07/2024 7:40 AM INFORMATION SYSTEMS PROJECT MANAGER Office Visit [facility] Medical Group Multispecialty Care [place] [address] [address] [place] [address] Zeus Vo MD [address] [place] [address] documented as of this encounter Visit Diagnoses Not on filedocumented in this encounter Additional Health Concerns Infection Onset Date Last Indicated Resolved Time COVID-19 Rule Out 03/03/2022 03/03/2022 03/03/2022 2:54 PM INFORMATION SYSTEMS PROJECT MANAGER COVID-19 Rule Out 03/03/2022 03/03/2022 03/05/2022 1:12 AM INFORMATION SYSTEMS PROJECT MANAGER Assessment Noted Time PHQ-9 Depression Total Score: 0 05/14/19 7:24 AM INFORMATION SYSTEMS PROJECT MANAGER documented as of this encounter Care Teams Harness Fitter Relationship Specialty Start Date End Date Zeus Vo MD [address] [place] [address] PCP - General INTERNAL MEDICINE 04/07/21 documented as of this encounter
--- OUTSIDE RECORDS SUMMARY | 2024-03-24 03:40 | XMS_ITS | Encounter Summary ---
Author Organization [facility] Address [address] [place] [address]. [place], [place] [address] [place] [address] Care Team Providers Care Boom Crane Operator Name Role Phone Zeus Vo MD Primary Care Provider [phone] Encounter Details Date Type Department Care Team [...] Recorded Patient Health Questionnaire-2 Score 0 07/22/2022 [facility] of Occupat ional Health - Occupational [...] st Contact Info) Description 04/07/2024 7:40 AM ADVERTISING TRAFFIC MANAGER Office Visit [facility] Medical Group Multispecialty Care - [place] [address] [address] [place] [address] Zeus Vo MD [address] [place] [address] documented as of this encounter Visit Diagnoses Not on filedocumented in this encounter Additional Health Concerns Assessment Noted Time PHQ-9 Depression Total Score: 0 05/14/19 7:24 AM ADVERTISING TRAFFIC MANAGER documented as of this encounter Care Teams Boom Crane Operator Relationship Specialty Start Date End Date Zeus Vo MD [address] [place] [address] PCP - General INTERNAL MEDICINE 04/07/21 documented as of this encounter
--- OUTSIDE RECORDS SUMMARY | 2024-03-24 03:40 | XMS_ITS | Encounter Summary ---
Author Organization [facility] Address [address] [place] [address]. [place], [place] [address] [place] [address] Care Team Providers Care Supervisor Wet Pour Name Role Phone Zeus Vo MD Primary Care Provider [phone] Reason for Visit * Reason Comments Hypertension 6 month f/u Follow Up Follow up chronic me dical issues Encounter Details Date Type Department Care Team (Latest Contact Info) Description 01/13/2023 7:00 AM CDT Office Visit [facility] Medical Group Multispecialty Care - [place] [address] [address] [place] [address] Zeus Vo MD [address] [place] [address] 157 [place], [place] [id number] Hypertension (6 month f/u ); Follow Up [...] Recorded Patient Health Questionnaire-2 Score 0 07/22/2022 [facility] of Occupat ional Health - Occupational Stress [...] sent through Care Everywhere. * DASH Diet (Uzbek) documented in this encounter Progress Notes * [...] apply route nightly at bedtime. Sending to [employer]. [employer] Device 0 losartan (COZAAR) 25 MG tablet [...] colon cancer Z12.11 PATIENT ENCOUNTER STATUS DARREN ([employer]) 1. Primary hypertension -Currently blood pressures not [...] the free smart phone apps such as [email or web address] to help track calories and try to [...] 7. Screen for colon cancer - DARREN ([employer]) Counseling given: Yes Tobacco comments: counseled by Dr Vo I personally spent a total of 30 minutes on the day of the encounter. This includes jaai-mh-fpns and nme-mikm-ez-face time I provided on the day of [...] was at least in part performed using [email or web address] and there may be some inherent flaws in this extractions technician due to the nature of this program. Zeus Vo MD Internal Medicine [facility], [facility]. documented in this encounter Plan of Treatment Upcoming Encounters Date Type Department Care Team (Late st Contact Info) Description 04/07/2024 7:40 AM MASTER ESTHETICIAN Office Visit [facility] Medical Group Multispecialty Care [place] [address] [address] [place] [address] Zeus Vo MD [address] [place] [address] Scheduled Orders Name Type Priority Associated Diagnoses [...] Total Score: 0 05/14/19 22 7:24 AM MASTER ESTHETICIAN documented as of this encounter Care Teams Supervisor Wet Pour Relationship Specialty Start Date End Date Zeus Vo MD [address] [place] [address] PCP - General INTERNAL MEDICINE 04/07/21 documented as of this encounter
--- OUTSIDE RECORDS SUMMARY | 2024-03-24 03:40 | XMS_ITS | Encounter Summary ---
Author Organization [facility] Address [address] [place] [address]. [place], [place] [address] [place] [address] Care Team Providers Care Chief Of Anesthesiology Name Role Phone Zeus Vo MD Primary Care Provider [phone] Reason for Visit * Reason Onset Date Comments Forms 07/27/2021 Encounter Details Date Type Department Care Team (Late st Contact Info) Description 07/27/2021 Telephone [facility] Medical Group Multispecialty Care - [place] [address] [address] [place], [place] [phone] Zeus Vo MD [address] [place] [address] 157 [place] [address] Forms Social History Tobacco Use [...] move on to questions 3-9 0 05/14/2021 [facility] of Occupat ional Health - Occupational Stress [...] 07/27/2021 4:02 PM CDT Appeal form for [facility] filled out and faxed. Zeus Vo MD Internal Medicine [facility] Medical [facility], [facility]. documented in this encounter Plan of Treatment Upcoming Encounters Date Type Department Care Team (Late st Contact Info) Description 04/07/2024 7:40 AM VP RESEARCH Office Visit [facility] Medical [facility] Multispecialty Care - [place] [address] [address] [place] [address] Zeus Vo MD [address] [place] [address] documented as of this encounter Visit Diagnoses Not on filedocumented in this encounter Additional Health Concerns Assessment Noted Time PHQ-9 Depression Total Score: 0 05/14/19 7:24 AM VP RESEARCH documented as of this encounter Care Teams Chief Of Anesthesiology Relationship Specialty Start Date End Date Zeus Vo MD [address] [place] [address] PCP - General INTERNAL MEDICINE 04/07/21 documented as of this encounter
--- OUTSIDE RECORDS SUMMARY | 2024-03-24 03:40 | XMS_ITS | Encounter Summary ---
Author Organization [facility] Address [address] [place] [address]. [place], [place] [address] [place] [address] Care Team Providers Care Telephone Ad Taker Name Role Phone Zeus Vo MD Primary Care Provider [phone] Encounter Details Date Type Department Care Team (Late st Contact Info) Description 07/23/2022 [employer] Message Enc [facility] Medical Group Multispecialty Care - [address] [place] [address] [employer], [facility] Provider Results Social History Tobacco [...] Recorded Patient Health Questionnaire-2 Score 0 07/22/2022 [facility] [place] of Occupat ional Health - Occupational [...] st Contact Info) Description 04/07/2024 7:40 AM RECREATION THERAPY AIDE Office Visit [facility] Medical Group Multispecialty Care - [place] [address] [address] [place] [address] Zeus Vo MD [address] [place] [address] documented as of this encounter Visit Diagnoses Not on filedocumented in this encounter Additional Health Concerns Assessment Noted Time PHQ-9 Depression Total Score: 0 05/14/19 22 7:24 AM RECREATION THERAPY AIDE documented as of this encounter Care Teams Telephone Ad Taker Relationship Specialty Start Date End Date Zeus Vo MD [address] [place] [address] PCP - General INTERNAL MEDICINE 04/07/21 documented as of this encounter
--- OUTSIDE RECORDS SUMMARY | 2024-03-24 03:40 | XMS_ITS | Encounter Summary ---
Author Organization [facility] Address [address] [place] [address]. [place], [place] [address] [place] [address] Care Team Providers Care Director Of Scout Work Name Role Phone Zeus Vo MD Primary Care Provider [phone] Reason for Visit * Reason Onset Date Comments Results 11/06/2021 Encounter Details Date Type Department Care Team (Late st Contact Info) Description 11/06/2021 Telephone [facility] Medical Group Multispecialty Care - [place] [address] [address] [place], [place] [phone] Zeus Vo MD [address] [place] [address] 157 [place] [address] Results Social History Tobacco Use [...] move on to questions 3-9 0 05/14/2021 [facility] [place] of Occupat ional Health - Occupational Stress [...] AM CDT VMbox full, unable to LM. [employer] message sent. US ABD order has been faxed to [facility] * Shaila Nagel MA - 11/06/2021 11:42 [...] liver done. Please fax over order to [facility] for patient to have done. His liver numbers are still up. Encourage patient to cut back onuse of alcohol if he currently does not use it. Thank you Zeus Vo MD Internal Medicine [facility], [facility]. documented in this encounter Plan of Treatment Upcoming Encounters Date Type Department Care Team (Late st Contact Info) Description 04/07/2024 7:40 AM MEDICAL CODING SPECIALIST Office Visit [facility] Multispecialty Care - [place] [address] [address] [place] [address] Zeus Vo MD [address] [place] [address] documented as of this encounter Visit Diagnoses Not on filedocumented in this encounter Additional Health Concerns Assessment Noted Time PHQ-9 Depression Total Score: 0 05/14/19 7:24 AM MEDICAL CODING SPECIALIST documented as of this encounter Care Teams Director Of Scout Work Relationship Specialty Start Date End Date Zeus Vo MD [address] [place] [address] PCP - General INTERNAL MEDICINE 04/07/21 documented as of this encounter
--- OUTSIDE RECORDS SUMMARY | 2024-03-24 03:40 | XMS_ITS | Encounter Summary ---
Author Organization [facility] Address [address] [place] [address]. [place], [place] [address] [place] [address] Care Team Providers Care Water Attendant Name Role Phone Zeus Vo MD Primary Care Provider [phone] Reason for Visit * Reason Comments Sinus Problem Encounter Details Date Type Department Care Team (Late st Contact Info) Description 12/16/2021 8:40 AM CDT Office Visit [facility] Medical Group Multispecialty Care - [place] [address] [address] [place] [address] Zeus Vo MD [address] [place] [address] 157 [place] [address] Sinus Problem Social History Tobacco [...] move on to questions 3-9 0 05/14/2021 [facility] of Occupat ional Health - Occupational Stress [...] Care Everywhere. * Sinus Headache Discharge Instructions (Kyrgyz) documented in this encounter Progress Notes * [...] sinuses bilaterally. Has been using Nasonex and dlke-uec-zeenppr Mucinex without any significant improvement. Denies any [...] was at least in part performed using [employer] and there may be some inherent flaws in this network intern due to the nature of this program. Zeus Vo MD Internal Medicine [facility], [facility]. documented in this encounter Plan of Treatment Upcoming Encounters Date Type Department Care Team (Late st Contact Info) Description 04/07/2024 7:40 AM ADMISSIONS SUPERVISOR Office Visit [facility] Medical Group Multispecialty Care - [place] [address] [address] [place] [address] Zeus Vo MD [address] [place] [address] documented as of this encounter Visit Diagnoses Diagnosis Acute maxillary sinusitis, recurrence not specified- Primary documented in this encounter Additional Health Concerns Assessment Noted Time PHQ-9 Depression Total Score: 0 05/14/19 22 7:24 AM ADMISSIONS SUPERVISOR documented as of this encounter Care Teams Water Attendant Relationship Specialty Start Date End Date Zeus Vo MD [address] [address] PCP - General INTERNAL MEDICINE 04/07/21 documented as of this encounter
--- OUTSIDE RECORDS SUMMARY | 2024-03-24 03:40 | XMS_ITS | Encounter Summary ---
Author Organization [facility] Address [address] [place] [address]. [place], [place] [address] [place] [address] Care Team Providers Care Specimen Boss Name Role Phone Zeus Vo MD Primary Care Provider [phone] Encounter Details Date Type Department Care Team [...] move on to questions 3-9 0 05/14/2021 [facility] of Occupat ional Health - Occupational Stress [...] st Contact Info) Description 04/07/2024 7:40 AM PAN DEVULCANIZER [facility] Multispecialty [facility] - [place] [address] [address] [place] [address] Zeus Vo MD [address] [place] [address] documented as of this encounter Visit Diagnoses Not on filedocumented in this encounter Additional Health Concerns Assessment Noted Time PHQ-9 Depression Total Score: 0 05/14/19 22 7:24 AM PAN DEVULCANIZER documented as of this encounter Care Teams Specimen Boss Relationship Specialty Start Date End Date Zeus Vo MD [address] [place] [address] PCP - General INTERNAL MEDICINE 04/07/21 documented as of this encounter
--- OUTSIDE RECORDS SUMMARY | 2024-03-24 03:40 | XMS_ITS | Encounter Summary ---
Author Organization [facility] Address [address] [place] [address]. [place], [place] [address] [place] [address] Care Team Providers Care Vp Clinical Name Role Phone Zeus Vo MD Primary Care Provider [phone] Encounter Details Date Type Department Care Team (Late st Contact Info) Description 07/27/2022 [email or web address] Message Enc [facility] Medical Group Multispecialty Care - [address] [place] [address] [facility], [facility] Provider Lab Results Social History Tobacco Use [...] 0 07/22/2022 [facility] [place] of Occupat ional Health - Occupational Stress [...] st Contact Info) Description 04/07/2024 7:40 AM EMOTIONAL SUPPORT TEACHER Office Visit [facility] Medical Group Multispecialty Care - [place] [address] [address] [place] [address] Zeus Vo MD [address] [place] [address] documented as of this encounter Visit Diagnoses Not on filedocumented in this encounter Additional Health Concerns Assessment Noted Time PHQ-9 Depression Total Score: 0 05/14/19 22 7:24 AM EMOTIONAL SUPPORT TEACHER documented as of this encounter Care Teams Vp Clinical Relationship Specialty Start Date End Date Zeus Vo MD [address] [place] [address] PCP - General INTERNAL MEDICINE 04/07/21 documented as of this encounter
--- OUTSIDE RECORDS SUMMARY | 2024-03-24 03:40 | XMS_ITS | Encounter Summary ---
Author Organization [facility] Address [facility] [place] [address] Care Team Providers Care Retirement Benefits Specialist Name Role Phone Unknown, Provider Primary Care Provider Unavaila ble Reason for Visit * Reason Comments Sinusitis Encounter Details Date Type Department Care Team (Late st Contact Info) Description 04/25/2016 12:20 PM ADMINISTRATIVE ACCOUNTANT Office Visit [facility] [address] [id number] Provider, [facility] Acute maxillary sinusitis, recurrence not specified (Primary [...] Comments Blood Pressure 104/72 04/25/2016 12:20 PM ADMINISTRATIVE ACCOUNTANT Pulse 87 04/25/2016 12:20 PM ADMINISTRATIVE ACCOUNTANT Temperature 36.5 ??C (97.7 ??F) 04/25/2016 12:[address] Respiratory Rate 16 04/25/2016 12:20 PM ADMINISTRATIVE ACCOUNTANT Oxygen Saturation 98% 04/25/2016 12:20 PM ADMINISTRATIVE ACCOUNTANT Inhaled Oxygen Concentration - - Weight 104.3 kg (230 lb) 04/25/2016 12:20 PM ADMINISTRATIVE ACCOUNTANT Height 175.3 cm (5' 9 ) 04/25/2016 12:20 PM ADMINISTRATIVE ACCOUNTANT Body Mass Index 33.97 04/25/2016 12:20 PM ADMINISTRATIVE ACCOUNTANT documented in this encounter Patient Instructions * Patient Instructions* Rober Gray, JUAN-MASON LINER - 04/25/2016 12:32 PM ADMINISTRATIVE ACCOUNTANT Drink plenty of fluids Get plenty of rest Cool mist humidifier Elevate head of bed Tylenol or Ibuprofen per package direction for discomfort\fever (if not allergic) NISTRATIVE ACCOUNTANT documented in this encounter Progress Notes * [...] or return if symptoms worsen or persist. NISTRATIVE ACCOUNTANT documented in this encounter Plan of Treatment Not on file documented as of this encounter Visit Diagnoses Diagnosis Acute maxillary sinusitis, recurrence not specified- Primary documented in this encounter Care Teams Retirement Benefits Specialist Relationship Specialty Start Date End Date Unknown, Provider PCP - General 04/25/16 documented as of this encounter
--- OUTSIDE RECORDS SUMMARY | 2024-03-24 03:40 | XMS_ITS | Encounter Summary ---
Author Organization [facility] Address [address] [facility] [place] [address] [place] [address] Care Team Providers Care Line Service Person Name Role Phone Zeus Vo MD Primary Care Provider [phone] Reason for Visit * Reason Comments Hypertension Patient presents wit h c/o heart fluttering last pm, blood pressure running high at 150/100, use to take bp medication but has been off for a few months. He did take a Losartan Encounter Details Date Type Department Care Team (Late st Contact Info) Description 07/01/2023 9:00 AM CDT Office Visit [facility] Medical Group Family Medicine - [place] [address] [facility] [address] [place] [address] [phone] Teagan Pierre, AILYN [address] [place] [address] [place] [phone] Hypertension (Patient presents with c/o heart fluttering [...] Recorded Patient Health Questionnaire-2 Score 0 07/22/2022 [facility] of Occupat ional Health - [...] apply route nightly at bedtime. Sending to [email or web address] Disp:1 Device, Rfl: 0 Review of patient's [...] encouraged to follow back up with his facility security officer to discuss other treatment options for his sleep apnea since patient has severe HAYLEY and not on CPAP. Follow up: With PCP within 4 weeks for BP check, annual physical and labs. TEAGAN PIERRE NP 07/01/2023 9:41 AM documented in this encounter Plan of Treatment Upcoming Encounters Date Type Department Care Team (Late st Contact Info) Description 04/07/2024 7:40 AM SOFTWARE INSTALLATION ENGINEER Office Visit [facility] Medical Group Multispecialty [facility] - [place] [address] [address] [place] [address] Zeus Vo MD [address] [place] [address] documented as of this encounter Visit Diagnoses Diagnosis Hypertension, unspecified type Severe obstructive sleep apnea Obstructive sleep apnea (adult) (pediatric) documented in this encounter Additional Health Concerns Assessment Noted Time PHQ-9 Depression Total Score: 0 05/14/19 22 7:24 AM SOFTWARE INSTALLATION ENGINEER documented as of this encounter Care Teams Line Service Person Relationship Specialty Start Date End Date Zeus Vo MD [address] [place] [address] PCP - General INTERNAL MEDICINE 04/07/21 documented as of this encounter
--- OUTSIDE RECORDS SUMMARY | 2024-03-24 03:40 | XMS_ITS | Encounter Summary ---
Author Organization [facility] Address [address] [place] [address]. [place], [place] [address] [place] [address] Care Team Providers Care Aids Nurse Name Role Phone Zeus Vo MD Primary Care Provider [phone] Reason for Visit * Reason Comments Physical Follow Up Chronic medical issu es Encounter Details Date Type Department Care Team (Latest Contact Info) Description 07/22/2022 7:00 AM CDT Office Visit [facility] Multispecialty Care - [place] [address] [address] [place] [address] Zeus oV MD [address] [place] [address] [address] [place], [place] [phone] Physical; Follow Up (Chronic medical issues) Social [...] Recorded Patient Health Questionnaire-2 Score 0 07/22/2022 [facility] [place] of Occupat ional Health - Occupational Stress [...] Care Everywhere. * Yearly Physical for Adults (Samoan) documented in this encounter Progress Notes * [...] on CPAP He got his cpap from [facility] and has been on since February 2022. [...] smoking/second hand smoking. Patient will set up [employer]. Patient will fax over any remaining outside [...] smoking/second hand smoking. Patient will set up [employer]. Patient will fax over any remaining outside [...] the free smart phone apps such as Hammer and Grind to help track calories and try to [...] the day of the encounter. This includes eark-ar-irzh and jam-saes-cn-face time I provided on the day of the encounter & excludes time spent performing separately reportable services. CARA: This dictation was at least in part performed using [employer] and there may be some inherent flaws in this tobacco grader due to the nature of this program. MD Zeus BRUNNER MD Internal Medicine [facility], [facility]. documented in this encounter Plan of Treatment Upcoming Encounters Date Type Department Care Team (Late st Contact Info) Description 04/07/2024 7:40 AM STRAIGHT EDGER Office Visit [facility] Multispecialty Care - [place] [address] [facility] [address] [place] [address] Zeus Vo MD [address] [facility] [address] [place] [address] documented as of this encounter Procedures Procedure [...] - 7.2 MG/DL 07/22/2022 3:55 PM CDT [facility] 07/22/2022 7:45 AM CDT us Zeus Vo MD LABORATORY Final Result Performing Organization Address [facility]/ZIP Co de Phone Number [facility] [address] [place] [address], [place] [phone] * (ABNORMAL) HEMOGLOBIN, GLYCOSYLATED (07/22/2022 7:45 AM CDT) HGB A1C 5.4 4.5 - 6.2 % 07/22/2022 4:20 PM CDT [facility] ESTIMATED AVG GLUCOSE 108(H) 74 - 106 MG/DL 07/22/2022 4:20 PM CDT [facility] 07/22/2022 7:45 AM CDT us Zeus Vo MD LABORATORY Final Result Performing Organization Address [facility] Co de Phone Number [place] [address] [place] [address], [place] [phone] * TSH W/REFLEX (07/22/2022 7:45 AM CDT) TSH 1.992 0.358 - 3.740 uIU/ML 07/22/2022 4:20 PM CDT [facility] 07/22/2022 7:45 AM CDT us Zeus Vo MD LABORATORY Final Result Performing Organization Address City/[facility]/ZIP Co de Phone Number [facility] [address] [place] [address], [place] [phone] * (ABNORMAL) LIPID PANEL (07/22/2022 7:45 AM CDT) CHOLESTEROL 165 <200 MG/DL 07/22/2022 4:20 PM CDT [facility] TRIGLYCERIDES 121 <150 MG/DL 07/22/2022 4:20 PM CDT [facility] HDL 37(L) >40 MG/DL 07/22/2022 4:20 PM CDT [facility] LDL-C 104(H) <100 MG/DL 07/22/2022 4:20 PM CDT [facility] VLDL CALCULATION 24 5 - 28 MG/DL 07/22/2022 4:20 PM CDT [facility] CHOL/HDL RATIO 4.5(H) 0.0 - 4.0 07/22/2022 4:20 PM CDT [facility] LDL/HDL 2.8(H) 0.41 - 2.13 07/22/2022 4:20 PM CDT [facility] NON HDL CHOLESTEROL 128 <140 MG/DL 07/22/2022 4:20 PM CDT [facility] 07/22/2022 7:45 AM CDT Zeus Vo MD LABORATORY Final Result [facility] [address] [place] [address], * (ABNORMAL) COMPREHENSIVE METABOLIC PANEL (07/22/2022 7:45 AM CDT) SODIUM S/P/B 141 136 - 145 MMOL/L 07/22/2022 4:20 PM CDT [facility] POTASSIUM S/P/B 4.3 3.5 - 5.1 MMOL/L 07/22/2022 4:20 PM CDT [facility] CHLORIDE S/P/B 106 98 - 107 MMOL/L 07/22/2022 4:20 PM CDT -[facility] CO2 23.7 21 - 32 MMOL/L 07/22/2022 4:20 PM T [facility] GLUCOSE 89 70 - 99 MG/DL 07/22/2022 4:20 PM T -[facility] BUN 11 7 - 18 MG/DL 07/22/2022 4:20 PM CDT [facility] CREATININE S/P/B 1.17 0.70 - 1.30 MG/DL 07/22/2022 4:20 PM T [facility] CALCIUM S/P/B 9.2 8.4 - 10.5 MG/DL 07/22/2022 4:20 PM T [facility] BILIRUBIN TOTAL S/P/B 1.0 0.2 - 1.0 MG/DL 07/22/2022 4:20 PM T [facility] ALKALINE PHOSPHATASE S/P/B 65 45 - 115 U/L 07/22/2022 4:20 PM CDT [facility] AST 37 15 - 37 U/L 07/22/2022 4:20 PM T [facility] ALT 69(H) 16 - 63 U/L 07/22/2022 4:20 PM T [facility] TOTAL PROTEIN S/P/B 7.4 6.4 - 8.2 G/DL 07/22/2022 4:20 PM CDT [facility] ALBUMIN S/P/B 4.3 3.4 - 5.0 G/DL 07/22/2022 4:20 PM T [facility] ANION GAP 11.3 5 - 15 MMOL/L 07/22/2022 4:20 PM T [facility] Comment:REFERENCE RANGE NOT ESTABLISHED OSMOLALITY (CALC) 291 MOSM/KG 023 4:20 PM CDT [facility] Comment:REFERENCE RANGE NOT ESTABLISHED GFR ESTIMATE 78(L) >90 ML/MIN/1. 73 M2 07/22/2022 4:20 PM CDT [facility] GFR NOTES GFR REFERENCE S: 07/22/2022 4:20 PM CDT [facility] Comment: THE ESTIMATED GFR IS CALCULATED [...] CDT Zeus Vo MD LABORATORY Final Result [facility] [address] [place] [address], * (ABNORMAL) CBC W/DIFF AUTOMATED (07/22/2022 7:45 AM CDT) WBC 3.58(L) 4.00 - 10.80 x10'3/uL 07/22/2022 3:20 PM CDT [facility] RBC 4.77 4.50 - 6.10 x10'6/uL 07/22/2022 3:20 PM CDT [facility] HGB 15.1 13.0 - 18.0 G/DL 07/22/2022 3:20 PM CDT [facility] HCT 43.7 37.0 - 52.0 % 07/22/2022 3:20 PM CDT [facility] MCV 91.6 78.0 - 100.0 FL 07/22/2022 3:20 PM CDT [facility] MCH 31.7(H) 27.0 - 31.0 PG 07/22/2022 3:20 PM CDT [facility] MCHC 34.6 33.0 - 36.0 G/DL 07/22/2022 3:20 PM CDT [facility] RDW 12.8 11.5 - 14.5 % 07/22/2022 3:20 PM CDT [facility] PLT 217 150 - 350 x10'3/uL 07/22/2022 3:20 PM CDT [facility] MPV 11.0(H) 7.4 - 10.4 FL 07/22/2022 3:20 PM CDT [facility] DIFFERENTIAL TYPE AUTOMATED DIFFERENTIAL 07/22/2022 3:20 PM CDT [facility] NEUTROPHILS % 53.0 % 07/22/2022 3:20 PM CDT [facility] LYMPHOCYTES % 34.6 % 07/22/2022 3:20 PM CDT [facility] MONOCYTES % 9.8 % 07/22/2022 3:20 PM CDT [facility] EOSINOPHILS % 2.0 % 07/22/2022 3:20 PM CDT [facility] BASOPHILS % 0.6 % 07/22/2022 3:20 PM CDT [facility] IMMATURE GRANS % 0.0 % 07/22/2022 3:20 PM CDT [facility] ABS. NEUTROPHILS 1.90 1.60 - 8.30 x10'3/uL 07/22/2022 3:20 PM CDT [facility] ABS. LYMPHOCYTES 1.24 0.80 - 4.70 x10'3/uL 07/22/2022 3:20 PM CDT [facility] ABS. MONOCYTES 0.35 0.00 - 1.50 x10'3/uL 07/22/2022 3:20 PM CDT [facility] ABS. EOSINOPHILS 0.07 0.00 - 0.40 x10'3/uL 07/22/2022 3:20 PM CDT [facility] ABS. BASOPHILS 0.02 0.00 - 0.20 x10'3/uL 07/22/2022 3:20 PM CDT [facility] ABS. IMMATURE GRANULOCYTES 0.00 0.00 - 0.03 x10'3/uL 07/22/2022 3:20 PM CDT [facility] 07/22/2022 7:45 AM CDT us Zeus Vo MD LABORATORY Final Result Performing Organization Address [facility]/ZIP Co de Phone Number [facility] [address] [place] [address], [place] [phone] * ALBUMIN URINE RANDOM (07/22/2022) MICROALBUMIN (U) 10 MG[address], MOBILE CREATININE RANDOM (U) 300 [address], MOBILE MICROALB/CREAT <30 MG-[address], MOBILE Comment:normal URINE SPECIMEN / Unknown 07/22/2022 us Zeus Vo MD URINE ORDERABLES Final Result Performing Organization Address City/[facility]/ZIP Co de Phone Number MG-[address], MOBILE [address] [place] [address], [place] [phone] * URINALYSIS AUTO DIP (07/22/2022) COLOR (U) YELLOW [address], MOBILE TRANSPARENCY CLEAR [address], MOBILE GLUCOSE (U) NEGATIVE MG/DL [address], MOBILE BILIRUBIN (U) NEGATIVE MG-[address], MOBILE KETONES MG/DL (U) NEGATIVE MG/DL [address], MOBILE SPECIFIC GRAVITY (U) >=1.030 [address], MOBILE BLOOD (U) NEGATIVE [address], MOBILE U PH 6.0 [address], MOBILE PROTEIN (U) NEGATIVE mg/dL [address], MOBILE UROBILINOGEN 0.2 EU/dL = mg/dL [address], MOBILE NITRITES NEGATIVE MG/DL [address], MOBILE LEUKOCYTES (U) NEGATIVE MG-[address], MOBILE URINE SPECIMEN OBTAINED BY CLEAN CATCH PROCEDURE / Unknown 07/22/2022 Zeus Vo MD URINE ORDERABLES Final Result [address], MOBILE [address] [facility] [address] [place] [address], [place] [phone] documented in this encounter Visit Diagnoses Diagnosis [...] Total Score: 0 05/14/19 22 7:24 AM STRAIGHT EDGER documented as of this encounter Care Teams Aids Nurse Relationship Specialty Start Date End Date Zeus Vo MD [address] [facility] [address] [place] [address] PCP - General INTERNAL MEDICINE 04/07/21 documented as of this encounter
--- OUTSIDE RECORDS SUMMARY | 2024-03-24 03:40 | XMS_ITS | Encounter Summary ---
Author Organization [facility] Address [address] [place] [address]. [place], [place] [address] [place] [address] Care Team Providers Care Frame Pulley Mortising Machine Operator Name Role Phone Zeus Vo MD Primary Care Provider [phone] Encounter Details Date Type Department Care Team [...] Recorded Patient Health Questionnaire-2 Score 0 07/22/2022 [facility] of Occupat ional Health - Occupational [...] st Contact Info) Description 04/07/2024 7:40 AM BILL DISTRIBUTOR Office Visit [facility] Group Multispecialty Care [place] [address] [address] [place] [address] Zeus Vo MD [address] [place] [phone] documented as of this encounter Visit Diagnoses Not on filedocumented in this encounter Additional Health Concerns Assessment Noted Time PHQ-9 Depression Total Score: 0 05/14/19 7:24 AM BILL DISTRIBUTOR documented as of this encounter Care Teams Frame Pulley Mortising Machine Operator Relationship Specialty Start Date End Date Zeus Vo MD [address] [place] [address] PCP - General INTERNAL MEDICINE 04/07/21 documented as of this encounter
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
--- OUTSIDE RECORDS SUMMARY | 2024-03-24 03:40 | XMS_ITS | Encounter Summary ---
Author Organization [facility] Address [address] [place] [address]. [place], [place] [address] [place] [address] Care Team Providers Care Railway Traction Line Worker Name Role Phone Zeus Vo MD Primary Care Provider [phone] Encounter Details Date Type Department Care Team [...] Recorded Patient Health Questionnaire-2 Score 0 07/22/2022 [facility] [place] of Occupat ional Health - Occupational [...] st Contact Info) Description 04/07/2024 7:40 AM BIOINFORMATICS COMPUTER SCIENTIST Office Visit [facility] Medical Group Multispecialty [place] [address] [address] [place] [address] Zeus Vo MD [address] [place] [address] documented as of this encounter Visit Diagnoses Not on filedocumented in this encounter Additional Health Concerns Assessment Noted Time PHQ-9 Depression Total Score: 0 05/14/19 7:24 AM BIOINFORMATICS COMPUTER SCIENTIST documented as of this encounter Care Teams Railway Traction Line Worker Relationship Specialty Start Date End Date Zeus Vo MD [address] [place] [address] PCP - General INTERNAL MEDICINE 04/07/21 documented as of this encounter
--- OUTSIDE RECORDS SUMMARY | 2024-03-24 03:40 | XMS_ITS | Encounter Summary ---
Author Organization [facility] Address [address] [place] [address]. [place], [place] [address] [place] [address] Care Team Providers Care Sales Representative Name Role Phone Zeus Vo MD Primary Care Provider [phone] Reason for Visit * Reason Comments BP Check Encounter Details Date Type Department Care Team (Late st Contact Info) Description 03/13/2022 7:30 AM BOAT HAND Allied Health/Nurse Visit [facility] Group Multispecialty Care - [place] [address] [address] [place] [address] Zeus Vo MD [address] [place] [address] BP Check Social History Tobacco Use [...] move on to questions 3-9 0 01/07/2022 [facility] [place] of Occupat ional Health - Occupational Stress [...] Coronavirus/COVID-19? No / Unsure 03/13/2022 7:19 AM BOAT HAND documented as of this encounter Last Filed Vital Signs Vital Sign Reading Time Taken Comments Blood Pressure 146/92 03/13/2022 7:20 AM BOAT HAND Pulse - - Temperature - - Respiratory Rate - - Oxygen Saturation - - Inhaled Oxygen Concentration - - Weight - - Height - - Body Mass Index - - documented in this encounter Progress Notes * Pauline Gamino MA - 03/13/2022 7:30 AM CSTAddended by: PAULINE GAMINO on: 03/13/2022 07:30 AM Modules accepted: Level of Service HAND * Rocio Herbert MA - 03/13/2022 7:30 AM CST Pt was in office today for BP check which was 146/ 92. HAND documented in this encounter Plan of Treatment Upcoming Encounters Date Type Department Care Team (Late st Contact Info) Description 04/07/2024 7:40 AM BOAT HAND Office Visit [facility] Medical Group Multispecialty Care - [place] [address] [address] [place] [address] [place] [address] [place] [address] [place], [place] [phone] documented as of this encounter Visit Diagnoses Diagnosis Hypertension- Primary Unspecified essential hypertension documented in this encounter Additional Health Concerns Assessment Noted Time PHQ-9 Depression Total Score: 0 05/14/19 22 7:24 AM BOAT HAND documented as of this encounter Care Teams Sales Representative Relationship Specialty Start Date End Date Zeus Vo MD [address] [address] PCP - General INTERNAL MEDICINE 04/07/21 documented as of this encounter
--- OUTSIDE RECORDS SUMMARY | 2024-03-24 03:40 | XMS_ITS | Encounter Summary ---
Author Organization [facility] Address [address] [place] [address]. [place], [place] [address] [place] [address] Care Team Providers Care Rug Designer Name Role Phone Zeus Vo MD Primary Care Provider [phone] Encounter Details Date Type Department Care Team [...] move on to questions 3-9 0 01/07/2022 [facility] [place] of Occupat ional Health - Occupational Stress [...] Coronavirus/COVID-19? No / Unsure 03/13/2022 7:19 AM NON LICENSED NUCLEAR PLANT OPERATOR documented as of this encounter Plan of Treatment Upcoming Encounters Date Type Department Care Team (Late st Contact Info) Description 04/07/2024 7:40 AM NON LICENSED NUCLEAR PLANT OPERATOR Office Visit [facility] Medical Group Multispecialty Care - [place] [address] [address] [place] [address] Zeus Vo MD [address] [place] [phone] documented as of this encounter Visit Diagnoses Not on filedocumented in this encounter Additional Health Concerns Assessment Noted Time PHQ-9 Depression Total Score: 0 05/14/19 7:24 AM NON LICENSED NUCLEAR PLANT OPERATOR documented as of this encounter Care Teams Rug Designer Relationship Specialty Start Date End Date Zeus Vo MD [address] [place] [phone] PCP - General INTERNAL MEDICINE 04/07/21 documented as of this encounter
--- OUTSIDE RECORDS SUMMARY | 2024-03-24 03:40 | XMS_ITS | Encounter Summary ---
Author Organization [facility] Address [address] [place] [address]. [place], [place] [address] [place] [address] Care Team Providers Care Residential Energy Auditor Name Role Phone Zues Vo MD Primary Care Provider [phone] Encounter Details Date Type Department Care Team (Late st Contact Info) Description 11/05/2021 [facility] Message Enc [facility] Medical Group Multispecialty Care - [address] [place] [address] Zeus Vo MD [address] [place] [address] 157 [place] [address] Order for CPAP Social History [...] move on to questions 3-9 0 05/14/2021 [facility] [place] of Occupat ional Health - Occupational Stress [...] st Contact Info) Description 04/07/2024 7:40 AM OVERSEAMER Office Visit [facility] Medical Group Multispecialty Care - [place] [address] [address] [place] [address] Zeus Vo MD [address] [place] [address] documented as of this encounter Visit Diagnoses Not on filedocumented in this encounter Additional Health Concerns Infection Onset Date Last Indicated Resolved Time COVID-19 Rule Out 03/03/2022 03/03/2022 03/03/2022 2:54 PM OVERSEAMER COVID-19 Rule Out 03/03/2022 03/03/2022 03/05/2022 1:12 AM OVERSEAMER Assessment Noted Time PHQ-9 Depression Total Score: 0 05/14/19 7:24 AM OVERSEAMER documented as of this encounter Care Teams Residential Energy Auditor Relationship Specialty Start Date End Date Zeus Vo MD [address] [place] [address] PCP - General INTERNAL MEDICINE 04/07/21 documented as of this encounter
--- OUTSIDE RECORDS SUMMARY | 2024-03-24 03:40 | XMS_ITS | Encounter Summary ---
Author Organization [facility] Address [address] [place] [address]. [place], [place] [address] [place] [address] Care Team Providers Care Ladle Mechanic Name Role Phone Zeus Vo MD Primary Care Provider [phone] Reason for Visit * Reason Onset Date Comments Medication 08/06/2021 Encounter Details Date Type Department Care Team (Late st Contact Info) Description 08/06/[address] [facility] Medical Group Multispecialty Care - [place] [address] [address] [place], [place] [address] Zeus Vo MD [address] [place] [address] 157 [place] [address] Medication Social History Tobacco Use [...] move on to questions 3-9 0 05/14/2021 [facility] [place] of Occupat ional Health - Occupational Stress [...] st Contact Info) Description 04/07/2024 7:40 AM FISHERIES BIOLOGIST Office Visit [facility] Medical Group Multispecialty Care - [place] [address] [address] [place] [address] Zeus Vo MD [facility] [address] documented as of this encounter Visit Diagnoses Diagnosis Hyperuricemia- Primary Other abnormal blood chemistry documented in this encounter Additional Health Concerns Assessment Noted Time PHQ-9 Depression Total Score: 0 05/14/19 22 7:24 AM FISHERIES BIOLOGIST documented as of this encounter Care Teams Ladle Mechanic Relationship Specialty Start Date End Date Zeus Vo MD [address] [place] [address] PCP - General INTERNAL MEDICINE 04/07/21 documented as of this encounter
--- OUTSIDE RECORDS SUMMARY | 2024-03-24 03:40 | XMS_ITS | Encounter Summary ---
Author Organization [facility] Address [address] [place] [address]. [place], [place] [address] [place] [address] Care Team Providers Care Compliance Intern Name Role Phone Zeus Vo MD Primary Care Provider [phone] Encounter Details Date Type Department Care Team [...] move on to questions 3-9 0 05/14/2021 [facility] [place] of Occupat ional Health - Occupational Stress [...] st Contact Info) Description 04/07/2024 7:40 AM FORM DRAFTER Office Visit [facility] Medical Group Multispecialty Care - [place] [address] [address] [place] [address] Zeus Vo MD [address] [place] [address] documented as of this encounter Visit Diagnoses Not on filedocumented in this encounter Additional Health Concerns Assessment Noted Time PHQ-9 Depression Total Score: 0 05/14/19 22 7:24 AM FORM DRAFTER documented as of this encounter Care Teams Compliance Intern Relationship Specialty Start Date End Date Zeus Vo MD [address] [place] [address] PCP - General INTERNAL MEDICINE 04/07/21 documented as of this encounter
--- OUTSIDE RECORDS SUMMARY | 2024-03-24 03:40 | XMS_ITS | Encounter Summary ---
Author Organization [facility] Address [address] [place] [address]. [place], [place] [address] [place] [address] Care Team Providers Care Assistant Manager Retail Name Role Phone Zeus Vo MD Primary Care Provider [phone] Encounter Details Date Type Department Care Team (Late st Contact Info) Description 09/30/2022 MyChart Message Enc [facility] - [facility] [address] [place] [address] [facility] Provider Air Quality Message Social History Tobacco [...] Recorded Patient Health Questionnaire-2 Score 0 07/22/2022 [facility] [place] of Occupat ional Health - Occupational Stress [...] st Contact Info) Description 04/07/2024 7:40 AM ERECTOR OPERATOR Office Visit [facility] Medical [facility] Multispecialty Care - [place] [address] [address] [place] [address] Zeus Vo MD [address] [place] [address] documented as of this encounter Visit Diagnoses Not on filedocumented in this encounter Additional Health Concerns Assessment Noted Time PHQ-9 Depression Total Score: 0 05/14/19 22 7:24 AM ERECTOR OPERATOR documented as of this encounter Care Teams Assistant Manager Retail Relationship Specialty Start Date End Date Zeus Vo MD [address] [place] [address] PCP - General INTERNAL MEDICINE 04/07/21 documented as of this encounter
--- OUTSIDE RECORDS SUMMARY | 2024-03-24 03:40 | XMS_ITS | Encounter Summary ---
Author Organization [facility] Address [address] [place] [address]. [place], [place] [address] [place] [address] Care Team Providers Care Weight Reduction Specialist Name Role Phone Zeus Vo MD Primary Care Provider [phone] Reason for Visit * Reason Onset Date Comments Medication Information 07/22/2022 Changing dose of allopurinol from 100 mg to 200 mg daily. Uric acid level 07/22/2022 at 8.4. Encounter Details Date Type Department Care Team (Late st Contact Info) Description 07/22/2022 Telephone [facility] Medical Group Multispecialty Care - [place] [address] [address] [place] [address] Zeus Vo MD [address] [place] [address] [address] [place], [place] [id number] Medication Information (Changing dose of allopurinol from [...] Health Questionnaire-2 Score 0 07/22/2022 [facility] of Occupat ional [facility] - Occupational Stress Questionnaire Answer Date Recorded [...] st Contact Info) Description 04/07/2024 7:40 AM COMPLIANCE ENGINEER Office Visit [facility] Medical Group Multispecialty Care - [place] [address] [address] [place] [address] Zeus Vo MD [address] [place] [address] 157 [place] [address] documented as of this encounter Visit Diagnoses Not on filedocumented in this encounter Additional Health Concerns Assessment Noted Time PHQ-9 Depression Total Score: 0 05/14/19 22 7:24 AM COMPLIANCE ENGINEER documented as of this encounter Care Teams Weight Reduction Specialist Relationship Specialty Start Date End Date Zeus Vo MD [address] [address] PCP - General INTERNAL MEDICINE 04/07/21 documented as of this encounter
--- OUTSIDE RECORDS SUMMARY | 2024-03-24 03:40 | XMS_ITS | Encounter Summary ---
Author Organization [facility] Address [address] [place] [address]. [place], [place] [address] [place] [address] Care Team Providers Care Hall Supervisor Name Role Phone Zeus Vo MD Primary Care Provider [phone] Encounter Details Date Type Department Care Team [...] move on to questions 3-9 0 01/07/2022 [facility] [place] of Occupat ional Health - Occupational Stress [...] Contact Info) Description 04/07/2024 7:40 AM DIRECTOR INBOUND SALES Office Visit [facility] Medical Group Multispecialty Care - [place] [address] [address] [place], [place] [address] Zeus Vo MD [address] [place] [address] documented as of this encounter Visit Diagnoses Not on filedocumented in this encounter Additional Health Concerns Assessment Noted Time PHQ-9 Depression Total Score: 0 05/14/19 22 7:24 AM DIRECTOR INBOUND SALES documented as of this encounter Care Teams Hall Supervisor Relationship Specialty Start Date End Date Zeus Vo MD [address] [place] [address] [id number] PCP - General INTERNAL MEDICINE 04/07/21 documented as of this encounter
--- OUTSIDE RECORDS SUMMARY | 2024-03-24 03:40 | XMS_ITS | Encounter Summary ---
Author Organization [facility] Address [address] [place] [address]. [place], [place] [address] [place] [address] Care Team Providers Care Ophthalmic Technician Name Role Phone Zeus Vo MD Primary Care Provider [phone] Encounter Details Date Type Department Care Team [...] move on to questions 3-9 0 01/07/2022 [facility] of Occupat ional Health - Occupational [...] st Contact Info) Description 04/07/2024 7:40 AM BUILDING CODE INSPECTOR Office Visit [facility] Medical Group Multispecialty Care - [place] [address] [address] [place] [address] Zeus Vo MD [address] [place] [address] documented as of this encounter Visit Diagnoses Not on filedocumented in this encounter Additional Health Concerns Assessment Noted Time PHQ-9 Depression Total Score: 0 05/14/19 22 7:24 AM BUILDING CODE INSPECTOR documented as of this encounter Care Teams Ophthalmic Technician Relationship Specialty Start Date End Date Zeus Vo MD [address] [place] [address] PCP - General INTERNAL MEDICINE 04/07/21 documented as of this encounter
--- OUTSIDE RECORDS SUMMARY | 2024-03-24 03:40 | XMS_ITS | Encounter Summary ---
Author Organization [facility] Address [address] [place] [address]. [place], [place] [address] [place] [address] Care Team Providers Care Paint Laboratory Technician Name Role Phone Zeus Vo MD Primary Care Provider [phone] Reason for Visit * Reason Comments Lab [...] Patient Health Questionnaire-2 Score 0 07/22/2022 [facility] - Occupational Stress Questionnaire [...] Contact Info) Description 04/07/2024 7:40 AM WET WASH ASSEMBLER Office Visit [facility] Medical Group Multispecialty Care - [place] [address] [address] [place] [address] Zeus Vo MD [address] [place] [address] documented as of this encounter Procedures Procedure Name Priority Date/Time Associated Diagnosis Comments OUTSIDE LAB COVID-19 (SCAN ORDER) Routine 08/31/2022 documented in this encounter Results * OUTSIDE LAB COVID-19 (SCAN) (08/31/2022) CORONAVIRUS SARS COV 2 PCR (RESP) NOT DETECTED HS ONBASE 08/31/2022 [facility] Scanned SCANNING Final Resu lt [facility] ONBASE documented in this encounter Visit Diagnoses Not on filedocumented in this encounter Additional Health Concerns Assessment Noted Time PHQ-9 Depression Total Score: 0 05/14/19 22 7:24 AM WET WASH ASSEMBLER documented as of this encounter Care Teams Paint Laboratory Technician Relationship Specialty [place] [address] [place] [address] PCP - General INTERNAL MEDICINE 04/07/21 documented as of this encounter
--- OUTSIDE RECORDS SUMMARY | 2024-03-24 03:40 | XMS_ITS | Encounter Summary ---
Author Organization [facility] Address [address] [place] [address]. [place], [place] [address] [place] [address] Care Team Providers Care Province Archivist Name Role Phone Zeus Vo MD Primary Care Provider [phone] Reason for Visit * Reason Onset Date Comments Medication 09/04/2022 Encounter Details Date Type Department Care Team (Late st Contact Info) Description 09/04/2022 Telephone [facility] Medical Group Multispecialty Care - [place] [address] [address] [place], [place] [address] Zeus Vo MD [address] [place] [address] 157 [place] [address] Medication Social History Tobacco Use [...] Recorded Patient Health Questionnaire-2 Score 0 07/22/2022 [facility] - Occupational Stress Questionnaire Answer Date Recorded [...] a , i had to go to [facility] this week instead of [facility] documented in this encounter Plan of Treatment Upcoming Encounters Date Type Department Care Team (Late st Contact Info) Description 04/07/2024 7:40 AM THIRD LOADER Office Visit [facility] Medical Group Multispecialty Care - [place] [address] [address] [place] [address] [place] [address] [place] [address] documented as of this encounter Visit Diagnoses Diagnosis Pneumonia due to infectious organism, unspecified laterality, unspecified part of lung- Primary documented in this encounter Additional Health Concerns Assessment Noted Time PHQ-9 Depression Total Score: 0 05/14/19 22 7:24 AM THIRD LOADER documented as of this encounter Care Teams Province Archivist Relationship Specialty Start Date End Date Zeus Vo MD [address] [place] [address] PCP - General INTERNAL MEDICINE 04/07/21 documented as of this encounter
--- OUTSIDE RECORDS SUMMARY | 2024-03-24 03:40 | XMS_ITS | Encounter Summary ---
Author Organization [facility] Address [address] [place] [address]. [place], [place] [address] [place] [address] Care Team Providers Care Marine Driller Name Role Phone Zeus Vo MD Primary Care Provider [phone] Reason for Referral * Consultation (Routine) - Closed Specialty Diagnoses / Procedures Referred By Contac t Referred To Contact SLEEP & RESPIRATORY CARE Diagnoses HAYLEY (obstructive sleep apnea) Zeus Vo MD [address] [place] [address] Phone: tel: fax: Daniel Parekh MD [address] [place] [address] Phone: tel: fax: Referral ID Status Reason Start Date Expiration Date V isits Requested Visits Authorized [id number] Closed Specialty Services 08/06/2021 09/05/2022 100 100 Reason for Visit * Reason Comments Follow Up patient is here for weight loss follow up and gout,BP,and sleep study results Encounter Details Date Type Department Care Team (Latest Contact Info) Description 08/06/2021 7:00 AM CDT Office Visit [facility] Medical Group Multispecialty Care - [address] [place] [address] Zeus Vo MD [address] [place] [address] 157 [place] [address] Follow Up (patient is here for weight [...] move on to questions 3-9 0 05/14/2021 [facility] of Occupat ional Health - [...] These are nonsteroidal anti-inflammatory drugs (NSAIDS). Some ppmq-vpk-lwwrixk medicines and prescription medicines contain the same [...] the drugs, vitamins, herbs, supplements, and any jatu-jtt-vsoyavi drugs you are taking. If you need [...] bad pain. Where can I learn more? [place] [employer] https://familydoctor.org/condition/gout/ National [place] of Arthritis and Musculoskeletal and Skin Diseases [...] or approved for treating a specific patient. [employer] and its affiliates disclaim any warranty or liability relating to this information or the use thereof. The use of this information is governed by the Terms of Use, available at https://www.Ultora.TrendU/en/know/ugkseeap-ivzmirxozwzqt-srqey Copyright Copyright ?? 2021 [employer]. and its affiliates and/or licensors. All rights [...] of alcohol Where can I learn more? [place] [employer] http://familydoctor.org/familydoctor/en/prevention-wellness/food-nutrition/weigh t-loss/ntt-njcety-adlz.html Last Reviewed Date 2020-12-20 Consumer Information Use [...] or approved for treating a specific patient. [employer] and its affiliates disclaim any warranty or liability relating to this information or the use thereof. The use of this information is governed by the Terms of Use, available at https://www.Ultora.TrendU/en/know/mliepkcv-xbtvbdfltyysh-cckmr Copyright Copyright ?? 2021 [employer]. and its affiliates and/or licensors. All rights [...] apply route nightly at bedtime. Sending to [facility]. 1 Device 0 ??? Insulin Pen Needle [...] CPAP DEVICE, DME, Ambulatory referral to Pulmonology ([facility]) 4. Gout, unspecified cause, unspecified chronicity, [...] the free smart phone apps such as [employer] to help track calories and try to [...] days. Dispense: 30 tablet; Refill: 0 3. HAYLEY (obstructive sleep apnea) - CPAP DEVICE, DME,; 1 Device by Does not apply route nightly at bedtime. Sending to [employer]. Dispense: 1 Device; Refill: 0 - Ambulatory referral to Pulmonology ([facility]) - notes attached to order and [...] was at least in part performed using meevl speak and there may be some inherent flaws in this temp recruiter due to the nature of this program. Zeus Vo MD Internal Medicine [facility], [facility]. documented in this encounter Plan of Treatment Upcoming Encounters Date Type Department Care Team (Late st Contact Info) Description 04/07/2024 7:40 AM CUSTOMER SUPPORT SPECIALIST Office Visit [facility] Medical Group Multispecialty Care - [place] [address] [address] [place] [address] Zeus Vo MD [address] [place] [address] 157 [place] [address] Scheduled Referrals Name Type Priority Associated Diagnoses Orde r Schedule Ambulatory referral to Pulmonology ([facility]) Referral Routine HAYLEY (obstructive sleep apnea) Ordered: 08/06/2021 documented as of this encounter Procedures Procedure Name Priority Date/Time Associated Diagnosis Comments URIC ACID BLOOD Routine 08/06/2021 7:37 AM CDT Gout, unspecified cause, unspecified chronicity, unspecified site documented in this encounter Results * (ABNORMAL) URIC ACID BLOOD (08/06/2021 7:37 AM CDT) URIC ACID 9.7(H) 3.5 - 7.2 MG/DL 08/06/2021 3:01 PM CDT [facility] 08/06/2021 7:37 AM CDT Zeus Vo MD LABORATORY Final Result [facility] [address] [place] [address], documented in this encounter Visit Diagnoses Diagnosis [...] Total Score: 0 05/14/19 22 7:24 AM CUSTOMER SUPPORT SPECIALIST documented as of this encounter Care Teams Marine Driller Relationship Specialty Start Date End Date Zeus Vo MD [address] [facility] [address] [place] [address] PCP - General INTERNAL MEDICINE 04/07/21 documented as of this encounter
--- OUTSIDE RECORDS SUMMARY | 2024-03-24 03:40 | XMS_ITS | Encounter Summary ---
Author Organization [facility] Address [address] [place] [address]. [place], [place] [address] [place] [address] Care Team Providers Care Car Body Mechanic Name Role Phone Zeus Vo MD Primary Care Provider [phone] Reason for Visit * Reason Comments Hypertension Encounter Details Date Type Department Care Team (Late st Contact Info) Description 02/11/2024 3:20 PM TECHNICAL SUPPORT SPECIALIST Office Visit [facility] Medical Group Multispecialty Care - [place] [address] [place] [address] Kiara Estrada, FOUNDRY HELPER [address] [facility] [address] [place] [address] Hypertension Social History Tobacco Use [...] Recorded Patient Health Questionnaire-2 Score 0 07/22/2022 [facility] - Occupational Stress Questionnaire Answer Date Recorded [...] Comments Blood Pressure 142/102 02/11/2024 3:52 PM TECHNICAL SUPPORT SPECIALIST Pulse 73 02/11/2024 3:23 PM TECHNICAL SUPPORT SPECIALIST Temperature 36.8 ??C (98.2 ??F) 02/11/2024 3:23 PM CS T Respiratory Rate 18 02/11/2024 3:23 PM TECHNICAL SUPPORT SPECIALIST Oxygen Saturation 97% 02/11/2024 3:23 PM TECHNICAL SUPPORT SPECIALIST Inhaled Oxygen Concentration - - Weight 109.8 kg (242 lb) 02/11/2024 3:23 PM TECHNICAL SUPPORT SPECIALIST Height 175.3 cm (5' 9 ) 02/11/2024 3:23 PM TECHNICAL SUPPORT SPECIALIST Body Mass Index 35.74 02/11/2024 3:23 PM TECHNICAL SUPPORT SPECIALIST documented in this encounter Patient Instructions * Patient Instructions* Kiara Estrada NP - 02/11/2024 3:20 PM TECHNICAL SUPPORT SPECIALIST Losartan once daily in the morning Monitor BP at nurses office Follow up in April Fasting labs before appointment NICAL SUPPORT SPECIALIST documented in this encounter Progress Notes * Kiara Estrada NP - 02/11/2024 3:20 PM CSTSummary: annual physical Images from the original note were not included. ANNUAL PHYSICAL NOTES Encounter Date: 02/11/2024 Chief Complaint: 48-year-old male presents for Hypertension . HPI: The patient is being seen for a health maintenance evaluation. The last health maintenance exam wasover one year ago. 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 Sending to [employer]. 1 Device 0 losartan (COZAAR) 25 MG [...] the day of the encounter. This includes qgjl-tm-icmf and azv-kcdf-bq-face time I provided on the day of the encounter & excludes time spent performing separately reportable services. CARA: This dictation was at least in part performed using FreeLunched and there may be some inherent flaws in this trolley car overhauler due to the nature of this program. KIARA ESTRADA NP 02/11/2024 [place], [place] NICAL SUPPORT SPECIALIST documented in this encounter Plan of Treatment Upcoming Encounters Date Type Department Care Team (Late st Contact Info) Description 04/07/2024 7:40 AM TECHNICAL SUPPORT SPECIALIST Office Visit [facility] Multispecialty Care - [place] [address] [address] [place] [address] Zeus Vo MD [address] [facility] [address] [place], [place] [id number] Scheduled Orders Name Type Priority Associated Diagnoses [...] complication, without long-term current use of insulin ([facility]) Expected: 02/11/2024, Expires: 02/10/2025 documented as of this encounter Procedures Procedure Name Priority Date/Time Associated Diagnosis Comments VENIPUNC ARM DRAW Routine 02/11/2024 4:00 PM TECHNICAL SUPPORT SPECIALIST Annual physical exam documented in this encounter [...] complication, without long-term current use of insulin ([facility]) documented in this encounter Additional Health Concerns Assessment Noted Time PHQ-9 Depression Total Score: 0 05/14/19 7:24 AM TECHNICAL SUPPORT SPECIALIST documented as of this encounter Care Teams Car Body Mechanic Relationship Specialty Start Date End Date Zeus Vo MD [address] [address] PCP - General INTERNAL MEDICINE 04/07/21 documented as of this encounter
--- OUTSIDE RECORDS SUMMARY | 2024-03-24 03:40 | XMS_ITS | Encounter Summary ---
Author Organization [facility] Address [address] [place] [address]. [place], [place] [address] [place] [address] Care Team Providers Care Biomedical Photographer Name Role Phone Zeus Vo MD Primary Care Provider [phone] Encounter Details Date Type Department Care Team (Latest Contact Info) Description 03/03/2022 Hospital Encounter [facility] [address] [facility] [place] [address] Zeus Vo MD [address] [address] Discharge Disposition: Home or Self [...] move on to questions 3-9 0 01/07/2022 [facility] of Occupat ional Health - Occupational Stress [...] apply route nightly at bedtime. Sending to [place]. 1 Device 08/06/2021 allopurinol (ZYLOPRIM) 100 MG [...] st Contact Info) Description 04/07/2024 7:40 AM SLITTER CUT OFF OPERATOR Office Visit [facility] Medical Group Multispecialty Care - [place] [address] [address] [place] [address] Zeus Vo MD [address] [place] [address] 157 [place] [address] documented as of this encounter Visit Diagnoses Not on filedocumented in this encounter Additional Health Concerns Assessment Noted Time PHQ-9 Depression Total Score: 0 05/14/19 22 7:24 AM SLITTER CUT OFF OPERATOR documented as of this encounter Care Teams Biomedical Photographer Relationship Specialty Start Date End Date Zeus Vo MD [address] [address] PCP - General INTERNAL MEDICINE 04/07/21 documented as of this encounter
--- OUTSIDE RECORDS SUMMARY | 2024-03-24 03:40 | XMS_ITS | Clinical Summary ---
Author Organization [facility] Address [address] [place] [address]. [place] [address] [place] [address] Care Team Providers Care Prism Measurer Name Role Phone Zeus Vo MD Primary Care Provider [phone] Allergies Active Allergy Reactions Criticality Noted Date Comments Codeine Hyperactive 04/25/2016 Medications CPAP DEVICE, DME,Indications: HAYLEY (obstructive sleep apnea) 1 Device by Does not apply route nightly at bedtime. Sending to [employer] Device 08/07/19 22 Active losartan (COZAAR) 25 [...] Department Care Team Description 03/22/2024 12:40 PM RECRUITING MANAGER Office Visit [place] [address] [place] [address] Pauline Estrada, POST MANAGER ER F/U 03/22/2024 Travel 03/21/2024 Telephone [place] [address] [place] [address] Zeus Vo MD Results 03/17/2024 Telephone [place] [address] [place] [address] Zeus Vo MD Referral 03/17/2024 Telephone [place] [address] [place] [address] Zeus Vo MD Information 03/15/2024 10:40 AM RECRUITING MANAGER Office Visit [place] [address] [place] [address] Pauline Estrada, POST MANAGER ER F/U 03/15/2024 Travel 03/13/2024 Scan HEALTH INFO SRVCS Scanned, [facility] 02/11/2024 3:20 PM RECRUITING MANAGER Office Visit [facility]pecialty Care - [address] [place] [address] Pauline Estrada NP Hypertension 02/11/2024 Travel from [...] Recorded Patient Health Questionnaire-2 Score 0 07/22/2022 [facility] of Occupat ional Health - [...] Comments Blood Pressure 128/84 03/22/2024 3:40 PM RECRUITING MANAGER Pulse 77 03/22/2024 12:47 PM RECRUITING MANAGER Temperature 37 ??C (98.6 ??F) 03/22/2024 12:47 PM RECRUITING MANAGER Respiratory Rate 18 03/22/2024 12:47 PM RECRUITING MANAGER Oxygen Saturation 99% 03/22/2024 12:47 PM RECRUITING MANAGER Inhaled Oxygen Concentration - - Weight 108.9 kg (240 lb) 03/22/2024 12:47 PM RECRUITING MANAGER Height 175.3 cm (5' 9 ) 03/22/2024 12:47 PM RECRUITING MANAGER Body Mass Index 35.44 03/22/2024 12:47 PM RECRUITING MANAGER Plan of Treatment Upcoming Encounters Date Type Department Care Team (Late st Contact Info) Description 04/07/2024 7:40 AM RECRUITING MANAGER Office Visit [facility] Multispecialty Care - [place] [address] [address] [place] [address] [place] [address] [place] [address] [address] [place] [address] Health Maintenance Due Date Last Done Comments [...] ARM DRAW Routine 02/11/2024 4:0 0 PM RECRUITING MANAGER Annual physical exam LIPID PANEL Routine 07/22/2022 7:45 AM CDT Annual physical exam General medical exam Screening for hyperlipidemia Primary hypertension HEMOGLOBIN, GLYCOSYLATED Routine 07/22/2022 7:45 AM CDT Annual physical exam General medical exam Screening for diabetes mellitus Primary hypertension HEPATITIS C ANTIBODY Routine 05/14/2021 7:46 AM RECRUITING MANAGER Annual physical exam General medical exam Encounter for hepatitis C screening test for low risk patient from Last 3 Months or Most Recently Relevant to Health Maintenance Results * (ABNORMAL) HEMOGLOBIN, GLYCOSYLATED (07/22/2022 7:45 AM CDT) Pathologist [facility] HGB A1C 5.4 4.5 - 6.2 % 07/22/2022 4:20 PM CDT [facility] ESTIMATED AVG GLUCOSE 108(H) 74 - 106 MG/DL 07/22/2022 4:20 PM CDT [facility] 07/22/2022 7:45 AM CDT Zeus Vo MD LABORATORY Final Result [facility] [address] [place] [address], [place] [phone] * (ABNORMAL) LIPID PANEL (07/22/2022 7:45 AM CDT) [facility] CHOLESTEROL 165 <200 MG/DL 07/22/2022 4:20 PM CDT [facility] TRIGLYCERIDES 121 <150 MG/DL 07/22/2022 4:20 PM CDT [facility] HDL 37(L) >40 MG/DL 07/22/2022 4:20 PM CDT [facility] LDL-C 104(H) <100 MG/DL 07/22/2022 4:20 PM CDT [facility] VLDL CALCULATION 24 5 - 28 MG/DL 07/22/2022 4:20 PM CDT [facility] CHOL/HDL RATIO 4.5(H) 0.0 - 4.0 07/22/2022 4:20 PM CDT [facility] LDL/HDL 2.8(H) 0.41 - 2.13 07/22/2022 4:20 PM CDT [facility] NON HDL CHOLESTEROL 128 <140 MG/DL 07/22/2022 4:20 PM CDT [facility] 07/22/2022 7:45 AM CDT us Zeus Vo MD LABORATORY Final Result [facility] [address] [place] [address], * HEPATITIS C ANTIBODY (05/14/2021 7:46 AM RECRUITING MANAGER) Pathologist [facility] HEPATITIS C AB NON-REACTI VE NON-REACT ADAM 05/14/2021 8:31 PM RECRUITING MANAGER [facility] Comment: ANTIBODIES TO HCV NOT DETECTED. DOES NOT EXCLUDE THE POSSIBILITY OF EXPOSURE TO HCV. 05/14/2021 7:46 AM RECRUITING MANAGER us Zeus Vo MD LABORATORY Final Result [facility] [address] [place] [address], [id number] from Last 3 Months or Most Recently Relevant to Health Maintenance [place] [address] [place] [address] Care Teams Prism Measurer Relationship Specialty Start Date End Date Zeus Vo MD [address] [address] PCP - General INTERNAL MEDICINE 04/07/21
--- OUTSIDE RECORDS SUMMARY | 2024-03-24 03:40 | XMS_ITS | Encounter Summary ---
Author Organization [facility] Address [address] [place] [address]. [place], [place] [address] [place] [address] Care Team Providers Care Clinical Engineer Name Role Phone Zeus Vo MD Primary Care Provider [phone] Encounter Details Date Type Department Care Team (Late st Contact Info) Description 07/11/2021 [employer] Message Enc [facility] Multispecialty Care - [place] [address] [address] [place] [address] Zeus Vo MD [address] [place] [address] [address] [place] [address] colchicine Social History Tobacco Use [...] move on to questions 3-9 0 05/14/2021 [facility] of Occupat ional [facility] - Occupational Stress Questionnaire Answer Date [...] st Contact Info) Description 04/07/2024 7:40 AM NEON SIGN MAKER Office Visit [facility] Multispecialty Care - [place] [address] [address] [place] [address] Zeus Vo MD [address] [place] [address] documented as of this encounter Visit Diagnoses Not on filedocumented in this encounter Additional Health Concerns Infection Onset Date Last Indicated Resolved Time COVID-19 Rule Out 03/03/2022 03/03/2022 03/03/2022 2:54 PM NEON SIGN MAKER COVID-19 Rule Out 03/03/2022 03/03/2022 03/05/2022 1:12 AM NEON SIGN MAKER Assessment Noted Time PHQ-9 Depression Total Score: 0 05/14/19 7:24 AM NEON SIGN MAKER documented as of this encounter Care Teams Clinical Engineer Relationship Specialty Start Date End Date Zeus Vo MD [address] [place] [address] PCP - General INTERNAL MEDICINE 04/07/21 documented as of this encounter
--- OUTSIDE RECORDS SUMMARY | 2024-03-24 03:40 | XMS_ITS | Encounter Summary ---
Author Organization [facility] Address [address] [place] [address]. [place], [place] [address] [place] [address] Care Team Providers Care Health Navigator Name Role Phone Zeus Vo MD Primary Care Provider [phone] Encounter Details Date Type Department Care Team [...] Recorded Patient Health Questionnaire-2 Score 0 07/22/2022 [facility] of Occupat ional Health - Occupational Stress [...] st Contact Info) Description 04/07/2024 7:40 AM CONTROLS ENGINEER Office Visit [facility] Multispecialty Care [place] [address] [address] [address] [place] [address] Zeus Vo MD [address] [place] [address] [id number] documented as of this encounter Visit Diagnoses Not on filedocumented in this encounter Additional Health Concerns Assessment Noted Time PHQ-9 Depression Total Score: 0 05/14/19 22 7:24 AM CONTROLS ENGINEER documented as of this encounter Care Teams Health Navigator Relationship Specialty Start Date End Date Zeus Vo MD [address] [place] [address] PCP - General INTERNAL MEDICINE 04/07/21 documented as of this encounter
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
--- OUTSIDE RECORDS SUMMARY | 2024-03-24 03:40 | XMS_ITS | Encounter Summary ---
Author Organization [facility] Address [address] [place] [address]. [place], [place] [address] [place] [address] Care Team Providers Care Receivables Specialist Name Role Phone Zeus Vo MD Primary Care Provider [phone] Encounter Details Date Type Department Care Team [...] Recorded Patient Health Questionnaire-2 Score 0 07/22/2022 [facility] of Occupat ional Health - Occupational [...] Contact Info) Description 04/07/2024 7:40 AM GLUE JOINTER FEEDER Office Visit [facility] Multispecialty Care - [place] [address] [address] [address] [place] [address] Zeus Vo MD [address] [place] [address] documented as of this encounter Visit Diagnoses Not on filedocumented in this encounter Additional Health Concerns Assessment Noted Time PHQ-9 Depression Total Score: 0 05/14/19 7:24 AM GLUE JOINTER FEEDER documented as of this encounter Care Teams Receivables Specialist Relationship Specialty Start Date End Date Zeus Vo MD [address] [place] [address] PCP - General INTERNAL MEDICINE 04/07/21 documented as of this encounter
--- OUTSIDE RECORDS SUMMARY | 2024-03-24 03:40 | XMS_ITS | Encounter Summary ---
Author Organization [facility] Address [address] [place] [address]. [place], [place] [address] [place] [address] Care Team Providers Care Workcell Operator Name Role Phone Zeus Vo MD Primary Care Provider [phone] Reason for Visit * Reason Comments CT (SCAN) Lab (SCAN) Encounter Details Date Type Department Care Team ([facility] Contact Info) Description 08/31/2022 Scan HEALTH INFO [...] Recorded Patient Health Questionnaire-2 Score 0 07/22/2022 [facility] [place] of Occupat ional Health - Occupational Stress [...] st Contact Info) Description 04/07/2024 7:40 AM SCHOOL PROGRAM DIRECTOR Office Visit [facility] Multispecialty Care [place] [address] [place] [address] [address] [place] [address] Zeus Vo MD [address] [facility] [address] [place] [address] documented as of this encounter Procedures Procedure Name Priority Date/Time Associated Diagnosis Comments CT GENERIC 08/31/2022 OUTSIDE PT/INR (SCAN ORDER) 08/31/2022 OUTSIDE LAB (SCAN ORDER) 08/31/2022 OUTSIDE LAB (SCAN ORDER) 08/31/2022 documented in this encounter Results * OUTSIDE LAB (SCAN) (08/31/2022) 08/31/2022 [facility] Scanned SCANNING Final Resu lt * OUTSIDE LAB (SCAN) (08/31/2022) 08/31/2022 [facility] Scanned SCANNING Final Resu lt * OUTSIDE PT/INR (SCAN) (08/31/2022) 08/31/2022 [facility] Scanned SCANNING Final Resu lt * CT GENERIC (08/31/2022) Anatomical Region Laterality Modality Other 08/31/2022 [facility] Scanned SCANNING Final Resu lt documented in this encounter Visit Diagnoses Not on filedocumented in this encounter Additional Health Concerns Assessment Noted Time PHQ-9 Depression Total Score: 0 05/14/19 7:24 AM SCHOOL PROGRAM DIRECTOR documented as of this encounter Care Teams Workcell Operator Relationship Specialty Start Date End Date Zeus Vo MD [address] [address] PCP - General INTERNAL MEDICINE 04/07/21 documented as of this encounter
--- OUTSIDE RECORDS SUMMARY | 2024-03-24 03:41 | XMS_ITS | Encounter Summary ---
Author Organization [facility] Address [address] [place] [address]. [place], [place] [address] [place] [address] Care Team Providers Care Dry House Worker Name Role Phone Zeus Vo MD Primary Care Provider [phone] Reason for Referral * Imaging (Routine) - Closed Specialty Diagnoses / Procedures Referred By Contac t Referred To Contact RADIOLOGY Diagnoses Elevated liver enzymes Procedures US ABD LIMITED Zeus Vo MD 118[address] [facility] [address] [place] [address] Phone: tel: fax: [facility] [address] [address] Phone: tel: fax: Referral ID Status Reason Start Date Expiration Date V isits Requested Visits Authorized [id number] Closed Ultrasound 05/15/2021 06/12/2022 1 1 ENT TEACHING COORDINATOR Reason for Visit * Reason Onset Date Comments Medication 05/15/2021 Encounter Details Date Type Department Care Team (Late st Contact Info) Description 05/15/2021 Telephone [facility] Multispecialty Care - [address] [place] [address] Zeus Vo MD [address] [facility] [address] [place] [address] Medication Social History Tobacco Use [...] move on to questions 3-9 0 05/14/2021 [facility] [place] of Occupat ional Health - Occupational Stress [...] Coronavirus/COVID-19? No / Unsure 05/14/2021 7:02 AM STUDENT TEACHING COORDINATOR documented as of this encounter Progress Notes * Zeus Vo MD - 05/15/2021 7:46 AM CST I called patient and updated him on his lab results. Will initiate phentermine to help with weight loss and get an abdominal ultrasound to evaluate his liver. Zeus Vo MD Internal Medicine [facility], [facility]. ENT TEACHING COORDINATOR documented in this encounter Plan of Treatment Upcoming Encounters Date Type Department Care Team (Late st Contact Info) Description 04/07/2024 7:40 AM STUDENT TEACHING COORDINATOR Office Visit [facility] Multispecialty Care - [place] [address] [address] [place] [address] Zeus Vo MD [address] [address] Scheduled Orders Name Type Priority Associated Diagnoses [...] Depression Total Score: 0 05/14/19 7:24 AM STUDENT TEACHING COORDINATOR documented as of this encounter Care Teams Dry House Worker Relationship Specialty Start Date End Date Zeus Vo MD [address] [place] [address] PCP - General INTERNAL MEDICINE 04/07/21 documented as of this encounter
--- OUTSIDE RECORDS SUMMARY | 2024-03-24 03:41 | XMS_ITS | Encounter Summary ---
Author Organization [facility] Address [address] [place] [address]. [place], [place] [address] [place] [address] Care Team Providers Care Toy Packer Name Role Phone Reena Doss MD Primary Care Provider [phone] Encounter Details Date Type Department Care Team (Late st Contact Info) Description 03/30/2013 Abstract [facility] [address] [facility] [place], [place] [address] Najma Alexander MD [address] [facility] [address] [place], [place] [address] Social History Tobacco Use Types Packs/Day Years [...] (Late Contact Info) Description 04/07/2024 7:40 AM GLOVE PRINTER Office Visit [facility] Medical Group Multispecialty Care - [place] [address] [address] [place] [address] Zeus Vo MD [address] [place] [address] [address] [place] [address] documented as of this encounter Visit Diagnoses Diagnosis Gouty arthropathy Gouty arthropathy, unspecified documented in this encounter Care Teams Toy Packer Relationship Specialty Start Date End Date Reena Doss MD [address], [place] [address] PCP - General 03/30/13 03/04/20 documented as of this encounter
--- OUTSIDE RECORDS SUMMARY | 2024-03-24 03:41 | XMS_ITS | Encounter Summary ---
Author Organization [facility] Address [address] [place] [address]. [place], [place] [address] [place] [address] Care Team Providers Care Air Conditioning Supervisor Name Role Phone Elvia Davis WHITE WASHER Primary Care Provider Unavailabl e Reason for Visit * Reason Comments Establish Care Encounter Details Date Type Department Care Team (Late st Contact Info) Description 03/21/2020 10:20 AM HYDROELECTRIC PLANT OPERATOR Office Visit [facility] Multispecialty [facility] [place] - [address] [place] [address] Elvia Davis, WHITE WASHER Establish Care Social History Tobacco Use Types [...] move on to questions 3-9 0 03/21/2020 [place] of Occupat ional Health - Occupational Stress [...] COVID-19? No / Unsure 03/21/2020 9:58 AM HYDROELECTRIC PLANT OPERATOR documented as of this encounter Last Filed Vital Signs Vital Sign Reading Time Taken Comments Blood Pressure 138/94 03/21/2020 11:00 AM HYDROELECTRIC PLANT OPERATOR Pulse 60 03/21/2020 10:18 AM HYDROELECTRIC PLANT OPERATOR Temperature 36.2 ??C (97.2 ??F) 03/21/2020 10:[address] Respiratory Rate 18 03/21/2020 10:18 AM HYDROELECTRIC PLANT OPERATOR Oxygen Saturation 98% 03/21/2020 10:18 AM HYDROELECTRIC PLANT OPERATOR Inhaled Oxygen Concentration - - Weight 106 kg (233 lb 9.6 oz) 03/21/2020 10:18 A M HYDROELECTRIC PLANT OPERATOR Height 175.3 cm (5' 9 ) 03/21/2020 10:18 AM HYDROELECTRIC PLANT OPERATOR Body Mass Index 34.5 03/21/2020 10:18 AM HYDROELECTRIC PLANT OPERATOR documented in this encounter Patient Instructions * Patient Instructions* Elvia Davis NP - 03/21/2020 10:20 AM HYDROELECTRIC PLANT OPERATOR Patient Education Patient Education Bladder Spasms Discharge [...] belly pain. Where can I learn more? [employer] https://familydoctor.org/condition/overactive-bladder/ Women???s Health [...] right for you. Copyright Copyright ?? 2020 [employer]. and its affiliates and/or licensors. All rights reserved. Blood drawn today and will call with results Urine test completed today and negative for infection Start ditropan daily Call office with any concerns or questions OELECTRIC PLANT OPERATOR OELECTRIC PLANT OPERATOR OELECTRIC PLANT OPERATOR documented in this encounter Progress Notes * Elvia Davis NP - 03/21/2020 10:20 AM CSTAddended by: ELVIA DAVIS on: 03/21/2020 11:45 AM Modules accepted: Orders OELECTRIC PLANT OPERATOR * Elvia Davis NP - 03/21/2020 10:20 [...] file Gets together: Not on file Attends bahai service: Not on file Active member of [...] month. ELVIA DAVIS NP 03/21/2020 11:22 AM OELECTRIC PLANT OPERATOR documented in this encounter Plan of Treatment Upcoming Encounters Date Type Department Care Team (Late st Contact Info) Description 04/07/2024 7:40 AM HYDROELECTRIC PLANT OPERATOR Office Visit [facility] Multispecialty Care - [place] [address] [address] [address] [place] [address] Zeus Vo MD [address] [place] [address] [address] [place] [address] documented as of this encounter Procedures Procedure Name Priority Date/Time Associated Diagnosis Comments VENIPUNC ARM DRAW Routine 03/21/2020 11: 22 AM HYDROELECTRIC PLANT OPERATOR Routine lab draw TSH W/REFLEX Routine 03/21/2020 11:13 AM HYDROELECTRIC PLANT OPERATOR Encounter for medical examination to establish care PROSTATE SPECIFIC ANTIGEN,SCREENING Routine 03/21/2020 11:13 AM HYDROELECTRIC PLANT OPERATOR Urinary frequency COMPREHENSIVE METABOLIC PANEL Routine 03/21/2020 11:13 AM HYDROELECTRIC PLANT OPERATOR Encounter for medical examination to establish care LIPID PANEL Routine 03/21/2020 11:13 AM HYDROELECTRIC PLANT OPERATOR Encounter for medical examination to establish care CBC W/DIFF AUTOMATED Routine 03/21/2020 11:13 AM HYDROELECTRIC PLANT OPERATOR Encounter for medical examination to establish care ALBUMIN URINE RANDOM W/CREATININE Routine 03/21/2020 11:00 AM HYDROELECTRIC PLANT OPERATOR Urinary frequency URINALYSIS AUTO DIP Routine 03/21/2020 Urinary frequency documented in this encounter Results * PROSTATE SPECIFIC ANTIGEN,SCREENING (03/21/2020 11:13 AM HYDROELECTRIC PLANT OPERATOR) PSA 0.48 <4.00 NG/ML 03/21/2020 7:29 PM HYDROELECTRIC PLANT OPERATOR [facility] Comment:Assay Method: Enzyme Immunoassay 03/21/2020 11:1 3 AM HYDROELECTRIC PLANT OPERATOR us Elvia L Jessika WHITE WASHER LABORATORY Final Result Performing Organization Address City/[facility]/ZIP Co de Phone Number [facility], [address] [place] [address], [place] [phone] * TSH W/REFLEX (03/21/2020 11:13 AM HYDROELECTRIC PLANT OPERATOR) TSH 1.977 0.358 - 3.740 uIU/ML 03/21/2020 7:29 PM [facility] 03/21/2020 11:1 3 AM HYDROELECTRIC PLANT OPERATOR us Elvia Davis WHITE WASHER LABORATORY Final Result Performing Organization Address [facility] Co de Phone Number NANCY PONDHUJaime WHITE [address] [place] [address], [place] [phone] * LIPID PANEL (03/21/2020 11:13 AM HYDROELECTRIC PLANT OPERATOR) CHOLESTEROL 189 MG/DL 03/21/2020 7:29 PM [facility] Comment:DESIRABLE: <200 TRIGLYCERIDES 163 MG/DL 03/21/2020 7:29 PM [facility] Comment:150-199 BORDERLINE H IGH HDL 40 >39 MG/DL 03/21/2020 7:29 PM [facility] LDL-C 116 MG/DL 03/21/2020 7:29 PM [facility] Comment:160-189 HIGH VLDL CALCULATION 33 MG/DL 03/21/20 20 7:29 PM [facility] Comment:REFERENCE RANGE NOT ESTABLISHED CHOL/HDL RATIO 4.7 03/21/2020 7:29 PM [facility] Comment:REFERENCE RANGE NOT ESTABLISHED LD-1/LD-2 RATIO 2.9 0 7:29 PM [facility] Comment:REFERENCE RANGE NOT ESTABLISHED NON HDL CHOLESTEROL 149 MG/DL 03/21/2020 7:29 PM HYDROELECTRIC PLANT OPERATOR [facility] Comment:REFERENCE RANGE NOT ESTABLISHED 03/21/2020 11:1 3 AM HYDROELECTRIC PLANT OPERATOR Elvia Davis NP LABORATORY Final Result -ROSALIND MOORE WHITE [address] [facility] [place] [address], * (ABNORMAL) COMPREHENSIVE METABOLIC PANEL (03/21/2020 11:13 AM HYDROELECTRIC PLANT OPERATOR) [facility] SODIUM S/P/B 141 136 - 145 MMOL/L 03/21/2020 7:29 PM HYDROELECTRIC PLANT OPERATOR [facility] POTASSIUM S/P/B 4.1 3.5 - 5.1 MMOL/L 03/21/2020 7:29 PM [facility] CHLORIDE S/P/B 104 98 - 107 MMOL/L 03/21/2020 7:29 PM [facility] CO2 31.5 21 - 32 MMOL/L 03/21/2020 7:29 PM HYDROELECTRIC PLANT OPERATOR [facility] GLUCOSE 102(H) 70 - 99 MG/DL 03/21/2020 7:29 PM [facility] BUN 14 6 - 24 MG/DL 03/21/2020 7:29 PM [facility] CREATININE S/P/B 1.17 0.70 - 1.30 MG/DL 03/21/2020 7:29 PM [facility] CALCIUM S/P/B 9.6 8.4 - 10.5 MG/DL 03/21/2020 7:29 PM [facility] BILIRUBIN TOTAL S/P/B 0.9 0.2 - 1.0 MG/DL 03/21/2020 7:29 PM [facility] ALKALINE PHOSPHATASE S/P/B 59 45 - 115 U/L 03/21/2020 7:29 PM [facility] AST 26 15 - 37 U/L 03/21/2020 7:29 PM HYDROELECTRIC PLANT OPERATOR [facility] ALT 71(H) 16 - 63 U/L 03/21/2020 7:29 PM HYDROELECTRIC PLANT OPERATOR NELA MOORE WHITE TOTAL PROTEIN S/P/B 7.5 6.4 - 8.2 G/DL 03/21/2020 7:29 PM [facility] NELA MOORE WHITE ALBUMIN S/P/B 4.3 3.4 - 5.0 G/DL 03/21/2020 7:29 PM [facility] ROSALIND MOORE WHITE ANION GAP 5.5 5 - 15 MMOL/L 03/21/2020 7:29 PM HYDROELECTRIC PLANT OPERATOR [facility] [place] Comment:REFERENCE RANGE NOT ESTABLISHED OSMOLALITY (CALC) 293 MOSM/KG 03/21/2020 7:29 PM [facility] NELA MOORE WHITE Comment:REFERENCE RANGE NOT ESTABLISHED EGFR NON-AFR. AMER. 76(L) >90 ML/MIN/1 .73 M2 03/21/2020 7:29 PM [facility] ROSALIND MOORE WHITE EGFR AFR. AMER. 88(L) >90 ML/MIN/1 .73 M2 03/21/2020 7:29 PM HYDROELECTRIC PLANT OPERATOR NELA MOORE WHITE GFR NOTES THE ESTIMATED GFR IS CALCULATED USING THE 2009 CKD-EPI EQUATION. THE FOLLOWING CATEGORIES FOR GRADING RENAL FUNCTION ARE RECOMMENDED BY THE INTERNATIONAL SOCIETY OF NEPHROLOGY (KDIGO 2012 CLINICAL PRACTICE GUIDELINE). 03/21/2020 7:29 PM HYDROELECTRIC PLANT OPERATOR [facility] Comment: G1,NORMAL OR HIGH: >89 ml/min/1.73 m2 G2,MILDLY DECREASED: 60-89 ml/min/1.73 m2 G3A,MILDLY TO MODERATELY DECREASED: 45-59 ml/min/1.73 m2 G3B,MODERATELY TO SEVERELY DECREASED: 30-44 ml/min/1.73 m2 G4,SEVERELY DECREASED: 15-29 ml/min/1.73 m2 G5,KIDNEY FAILURE: <15 ml/min/1.73 m2 03/21/2020 11:1 3 AM HYDROELECTRIC PLANT OPERATOR us Elvia Davis NP LABORATORY Final Result [facility] [address] [place] [address], * (ABNORMAL) CBC W/DIFF AUTOMATED (03/21/2020 11:13 AM HYDROELECTRIC PLANT OPERATOR) [facility] Signature WBC 4.7 4.0 - 10.8 x10'3/uL 03/21/2020 7:29 PM [facility] RBC 4.83 4.50 - 6.10 x10'6/uL 03/21/2020 7:29 PM [facility] HGB 15.3 13.0 - 18.0 G/DL 03/21/2020 7:29 PM [facility] HCT 44.2 36.0 - 47.0 % 03/21/2020 7:29 PM [facility] MCV 91.5 78.0 - 100.0 FL 03/21/2020 7:29 PM [facility] MCH 31.7(H) 27.0 - 31.0 PG 03/21/2020 7:29 PM [facility] MCHC 34.6 33.0 - 36.0 G/DL 03/21/2020 7:29 PM [facility] RDW 13.3 11.5 - 14.5 % 03/21/2020 7:29 PM [facility] PLT 223 150 - 350 x10'3/uL 03/21/2020 7:29 PM [facility] MPV 11.3(H) 7.4 - 10.4 FL 03/21/2020 7:29 PM [facility] DIFFERENTIAL TYPE AUTOMATED DIFFERENTIAL 03/21/2020 7:29 PM [facility] NEUTROPHILS % 46.8 % 03/21/2020 7:29 PM [facility] LYMPHOCYTES % 39.1 % 03/21/2020 7:29 PM [facility] MONOCYTES % 11.6 % 03/21/2020 7:29 PM HYDROELECTRIC PLANT OPERATOR [facility] EOSINOPHILS % 2.1 % 03/21/2020 7:29 PM HYDROELECTRIC PLANT OPERATOR [facility] BASOPHILS % 0.4 % 03/21/2020 7:29 PM [facility] ABS. NEUTROPHILS 2.21 1.60 - 8.30 x10'3/uL 03/21/2020 7:29 PM HYDROELECTRIC PLANT OPERATOR [facility] ABS. LYMPHOCYTES 1.85 0.80 - 4.70 x10'3/uL 03/21/2020 7:29 PM HYDROELECTRIC PLANT OPERATOR [facility] ABS. MONOCYTES 0.55 0.00 - 1.50 x10'3/uL 03/21/2020 7:29 PM HYDROELECTRIC PLANT OPERATOR [facility] ABS. EOSINOPHILS 0.10 0.00 - 0.40 x10'3/uL 03/21/2020 7:29 PM [facility] ABS. BASOPHILS 0.02 0.00 - 0.20 x10'3/uL 03/21/2020 7:29 PM [facility] 03/21/2020 11:1 3 AM HYDROELECTRIC PLANT OPERATOR us Elvia Davis NP LABORATORY Final Result [facility] [address] [place] [address], [place] [phone] * ALBUMIN URINE RANDOM (03/21/2020 11:00 AM HYDROELECTRIC PLANT OPERATOR) MICROALBUMIN (U) negative [facility]- [address], [facility] Comment:alb 10mg/l, cre 300m g/dl, A:C <30 mg/g URINE SPECIMEN / Unknown 03/21/2020 11:00 AM HYDROELECTRIC PLANT OPERATOR us Elvia Davis NP URINE ORDERABLES Edited Result - Final [facility], [facility] [address] [place] [address], [place] [phone] * URINALYSIS AUTO DIP (03/21/2020) COLOR (U) YELLOW [address], [facility], [facility] GLUCOSE (U) NEGATIVE NEGATIVE MG/DL [address], [facility] BILIRUBIN (U) NEGATIVE NEGATIVE MG-[address], [facility] KETONES MG/DL (U) NEGATIVE NEGATIVE MG/DL [address], [facility] SPECIFIC GRAVITY (U) 1.030 1.001 - 1.035 [address], [facility] BLOOD (U) NEGATIVE NEGATIVE [address], [facility] U PH 5.5 5.0 - 9.0 [address], [facility] PROTEIN (U) NEGATIVE NEGATIVE mg/dL MG-[address], [facility] UROBILINOGEN 0.2 0.2 - 1.0 EU/dL = mg/dL MG-[address], [facility] NITRITES NEGATIVE NEGATIVE MG/DL MG-[address], [facility] LEUKOCYTES (U) NEGATIVE NEGATIVE MG-[address], [facility] URINE SPECIMEN OBTAINED BY CLEAN CATCH PROCEDURE / Unknown 03/21/2020 Elvia Davis NP URINE ORDERABLES Final Result [address], [place] [address] [place] [address], documented in this encounter Visit Diagnoses Diagnosis [...] Total Score: 0 03/21/20 20 11:22 AM HYDROELECTRIC PLANT OPERATOR documented as of this encounter Care Teams Air Conditioning Supervisor Relationship Specialty Start Date End Date Elvia Davis, WHITE WASHER PCP - General NURSE PRACTITIONER 03/21/20 04/06/21 documented as of this encounter
--- OUTSIDE RECORDS SUMMARY | 2024-03-24 03:41 | XMS_ITS | Encounter Summary ---
Author Organization [facility] Address [address] [place] [address]. [place], [place] [address] [place] [address] Care Team Providers Care Stage Producer Name Role Phone Zeus Vo MD Primary Care Provider [phone] Encounter Details Date Type Department Care Team (Latest Contact Info) Description 05/14/2021 - 05/14/2021 11:59 PM [facility] Hospital Encounter [facility] [address] [place] [address] Zeus Vo MD [address] [address] Discharge Disposition: Home or Self [...] questions 3-9 0 05/14/2021 [facility] [place] of Occupat ional Health - Occupational Stress [...] Coronavirus/COVID-19? No / Unsure 05/14/2021 7:02 AM EMPLOYMENT TRAINING SPECIALIST documented as of this encounter Medications at Time of Discharge lisinopril 20 MG tabletIndications: Primary hypertension Take 1 tablet (20 mg total) by mouth daily. 30 tablet 2 05/14/2021 06/11/2021 documented as of this encounter Plan of Treatment Upcoming Encounters Date Type Department Care Team (Late st Contact Info) Description 04/07/2024 7:40 AM EMPLOYMENT TRAINING SPECIALIST Office Visit [facility] Multispecialty Care - [address] [address] [address] [place] [address] Zeus Vo MD [facility] [address] [address] documented as of this encounter Visit Diagnoses Not on filedocumented in this encounter Additional Health Concerns Assessment Noted Time PHQ-9 Depression Total Score: 0 05/14/19 7:24 AM EMPLOYMENT TRAINING SPECIALIST documented as of this encounter Care Teams Stage Producer Relationship Specialty Start Date End Date Zeus Vo MD [address] [place] [address] PCP - General INTERNAL MEDICINE 04/07/21 documented as of this encounter
--- OUTSIDE RECORDS SUMMARY | 2024-03-24 03:41 | XMS_ITS | Encounter Summary ---
Author Organization [facility] Address [address] [place] [address]. [place], [place] [address] [place] [address] Care Team Providers Care Federal Mediator Name Role Phone Zeus Vo MD Primary Care Provider [phone] Encounter Details Date Type Department Care Team [...] move on to questions 3-9 0 05/14/2021 [facility] [place] of Occupat ional Health - Occupational Stress [...] Coronavirus/COVID-19? No / Unsure 05/14/2021 7:02 AM PIPE FITTER documented as of this encounter Plan of Treatment Upcoming Encounters Date Type Department Care Team (Late st Contact Info) Description 04/07/2024 7:40 AM PIPE FITTER Office Visit [facility] Multispecialty Care - [address] [address] [address] [place] [address] Zeus Vo MD [address] [place] [phone] documented as of this encounter Visit Diagnoses Not on filedocumented in this encounter Additional Health Concerns Assessment Noted Time PHQ-9 Depression Total Score: 0 05/14/19 7:24 AM PIPE FITTER documented as of this encounter Care Teams Federal Mediator Relationship Specialty Start Date End Date Zeus Vo MD [address] [place] [address] [phone] PCP - General INTERNAL MEDICINE 04/07/21 documented as of this encounter
--- OUTSIDE RECORDS SUMMARY | 2024-03-24 03:41 | XMS_ITS | Encounter Summary ---
Author Organization [facility] Address [address] [place] [address]. [place], [place] [address] [place] [address] Care Team Providers Care Worker'S Compensation Claims Examiner Name Role Phone Elvia Roesn FINANCE CONTROLLER Primary Care Provider Unavailabl e Reason for Visit * Reason Comments Abdominal Pain left side abdominal/ side pain that started today. States he vomitted about 20 minutes before making this appointment Encounter Details Date Type Department Care Team (Latest Contact Info) Description 08/27/2020 9:20 AM CDT Office Visit [facility] Group Multispecialty Care - [address] [address] [address] [place] [address] Zeus Vo MD [address] [place] [address] [address] [place], [place] [phone] Abdominal Pain (left side abdominal/side pain that [...] 3-9 0 03/21/2020 [facility] [place] of Occupat ional Health - Occupational Stress [...] right for you. Copyright Copyright ?? 2020 [employer]. and its affiliates and/or licensors. All rights [...] or side. Where can I learn more? [employer] [employer] https://familydoctor.org/condition/kidney-stones/ National Kidney [...] right for you. Copyright Copyright ?? 2020 1[employer]. and its affiliates and/or licensors. All rights [...] abdominal pain. Patient [facility] be going [facility] emergency room after this visit. Problem List [...] with me- he prefers to go the [facility] ER -Patient encouraged to stay hydrated. [...] was at least in part performed using [employer] and there may be some inherent flaws in this digital proofing and platemaker due to the nature of this program. Zeus Vo MD Internal Medicine [facility], [facility]. documented in this encounter Plan of Treatment Upcoming Encounters Date Type Department Care Team (Late st Contact Info) Description 04/07/2024 7:40 AM EDGE BANDING MACHINE OFFBEARER Office Visit [facility] Group Multispecialty Care - [address] [address] [address] [place] [address] Zeus Vo MD [address] [facility] [address] [place] [address] documented as of this encounter Visit Diagnoses [...] Total Score: 0 03/21/20 20 11:22 AM EDGE BANDING MACHINE OFFBEARER documented as of this encounter Care Teams Worker'S Compensation Claims Examiner Relationship Specialty Start Date End Date Elvia Rosen, AILYN PCP - General NURSE PRACTITIONER 03/21/20 04/06/21 documented as of this encounter
--- OUTSIDE RECORDS SUMMARY | 2024-03-24 03:41 | XMS_ITS | Encounter Summary ---
Author Organization [facility] Address [address] [place] [address]. [place], [place] [address] [place] [address] Care Team Providers Care Cook Helper Name Role Phone Elvia Rosen JAVA SOFTWARE DEVELOPER Primary Care Provider Lien cutler Encounter Details [...] on to questions 3-9 0 03/21/2020 [facility] of Occupat ional Health - Occupational Stress [...] COVID-19? No / Unsure 03/21/2020 9:58 AM MINERAL ORE PROCESSING LABOURER documented as of this encounter Plan of Treatment Upcoming Encounters Date Type Department Care Team (Late st Contact Info) Description 04/07/2024 7:40 AM MINERAL ORE PROCESSING LABOURER Office Visit [facility] Medical Group Multispecialty Care - [address] [address] [address] [place] [address] Zeus Vo MD [address] [facility] [address] [place], [place] [phone] documented as of this encounter Visit Diagnoses Not on filedocumented in this encounter Additional Health Concerns Assessment Noted Time PHQ-9 Depression Total Score: 0 03/21/20 20 11:22 AM MINERAL ORE PROCESSING LABOURER documented as of this encounter Care Teams Cook Helper Relationship Specialty Start Date End Date Elvia Rosen, AILYN PCP - General NURSE PRACTITIONER 03/21/20 04/06/21 documented as of this encounter
--- OUTSIDE RECORDS SUMMARY | 2024-03-24 03:41 | XMS_ITS | Encounter Summary ---
Author Organization [facility] Address [address] [place] [address]. [place], [place] [address] [place] [address] Care Team Providers Care Multi Site Leasing Consultant Name Role Phone Zeus Vo MD Primary Care Provider [phone] Reason for Visit * Reason Comments Follow Up Pt is here to follow up for hypertension and weight concerns. Encounter Details Date Type Department Care Team (Latest Contact Info) Description 06/11/2021 7:00 AM ASSISTANT PROFESSOR OF DIETETICS Office Visit [facility] Medical Group Multispecialty Care - [place] [address] [address] [place] [address] Zeus Vo MD [address] [place] [address] Follow Up (Pt is here to [...] move on to questions 3-9 0 05/14/2021 [facility] [place] of Occupat ional Health - Occupational Stress [...] Coronavirus/COVID-19? No / Unsure 06/11/2021 6:58 AM ASSISTANT PROFESSOR OF DIETETICS documented as of this encounter Last Filed Vital Signs Vital Sign Reading Time Taken Comments Blood Pressure 130/83 06/11/2021 7:30 AM ASSISTANT PROFESSOR OF DIETETICS Pulse 76 06/11/2021 7:11 AM ASSISTANT PROFESSOR OF DIETETICS Temperature 36.4 ??C (97.6 ??F) 06/11/2021 7:11 AM CS T Respiratory Rate 18 06/11/2021 7:11 AM ASSISTANT PROFESSOR OF DIETETICS Oxygen Saturation 98% 06/11/2021 7:11 AM ASSISTANT PROFESSOR OF DIETETICS Inhaled Oxygen Concentration - - Weight 108.9 kg (240 lb) 06/11/2021 7:11 AM ASSISTANT PROFESSOR OF DIETETICS Height 175.3 cm (5' 9 ) 06/11/2021 7:11 AM ASSISTANT PROFESSOR OF DIETETICS Body Mass Index 35.44 06/11/2021 7:11 AM ASSISTANT PROFESSOR OF DIETETICS documented in this encounter Patient Instructions * Patient Instructions* Zeus Vo MD - 06/11/2021 7:00 AM ASSISTANT PROFESSOR OF DIETETICS Follow up in 4 weeks. Patient Education [...] apnea ?? Hormone problems - thyroid disease, [place]???s syndrome, acromegaly, hyperaldosteronism, and pheochromocytoma ?? Lupus [...] pharmacist about all of your drugs, including zjep-cob-djhriln medicines, to see if they may cause [...] a heart attack. Call 911 in the [place] or [place]. The sooner treatment begins, [...] can I learn more? [place] [employer] https://www.heart.org/en/health-topics/svcf-prkbk-cdwudiqr/dessnur-kbt-jdn-make- pc-rmnisi-dgwc-blood-pressure [place] [employer] https://www.heart.org/en/health-topics/xkmo-kiwfz-alsardlo/hac-wede-kzzza-pressu dx-qu-z-silent-killer/svrk-hgca-ltpj-xuntlfs-mgf-qivy-blood-pressure Centers for Disease Control and Prevention https://www.cdc.gov/bloodpressure/risk_factors.htm NHS Choices https://www.nhs.uk/conditions/kxpn-xtlcw-zisinsbt-hypertension/ Last Reviewed Date 2019-06-29 Consumer Information Use [...] or approved for treating a specific patient. [employer] and its affiliates disclaim any warranty or liability relating to this information or the use thereof. The use of this information is governed by the Terms of Use, available at https://www.Flinja.TicketBiscuit/en/solutions/ChoiceMapmp/about/sabina Copyright Copyright ?? 2020 [employer] and its affiliates and/or licensors. All rights reserved. STANT PROFESSOR OF DIETETICS documented in this encounter Progress Notes * [...] index (BMI)of 35.0 to 35.9 in adult ([facility]) E66.01 278.01 SEVERE OBESITY phentermine 37.5 MG [...] index (BMI)of 35.0 to 35.9 in adult ([facility]) - this is his second refill for [...] was at least in part performed using [employer] and there may be some inherent flaws in this money examiner due to the nature of this program. Zeus Vo MD Internal Medicine [facility], [facility]. STANT PROFESSOR OF DIETETICS documented in this encounter Plan of Treatment Upcoming Encounters Date Type Department Care Team (Late st Contact Info) Description 04/07/2024 7:40 AM ASSISTANT PROFESSOR OF DIETETICS Office Visit [facility] Medical Group Multispecialty Care - [place] [address] [address] [address] [place] [address] Zeus Vo MD [address] [place] [address] documented as of this encounter Visit Diagnoses Diagnosis Primary hypertension- Primary Unspecified essential hypertension Class 2 severe obesity due to excess calories with serious comorbidity and body mass index (BMI) of 35.0 to 35.9 in adult ([facility]) documented in this encounter Additional Health Concerns Assessment Noted Time PHQ-9 Depression Total Score: 0 05/14/19 22 7:24 AM ASSISTANT PROFESSOR OF DIETETICS documented as of this encounter Care Teams Multi Site Leasing Consultant Relationship Specialty Start Date End Date Zeus Vo MD [address] [address] PCP - General INTERNAL MEDICINE 04/07/21 documented as of this encounter
--- OUTSIDE RECORDS SUMMARY | 2024-03-24 03:41 | XMS_ITS | Encounter Summary ---
Author Organization [facility] Address [address] [place] [address]. [place], [place] [address] [place] [address] Care Team Providers Care Hack Driver Name Role Phone Elvia Rosen COAT REPAIR INSPECTOR Primary Care Provider Lien cutler Encounter Details [...] move on to questions 3-9 0 03/21/2020 [facility] [place] of Occupat ional Health - Occupational Stress [...] st Contact Info) Description 04/07/2024 7:40 AM LONG LINE TEAMSTER Office Visit [facility] Medical Group Multispecialty Care - [place] [address] [address] [place] [address] [place] [address] [place] [address] [address] [place], [place] [phone] documented as of this encounter Visit Diagnoses Not on filedocumented in this encounter Additional Health Concerns Assessment Noted Time PHQ-9 Depression Total Score: 0 03/21/20 20 11:22 AM LONG LINE TEAMSTER documented as of this encounter Care Teams Hack Driver Relationship Specialty Start Date End Date Elvia Rosen, COAT REPAIR INSPECTOR PCP - General NURSE PRACTITIONER 03/21/20 04/06/21 documented as of this encounter
--- OUTSIDE RECORDS SUMMARY | 2024-03-24 03:41 | XMS_ITS | Encounter Summary ---
Author Organization [facility] Address [address] [place] [address]. [place], [place] [address] [place] [address] Care Team Providers Care Wildlife Control Agent Name Role Phone Elvia Rosen ACCOUNTS RECEIVABLE CLERK Primary Care Provider Lien cutler Encounter Details [...] move on to questions 3-9 0 03/21/2020 [facility] [place] of Occupat ional Health - Occupational Stress [...] COVID-19? No / Unsure 04/29/2020 3:40 PM PROCESS AUTOMATION ENGINEER documented as of this encounter Plan of Treatment Upcoming Encounters Date Type Department Care Team (Late st Contact Info) Description 04/07/2024 7:40 AM PROCESS AUTOMATION ENGINEER Office Visit [facility] Medical Group Multispecialty Care - [place] [address] [address] [place] [address] Zeus Vo MD 118[address] [facility] [address] [place], [place] [phone] documented as of this encounter Visit Diagnoses Not on filedocumented in this encounter Additional Health Concerns Assessment Noted Time PHQ-9 Depression Total Score: 0 03/21/20 20 11:22 AM PROCESS AUTOMATION ENGINEER documented as of this encounter Care Teams Wildlife Control Agent Relationship Specialty Start Date End Date Elvia Rsoen, ACCOUNTS RECEIVABLE CLERK PCP - General NURSE PRACTITIONER 03/21/20 04/06/21 documented as of this encounter
--- OUTSIDE RECORDS SUMMARY | 2024-03-24 03:41 | XMS_ITS | Encounter Summary ---
Author Organization [facility] Address [address] [place] [address]. [place], [place] [address] [place] [address] Care Team Providers Care Commodities Trader Name Role Phone Elvia Davis ARCHAEOLOGY PROFESSOR Primary Care Provider Unavailabl e Reason for Visit * Reason Comments Follow Up 1 month f/u on urina tion frequency, states the medication is helping a lot Encounter Details Date Type Department Care Team (Latest Contact Info) Description 04/29/2020 3:50 PM ACCREDITATION SPECIALIST Office Visit [facility] Medical Group Multispecialty Care - [address] [place] [address] Elvia Davis, ARCHAEOLOGY PROFESSOR Follow Up (1 month f/u on urination [...] move on to questions 3-9 0 03/21/2020 [facility] [place] of Occupat ional Health - Occupational [...] COVID-19? No / Unsure 04/29/2020 3:40 PM ACCREDITATION SPECIALIST documented as of this encounter Last Filed Vital Signs Vital Sign Reading Time Taken Comments Blood Pressure 118/76 04/29/2020 4:02 PM ACCREDITATION SPECIALIST Pulse 67 04/29/2020 3:45 PM ACCREDITATION SPECIALIST Temperature 36.7 ??C (98.1 ??F) 04/29/2020 3:45 PM CS T Respiratory Rate 18 04/29/2020 3:45 PM ACCREDITATION SPECIALIST Oxygen Saturation 97% 04/29/2020 3:45 PM ACCREDITATION SPECIALIST Inhaled Oxygen Concentration - - Weight 108.9 kg (240 lb) 04/29/2020 3:45 PM ACCREDITATION SPECIALIST Height 175.3 cm (5' 9 ) 04/29/2020 3:45 PM ACCREDITATION SPECIALIST Body Mass Index 35.44 04/29/2020 3:45 PM ACCREDITATION SPECIALIST documented in this encounter Patient Instructions * Patient Instructions* Elvia Davis NP - 04/29/2020 3:50 PM ACCREDITATION SPECIALIST Patient Education Patient Education Bladder Spasms Discharge [...] belly pain. Where can I learn more? [place] [employer] https://familydoctor.org/condition/overactive-bladder/ Women???s Health [...] right for you. Copyright Copyright ?? 2020 [employer]. and its affiliates and/or licensors. All rights reserved. Continue Ditropan for OAB Fasting blood work 1 week prior to next appointment Follow up in 6 months or sooner if needed. EDITATION SPECIALIST EDITATION SPECIALIST EDITATION SPECIALIST EDITATION SPECIALIST documented in this encounter Progress Notes [...] file Gets together: Not on file Attends mormon service: Not on file Active member of [...] Zeus Vo MD at 04/30/2020 7:08 AM ACCREDITATION SPECIALIST EDITATION SPECIALIST EDITATION SPECIALIST documented in this encounter Plan of Treatment Upcoming Encounters Date Type Department Care Team (Late st Contact Info) Description 04/07/2024 7:40 AM ACCREDITATION SPECIALIST Office Visit [facility] Medical Group Multispecialty Care - [place] [address] [address] [place] [address] Zeus Vo MD [address] [place] [address] 157 [place] [address] documented as of this encounter Visit Diagnoses Diagnosis Overactive bladder- Primary Hypertonicity of bladder documented in this encounter Additional Health Concerns Assessment Noted Time PHQ-9 Depression Total Score: 0 03/21/20 20 11:22 AM ACCREDITATION SPECIALIST documented as of this encounter Care Teams Commodities Trader Relationship Specialty Start Date End Date Elvia Davis, ARCHAEOLOGY PROFESSOR PCP - General NURSE PRACTITIONER 03/21/20 04/06/21 documented as of this encounter
--- OUTSIDE RECORDS SUMMARY | 2024-03-24 03:41 | XMS_ITS | Encounter Summary ---
Author Organization [facility] Address [address] [place] [address]. [place], [place] [address] [place] [address] Care Team Providers Care Scheduling Assistant Name Role Phone Zeus Vo MD Primary Care Provider [phone] Encounter Details Date Type Department Care Team [...] 3-9 0 05/14/2021 [facility] [place] of Occupat ional Health - Occupational Stress [...] st Contact Info) Description 04/07/2024 7:40 AM CLINICAL NURSE REVIEWER Office Visit [facility] Medical Group Multispecialty Care - [place] [address] [address] [place] [address] Zeus Vo MD [address] [place] [address] documented as of this encounter Visit Diagnoses Not on filedocumented in this encounter Additional Health Concerns Assessment Noted Time PHQ-9 Depression Total Score: 0 05/14/19 22 7:24 AM CLINICAL NURSE REVIEWER documented as of this encounter Care Teams Scheduling Assistant Relationship Specialty Start Date End Date Zeus Vo MD [address] [place] [address] PCP - General INTERNAL MEDICINE 04/07/21 documented as of this encounter
--- OUTSIDE RECORDS SUMMARY | 2024-03-24 03:41 | XMS_ITS | Encounter Summary ---
Author Organization [facility] Address [address] [place] [address]. [place], [place] [address] [place] [address] Care Team Providers Care Gem Setter Name Role Phone Zeus Vo MD Primary Care Provider [phone] Reason for Visit * Reason Onset Date Comments Other 07/11/2021 Encounter Details Date Type Department Care Team (Late st Contact Info) Description 07/11/2021 Telephone [facility] Medical Group Multispecialty Care - [place] [address] [address] [place] [address] Zeus Vo MD [address] [place] [address] 157 [place] [address] Other Social History Tobacco Use [...] move on to questions 3-9 0 05/14/2021 [facility] [place] of Occupat ional Health - Occupational Stress [...] gout flare. Zeus Vo MD Internal Medicine [facility] Medical [facility], [facility]. * Laura Engel MA - 07/11/2021 3:33 PM CDT Please advise. * Melissa Jesus - 07/11/2021 2:23 PM CDT Pt has gout in his right foot, would like a script called in for him , came on very suddenly he said, in a lot of pain [facility] [place] documented in this encounter Plan of Treatment Upcoming Encounters Date Type Department Care Team (Late st Contact Info) Description 04/07/2024 7:40 AM EMERGENCY RESPONSE TECHNICIAN Office Visit [facility] Medical Group Multispecialty Care - [place] [address] [address] [address] [place] [address] Zeus Vo MD [address] [place] [address] documented as of this encounter Visit Diagnoses Diagnosis Acute gout, unspecified cause, unspecified site- Primary documented in this encounter Additional Health Concerns Assessment Noted Time PHQ-9 Depression Total Score: 0 05/14/19 7:24 AM EMERGENCY RESPONSE TECHNICIAN documented as of this encounter Care Teams Gem Setter Relationship Specialty Start Date End Date Zeus Vo MD [address] [place] [address] PCP - General INTERNAL MEDICINE 04/07/21 documented as of this encounter
--- OUTSIDE RECORDS SUMMARY | 2024-03-24 03:41 | XMS_ITS | Encounter Summary ---
Author Organization [facility] Address [address] [place] [address]. [place], [place] [address] [place] [address] Care Team Providers Care Earth Mover Name Role Phone Elvia Davis RATE ANALYST Primary Care Provider Unavailabl e Reason for Visit * Reason Comments Follow Up 6 month f/u Encounter Details Date Type Department Care Team (Latest Contact Info) Description 11/05/2020 8:40 AM CDT Office Visit [facility] Medical Group Multispecialty Care - [address] [place] [address] Elvia Davis, RATE ANALYST Follow Up (6 month f/u) Social History [...] move on to questions 3-9 0 03/21/2020 [facility] [place] of Occupat ional Health - Occupational Stress [...] belly pain. Where can I learn more? [employer] https://familydoctor.org/condition/overactive-bladder/ Women???s Health [...] right for you. Copyright Copyright ?? 2020 [employer]. and its affiliates and/or licensors. All rights [...] Gatherings with Friends and Family: ??? Attends [employer]ist Services: ??? Active Member of Clubs or [...] FUNCTION VENIPUNC ARM DRAW 3. Need for kehujwtsuk-lmtoohx-evlwuviil (Tdap) vaccine Z23 V06.1 REQUIRES DIPHTHERIA, TETANUS AND PERTUSSIS VACCINATION [52438] Boostrix (Tdap) Recommendations and Plan: Blood work done and will call with results Give DTaP today Increase water intake Follow up in 6 months 1. Overactive bladder Call office if symptoms re-occur 2. Abnormal kidney function Increase water inatke - VENIPUNC ARM DRAW 3. Need for fhaagdfyho-domaoeq-fcwcrhdgw (Tdap) vaccine - [86299] Boostrix (Tdap) ELVIA DAVIS NP 11/05/2020 10:04 AM documented in this encounter Plan of Treatment Upcoming Encounters Date Type Department Care Team (Late st Contact Info) Description 04/07/2024 7:40 AM OPHTHALMIC ASSISTANT Office Visit [facility] Medical Group Multispecialty Care - [place] [address] [address] [place] [address] Zeus Vo MD [address] [place] [address] documented as of this encounter Procedures Procedure Name Priority Date/Time Associated Diagnosis Comments COMPREHENSIVE METABOLIC PANEL Routine 11/05/2020 10:38 AM CDT Abnormal kidney function VENIPUNC ARM DRAW Routine 11/05/2020 9:5 9 AM CDT Abnormal kidney function documented in this encounter Results * (ABNORMAL) COMPREHENSIVE METABOLIC PANEL (11/05/2020 10:38 AM CDT) SODIUM S/P/B 142 136 - 145 MMOL/L 11/05/2020 11:20 PM CDT [facility] POTASSIUM S/P/B 4.1 3.5 - 5.1 MMOL/L 11/05/2020 11:20 PM CDT [facility] CHLORIDE S/P/B 107 98 - 107 MMOL/L 11/05/2020 11:20 PM CDT -[facility] CO2 22.9 21 - 32 MMOL/L 11/05/2020 11:20 PM CDT -[facility] GLUCOSE 103(H) 70 - 99 MG/DL 11/05/2020 11:20 PM T -[facility] BUN 12 6 - 24 MG/DL 11/05/2020 11:20 PM CDT [facility] CREATININE S/P/B 1.18 0.70 - 1.30 MG/DL 11/05/2020 11:[address] [facility] CALCIUM S/P/B 8.8 8.4 - 10.5 MG/DL 11/05/2020 11:[address] [facility] BILIRUBIN TOTAL S/P/B 0.7 0.2 - 1.0 MG/DL 11/05/2020 11:20 PM T -[facility] ALKALINE PHOSPHATASE S/P/B 74 45 - 115 U/L 11/05/2020 11:20 PM CDT -[facility] AST 48(H) 15 - 37 U/L 11/05/2020 11:20 PM [address] [facility] ALT 108(H) 16 - 63 U/L 11/05/2020 11:[address] PM [address] [facility] TOTAL PROTEIN S/P/B 7.2 6.4 - 8.2 G/DL 11/05/2020 11:[address] [facility] ALBUMIN S/P/B 4.2 3.4 - 5.0 G/DL 11/05/2020 11:[address] [facility] ANION GAP 12.1 5 - 15 MMOL/L 11/05/2020 11:[address] [facility] Comment:REFERENCE RANGE NOT ESTABLISHED OSMOLALITY (CALC) 294 MOSM/KG 11/05/2020 11:[address] [facility] Comment:REFERENCE RANGE NOT ESTABLISHED EGFR NON-AFR. [...] Davis NP LABORATORY Final Result -[facility] [place] [address] [place] [address], documented in this encounter Visit Diagnoses Diagnosis Overactive bladder- Primary Hypertonicity of bladder Abnormal kidney function Unspecified disorder of kidney and ureter Need for winqslouid-yclpifk-vounuiitt (Tdap) vaccine Need for prophylactic vaccination with combined koosauidld-wkmxabw-qlkqbhupv (DTP) vaccine documented in this encounter Additional Health Concerns Assessment Noted Time PHQ-9 Depression Total Score: 0 03/21/20 11:22 AM OPHTHALMIC ASSISTANT documented as of this encounter Care Teams Earth Mover Relationship Specialty Start Date End Date Elvia Davis, RATE ANALYST PCP - General NURSE PRACTITIONER 03/21/20 04/06/21 documented as of this encounter
--- OUTSIDE RECORDS SUMMARY | 2024-03-24 03:41 | XMS_ITS | Encounter Summary ---
Author Organization [facility] Address [address] [place] [address]. [place], [place] [address] [place] [address] Care Team Providers Care Billet Heater Name Role Phone Elvia Rosen TOXICS PROGRAM OFFICER Primary Care Provider Lien cutler Encounter Details [...] move on to questions 3-9 0 03/21/2020 [facility] [place] of Occupat ional Health - Occupational Stress [...] Contact Info) Description 04/07/2024 7:40 AM CONTROLS TECHNICIAN Office Visit [facility] Medical Group Multispecialty Care - [place] [address] [address] [address] [place] [address] [place] [address] [place] [address] 157 [place], [place] [phone] documented as of this encounter Visit Diagnoses Not on filedocumented in this encounter Additional Health Concerns Assessment Noted Time PHQ-9 Depression Total Score: 0 03/21/20 20 11:22 AM CONTROLS TECHNICIAN documented as of this encounter Care Teams Billet Heater Relationship Specialty Start Date End Date Elvia Rosen, TOXICS PROGRAM OFFICER PCP - General NURSE PRACTITIONER 03/21/20 04/06/21 documented as of this encounter
--- OUTSIDE RECORDS SUMMARY | 2024-03-24 03:41 | XMS_ITS | Encounter Summary ---
Author Organization [facility] Address [address] [place] [address]. [place], [place] [address] [place] [address] Care Team Providers Care Emergency Management System Director Name Role Phone Zeus Vo MD Primary Care Provider [phone] Reason for Visit * Reason Comments Follow Up Pt is here to follow up on blood pressure and weight loss. Encounter Details Date Type Department Care Team (Latest Contact Info) Description 07/09/2021 7:00 AM CDT Office Visit [facility] Medical Group Multispecialty Care - [place] [address] [address] [place] [address] Zeus Vo MD [address] [place] [address] [phone] Follow Up (Pt is here to follow [...] move on to questions 3-9 0 05/14/2021 [facility] [place] of Occupat ional Health - Occupational Stress [...] was at least in part performed using [employer] and there may be some inherent flaws in this mammal control agent due to the nature of this program. Zeus Vo MD Internal Medicine [facility], [facility]. documented in this encounter Plan of Treatment Upcoming Encounters Date Type Department Care Team (Late st Contact Info) Description 04/07/2024 7:40 AM MOLD SPRAYER Office Visit [facility] Medical Group Multispecialty Care - [place] [address] [address] [place] [address] Zeus Vo MD [address] [place] [address] documented as of this encounter Visit Diagnoses Diagnosis Primary hypertension- Primary Unspecified essential hypertension Class 1 obesity due to excess calories with serious comorbidity and body mass index (BMI) of 34.0 to 34.9 in adult documented in this encounter Additional Health Concerns Assessment Noted Time PHQ-9 Depression Total Score: 0 05/14/19 7:24 AM MOLD SPRAYER documented as of this encounter Care Teams Emergency Management System Director Relationship Specialty Start Date End Date Zeus Vo MD [address] [place] [address] PCP - General INTERNAL MEDICINE 04/07/21 documented as of this encounter
--- OUTSIDE RECORDS SUMMARY | 2024-03-24 03:41 | XMS_ITS | Encounter Summary ---
Author Organization [facility] Address [address] [place] [address]. [place], [place] [address] [place] [address] Care Team Providers Care Marine Engine Machinist Apprentice Name Role Phone Elvia Rosen DECORATOR CONSULTANT Primary Care Provider Lien cutler Encounter Details [...] move on to questions 3-9 0 03/21/2020 [facility] [place] of Occupat ional Health - Occupational Stress [...] st Contact Info) Description 04/07/2024 7:40 AM BLOOD BANK LABORATORY PROFESSIONAL Office Visit [facility] Medical Group Multispecialty Care - [place] [address] [address] [place] [address] [place] [address] [place] [address] 157 [place], [place] [phone] documented as of this encounter Visit Diagnoses Not on filedocumented in this encounter Additional Health Concerns Assessment Noted Time PHQ-9 Depression Total Score: 0 03/21/20 20 11:22 AM BLOOD BANK LABORATORY PROFESSIONAL documented as of this encounter Care Teams Marine Engine Machinist Apprentice Relationship Specialty Start Date End Date Elvia Rosen, DECORATOR CONSULTANT PCP - General NURSE PRACTITIONER 03/21/20 04/06/21 documented as of this encounter
--- OUTSIDE RECORDS SUMMARY | 2024-03-24 03:41 | XMS_ITS | Encounter Summary ---
Author Organization [facility] Address [address] [place] [address]. [place], [place] [address] [place] [address] Care Team Providers Care Uncrater Name Role Phone Elvia Rosen OPERATING ROOM COORDINATOR Primary Care Provider Unavailabl e Reason for [...] move on to questions 3-9 0 03/21/2020 [facility] [place] of Occupat ional Health - Occupational Stress [...] st Contact Info) Description 04/07/2024 7:40 AM MANAGER DATA WAREHOUSING Office Visit [facility] Medical Group Multispecialty Care - [address] [place], [place] [id number] Zeus Vo MD [address] [place] [address] [address] [place], [place] [id number] documented as of this encounter Procedures Procedure [...] Total Score: 0 03/21/20 20 11:22 AM MANAGER DATA WAREHOUSING documented as of this encounter Care Teams Uncrater Relationship Specialty Start Date End Date Elvia Rosen, AILYN PCP - General NURSE PRACTITIONER 03/21/20 04/06/21 documented as of this encounter
--- OUTSIDE RECORDS SUMMARY | 2024-03-24 03:41 | XMS_ITS | Encounter Summary ---
Author Organization [facility] Address [address] [place] [address]. [place], [place] [address] [place] [address] Care Team Providers Care Net Software Architect Name Role Phone Zeus Vo MD Primary Care Provider [phone] Encounter Details Date Type Department Care Team [...] questions 3-9 0 05/14/2021 [facility] [place] of Occupat ional Health - Occupational Stress [...] st Contact Info) Description 04/07/2024 7:40 AM RECRUITMENT INTERN Office Visit [facility] Medical Group Multispecialty Care - [address] [address] [address] [place] [address] Zeus Vo MD [address] [place] [address] documented as of this encounter Visit Diagnoses Not on filedocumented in this encounter Additional Health Concerns Assessment Noted Time PHQ-9 Depression Total Score: 0 05/14/19 22 7:24 AM RECRUITMENT INTERN documented as of this encounter Care Teams Net Software Architect Relationship Specialty Start Date End Date Zeus Vo MD [address] [place] [address] PCP - General INTERNAL MEDICINE 04/07/21 documented as of this encounter
--- OUTSIDE RECORDS SUMMARY | 2024-03-24 03:41 | XMS_ITS | Encounter Summary ---
Author Organization [facility] Address [facility]ly [facility]. [place], [place] [address] [place] [address] Care Team Providers Care Hospice Liaison Name Role Phone Zeus Vo MD Primary Care Provider [phone] Reason for Referral * Sleep Lab (Routine) - Closed Specialty Diagnoses / Procedures Referred By Contac t Referred To Contact Diagnoses Fatigue, unspecified type Procedures Limited Channel Unattended (Home Study) (G0399) [place] [address] [place] [address] Phone: tel: fax: Referral ID Status Reason Start Date Expiration Date Visits Re quested Visits Authorized [id number] Closed 06/25/2021 12/22/2021 2 2 L FILER Reason for Visit * Reason Comments Follow Up Pt is here for a fol low up. He is concerned about fatigue. Encounter Details Date Type Department Care Team (Latest Contact Info) Description 05/14/2021 7:00 AM METAL FILER Office Visit [facility] Medical Group Multispecialty Care - [address] [address] [address] [place] [address] Zeus Vo MD [address] [place] [address] Follow Up (Pt is here for [...] questions 3-9 0 05/14/2021 [facility] [place] of Occupat ional Health - Occupational Stress [...] Coronavirus/COVID-19? No / Unsure 05/14/2021 7:02 AM METAL FILER documented as of this encounter Last Filed Vital Signs Vital Sign Reading Time Taken Comments Blood Pressure 160/84 05/14/2021 7:49 AM METAL FILER Pulse 77 05/14/2021 7:08 AM METAL FILER Temperature 36.4 ??C (97.6 ??F) 05/14/2021 7:08 AM CS T Respiratory Rate 18 05/14/2021 7:08 AM METAL FILER Oxygen Saturation 95% 05/14/2021 7:08 AM METAL FILER Inhaled Oxygen Concentration - - Weight 116.1 kg (256 lb) 05/14/2021 7:08 AM METAL FILER Height 175.3 cm (5' 9 ) 05/14/2021 7:08 AM METAL FILER Body Mass Index 37.8 05/14/2021 7:08 AM METAL FILER documented in this encounter Patient Instructions * Patient Instructions* Zeus Vo MD - 05/14/2021 7:00 AM METAL FILER Images from the original note were not [...] for Disease Control and Prevention https://www.cdc.gov/me-cfs/about/index.html National [place] on Aging https://www.elise.nih.gov/health/qkwxyqq-jozmf-gxctjv NHS Choices http://www.nhs.uk/livewell/nprgbqfkm-dxj-nrmibky/pages/jkdrwemnq-jzb-hmtavzh.asp x Last Reviewed Date 2020-05-29 Consumer Information [...] or approved for treating a specific patient. [employer]. and its affiliates disclaim any warranty or liability relating to this information or the use thereof. The use of this information is governed by the Terms of Use, available at https://www.iPerceptions.Taptu/en/solutions/lexicomp/about/sabina Copyright Copyright ?? 2020 [employer] and its affiliates and/or licensors. All rights [...] Condiments: Pepper, herbs, spices, vinegar, lemon or otoe-missouria juices are great for seasoning. Be careful [...] learn more? Academy of Nutrition and Dietetics https://www.eatright.org/health/wellness/zjrwd-fkz-wxpzgvcrqmrgai-health/dash-di eg-jhtcjhar-vaizberkmtdg-fxpswdz-zijj-rrd-lifestyle FamilyDoctor.org http://familydoctor.org/familydoctor/en/prevention-wellness/food-nutrition/weigh t-loss/xnj-nqwu-ioae-zatsprr-rgmhbd-ca-efobnmk-wntg-rtjzc-pressure.html Last Reviewed Date 2020-06-17 Consumer Information Use [...] or approved for treating a specific patient. [employer] and its affiliates disclaim any warranty or liability relating to this information or the use thereof. The use of this information is governed by the Terms of Use, available at https://www.iPerceptions.com/en/solutions/joshmp/about/sabina Copyright Copyright ?? 2020 [employer]. and its affiliates and/or licensors. All rights reserved. L FILER L FILER L FILER documented in this encounter Progress Notes * [...] the free smart phone apps such as CRAVE to help track calories and try to [...] was at least in part performed using Zulahoo and there may be some inherent flaws in this indirect sales representative due to the nature of this program. MD Zeus BRUNNER MD Internal Medicine [facility]. L FILER L FILER documented in this encounter Plan of Treatment Upcoming Encounters Date Type Department Care Team (Late st Contact Info) Description 04/07/2024 7:40 AM METAL FILER Office Visit [facility] Multispecialty Care - [address] [address] [address] [place] [address] Zeus Vo MD [address] [place] [address] [address] [place] [address] documented as of this encounter Procedures Procedure Name Priority Date/Time Associated Diagnosis Comments TSH W/REFLEX Routine 05/14/2021 7:46 AM METAL FILER Annual physical exam General medical exam Screening for hypothyroidism Class 2 obesity due to excess calories without serious comorbidity with body mass index (BMI) of 37.0 to 37.9 in adult HEMOGLOBIN, GLYCOSYLATED Routine 05/14/2021 7:46 AM METAL FILER Annual physical exam General medical exam Screening for diabetes mellitus CORTISOL, TOTAL Routine 05/14/2021 7:46 AM METAL FILER Fatigue, unspecified type Class 2 obesity due to excess calories without serious comorbidity with body mass index (BMI) of 37.0 to 37.9 in adult COMPREHENSIVE METABOLIC PANEL Routine 05/14/2021 7:46 AM METAL FILER Annual physical exam General medical exam LIPID PANEL Routine 05/14/2021 7:46 AM METAL FILER Annual physical exam General medical exam Screening for hyperlipidemia HEPATITIS C ANTIBODY Routine 05/14/2021 7:46 AM METAL FILER Annual physical exam General medical exam Encounter for hepatitis C screening test for low risk patient CBC W/DIFF AUTOMATED Routine 05/14/2021 7:46 AM METAL FILER Annual physical exam General medical exam TESTOSTERONE, TOTAL Routine 05/14/2021 7 :46 AM METAL FILER Fatigue, unspecified type Class 2 obesity due to excess calories without serious comorbidity with body mass index (BMI) of 37.0 to 37.9 in adult VENIPUNC ARM DRAW Routine 05/14/2021 7:1 9 AM METAL FILER Annual physical exam General medical exam URINALYSIS, AUTO, COMPLETE Routine 05/14/2021 Annual physical exam General medical exam ALBUMIN URINE RANDOM W/CREATININE Routine 05/14/2021 Annual physical exam General medical exam documented in this encounter Results * Limited Channel Unattended (Home Study) (G0399) (07/01/2021 4:15 PM CDT) Narrative [facility] SLEEP LAB - 07/01/2021 4:15 PM CDT Catarino Moonye MD ? 07/15/2021 ??3:25 PM [facility] O? [place], [place] ?? HOME SLEEP STUDY INTERPRETATION PATIENT NAME: Manuel Hall DATE OF : 1975 ?? DATE OF SERVICE: 07/01/2021 Ordering Phy Exam Description Zeus Vo M.D. Home Sleep Study ATTENDING PHYSICIAN: Dr. Catarino Mooney REFERRING PHYSICIAN: Dr. Zeus Vo SUMMARY DATA Sleep Study/ Architecture: This patient was studied using [employer] devices using 1 RIP effort belt and [...] ??77 57.7 Assessment/Plan: Severe Obstructive Sleep Apnea. Odem treatment option should be discussed with the [...] exacerbate snoring and sleep-related problems, such as RETAIL OFFICE ASSOCIATE depressants, especially at bedtime. This document was electronically signed by: Catarino Mooney M.D. on 07/15/2021 at 11:48 AM. Zeus Vo MD SLEEP CENTER ORDERABLES Final Re sult Performing Organization Address City/[facility] Co de Phone Number [facility] SLEEP LAB * CORTISOL, TOTAL (05/14/2021 7:46 AM METAL FILER) CORTISOL 7.8 mcg/dL 05/14/2021 8:[address] [facility] Comment: A.M. SPECIMENS: 5.3 TO 22.5 mcg/dL P.M. SPECIMENS: 3.4 TO 16.8 mcg/dL 05/14/2021 7:46 AM METAL FILER us Zeus Vo MD LABORATORY Final Result Performing Organization Address [facility] Co de Phone Number [facility] [address] [place] [address], [place] [phone] * TESTOSTERONE, TOTAL (05/14/2021 7:46 AM METAL FILER) Testosterone: 476.2 197.4 - 669.6 NG/DL 05/14/2021 7:[address] [facility] 05/14/2021 7:46 AM METAL FILER us Zeus Vo MD LABORATORY Final Result Performing Organization Address [facility] de Phone Number [facility] [address] [place] [address], [place] [phone] * (ABNORMAL) HEMOGLOBIN, GLYCOSYLATED (05/14/2021 7:46 AM METAL FILER) HGB A1C 5.6 3.80 - 5.60 % 05/14/2021 6:34 PM METAL FILER [facility] ESTIMATED AVG GLUCOSE 114(H) 74 - 106 MG/DL 05/14/2021 6:34 PM METAL FILER [facility] 05/14/2021 7:46 AM METAL FILER us Zeus Vo MD LABORATORY Final Result Performing Organization Address City/[facility]/ZIP Co de Phone Number [facility] [address] [place] [address], [place] [phone] * HEPATITIS C ANTIBODY (05/14/2021 7:46 AM METAL FILER) HEPATITIS C AB NON-REACTI VE NON-REACT ADAM 05/14/2021 8:[address] [facility] Comment: ANTIBODIES TO HCV NOT DETECTED. DOES NOT EXCLUDE THE POSSIBILITY OF EXPOSURE TO HCV. 05/14/2021 7:46 AM METAL FILER Zeus Vo MD LABORATORY Final Result Performing Organization Address [facility] Co de Phone Number [facility] [address] [place] [address], [place] [phone] * (ABNORMAL) LIPID PANEL (05/14/2021 7:46 AM METAL FILER) Pathologist [facility] CHOLESTEROL 193 <200 MG/DL 05/14/2021 3:54 PM METAL FILER [facility] TRIGLYCERIDES 137 <150 MG/DL 05/14/2021 3:54 PM METAL FILER [facility] HDL 42 >40 MG/DL 05/14/2021 3:54 PM [facility] LDL-C 124(H) <100 MG/DL 05/14/2021 3:54 PM METAL FILER [facility] VLDL CALCULATION 27 5 - 28 MG/DL 05/14/2021 3:54 PM METAL FILER [facility] CHOL/HDL RATIO 4.6(H) 0.0 - 4.0 05/14/2021 3:54 PM METAL FILER [facility] LDL/HDL 3.0(H) 0.41 - 2.13 05/14/2021 3:54 PM [facility] NON HDL CHOLESTEROL 151(H) <140 MG/DL 05/14/2021 3:54 PM METAL FILER [facility] 05/14/2021 7:46 AM METAL FILER us Zeus Vo MD LABORATORY Final Result [facility] [address] [place] [address], [place] [phone] * TSH W/REFLEX (05/14/2021 7:46 AM METAL FILER) TSH 2.204 0.358 - 3.740 uIU/ML 05/14/2021 3:54 PM METAL FILER [facility] 05/14/2021 7:46 AM METAL FILER us Zeus Vo MD LABORATORY Final Result Performing Organization Address City/[facility]/ZIP Co de Phone Number [facility] PON[facility]UJaime [address] [address] [place] [address], [place] [phone] * (ABNORMAL) COMPREHENSIVE METABOLIC PANEL (05/14/2021 7:46 AM METAL FILER) SODIUM S/P/B 140 136 - 145 MMOL/L 05/14/2021 3:54 PM [facility] POTASSIUM S/P/B 4.3 3.5 - 5.1 MMOL/L 05/14/2021 3:54 PM [facility] CHLORIDE S/P/B 107 98 - 107 MMOL/L 05/14/2021 3:54 PM [facility] CO2 25.0 21 - 32 MMOL/L 05/14/2021 3:54 PM [facility] GLUCOSE 107(H) 70 - 99 MG/DL 05/14/2021 3:54 PM [facility] BUN 11 6 - 24 MG/DL 05/14/2021 3:54 PM [facility] CREATININE S/P/B 1.31(H) 0.70 - 1.30 MG/DL 05/14/2021 3:54 PM [facility] CALCIUM S/P/B 8.6 8.4 - 10.5 MG/DL 05/14/2021 3:54 PM [facility] BILIRUBIN TOTAL S/P/B 0.7 0.2 - 1.0 MG/DL 05/14/2021 3:54 PM [facility] ALKALINE PHOSPHATASE S/P/B 68 45 - 115 U/L 05/14/2021 3:54 PM [facility] AST 54(H) 15 - 37 U/L 05/14/2021 3:54 PM [facility] ALT 111(H) 16 - 63 U/L 05/14/2021 3:54 PM [facility] TOTAL PROTEIN S/P/B 7.2 6.4 - 8.2 G/DL 05/14/2021 3:54 PM [facility] ALBUMIN S/P/B 3.9 3.4 - 5.0 G/DL 05/14/2021 3:54 PM [facility] ANION GAP 8.0 5 - 15 MMOL/L 05/14/2021 3:54 PM [facility] Comment:REFERENCE RANGE NOT ESTABLISHED OSMOLALITY (CALC) 290 MOSM/KG 05/14/2021 3:54 PM [facility] Comment:REFERENCE RANGE NOT ESTABLISHED EGFR NON-AFR. AMER. 66(L) >90 ML/MIN/1 .73 M2 05/14/2021 3:54 PM [facility] EGFR AFR. AMER. 76(L) >90 ML/MIN/1 .73 M2 05/14/2021 3:54 PM [facility] GFR NOTES THE ESTIMATED GFR IS CALCULATED USING THE 2009 CKD-EPI EQUATION. THE FOLLOWING CATEGORIES FOR GRADING RENAL FUNCTION ARE RECOMMENDED BY THE INTERNATIONAL SOCIETY OF NEPHROLOGY (KDIGO 2012 CLINICAL PRACTICE GUIDELINE). 05/14/2021 3:54 PM METAL FILER [facility] Comment: G1,NORMAL OR HIGH: >89 ml/min/1.73 m2 G2,MILDLY DECREASED: 60-89 ml/min/1.73 m2 G3A,MILDLY TO MODERATELY DECREASED: 45-59 ml/min/1.73 m2 G3B,MODERATELY TO SEVERELY DECREASED: 30-44 ml/min/1.73 m2 G4,SEVERELY DECREASED: 15-29 ml/min/1.73 m2 G5,KIDNEY FAILURE: <15 ml/min/1.73 m2 05/14/2021 7:46 AM METAL FILER Zeus Vo MD LABORATORY Final Result [facility] [address] [place] [address], * (ABNORMAL) CBC W/DIFF AUTOMATED (05/14/2021 7:46 AM METAL FILER) WBC 4.2 4.0 - 10.8 x10'3/uL 05/14/2021 2:27 PM METAL FILER [facility] RBC 4.56 4.50 - 6.10 x10'6/uL 05/14/2021 2:27 PM METAL FILER [facility] HGB 14.6 13.0 - 18.0 G/DL 05/14/2021 2:27 PM METAL FILER [facility] HCT 41.6 37.0 - 52.0 % 05/14/2021 2:27 PM METAL FILER [facility] MCV 91.2 78.0 - 100.0 FL 05/14/2021 2:27 PM METAL FILER [facility] MCH 32.0(H) 27.0 - 31.0 PG 05/14/2021 2:27 PM METAL FILER [facility] MCHC 35.1 33.0 - 36.0 G/DL 05/14/2021 2:27 PM [facility] RDW 13.2 11.5 - 14.5 % 05/14/2021 2:27 PM [facility] PLT 199 150 - 350 x10'3/uL 05/14/2021 2:27 PM [facility] MPV 10.5(H) 7.4 - 10.4 FL 05/14/2021 2:27 PM [facility] DIFFERENTIAL TYPE AUTOMATED DIFFERENTIAL 05/14/2021 2:27 PM [facility] NEUTROPHILS % 48.5 % 05/14/2021 2:27 PM [facility] LYMPHOCYTES % 36.3 % 05/14/2021 2:27 PM [facility] MONOCYTES % 10.9 % 05/14/2021 2:27 PM [facility] EOSINOPHILS % 3.6 % 05/14/2021 2:27 PM [facility] BASOPHILS % 0.5 % 05/14/2021 2:27 PM [facility] IMMATURE GRANS % 0.2 % 05/14/2021 2:27 PM [facility] ABS. NEUTROPHILS 2.04 1.60 - 8.30 x10'3/uL 05/14/2021 2:27 PM [facility] ABS. LYMPHOCYTES 1.53 0.80 - 4.70 x10'3/uL 05/14/2021 2:27 PM [facility] ABS. MONOCYTES 0.46 0.00 - 1.50 x10'3/uL 05/14/2021 2:27 PM [facility] ABS. EOSINOPHILS 0.15 0.00 - 0.40 x10'3/uL 05/14/2021 2:27 PM [facility] ABS. BASOPHILS 0.02 0.00 - 0.20 x10'3/uL 05/14/2021 2:27 PM [facility] ABS. IMMATURE GRANULOCYTES 0.01 0.00 - 0.03 x10'3/uL 05/14/2021 2:27 PM METAL FILER [facility] 05/14/2021 7:46 AM METAL FILER us Zeus Vo MD LABORATORY Final Result Performing Organization Address City/[facility]/ZIP Co de Phone Number [facility] [address] [facility] [place] [address], [place] [phone] * ALBUMIN URINE RANDOM (05/14/2021) MICROALBUMIN (U) 10 MG- [address], [place] CREATININE RANDOM (U) 300 [address], [place] MICROALB/CREAT <30 MG-[address], [place] URINE SPECIMEN / Unknown 05/14/2021 us Zeus Vo MD URINE ORDERABLES Final Result Performing Organization Address City/[facility]/ZIP Co de Phone Number MG[address], [place] [address] [place] [address], * URINALYSIS, AUTO, COMPLETE (05/14/2021) COLOR (U) YELLOW [address], [place] TRANSPARENCY CLEAR [address], [place] GLUCOSE (U) NEGATIVE NEGATIVE MG/DL [address], [place] BILIRUBIN (U) NEGATIVE NEGATIVE MG-[address], [place] KETONES MG/DL (U) NEGATIVE NEGATIVE MG/DL [address], [place] SPECIFIC GRAVITY (U) 1.025 1.001 - 1.035 [address], [place] BLOOD (U) TRACE (Non Hemolyzed, Intact) NEGATIVE [address], [place] U PH 5.5 5.0 - 9.0 [address], [place] PROTEIN (U) NEGATIVE NEGATIVE mg/dL MG-[address], [place] UROBILINOGEN 0.2 0.2 - 1.0 EU/dL = mg/dL MG-[address], [place] NITRITES NEGATIVE NEGATIVE MG/DL MG-[address], [place] LEUKOCYTES (U) NEGATIVE NEGATIVE MG-[address], [place] URINE SPECIMEN OBTAINED BY CLEAN CATCH PROCEDURE / Unknown 05/14/2021 Zeus Vo MD URINE ORDERABLES Final Result [address], [place] [address] [facility] [address] [place] [address], [place] [phone] documented in this encounter Visit Diagnoses Diagnosis [...] Total Score: 0 05/14/19 22 7:24 AM METAL FILER documented as of this encounter Care Teams Hospice Liaison Relationship Specialty Start Date End Date Zeus Vo MD [address] [facility] [address] [place] [address] PCP - General INTERNAL MEDICINE 04/07/21 documented as of this encounter
--- OUTSIDE RECORDS SUMMARY | 2024-03-24 03:41 | XMS_ITS | Encounter Summary ---
Author Organization [facility] Address [address] [place] [address]. [place], [place] [address] [place] [address] Care Team Providers Care Domestic Travel Consultant Name Role Phone Zeus Vo MD Primary Care Provider [phone] Reason for Visit * Sleep Lab (Routine) - Closed Specialty Diagnoses / Procedures Referred By Contac t Referred To Contact Diagnoses Fatigue, unspecified type Procedures Limited Channel Unattended (Home Study) (G0399) Zeus Vo MD [address] [address] Phone: tel: fax: Referral ID Status Reason Start Date Expiration Date Visits Re quested Visits Authorized [id number] Closed 06/25/2021 12/22/2021 2 2 Encounter Details Date Type Department Care Team (Latest Contact Info) Description 07/01/2021 4:15 PM CDT - 07/01/2021 11:59 PM CDT Hospital Encounter [facility] Sleep Lab [address] [place] [address] Zeus Vo MD [address] [address] Discharge Disposition: Home or Self [...] move on to questions 3-9 0 05/14/2021 [facility] of Occupat ional Health - Occupational Stress [...] CDTAssociated Order(s): LIMITED CHANNEL UNATTENDED (HOME STUDY) [facility]???s [facility] O???[place], [place] HOME SLEEP STUDY INTERPRETATION PATIENT NAME: Manuel Hall DATE OF : 1975 DATE OF SERVICE: 07/01/2021 Ordering Phy Exam Description Zeus Vo M.D. Home Sleep Study ATTENDING PHYSICIAN: Dr. Catarino Mooney REFERRING PHYSICIAN: Dr. Zeus Vo SUMMARY DATA Sleep Study/ Architecture: This patient was studied using [employer] NightOne devices using 1 RIP effort belt [...] 77 57.7 Assessment/Plan: Severe Obstructive Sleep Apnea. Dobbins treatment option should be discussed with the [...] snoring and sleep- related problems, such as ELECTRICAL CAD DESIGNER depressants, especially at bedtime. This document was electronically signed by: Catarino Mooney M.D. on 07/15/2021 at 11:48 AM. documented in this encounter Plan of Treatment Upcoming Encounters Date Type Department Care Team (Late st Contact Info) Description 04/07/2024 7:40 AM ENVIRONMENTAL FIELD TECHNICIAN Office Visit [facility] Medical Group Multispecialty Care - [place] [address] [address] [address] [place] [address] Zeus Vo MD [address] [facility] [address] [place] [address] documented as of this encounter Procedures Procedure Name Priority Date/Time Associated Diagnosis Comments LIMITED CHANNEL UNATTENDED (HOME STUDY) Routine 07/01/2021 4:15 PM CDT Fatigue, unspecified type documented in this encounter Results * Limited Channel Unattended (Home Study) (G0399) (07/01/2021 4:15 PM CDT) Narrative [facility] SLEEP LAB - 07/01/2021 4:15 PM CDT Catarino Mooney MD ? 07/15/2021 ??3:25 PM [facility] O? [place], [place] ?? HOME SLEEP STUDY INTERPRETATION PATIENT NAME: Manuel Hall DATE OF : 1975 ?? DATE OF SERVICE: 07/01/2021 Ordering Phy Exam Description Zeus Vo M.D. Home Sleep Study ATTENDING PHYSICIAN: Dr. Catarino Mooney REFERRING PHYSICIAN: Dr. Zeus Vo SUMMARY DATA Sleep Study/ Architecture: This patient was studied using [employer] NightOne devices using 1 RIP effort belt [...] ??77 57.7 Assessment/Plan: Severe Obstructive Sleep Apnea. Dobbins treatment option should be discussed with the [...] exacerbate snoring and sleep-related problems, such as ELECTRICAL CAD DESIGNER depressants, especially at bedtime. This document was electronically signed by: Catarino Mooney M.D. on 07/15/2021 at 11:48 AM. Zeus Vo MD SLEEP CENTER ORDERABLES Final Re sult [facility] SLEEP LAB documented in this encounter Visit Diagnoses Not on filedocumented in this encounter Additional Health Concerns Assessment Noted Time PHQ-9 Depression Total Score: 0 05/14/19 22 7:24 AM ENVIRONMENTAL FIELD TECHNICIAN documented as of this encounter Care Teams Domestic Travel Consultant Relationship Specialty Start Date End Date Zeus Vo MD [address] [address] PCP - General INTERNAL MEDICINE 04/07/21 documented as of this encounter
--- OUTSIDE RECORDS SUMMARY | 2024-03-24 03:41 | XMS_ITS | Encounter Summary ---
Author Organization [facility] Address [address] [place] [address]. [place], [place] [address] [place] [address] Care Team Providers Care Social Media Senior Associate Name Role Phone Elvia Rosen NIGHT TIME NANNY Primary Care Provider Unavailabl e Reason for Visit * Reason Comments Lab Draw Encounter Details Date Type Department Care Team (Late st Contact Info) Description 10/21/2020 8:00 AM CDT Allied Health/Nurse Visit [facility] [address] [place] [address] Elvia Rosen, AILYN Lab Draw Social History [...] move on to questions 3-9 0 03/21/2020 [facility] of Occupat ional Health - Occupational Stress [...] Contact Info) Description 04/07/2024 7:40 AM SIGNAL TOWER OPERATOR Office Visit [facility] - [address] [address] [address] [place] [address] Zeus Vo MD [address] [place] [address] documented as of this encounter Procedures Procedure [...] - 145 MMOL/L 10/21/2020 10:43 PM [facility] POTASSIUM S/P/B 4.3 3.5 - 5.1 MMOL/L 10/21/2020 10:43 PM T -[facility] CHLORIDE S/P/B 106 98 - 107 MMOL/L 10/21/2020 10:43 PM CDT [facility] CO2 22.5 21 - 32 MMOL/L 10/21/2020 10:43 PM T [facility] GLUCOSE 100(H) 70 - 99 MG/DL 10/21/2020 10:43 PM T [facility] BUN 18 6 - 24 MG/DL 10/21/2020 10:43 PM T [facility] CREATININE S/P/B 1.19 0.70 - 1.30 MG/DL 10/21/2020 10:43 PM T [facility] CALCIUM S/P/B 8.7 8.4 - 10.5 MG/DL 10/21/2020 10:43 PM CDT [facility] BILIRUBIN TOTAL S/P/B 0.6 0.2 - 1.0 MG/DL 10/21/2020 10:43 PM T [facility] ALKALINE PHOSPHATASE S/P/B 74 45 - 115 U/L 10/21/2020 10:43 PM T [facility] AST 52(H) 15 - 37 U/L 10/21/2020 10:43 PM CDT [facility] ALT 97(H) 16 - 63 U/L 10/21/2020 10:43 PM CDT [facility] TOTAL PROTEIN S/P/B 7.3 6.4 - 8.2 G/DL 10/21/2020 10:43 PM T [facility] ALBUMIN S/P/B 4.2 3.4 - 5.0 G/DL 10/21/2020 10:43 PM T [facility] ANION GAP 12.5 5 - 15 MMOL/L 10/21/2020 10:43 PM CDT [facility] Comment:REFERENCE RANGE NOT ESTABLISHED OSMOLALITY (CALC) 294 MOSM/KG 10/21/2020 10:43 PM CDT [facility] Comment:REFERENCE RANGE NOT ESTABLISHED EGFR NON-AFR. AMER. 74(L) >90 ML/MIN/1 .73 M2 10/21/2020 10:43 PM CDT [facility] EGFR AFR. AMER. 86(L) >90 ML/MIN/1 .73 M2 10/21/2020 10:43 PM CDT [facility] GFR NOTES THE ESTIMATED GFR IS CALCULATED USING THE 2009 CKD-EPI EQUATION. THE FOLLOWING CATEGORIES FOR GRADING RENAL FUNCTION ARE RECOMMENDED BY THE INTERNATIONAL SOCIETY OF NEPHROLOGY (KDIGO 2012 CLINICAL PRACTICE GUIDELINE). 10/21/2020 10:43 PM CDT [facility] Comment: G1,NORMAL OR HIGH: >89 ml/min/1.73 m2 G2,MILDLY DECREASED: 60-89 ml/min/1.73 m2 G3A,MILDLY TO MODERATELY DECREASED: 45-59 ml/min/1.73 m2 G3B,MODERATELY TO SEVERELY DECREASED: 30-44 ml/min/1.73 m2 G4,SEVERELY DECREASED: 15-29 ml/min/1.73 m2 G5,KIDNEY FAILURE: <15 ml/min/1.73 m2 10/21/2020 8:18 AM CDT us Elvia Rosen NP LABORATORY Final Result [facility] [address] [place] [address], * (ABNORMAL) CBC W/DIFF AUTOMATED (10/21/2020 8:18 AM CDT) WBC 4.1 4.0 - 10.8 x10'3/uL 10/21/2020 7:33 PM CDT [facility] RBC 4.80 4.50 - 6.10 x10'6/uL 10/21/2020 7:33 PM CDT [facility] HGB 15.0 13.0 - 18.0 G/DL 10/21/2020 7:33 PM CDT [facility] HCT 44.6 36.0 - 47.0 % 10/21/2020 7:33 PM CDT [facility] MCV 92.9 78.0 - 100.0 FL 10/21/2020 7:33 PM CDT [facility] MCH 31.3(H) 27.0 - 31.0 PG 10/21/2020 7:33 PM CDT [facility] MCHC 33.6 33.0 - 36.0 G/DL 10/21/2020 7:33 PM CDT [facility] RDW 14.5 11.5 - 14.5 % 10/21/2020 7:33 PM CDT [facility] PLT 191 150 - 350 x10'3/uL 10/21/2020 7:33 PM CDT [facility] MPV 10.7(H) 7.4 - 10.4 FL 10/21/2020 7:33 PM CDT [facility] DIFFERENTIAL TYPE AUTOMATED DIFFERENTIAL 10/21/2020 7:34 PM CDT [facility] NEUTROPHILS % 53.9 % 10/21/2020 7:34 PM CDT [facility] LYMPHOCYTES % 32.0 % 10/21/2020 7:34 PM CDT [facility] MONOCYTES % 11.4 % 10/21/2020 7:34 PM CDT [facility] EOSINOPHILS % 2.2 % 10/21/2020 7:34 PM CDT [facility] BASOPHILS % 0.5 % 10/21/2020 7:34 PM CDT [facility] ABS. NEUTROPHILS 2.22 1.60 - 8.30 x10'3/uL 10/21/2020 7:34 PM CDT [facility] ABS. LYMPHOCYTES 1.32 0.80 - 4.70 x10'3/uL 10/21/2020 7:34 PM CDT [facility] ABS. MONOCYTES 0.47 0.00 - 1.50 x10'3/uL 10/21/2020 7:34 PM CDT [facility] ABS. EOSINOPHILS 0.09 0.00 - 0.40 x10'3/uL 10/21/2020 7:34 PM CDT [facility] ABS. BASOPHILS 0.02 0.00 - 0.20 x10'3/uL 10/21/2020 7:34 PM CDT [facility] 10/21/2020 8:18 AM CDT Elvia Rosen NP LABORATORY Final Result Performing Organization Address City/State/[facility] Co de Phone Number [facility] [address] [place] [address], * (ABNORMAL) LIPID PANEL (10/21/2020 8:18 AM CDT) CHOLESTEROL 179 <200 MG/DL 10/21/2020 10:43 PM CDT [facility] TRIGLYCERIDES 153(H) <150 MG/DL 10/21/2020 10:43 PM CDT [facility] HDL 39(L) >40 MG/DL 10/21/2020 10:43 PM CDT [facility] LDL-C 109(H) <100 MG/DL 10/21/2020 10:43 PM CDT [facility] VLDL CALCULATION 31(H) 5 - 28 MG/DL 10/21/2020 10:43 PM CDT [facility] CHOL/HDL RATIO 4.6(H) 0.0 - 4.0 10/21/2020 10:43 PM CDT [facility] LDL/HDL 2.8(H) 0.41 - 2.13 10/21/2020 10:43 PM CDT [facility] NON HDL CHOLESTEROL 140(H) <140 MG/DL 10/21/2020 10:43 PM CDT [facility] 10/21/2020 8:18 AM CDT Elvia Rosen NIGHT TIME NANNY LABORATORY Final Result [facility] [address] [facility] [place] [address], documented in this encounter Visit Diagnoses Diagnosis Blood pressure elevated without history of HTN- Primary Elevated blood pressure reading without diagnosis of hypertension documented in this encounter Additional Health Concerns Assessment Noted Time PHQ-9 Depression Total Score: 0 03/21/20 20 11:22 AM SIGNAL TOWER OPERATOR documented as of this encounter Care Teams Social Media Senior Associate Relationship Specialty Start Date End Date Elvia Rosen, NIGHT TIME NANNY PCP - General NURSE PRACTITIONER 03/21/20 04/06/21 documented as of this encounter
--- OUTSIDE RECORDS SUMMARY | 2024-03-24 03:41 | XMS_ITS | Encounter Summary ---
Author Organization [facility] Address [address] [place] [address]. [place], [place] [id number] [place] [address] Care Team Providers Care Motion Picture Operator Name Role Phone Zeus Vo MD Primary Care Provider [phone] Encounter Details Date Type Department Care Team [...] move on to questions 3-9 0 05/14/2021 [facility] [place] of Occupat ional Health - Occupational Stress [...] Coronavirus/COVID-19? No / Unsure 06/11/2021 6:58 AM BONDERIZER documented as of this encounter Plan of Treatment Upcoming Encounters Date Type Department Care Team (Late st Contact Info) Description 04/07/2024 7:40 AM BONDERIZER Office Visit [facility] Medical [facility] Multispecialty Care - [address] [address] [address] [place] [address] Zeus Vo MD [address] [place] [address] [phone] documented as of this encounter Visit Diagnoses Not on filedocumented in this encounter Additional Health Concerns Assessment Noted Time PHQ-9 Depression Total Score: 0 05/14/19 22 7:24 AM BONDERIZER documented as of this encounter Care Teams Motion Picture Operator Relationship Specialty Start Date End Date Zeus Vo MD [address] [place] [address] [phone] PCP - General INTERNAL MEDICINE 04/07/21 documented as of this encounter
== END 2024-03-19 12:54 | disposition home or self-care (01) ==
PROVIDERS: Emergency Provider Emergency Medicine; PCP Nurse Practitioner Family
DX: K08.89 Other specified disorders of teeth and supporting structures (principal); S69.91XD Unspecified injury of right wrist, hand and finger(s), subsequent encounter; I10 Essential (primary) hypertension; V49.9XXD Car occupant (driver) (passenger) injured in unspecified traffic accident, subsequent encounter
CPT/HCPCS: 70486; 73110; 73130; 99284

== ENCOUNTER 2024-07-08 22:33 | Emergency (ER) | payer BC, SELFPAY ==
--- NOTE | ~2024-07-08 | CT_ITS ---
CT abdomen pelvis w con Ordering provider: Jen Cantu History: 48 years Male with . LLQ pain, c/f diverticulitis vs stone . Comparison: August 27, 2020 Technique: CT abdomen and pelvis with IV and without oral contrast. Automated exposure control and it erative reconstruction technique were employed. The dose-length product was 1377.92 mGy-cm. 100 mL Om nipaque 350 was given IV. Findings: VISUALIZED LOWER CHEST: Normal. UPPER ABDOMINAL ORGANS: Liver: Fat infiltration. Gallbladder: Normal. Spleen: Normal. Stomach/duodenum: Small sliding hiatus hernia. Pancreas: Normal. Adrenals: Normal. Kidneys: 4 mm stone is seen in the left upper ureter with left hydronephrotic changes. No other stone s seen in both kidneys and ureters. PELVIC ORGANS: The bladder is slightly underfilled with thickened wall. Evaluation for cystitis advis ed.. BOWEL AND MESENTERY: Colon: Mild sigmoid diverticulosis without diverticulitis. Normal appendix. Small Bowel: Normal. No obstruction. Peritoneum/mesentery: No free air or free fluid. No mesenteric lymphadenopathy. RETROPERITONEUM: Normal aorta. No retroperitoneal lymphadenopathy. MUSCULOSKELETAL: Superficial soft tissues: The superficial soft tissues are normal. Bones: Mild degenerative changes of the spine. IMPRESSION: 1. Left upper ureteric stone with hydronephrotic changes. 2. Fat infiltration of the liver. 3. Diverticulosis of the sigmoid colon with no diverticulitis. Reviewed, dictated and finalized at location A.
[2024-07-08 22:33] VITALS: BP 187/100; PULSE 74; RESP 16; TEMP 36.6; O2SAT 98
--- OUTSIDE RECORDS SUMMARY | 2024-07-08 22:35 | XMS_ITS | Encounter Summary ---
Author Organization [facility] Address [address] [place] [address] Care Team Providers Care Balling Machine Operator Name Role Phone Zeus Vo MD Primary Care Provider [phone] Zeus Vo MD Primary Care Provider [phone] Encounter Details Date Type Department Care Team (Late st Contact Info) Description 07/27/2022 [employer] Message Enc [facility] Medical [facility] Multispecialty Care [address] [place] [address] [employer], [facility] Provider Lab Results Social History Tobacco Use [...] 0 07/22/2022 [facility] [place] of Occupat ional Health - Occupational Stress [...] Information Value Date Recorded Sex Assigned at Male 05/02/2024 7:54 AM TIE MAN Legal Sex Male 8:07 PM CDT Gender [...] Care Team (Late st Contact Info) Description 08/09/2024 9:00 AM CDT Office Visit [facility] Multispecialty Care - [address] [address] [address] [place] [address] Zeus Vo MD [address] [place] [address] documented as of this encounter Visit Diagnoses Not on filedocumented in this encounter Additional Health Concerns Assessment Noted Time PHQ-9 Depression Total Score: 0 05/14/19 22 7:24 AM TIE MAN documented as of this encounter Care Teams Balling Machine Operator Relationship Specialty Start Date End Date Zeus Vo MD [address] [place] [id number] PCP - General INTERNAL MEDICINE 04/07/21 02/10/24 Zeus Vo MD [address] [place] [phone] PCP - General INTERNAL MEDICINE 03/30/24 documented as of this encounter
--- OUTSIDE RECORDS SUMMARY | 2024-07-08 22:35 | XMS_ITS | Encounter Summary ---
Author Organization [facility] Address [address] [place] [address] Care Team Providers Care Caponizer Name Role Phone Zeus Vo MD Primary Care Provider [phone] Zeus Vo MD Primary Care Provider Encounter Details Date Type Department Care Team (Late st Contact Info) Description 11/05/2021 [employer] Message Enc [facility] Medical Group Multispecialty Care - [address] [address] [address] [place] [address] Zeus Vo MD [address] [place] [address] [address] [place] [address] Order for CPAP Social History [...] move on to questions 3-9 0 05/14/2021 [facility] [place] of Occupat ional Health - Occupational Stress [...] Sex Assigned at Male 05/02/2024 7:54 AM LEASING AGENT Legal Sex Male 8:07 PM CDT Gender [...] Description 08/09/2024 9:00 AM CDT Office Visit [facility] Multispecialty Care - [address] [address] [address] [place] [address] Zeus Vo MD [address] [place] [address] documented as of this encounter Visit Diagnoses Not on filedocumented in this encounter Additional Health Concerns Infection Onset Date Last Indicated Resolved Time COVID-19 Rule Out 03/03/2022 03/03/2022 03/03/2022 2:54 PM LEASING AGENT COVID-19 Rule Out 03/03/2022 03/03/2022 03/05/2022 1:12 AM LEASING AGENT Assessment Noted Time PHQ-9 Depression Total Score: 0 05/14/19 7:24 AM LEASING AGENT documented as of this encounter Care Teams Caponizer Relationship Specialty Start Date End Date Zeus Vo MD [address] [place] [id number] PCP - General INTERNAL MEDICINE 04/07/21 02/10/24 Zeus Vo MD [address] [address] PCP - General INTERNAL MEDICINE 03/30/24 documented as of this encounter
--- OUTSIDE RECORDS SUMMARY | 2024-07-08 22:35 | XMS_ITS | Encounter Summary ---
Author Organization [facility] Address [address] [place] [address] Care Team Providers Care Surgical Orderly Name Role Phone Zeus Vo MD Primary Care Provider [phone] Zeus Vo MD Primary Care Provider [phone] Encounter Details Date Type Department Care Team (Late st Contact Info) Description 07/23/[address] [facility] Medical [facility] Multispecialty Care [address] [place] [address] [employer], [facility] Provider Results Social History Tobacco [...] Recorded Patient Health Questionnaire-2 Score 0 07/22/2022 [facility] [place] of Occupat ional Health - Occupational Stress [...] Sex Assigned at Male 05/02/2024 7:54 AM WORK FORCE ADVISOR Legal Sex Male 8:07 PM CDT Gender [...] Description 08/09/2024 9:00 AM CDT Office Visit [facility] Multispecialty Care - [address] [address] [address] [place] [address] Zeus Vo MD [address] [place] [address] documented as of this encounter Visit Diagnoses Not on filedocumented in this encounter Additional Health Concerns Assessment Noted Time PHQ-9 Depression Total Score: 0 05/14/19 22 7:24 AM WORK FORCE ADVISOR documented as of this encounter Care Teams Surgical Orderly Relationship Specialty Start Date End Date Zeus Vo MD [address] [place] [phone] PCP - General INTERNAL MEDICINE 04/07/21 02/10/24 Zeus Vo MD [address] [place] [phone] PCP - General INTERNAL MEDICINE 03/30/24 documented as of this encounter
--- OUTSIDE RECORDS SUMMARY | 2024-07-08 22:35 | XMS_ITS | Clinical Summary ---
Author Organization [facility] Address [address] [place] [address] Care Team Providers Care Transitional Care Nurse Name Role Phone Unknown, Provider Primary Care Provider Unavaila ble Source Comments [facility],non-owned Affiliates and Associated Physician Practices is amultiple site organization consisting of ambulatory clinics and hospital sitesin [place], [place], [place] and [place]. This disclosure is being madepursuant to the Care Everywhere program and may not contain all information available regarding this patient. Last updated 17.[facility] Allergies Active Allergy Reactions Criticality Noted Date [...] Comments Blood Pressure 104/72 04/25/2016 12:20 PM PIANO PROFESSOR Pulse 87 04/25/2016 12:20 PM PIANO PROFESSOR Temperature 36.5 C (97.7 F) 04/25/2016 12:20 PM PIANO PROFESSOR Respiratory Rate 16 04/25/2016 12:20 PM PIANO PROFESSOR Oxygen Saturation 98% 04/25/2016 12:20 PM PIANO PROFESSOR Inhaled Oxygen Concentration - - Weight 104.3 kg (230 lb) 04/25/2016 12:20 PM PIANO PROFESSOR Height 175.3 cm (5' 9 ) 04/25/2016 12:20 PM PIANO PROFESSOR Body Mass Index 33.97 04/25/2016 12:20 PM PIANO PROFESSOR Plan of Treatment Health Maintenance Due Date Last Done Comments DARREN (AGES 45-75) - COLON CA SCREENING 1976 COLON MONITORING 1976 COLONOSCOPY - COLON CA SCREENING 1976 CT COLONOGRAPHY - COLON CA SCREENING 1976 Colorectal Cancer Screening 1976 FIT - COLON CA SCREENING 1976 FLEX SIG - COLON CA SCREENING 1976 HIV SCREENING 08/20/1991 DTAP/TDAP/TD VACCINES (1 - Tdap) 08/20/1995 HEPATITIS B VACCINE (1 of 3 - 19+ 3-dose series) 08/20/1995 COVID-19 VACCINE (1 - 2023- season) 2023 DEPRESSION SCREENING 04/05/2024 ZOSTER VACCINE (1 of 2) 2026 LIPID TESTING 04/07/2029 04/07/2024 HEPATITIS C SCREENING Completed 05/14/2021 INFLUENZA VACCINE Completed 02/29/2024, , 01/14/2020, Additional history exists HIB VACCINE Aged Out No longer eligi ble based on patient's age to complete this topic HPV VACCINE Aged Out No longer eligi ble based on patient's age to complete this topic MENINGOCOCCAL (Group B) VACCINE SHARED DECISION-MAKING Aged Out No longer eligible based on patient's age to complete this topic MENINGOCOCCAL GROUPS A/C/Y/W VACCINE Aged Out No longer eligible based on patient's age to complete this topic PNEUMOCOCCAL VACCINE Aged Out No long er eligible based on patient's age to complete this topic Care Teams Transitional Care Nurse Relationship Specialty Start Date End Date Unknown, Provider PCP - General 04/25/16
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
--- OUTSIDE RECORDS SUMMARY | 2024-07-08 22:35 | XMS_ITS | Encounter Summary ---
Author Organization [facility] Address [address] [place] [address] Care Team Providers Care Flooring Professional Name Role Phone Zeus Vo MD Primary Care Provider [phone] Zeus Vo MD Primary Care Provider [phone] Encounter Details Date Type Department Care Team (Late st Contact Info) Description 07/11/2021 [employer] Message Enc [facility] Medical Group Multispecialty Care - [place] [address] [address] [place] [address] Zeus Vo MD [address] [place] [address] [address] [place] [address] colchicine Social History Tobacco Use [...] questions 3-9 0 05/14/2021 [facility] [place] of Occupat ional Health - Occupational Stress [...] Sex Assigned at Male 05/02/2024 7:54 AM DOCTOR OF NAPRAPATHY Legal Sex Male 8:07 PM CDT Gender [...] Description 08/09/2024 9:00 AM CDT Office Visit [facility] Multispecialty Care - [place] [address] [address] [place] [address] Zeus Vo MD [address] [place] [address] documented as of this encounter Visit Diagnoses Not on filedocumented in this encounter Additional Health Concerns Infection Onset Date Last Indicated Resolved Time COVID-19 Rule Out 03/03/2022 03/03/2022 03/03/2022 2:54 PM DOCTOR OF NAPRAPATHY COVID-19 Rule Out 03/03/2022 03/03/2022 03/05/2022 1:12 AM DOCTOR OF NAPRAPATHY Assessment Noted Time PHQ-9 Depression Total Score: 0 05/14/19 7:24 AM DOCTOR OF NAPRAPATHY documented as of this encounter Care Teams Flooring Professional Relationship Specialty Start Date End Date Zeus Vo MD [address] [place] [address] PCP - General INTERNAL MEDICINE 04/07/21 02/10/24 Zeus Vo MD [address] [facility] [address] [place] [address] PCP - General INTERNAL MEDICINE 03/30/24 documented as of this encounter
--- OUTSIDE RECORDS SUMMARY | 2024-07-08 22:35 | XMS_ITS | Encounter Summary ---
Author Organization [facility] Address [address] [place] [address] Care Team Providers Care Product Sales Engineer Name Role Phone Zeus Vo MD Primary Care Provider [phone] Zeus Vo MD Primary Care Provider [phone] Encounter Details Date Type Department Care Team (Late st Contact Info) Description 09/30/2022 [employer]t Message Enc [facility] Medical [facility] [address] [place] [address] [employer], [facility] Provider Air Quality Message Social History Tobacco [...] Recorded Patient Health Questionnaire-2 Score 0 07/22/2022 [facility] of Occupat ional Health - Occupational Stress [...] Sex Assigned at Male 05/02/2024 7:54 AM LIFT DRIVER Legal Sex Male 8:07 PM CDT Gender [...] Description 08/09/2024 9:00 AM CDT Office Visit [facility] Medical Group Multispecialty Care - [place] [address] [address] [place] [address] Zeus Vo MD [address] [place] [address] documented as of this encounter Visit Diagnoses Not on filedocumented in this encounter Additional Health Concerns Assessment Noted Time PHQ-9 Depression Total Score: 0 05/14/19 22 7:24 AM LIFT DRIVER documented as of this encounter Care Teams Product Sales Engineer Relationship Specialty Start Date End Date Zeus Vo MD [address] [place] [address] PCP - General INTERNAL MEDICINE 04/07/21 02/10/24 Zeus Vo MD [address] [place] [address] PCP - General INTERNAL MEDICINE 03/30/24 documented as of this encounter
--- OUTSIDE RECORDS SUMMARY | 2024-07-08 22:35 | XMS_ITS | Encounter Summary ---
Author Organization [facility] Address [address] [place] [address] Care Team Providers Care Mineral Wool Insulation Supervisor Name Role Phone Zeus Vo MD Primary Care Provider [phone] Zeus Vo MD Primary Care Provider [phone] Encounter Details Date Type Department Care Team (Late st Contact Info) Description 09/04/2022 [employer] Message Enc [facility] Medical Group Multispecialty Care - [place] [address] [address] [place] [address] Zeus Vo MD [address] [place] [address] [address] [place] [address] Meds Social History Tobacco Use [...] Recorded Patient Health Questionnaire-2 Score 0 07/22/2022 [facility] - Occupational Stress Questionnaire Answer Date [...] Sex Assigned at Male 05/02/2024 7:54 AM DEPUTY REGISTER OF DEEDS Legal Sex Male 8:07 PM CDT Gender Identity Not on file Sexual Orientation Not on file documented as of this encounter Plan of Treatment Upcoming Encounters Date Type Department Care Team (Late st Contact Info) Description 08/09/2024 9:00 AM CDT Office Visit [facility] Medical Group Multispecialty Care - [place] [address] [address] [place] [address] Zeus Vo MD [address] [place] [address] documented as of this encounter Visit Diagnoses Not on filedocumented in this encounter Additional Health Concerns Assessment Noted Time PHQ-9 Depression Total Score: 0 05/14/19 22 7:24 AM DEPUTY REGISTER OF DEEDS documented as of this encounter Care Teams Mineral Wool Insulation Supervisor Relationship Specialty Start Date End Date Zeus Vo MD [address] [place] [address] PCP - General INTERNAL MEDICINE 04/07/21 02/10/24 Zeus Vo MD [address] [place] [address] PCP - General INTERNAL MEDICINE 03/30/24 documented as of this encounter
[2024-07-09] VITALS (11 sets, daily range): BP systolic 129–170; BP diastolic 78–104; PULSE 67–84; RESP 16–18; O2SAT 92–97
[2024-07-09 03:41] LABS: Basophils Percent Auto 0.3 % (0.2-1.2); Eosinophils Percent Auto 0.5 % (0-4.4); Hematocrit 40.1 % (42.0-52.0); Hemoglobin 13.7 g/dL (14.0-18.0); Immature Granulocyte Absolute 0.02 K/mm3 (0.00-0.031); Immature Granulocyte Percent A 0.3 % (0-0.5); Lymphocytes Absolute Auto 1.12 K/mm3 (0.9-3.2); Lymphocytes Percent Auto 17.1 % (18.3-44.2); Mean Corpuscular HGB Conc 34.2 g/dl (32-36); Mean Corpuscular Hemoglobin 32.1 pg (26-34); Mean Corpuscular Volume 93.9 fl (80-100); Mean Platelet Volume 10.1 fl (7.4-10.4); Monocytes Absolute Auto 0.5 K/mm3 (0.1-0.6); Monocytes Percent Auto 6.9 % (2.6-8.5); Neutrophils Absolute Auto 4.9 K/mm3 (1.3-6.7); Neutrophils Percent Auto 74.9 % (45.5-73.1); Platelet Count Result 184 k/mm3 (150-375); Red Blood Count 4.27 M/mm3 (4.6-6.20); Red Cell Distribution Width 13.5 % (11.5-14.5); White Blood Count 6.6 K/mm3 (4.5-10.0)
[2024-07-09 03:55] LABS: Alanine Aminotransferase 97 U/L (6-50); Albumin Level 4.5 g/dL (3.5-5.1); Alkaline Phosphatase 69 U/L (38-126); Anion Gap 11 mmol/L (4-12); Aspartate Amino Transferase 59 U/L (17-59); Blood Urea Nitrogen 17 mg/dL (9-20); Calcium 9.5 mg/dL (8.4-10.2); Carbon Dioxide 26 mmol/L (22-30); Chloride 104 mmol/L (98-107); Estimated CRCL calculation 76 ml/min; Estimated Glomerular Filt Rate > 60; Glucose 121 mg/dL (65-110); Lipase 124 U/L (23-300); Potassium 4.6 mmol/L (3.4-5.0); Sodium 141 mmol/L (137-145)
[2024-07-09 03:57] LABS: Add Urine Microscopic? YES; Appearance Urine Turbid (Clear); Bacteria Urine None Seen /hpf; Bilirubin Urine Negative (Negative); Blood Urine 3+ (Negative); Color Urine Yellow (Yellow); Glucose Urine UA Negative (Negative); Ketones Urine Trace mg/dL (Negative); Leukocyte Esterase Ur Negative LEU/UL (Negative); Mucus Urine Present /lpf; Need Manual Microscopic Reviewed; Nitrate Urine Negative (Negative); Protein Urine 2+ mg/dL (Negative); RBC Urine >100 /hpf (0-2); Specific Grav Ur 1.021 (1.001-1.035); Squamous Epithelial Cell Urine None Seen /hpf (Few); Urobilinogen Urine 0.2 mg/dL (<2.0); WBC Urine 0-5 /hpf (0-3); pH Urine 5.5 (5.0-9.0)
--- OUTSIDE RECORDS SUMMARY | 2024-07-09 05:22 | XMS_ITS | Encounter Summary ---
Author Organization [facility] Address [address] [place] [address] Care Team Providers Care Float Remover Name Role Phone Zeus Vo MD Primary Care Provider [phone] Zeus Vo MD Primary Care Provider [phone] Encounter Details Date Type Department Care Team (Late st Contact Info) Description 09/30/2022 [employer] Message Enc [facility] Medical Group [facility] [address] [place] [address] [employer], [facility] Provider Air Quality Message Social [...] Patient Health Questionnaire-2 Score 0 07/22/2022 [facility] [place] of Occupat ional Health - Occupational [...] Sex Assigned at Male 05/02/2024 7:54 AM MEMORIAL DESIGNER Legal Sex Male 8:07 PM CDT Gender [...] Description 08/09/2024 9:00 AM CDT Office Visit [facility] Medical Group Multispecialty Care - [place] [address] [address] [place] [address] Zeus Vo MD [address] [place] [address] documented as of this encounter Visit Diagnoses Not on filedocumented in this encounter Additional Health Concerns Assessment Noted Time PHQ-9 Depression Total Score: 0 05/14/19 22 7:24 AM MEMORIAL DESIGNER documented as of this encounter Care Teams Float Remover Relationship Specialty Start Date End Date Zeus Vo MD [address] [place] [address] PCP - General INTERNAL MEDICINE 04/07/21 02/10/24 Zeus Vo MD [address] [place] [address] PCP - General INTERNAL MEDICINE 03/30/24 documented as of this encounter
--- OUTSIDE RECORDS SUMMARY | 2024-07-09 05:22 | XMS_ITS | Encounter Summary ---
Author Organization [facility] Address [address] [place] [address] Care Team Providers Care Home Improvement Installer Name Role Phone Zeus Vo MD Primary Care Provider [phone] Zeus Vo MD Primary Care Provider [phone] Encounter Details Date Type Department Care Team (Late st Contact Info) Description 07/11/2021 Channel Intelligencet Message Enc [facility] Multispecialty Care - [place] [address] [address] [place] [address] Zeus Vo MD [address] [place] [address] [address] [place] [address] colchicine Social History Tobacco Use [...] move on to questions 3-9 0 05/14/2021 [facility] [place] of Occupat ional Health - Occupational Stress [...] Sex Assigned at Male 05/02/2024 7:54 AM STATION DETECTIVE Legal Sex Male 8:07 PM CDT Gender [...] Description 08/09/2024 9:00 AM CDT Office Visit [facility] Multispecialty Care - [place] [address] [address] [place] [address] Zeus Vo MD [address] [place] [address] documented as of this encounter Visit Diagnoses Not on filedocumented in this encounter Additional Health Concerns Infection Onset Date Last Indicated Resolved Time COVID-19 Rule Out 03/03/2022 03/03/2022 03/03/2022 2:54 PM STATION DETECTIVE COVID-19 Rule Out 03/03/2022 03/03/2022 03/05/2022 1:12 AM STATION DETECTIVE Assessment Noted Time PHQ-9 Depression Total Score: 0 05/14/19 7:24 AM STATION DETECTIVE documented as of this encounter Care Teams Home Improvement Installer Relationship Specialty Start Date End Date Zeus Vo MD [address] [place] [address] PCP - General INTERNAL MEDICINE 04/07/21 02/10/24 Zeus Vo MD [address] [facility] [address] [place] [address] PCP - General INTERNAL MEDICINE 03/30/24 documented as of this encounter
--- OUTSIDE RECORDS SUMMARY | 2024-07-09 05:22 | XMS_ITS | Encounter Summary ---
Author Organization [facility] Address [address] [place] [address] Care Team Providers Care Cheese Specialist Name Role Phone Zeus Vo MD Primary Care Provider [phone] Zeus Vo MD Primary Care Provider [phone] Encounter Details Date Type Department Care Team (Late st Contact Info) Description 07/23/2022 [email or web address] Message Enc [facility] Medical Group Multispecialty Care [address] [place] [address] Motorator, [facility] Provider Results Social History Tobacco Use Types [...] Recorded Patient Health Questionnaire-2 Score 0 07/22/2022 [facility] [place] of Occupat ional Health - Occupational [...] Sex Assigned at Male 05/02/2024 7:54 AM INFANTRY ASSAULTMAN Legal Sex Male 8:07 PM CDT Gender [...] Description 08/09/2024 9:00 AM CDT Office Visit [facility] Medical Group Multispecialty Care - [place] [address] [address] [place] [address] Zeus Vo MD [address] [place] [address] documented as of this encounter Visit Diagnoses Not on filedocumented in this encounter Additional Health Concerns Assessment Noted Time PHQ-9 Depression Total Score: 0 05/14/19 22 7:24 AM INFANTRY ASSAULTMAN documented as of this encounter Care Teams Cheese Specialist Relationship Specialty Start Date End Date Zeus Vo MD [address] [place] [address] PCP - General INTERNAL MEDICINE 04/07/21 02/10/24 Zeus Vo MD [address] [place] [address] PCP - General INTERNAL MEDICINE 03/30/24 documented as of this encounter
--- OUTSIDE RECORDS SUMMARY | 2024-07-09 05:22 | XMS_ITS | Clinical Summary ---
Author Organization [facility] Address [address] [place] [address] Care Team Providers Care Med Admin Name Role Phone Unknown, Provider Primary Care Provider Unavaila ble Source Comments [facility],non-owned Affiliates and Associated Physician Practices is amultiple site organization consisting of ambulatory clinics and hospital sitesin [place], [place], [place] and [place]. This disclosure is being madepursuant to the Care Everywhere program and may not contain all information available regarding this patient. Last updated 17.[facility] Allergies Active Allergy Reactions Criticality Noted Date [...] Comments Blood Pressure 104/72 04/25/2016 12:20 PM UTILITY SPRAY OPERATOR Pulse 87 04/25/2016 12:20 PM UTILITY SPRAY OPERATOR Temperature 36.5 C (97.7 F) 04/25/2016 12:20 PM UTILITY SPRAY OPERATOR Respiratory Rate 16 04/25/2016 12:20 PM UTILITY SPRAY OPERATOR Oxygen Saturation 98% 04/25/2016 12:20 PM UTILITY SPRAY OPERATOR Inhaled Oxygen Concentration - - Weight 104.3 kg (230 lb) 04/25/2016 12:20 PM UTILITY SPRAY OPERATOR Height 175.3 cm (5' 9 ) 04/25/2016 12:20 PM UTILITY SPRAY OPERATOR Body Mass Index 33.97 04/25/2016 12:20 PM UTILITY SPRAY OPERATOR Plan of Treatment Health Maintenance Due Date [...] age to complete this topic Care Teams Med Admin Relationship Specialty Start Date End Date Unknown, Provider PCP - General 04/25/16
--- OUTSIDE RECORDS SUMMARY | 2024-07-09 05:22 | XMS_ITS | Encounter Summary ---
Author Organization [facility] Address [address] [place] [address] Care Team Providers Care Broom Bundler Name Role Phone Zeus Vo MD Primary Care Provider [phone] Zeus Vo MD Primary Care Provider [phone] Encounter Details Date Type Department Care Team (Late st Contact Info) Description 09/04/2022 sofatutor Message Enc [facility] Medical Group Multispecialty Care - [place] [address] [address] [address] [place] [address] Zeus Vo MD [address] [place] [address] [address] [place] [address] Meds Social History Tobacco Use [...] Patient Health Questionnaire-2 Score 0 07/22/2022 [facility] - Occupational Stress Questionnaire Answer Date [...] Sex Assigned at Male 05/02/2024 7:54 AM 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 ROOM WORKER Legal Sex Male 8:07 PM CDT Gender Identity Not on file Sexual Orientation Not on file documented as of this encounter Plan of Treatment Upcoming Encounters Date Type Department Care Team (Late st Contact Info) Description 08/09/2024 9:00 AM CDT Office Visit [facility] Medical Group Multispecialty Care - [place] [address] [address] [address] [place] [address] Zeus Vo MD [address] [place] [address] documented as of this encounter Visit Diagnoses Not on filedocumented in this encounter Additional Health Concerns Assessment Noted Time PHQ-9 Depression Total Score: 0 05/14/19 22 7:24 AM BAKE ROOM WORKER documented as of this encounter Care Teams Broom Bundler Relationship Specialty Start Date End Date Zeus Vo MD [address] [place] [address] PCP - General INTERNAL MEDICINE 04/07/21 02/10/24 Zeus Vo MD [address] [place] [address] PCP - General INTERNAL MEDICINE 03/30/24 documented as of this encounter
--- OUTSIDE RECORDS SUMMARY | 2024-07-09 05:22 | XMS_ITS | Encounter Summary ---
Author Organization [facility] Address [address] [place] [address] Care Team Providers Care Roadmaster Name Role Phone Zeus Vo MD Primary Care Provider [phone] Zeus Vo MD Primary Care Provider [phone] Encounter Details Date Type Department Care Team (Late st Contact Info) Description 11/05/2021 Sunbeamt Message Enc 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 Medical Group Multispecialty Care - [place] [address] [address] [place] [address] Zeus Vo MD [address] [place] [address] documented as of this encounter Visit Diagnoses Not on filedocumented in this encounter Additional Health Concerns Infection Onset Date Last Indicated Resolved Time COVID-19 Rule Out 03/03/2022 03/03/2022 03/03/2022 2:54 PM BAR MACHINE OPERATOR COVID-19 Rule Out 03/03/2022 03/03/2022 03/05/2022 1:12 AM BAR MACHINE OPERATOR Assessment Noted Time PHQ-9 Depression Total Score: 0 05/14/19 7:24 AM BAR MACHINE OPERATOR documented as of this encounter Care Teams Roadmaster Relationship Specialty Start Date End Date Zeus Vo MD [address] [place] [address] PCP - General INTERNAL MEDICINE 04/07/21 02/10/24 Zeus Vo MD [address] [address] PCP - General INTERNAL MEDICINE 03/30/24 documented as of this encounter
--- OUTSIDE RECORDS SUMMARY | 2024-07-09 05:22 | XMS_ITS | Clinical Summary ---
Author Organization [facility] Address [address] [place] [address] Care Team Providers Care Capacity Analyst Name Role Phone Zeus Vo MD Primary Care Provider [phone] Allergies Active Allergy Reactions Criticality Noted Date [...] Department Care Team Description 05/08/2024 8:00 AM BUNK ASSEMBLER Office Visit [place] [address] [facility] [address] [place] [address] Zeus Vo MD Follow Up (Workmans comp is through today. Hand specialist appt is on Wednesday. ); Wrist Pain 05/08/2024 Telephone [place] [address] [address] [facility] [address] [place] [address] Zeus Vo MD Referral 05/08/2024 Travel 05/04/2024 Telephone [place] [address] [address] [facility] [address] [place] [address] Zeus Vo MD Results 05/04/2024 Telephone [place] [address] [address] [facility] [address] [place] [address] Zeus Vo MD Other (/) 05/02/2024 7:59 AM BUNK ASSEMBLER - 05/02/2024 11:59 PM BUNK ASSEMBLER Hospital Encounter [facility] [address] Zeus Vo MD Discharge Disposition: Home or Self Care (Routine Discharge) 05/02/2024 Travel 04/20/2024 Scan [facility] Scanned, [facility] 04/14/[address] [facility] [address] [facility] [address] [place] [address] Zeus Vo MD Orders 04/13/2024 Telephone [place] [address] [address] [facility] [address] [place] [address] Zues Vo MD Results 04/11/2024 Telephone [place] [address] [address] [place] [address] Zeus Vo MD Question 04/10/2024 Telephone [facility] Medical Group Multispecialty Care - [address] [place] [address] Zeus Vo MD Medication from Last 3 [...] Recorded Patient Health Questionnaire-2 Score 0 05/08/2024 [facility] [place] of Occupat ional Health - Occupational Stress [...] Sex Assigned at Male 05/02/2024 7:54 AM BUNK ASSEMBLER Legal Sex Male 8:07 PM CDT Gender Identity Not on file Sexual Orientation Not on file Last Filed Vital Signs Vital Sign Reading Time Taken Comments Blood Pressure 134/80 05/08/2024 8:07 AM BUNK ASSEMBLER Pulse 64 05/08/2024 8:07 AM BUNK ASSEMBLER Temperature 35.9 C (96.6 F) 05/08/2024 8:07 AM BUNK ASSEMBLER Respiratory Rate 18 05/08/2024 8:07 AM BUNK ASSEMBLER Oxygen Saturation 95% 05/08/2024 8:07 AM BUNK ASSEMBLER Inhaled Oxygen Concentration - - Weight 108.2 kg (238 lb 9.6 oz) 05/08/2024 8:07 AM BUNK ASSEMBLER Height 175.3 cm (5' 9 ) 05/08/2024 8:07 AM BUNK ASSEMBLER Body Mass Index 35.24 05/08/2024 8:07 AM BUNK ASSEMBLER Plan of Treatment Upcoming Encounters Date Type Department Care Team (Late st Contact Info) Description 08/09/2024 9:00 AM CDT Office Visit [facility] Medical Group Multispecialty Care - [place] [address] [address] [place] [address] [place] [address] [place] [address] Health Maintenance Due Date Last Done Comments [...] 1012/2020, 01/14/2020, Additional history exists PHQ-2 (Physician [place]) Completed 05/08/2024 Meningococcal B Vaccine Aged Out [...] BASIC METABOLIC PANEL Routine 05/08/2024 8:34 AM BUNK ASSEMBLER Drug therapy Right wrist pain COLLECTION VENOUS BLOOD VENIPUNCTURE Routine 05/08/2024 8:33 AM BUNK ASSEMBLER Drug therapy Right wrist pain MRI WRIST RT WO CON Routine 05/02/2024 8 :41 AM BUNK ASSEMBLER Right wrist pain LIPID PANEL Routine 04/07/2024 8:21 AM BUNK ASSEMBLER Annual physical exam HEMOGLOBIN, GLYCOSYLATED Routine 04/07/2024 8:21 AM BUNK ASSEMBLER Screening for diabetes mellitus HEPATITIS C ANTIBODY Routine 05/14/2021 7:46 AM BUNK ASSEMBLER Annual physical exam General medical exam Encounter for hepatitis C screening test for low risk patient from Last 3 Months or Most Recently Relevant to Health Maintenance Results * (ABNORMAL) BASIC METABOLIC PANEL (05/08/2024 8:34 AM BUNK ASSEMBLER) Pathologist [facility] SODIUM S/P/B 142 136 - 145 MMOL/L 05/08/2024 2:29 PM BUNK ASSEMBLER [facility] POTASSIUM S/P/B 4.3 3.5 - 5.1 MMOL/L 05/08/2024 2:29 PM [facility] CHLORIDE S/P/B 107 98 - 107 MMOL/L 05/08/2024 2:29 PM [facility] CO2 30.4 21 - 32 MMOL/L 05/08/2024 2:29 PM [facility] GLUCOSE 112(H) 70 - 99 MG/DL 05/08/2024 2:29 PM [facility] BUN 14 7 - 18 MG/DL 05/08/2024 2:29 PM [facility] CREATININE S/P/B 1.10 0.70 - 1.30 MG/DL 05/08/2024 2:29 PM [facility] CALCIUM S/P/B 9.4 8.4 - 10.5 MG/DL 05/08/2024 2:29 PM [facility] ANION GAP 4.6(L) 5 - 15 MMOL/L 05/08/2024 2:29 PM [facility] Comment:REFERENCE RANGE NOT ESTABLISHED OSMOLALITY (CALC) 295 MOSM/KG 025 2:29 PM [facility] Comment:REFERENCE RANGE NOT ESTABLISHED GFR ESTIMATE 83(L) >90 ML/MIN/1. 73 M2 05/08/2024 2:29 PM [facility] GFR NOTES GFR REFERENCE S: 05/08/2024 2:29 PM [facility] Comment: THE ESTIMATED GFR IS CALCULATED [...] FAILURE: <15 ml/min/1.73 m2 05/08/2024 8:34 AM BUNK ASSEMBLER Zeus Vo MD LABORATORY Final Result [facility] [place] [address] [place] [address], [place] [phone] * MRI WRIST RT WO CON (05/02/2024 8:41 AM BUNK ASSEMBLER) Anatomical Region Laterality Modality Wrist Magnetic Resonan ce 05/03/2024 2:33 PM BUNK ASSEMBLER Impressions 05/03/2024 2:44 PM BUNK ASSEMBLER IMPRESSION: 1. Findings suggestive of prior injury to the TFCC. 2. Mild tendinosis of the extensor carpi ulnaris without evidence of significant tenosynovitis. 3. ECU is slightly subluxed, which is nonspecific but suggestive of prior injury to the ECU sub-sheath . Ordered By: ZEUS VO Interpreted By: Jonathan Villaseñor MD, 05/03/2024 2:33 PM Narrative 05/03/2024 2:44 PM BUNK ASSEMBLER [address] [address] EXAMINATION: MRI of the right wrist without [...] Procedure Note Jonathan Villaseñor MD - 05/03/[address] [address] EXAMINATION: MRI of the right wrist without contrast INDICATION: Ordering indication states pain . [facility] [facility] with lateral right wrist pain [...] * (ABNORMAL) HEMOGLOBIN, GLYCOSYLATED (04/07/2024 8:21 AM BUNK ASSEMBLER) HGB A1C 5.7 4.5 - 6.2 % 04/11/2024 1:21 PM BUNK ASSEMBLER [address] ESTIMATED AVG GLUCOSE 117(H) 74 - 106 MG/DL 04/11/2024 1:21 PM BUNK ASSEMBLER [address] 04/07/2024 8:21 AM BUNK ASSEMBLER Pauline Estrada NP LABORATORY Final Resul t [address] [place] [address], * (ABNORMAL) LIPID PANEL (04/07/2024 8:21 AM BUNK ASSEMBLER) Pathologist [facility] CHOLESTEROL 228(H) <200 MG/DL 04/07/2024 2:53 PM BUNK ASSEMBLER [facility] TRIGLYCERIDES 185(H) <150 MG/DL 04/07/2024 2:53 PM BUNK ASSEMBLER [facility] HDL 43 >40 MG/DL 04/07/2024 2:53 PM BUNK ASSEMBLER [facility] LDL-C 148(H) <100 MG/DL 04/07/2024 2:53 PM BUNK ASSEMBLER [facility] VLDL CALCULATION 37(H) 5 - 28 MG/DL 04/07/2024 2:53 PM BUNK ASSEMBLER [facility] CHOL/HDL RATIO 5.3(H) 0.0 - 4.0 04/07/2024 2:53 PM BUNK ASSEMBLER [facility] LDL/HDL 3.4(H) 0.41 - 2.13 04/07/2024 2:53 PM [facility] NON HDL CHOLESTEROL 185(H) <140 MG/DL 04/07/2024 2:53 PM BUNK ASSEMBLER -[facility] 04/07/2024 8:21 AM BUNK ASSEMBLER Pauline Estrada NP LABORATORY Final Resul t Performing Organization Address City/[facility] Co de Phone Number [facility] [address] [place] [address], * HEPATITIS C ANTIBODY (05/14/2021 7:46 AM BUNK ASSEMBLER) HEPATITIS C AB NON-REACTI VE NON-REACT ADAM 05/14/2021 8:31 PM BUNK ASSEMBLER [facility] Comment: ANTIBODIES TO HCV NOT DETECTED. DOES NOT EXCLUDE THE POSSIBILITY OF EXPOSURE TO HCV. 05/14/2021 7:46 AM BUNK ASSEMBLER Zeus Vo MD LABORATORY Final Result Performing Organization Address [facility] de Phone Number [facility] [address] [place] [address], [place] [phone] from Last 3 Months or Most Recently Relevant to Health Maintenance Insurance [facility] [employer] [facility] [employer] Care Teams Capacity Analyst Relationship Specialty Start Date End Date Zeus Vo MD [address] [facility] [address] [place] [address] PCP - General INTERNAL MEDICINE 03/30/24
--- OUTSIDE RECORDS SUMMARY | 2024-07-09 05:22 | XMS_ITS | Encounter Summary ---
Author Organization [facility] Address [address] [place] [address] Care Team Providers Care Fiberglass Grinder Name Role Phone Zeus Vo MD Primary Care Provider [phone] Zeus Vo MD Primary Care Provider [phone] Encounter Details Date Type Department Care Team (Late st Contact Info) Description 07/27/2022 [employer]A Message Enc [facility] Medical Group Multispecialty Care [address] [place] [address] [place], [facility] Provider Lab Results Social History Tobacco Use [...] Recorded Patient Health Questionnaire-2 Score 0 07/22/2022 [facility] [place] of Occupat ional Health - Occupational Stress [...] Sex Assigned at Male 05/02/2024 7:54 AM RESIDENT CARE SUPERVISOR Legal Sex Male 8:07 PM CDT Gender [...] Description 08/09/2024 9:00 AM CDT Office Visit [facility] Medical Group Multispecialty Care - [place] [address] [address] [place] [address] Zeus Vo MD [address] [place] [address] documented as of this encounter Visit Diagnoses Not on filedocumented in this encounter Additional Health Concerns Assessment Noted Time PHQ-9 Depression Total Score: 0 05/14/19 22 7:24 AM RESIDENT CARE SUPERVISOR documented as of this encounter Care Teams Fiberglass Grinder Relationship Specialty Start Date End Date Zeus Vo MD [address] [place] [address] PCP - General INTERNAL MEDICINE 04/07/21 02/10/24 Zeus Vo MD [address] [place] [address] PCP - General INTERNAL MEDICINE 03/30/24 documented as of this encounter
[2024-07-09] MEDS: ONDANSETRON INJ 4 MG/2 ML VIAL IV PUSH (05:43)
--- NOTE | 2024-07-09 05:43 | ED.ABDPAIN ---
HPI - Abdominal Pain General Chief Complaint: Abdominal Pain Stated Complaint: poss kidney stone Time Seen by Provider: 07/09/24 05:15 Source: patient Mode of arrival: ambulatory Limitations: no limitations History of Present Illness HPI narrative: Patient presents with left lower quadrant abdominal pain. His last bowel was last night. States he has had some constipation but denies any diarrhea. His stool has been dark. He is concern for kidney stone. He has not had a kidney stone before but he does take allopurinol. Nausea and vomiting. He states he thought he had some hematuria earlier but then his urine was clear. He denies any dysuria. Pain started at 9:30 p.m. on 07/08/2024. It started with pain on the left side of his back. No fevers or chills. Related Data Home Medications ?Medication ?Instructions ?Recorded ?Confirmed ?Last Taken ?Type allopurinol 200 mg tablet 200 mg PO DAILY 07/10/24 07/10/24 07/09/24 09:00 History atorvastatin 10 mg tablet 10 mg PO HS 07/10/24 07/10/24 07/09/24 21:00 History cholecalciferol (vitamin D3) 1,250 1,250 mcg PO WEEKLY 07/10/24 07/10/24 07/05/24 09:00 History mcg (50,000 unit) capsule losartan 25 mg tablet 25 mg PO DAILY 07/10/24 07/10/24 07/09/24 09:00 History Allergies Allergy/AdvReac Type Severity Reaction Status Date / Time codeine Allergy Mild Unknown Verified 07/09/24 03:36 [facility] Past Medical History Medical History On allopurinol therapy Hypertension Surgical History Surgical History No pertinent past surgical history Social History Social History Smoking status: Never smoker Second hand tobacco smoke exposure: No Alcohol intake: never Substance use: never Substance use type: does not use Do You Feel Safe in your Home?: Yes Lack of Transportation: No Lack of Food: Never True Current Housing: I Have Housing Concerned About Future Housing: No Difficulty Paying Gas/Electric Bills: No Difficulty Paying for Meds: No Currently Unemployed: No Education: Bachelor's Degree Difficulty w/ Childcare or Family Care: No Gender identity (if verbalized by the patient): Male Spiritual care concerns: No Exam Narrative: GENERAL: Well-appearing, well-nourished, in mild acute distress. HEAD: Normocephalic, atraumatic. EYES: Non injected, non icteric ENT: Nares clear, no rhinorrhea or epistaxis. NECK: Supple. CHEST: Speaking in full sentences. No respiratory distress. HEART: Regular rate and rhythm. . ABDOMEN: Soft, nondistended. Mild tenderness to palpation in the left lower quadrant. Not peritoneal. No rigidity or guarding. EXTREMITIES: Normal range of motion. No lower extremity edema. SKIN: Warm, dry, no rash. NEURO: No focal deficits. Alert and oriented x3. PSYCH: Normal mood and affect. Course Vital Signs Vital signs: Vital Signs Temperature 97.9 F 07/08/24 22:33 Pulse Rate 74 07/08/24 22:33 Respiratory Rate 16 07/08/24 22:33 Blood Pressure 187/100 H 07/08/24 22:33 Pulse Oximetry 98 07/08/24 22:33 Oxygen Delivery Room Air 07/08/24 22:33 Temperature 97.9 F 07/08/24 22:33 Pulse Rate 84 07/09/24 08:31 Respiratory Rate 16 07/09/24 08:31 Blood Pressure 142/93 H 07/09/24 08:31 Pulse Oximetry 96 07/09/24 08:31 Oxygen Delivery Nasal Cannula 07/09/24 06:40 Oxygen Flow Rate 2 07/09/24 06:40 MDM - Abdominal Pain MDM Narrative Medical decision making narrative: Patient presents with pain started the evening of 07/08/2024. It started left-sided back/flank pain and is now left lower quadrant abdominal pain. He reports some constipation. He is concern for a kidney stone because he is on allopurinol. He has never had a kidney stone before. No fevers or chills. Normocytic anemia, stable from previous. Isolated ALT elevation. Hematuria on exam but otherwise without evidence of infection. Kidney stone on imaging. Patient is more comfortable at this time with symptoms improved after only 1 dose of interventional medicine. We discussed that based on the size he should be able to pass this but facilitated by a combination of medications and we discussed the role of each of these. He verifies understanding and is in agreement. Advised to strain his urine, follow-up with urology as listed on discharge instructions, and given strict emergency department return precautions. Differential Diagnosis Differential diagnosis: Likely abdominal pain, calculus of kidney, constipation, diverticulitis and small bowel obstruction Lab Data Attestation: I reviewed the patient's lab results. 07/09/24 03:30 07/09/24 03:30 Labs: Lab Results 07/09/24 Range/Units 03:30 WBC 6.6 (4.5-10.0) K/mm3 RBC 4.27 L (4.6-6.20) M/mm3 Hgb 13.7 L (14.0-18.0) g/dL Hct 40.1 L (42.0-52.0) % MCV 93.9 (80-100) fl MCH 32.1 (26-34) pg MCHC 34.2 (32-36) g/dl RDW 13.5 (11.5-14.5) % Plt Count 184 (150-375) k/mm3 MPV 10.1 (7.4-10.4) fl Immature Gran % (Auto) 0.3 (0-0.5) % Neut % (Auto) 74.9 H (45.5-73.1) % Lymph % (Auto) 17.1 L (18.3-44.2) % [place] % (Auto) 6.9 (2.6-8.5) % Eos % (Auto) 0.5 (0-4.4) % Baso % (Auto) 0.3 (0.2-1.2) % Lymph # (Auto) 1.12 (0.9-3.2) K/mm3 [place] # (Auto) 0.5 (0.1-0.6) K/mm3 Eos # (Auto) 0.0 (0-0.3) K/mm3 Baso # (Auto) 0.0 (0.0-0.1) K/mm3 Abs Immat Gran (auto) 0.02 (0.00-0.031) K/mm3 Absolute Neuts (auto) 4.9 (1.3-6.7) K/mm3 Absolute Nucleated RBC 0.000 (0.0-0.012) K/mm3 Nucleated RBC % 0.0 (0.0-0.2) % Sodium 141 (137-145) mmol/L Potassium 4.6 (3.4-5.0) mmol/L Chloride 104 (98-107) mmol/L Carbon Dioxide 26 (22-30) mmol/L Anion Gap 11 (4-12) mmol/L BUN 17 (9-20) mg/dL Creatinine 1.27 (0.7-1.3) mg/dL Estim Creat Clear Calc 76 ml/min Estimated GFR > 60 (59 - ) Glucose 121 H (65-110) mg/dL Calcium 9.5 (8.4-10.2) mg/dL Total Bilirubin 1.0 (0.2-1.3) mg/dL AST 59 (17-59) U/L ALT 97 H (6-50) U/L Alkaline Phosphatase 69 (38-126) U/L Total Protein 8.0 (6.3-8.2) g/dL Albumin 4.5 (3.5-5.1) g/dL Lipase 124 (23-300) U/L Urine Color Yellow (Yellow) Urine Appearance Turbid H (Clear) Urine pH 5.5 (5.0-9.0) Ur Specific [place] 1.021 (1.001-1.035) Urine Protein 2+ H (Negative) mg/dL Urine Glucose (UA) Negative (Negative) mg/dL Urine Ketones Trace H (Negative) mg/dL Ur Blood (Man) 3+ H (Negative) Urine Nitrate Negative (Negative) Urine Bilirubin Negative (Negative) Urine Urobilinogen 0.2 (<2.0) mg/dL Add Ur Microanalysis Reviewed Leukocyte Esterase Rfl Negative (Negative) EDUAR/UL Urine RBC >100 H (0-2) /hpf Urine WBC 0-5 (0-3) /hpf Ur Squamous Epith Cells None seen (Few) /hpf Urine Bacteria None seen /hpf Urine Casts 3-5 Urine Mucus Present /lpf Imaging Data Radiologist's impression: ITS Impressions Abdomen/Pelvis CT 07/09/24 06:51 IMPRESSION: 1. Left upper ureteric stone with hydronephrotic changes. 2. Fat infiltration of the liver. 3. Diverticulosis of the sigmoid colon with no diverticulitis. Discharge Plan Discharge Clinical Impression: Normocytic anemia, ALT (SGPT) level raised, Hematuria, Left ureteral calculus, Diverticulosis Patient Disposition: Home Condition: Stable Instructions: Antibiotic Form, Diverticulosis (DC), Hematuria (ED), How to Strain Your Urine (ED), Anemia (ED), Ureteral Stones (ED) Additional Instructions: As we discussed, you have a kidney stone. Use the combination medications prescribed to help your body hopefully pass this stone. You can strain your urine and follow-up with urology listed below. Return to the emergency department any new, worsening, unmanaged symptoms such as intractable pain, intractable nausea or vomiting, fever greater than 100.4F, etc. Patient Language: Nepali Prescriptions: New tamsulosin 0.4 mg capsule 0.4 mg PO DAILY Qty: 12 0RF ondansetron 4 mg tablet,disintegrating 4 mg PO Q8H PRN (Reason: nausea and vomiting) Qty: 7 0RF ibuprofen 600 mg tablet 600 mg PO TID PRN (Reason: pain) Qty: 30 0RF No Action allopurinol 200 mg tablet 200 mg PO DAILY atorvastatin 10 mg tablet 10 mg PO HS cholecalciferol (vitamin D3) 1,250 mcg (50,000 unit) capsule 1,250 mcg PO WEEKLY Rx Instructions: Wednesday losartan 25 mg tablet 25 mg PO DAILY Follow-up/Referrals: Jessika,AILYN Gan [Primary Care Provider] - Helder Jackson MD [Physician] - (Urology) Stand Alone Forms: Work/School Release IP Time of Disposition: 08:33
[2024-07-09] MEDS: HYDROmorphone HCL INJ (*CRX) 1 MG/ML SYR IV PUSH (06:04)
--- NOTE | 2024-07-09 06:41 | PC.NURSE ---
Patient placed on 2L via NC for RA sat of 85% while sleeping and after med administration. Patient also states he has HAYLEY.
== END 2024-07-09 08:57 | disposition home or self-care (01) ==
PROVIDERS: Emergency Provider Student in an Organized Health Care Education/Training Program; PCP Nurse Practitioner Family
DX: K57.30 Diverticulosis of large intestine without perforation or abscess without bleeding (principal); N20.1 Calculus of ureter; R31.9 Hematuria, unspecified; R74.01 Elevation of levels of liver transaminase levels; I10 Essential (primary) hypertension; D64.9 Anemia, unspecified; K76.0 Fatty (change of) liver, not elsewhere classified
CPT/HCPCS: 36415; 74177; 80053; 81001; 83690; 85025; 96374; 96375; 99284; J1171; J2405; Q9967

== ENCOUNTER 2024-07-10 07:10 | Observation (INO) | payer BC, SELFPAY ==
[2024-07-10] VITALS (7 sets, daily range): BP systolic 121–165; BP diastolic 67–103; PULSE 72–95; RESP 16–20; TEMP 36.2–37.1; O2SAT 92–100
--- NOTE | ~2024-07-10 | XR_ITS ---
Supine and upright views of the abdomen Clinical history: Left-sided stone Findings: Bowel gas pattern is nonspecific. No evidence for obstruction or free air. No abnormal mass lesion or calcification is seen. Osseous structures are intact. Impression: No significant abnormality is seen on plain radiography. Reviewed, dictated and finalized at [facility]. Impression: No significant abnormality is seen on plain radiography.
--- NOTE | ~2024-07-10 | XR_ITS ---
EXAMINATION: XR retrograde pyelo w/stent LT DATE: 07/11/2024 12:16 INDICATION: Left internal ureteral stent placement TECHNIQUE: Fluoroscopic images from a left internal ureteral stent placement are submitted for review . 49 seconds of fluoroscopy time. 6 fluoroscopic images. FINDINGS: There is a left double-J internal ureteral stent projecting in expected position, with proximal [place] loop at the level of the renal pelvis.. IMPRESSION: 1. Left internal ureteral stent placement. Please refer to real-time procedural findings for detail s. Reviewed, dictated and finalized at location [facility]. IMPRESSION: 1. Left internal ureteral stent placement. Please refer to real-time procedur al findings for details.
--- OUTSIDE RECORDS SUMMARY | 2024-07-10 07:15 | XMS_ITS | Encounter Summary ---
Author Organization [facility] Address [address] [place] [address] Care Team Providers Care Custom Applicator Name Role Phone Zeus Vo MD Primary Care Provider [phone] Zeus Vo MD Primary Care Provider [phone] Encounter Details Date Type Department Care Team (Late st Contact Info) Description 09/30/2022 Infinancialst Message Enc [facility] Medical [facility] [address] [place] [address] Consert, [facility] Provider Air Quality Message Social History [...] Patient Health Questionnaire-2 Score 0 07/22/2022 [facility] [place] of Occupat ional Health - Occupational Stress [...] Sex Assigned at Male 05/02/2024 7:54 AM SQL DATABASE ADMINISTRATOR Legal Sex Male 8:07 PM CDT Gender [...] Description 08/09/2024 9:00 AM CDT Office Visit [facility] [place] [address] [address] [place] [address] Zeus Vo MD [address] [place] [address] documented as of this encounter Visit Diagnoses Not on filedocumented in this encounter Additional Health Concerns Assessment Noted Time PHQ-9 Depression Total Score: 0 05/14/19 22 7:24 AM SQL DATABASE ADMINISTRATOR documented as of this encounter Care Teams Custom Applicator Relationship Specialty Start Date End Date Zeus Vo MD [address] [place] [address] PCP - General INTERNAL MEDICINE 04/07/21 02/10/24 Zeus Vo MD [address] [place] [address] PCP - General INTERNAL MEDICINE 03/30/24 documented as of this encounter
--- OUTSIDE RECORDS SUMMARY | 2024-07-10 07:15 | XMS_ITS | Encounter Summary ---
Author Organization [facility] Address [address] [place] [address] Care Team Providers Care Watch Electrician Name Role Phone Zeus Vo MD Primary Care Provider [phone] Zeus Vo MD Primary Care Provider [phone] Encounter Details Date Type Department Care Team (Late st Contact Info) Description 07/27/2022 Kinnek Message Enc [facility] Medical Group Multispecialty Care [address] [place] [address] [employer], [facility] Provider Lab Results Social History [...] Recorded Patient Health Questionnaire-2 Score 0 07/22/2022 [facility] [place] of Occupat ional Health - Occupational Stress [...] Sex Assigned at Male 05/02/2024 7:54 AM CUSTOMER OPERATIONS MANAGER Legal Sex Male 8:07 PM CDT Gender [...] Description 08/09/2024 9:00 AM CDT Office Visit [facility] Medical [facility] [place] [address] [address] [place] [address] Zeus Vo MD [address] [place] [address] documented as of this encounter Visit Diagnoses Not on filedocumented in this encounter Additional Health Concerns Assessment Noted Time PHQ-9 Depression Total Score: 0 05/14/19 22 7:24 AM CUSTOMER OPERATIONS MANAGER documented as of this encounter Care Teams Watch Electrician Relationship Specialty Start Date End Date Zeus Vo MD [address] [place] [address] PCP - General INTERNAL MEDICINE 04/07/21 02/10/24 Zeus Vo MD [address] [place] [address] PCP - General INTERNAL MEDICINE 03/30/24 documented as of this encounter
--- OUTSIDE RECORDS SUMMARY | 2024-07-10 07:15 | XMS_ITS | Encounter Summary ---
Author Organization [facility] Address [address] [place] [address] Care Team Providers Care Project Surveyor Name Role Phone Zeus Vo MD Primary Care Provider [phone] Zeus Vo MD Primary Care Provider [phone] Encounter Details Date Type Department Care Team (Late st Contact Info) Description 07/11/2021 GoChimet Message Enc [facility] Medical Group Multispecialty Care [place] [address] [address] [place] [address] eZus Vo MD [address] [place] [address] [address] [place] [address] colchicine Social History Tobacco Use [...] on to questions 3-9 0 05/14/2021 [facility] [place] of Occupat ional Health - Occupational Stress [...] Sex Assigned at Male 05/02/2024 7:54 AM INSTANT POTATO PROCESSING SUPERVISOR Legal Sex Male 8:07 PM CDT [...] Description 08/09/2024 9:00 AM CDT Office Visit [facility] Medical Group [facility] [place] [address] [address] [place] [address] Zeus Vo MD [address] [place] [address] documented as of this encounter Visit Diagnoses Not on filedocumented in this encounter Additional Health Concerns Infection Onset Date Last Indicated Resolved Time COVID-19 Rule Out 03/03/2022 03/03/2022 03/03/2022 2:54 PM INSTANT POTATO PROCESSING SUPERVISOR COVID-19 Rule Out 03/03/2022 03/03/2022 03/05/2022 1:12 AM INSTANT POTATO PROCESSING SUPERVISOR Assessment Noted Time PHQ-9 Depression Total Score: 0 05/14/19 7:24 AM INSTANT POTATO PROCESSING SUPERVISOR documented as of this encounter Care Teams Project Surveyor Relationship Specialty Start Date End Date Zeus Vo MD [address] [place] [address] PCP - General INTERNAL MEDICINE 04/07/21 02/10/24 Zeus Vo MD [address] [facility] [address] [place] [address] PCP - General INTERNAL MEDICINE 03/30/24 documented as of this encounter
--- OUTSIDE RECORDS SUMMARY | 2024-07-10 07:15 | XMS_ITS | Clinical Summary ---
Author Organization [facility] Address [address] [place] [address] Care Team Providers Care Pipe Line Walker Name Role Phone Zeus Vo MD Primary Care Provider [phone] Allergies Active Allergy Reactions Criticality Noted Date [...] Department Care Team Description 05/08/2024 8:00 AM WOOD CASKET ASSEMBLER Office Visit [place] [address] [facility] [address] [place] [address] Zeus Vo MD Follow Up (Workmans comp is through today. Hand specialist appt is on Wednesday. ); Wrist Pain 05/08/2024 Telephone [place] [address] [address] [facility] [address] [place] [address] Zeus Vo MD Referral 05/08/2024 Travel 05/04/2024 Telephone [place] [address] [address] [facility] [address] [place] [address] Zeus Vo MD Results 05/04/2024 Telephone [place] [address] [address] [facility] [address] [place] [address] Zeus Vo MD Other (/) 05/02/2024 7:59 AM WOOD CASKET ASSEMBLER - 05/02/2024 11:59 PM WOOD CASKET ASSEMBLER Hospital Encounter [facility] [place] [address] Zeus Vo MD Discharge Disposition: Home or Self Care (Routine Discharge) 05/02/2024 Travel 04/20/2024 Scan [facility] Scanned, [facility] 04/14/2024 Telephone [facility] [address] [facility] [address] [place] [address] Zeus Vo MD Orders 04/13/2024 Telephone [place] [address] [address] [facility] [address] [place] [address] Zeus Vo MD Results 04/11/2024 Telephone [place] [address] [place] [address] Zeus Vo MD Question from Last 3 Months Immunizations Name Administration [...] Recorded Patient Health Questionnaire-2 Score 0 05/08/2024 [facility] of Occupat ional [facility] - Occupational Stress Questionnaire Answer [...] Sex Assigned at Male 05/02/2024 7:54 AM WOOD CASKET ASSEMBLER Legal Sex Male 8:07 PM CDT Gender Identity Not on file Sexual Orientation Not on file Last Filed Vital Signs Vital Sign Reading Time Taken Comments Blood Pressure 134/80 05/08/2024 8:07 AM WOOD CASKET ASSEMBLER Pulse 64 05/08/2024 8:07 AM WOOD CASKET ASSEMBLER Temperature 35.9 C (96.6 F) 05/08/2024 8:07 AM WOOD CASKET ASSEMBLER Respiratory Rate 18 05/08/2024 8:07 AM WOOD CASKET ASSEMBLER Oxygen Saturation 95% 05/08/2024 8:07 AM WOOD CASKET ASSEMBLER Inhaled Oxygen Concentration - - Weight 108.2 kg (238 lb 9.6 oz) 05/08/2024 8:07 AM WOOD CASKET ASSEMBLER Height 175.3 cm (5' 9 ) 05/08/2024 8:07 AM WOOD CASKET ASSEMBLER Body Mass Index 35.24 05/08/2024 8:07 AM WOOD CASKET ASSEMBLER Plan of Treatment Upcoming Encounters Date Type Department Care Team (Late st Contact Info) Description 08/09/2024 9:00 AM CDT Office Visit [facility] Medical Group Multispecialty Care [place] [address] [address] [place], [place] [id number] [place] [address] [place] [address] [address] [place], [place] [address] Health Maintenance Due Date Last Done Comments Colorectal Cancer Screening Colonoscopy (10 Years) 1976 Pneumococcal Vaccine: Pediatrics (0 to 5 Years) and At-Risk Patients (6 to 64 Years) (1 of 2 - PCV) 1982 Diabetes: Retinopathy Eye Exam 1994 Hepatitis B Vaccines (3 of 3 - 19+ 3-dose series) 10/25/2000 06/02/2000, 04/27/2000 COVID-19 Vaccine (3 - season) 2023 06/04/2020, 05/07/2020 Hemoglobin A1C 10/05/2024 04/07/2024, 07/04, 05/14/2021 Annual Physical 02/10/2025 02/11/2024, 07/04, 05/14/2021, Additional history exists Kidney Health Evaluation 04/07/2025 04/07/2024 Lipid Panel 04/07/2025 04/07/2024, 07/04, 05/14/2021, Additional history exists DTaP, Tdap and Td Vaccines (4 - Td or Tdap) 11/05/2030 11/05/2020, 04/05/2009, 04/05/2009 Hepatitis C Completed 05/14/2021 PHQ-2 (Physician [place]) Completed 05/08/2024 Meningococcal B Vaccine Aged Out [...] BASIC METABOLIC PANEL Routine 05/08/2024 8:34 AM WOOD CASKET ASSEMBLER Drug therapy Right wrist pain COLLECTION VENOUS BLOOD VENIPUNCTURE Routine 05/08/2024 8:33 AM WOOD CASKET ASSEMBLER Drug therapy Right wrist pain MRI WRIST RT WO CON Routine 05/02/2024 8 :41 AM WOOD CASKET ASSEMBLER Right wrist pain LIPID PANEL Routine 04/07/2024 8:21 AM WOOD CASKET ASSEMBLER Annual physical exam HEMOGLOBIN, GLYCOSYLATED Routine 04/07/2024 8:21 AM WOOD CASKET ASSEMBLER Screening for diabetes mellitus HEPATITIS C ANTIBODY Routine 05/14/2021 7:46 AM WOOD CASKET ASSEMBLER Annual physical exam General medical exam Encounter for hepatitis C screening test for low risk patient from Last 3 Months or Most Recently Relevant to Health Maintenance Results * (ABNORMAL) BASIC METABOLIC PANEL (05/08/2024 8:34 AM WOOD CASKET ASSEMBLER) [facility] SODIUM S/P/B 142 136 - 145 MMOL/L 05/08/2024 2:29 PM WOOD CASKET ASSEMBLER -[facility] POTASSIUM S/P/B 4.3 3.5 - 5.1 MMOL/L 05/08/2024 2:29 PM WOOD CASKET ASSEMBLER [facility] CHLORIDE S/P/B 107 98 - 107 MMOL/L 05/08/2024 2:29 PM WOOD CASKET ASSEMBLER [facility] CO2 30.4 21 - 32 MMOL/L 05/08/2024 2:29 PM WOOD CASKET ASSEMBLER -[facility] GLUCOSE 112(H) 70 - 99 MG/DL 05/08/2024 2:29 PM WOOD CASKET ASSEMBLER [facility] BUN 14 7 - 18 MG/DL 05/08/2024 2:29 PM [facility] CREATININE S/P/B 1.10 0.70 - 1.30 MG/DL 05/08/2024 2:29 PM [facility] CALCIUM S/P/B 9.4 8.4 - 10.5 MG/DL 05/08/2024 2:29 PM WOOD CASKET ASSEMBLER [facility] ANION GAP 4.6(L) 5 - 15 MMOL/L 05/08/2024 2:29 PM [facility] Comment:REFERENCE RANGE NOT ESTABLISHED OSMOLALITY (CALC) 295 MOSM/KG 025 2:29 PM [facility] Comment:REFERENCE RANGE NOT ESTABLISHED GFR ESTIMATE 83(L) >90 ML/MIN/1. 73 M2 05/08/2024 2:29 PM WOOD CASKET ASSEMBLER [facility] GFR NOTES GFR REFERENCE S: 05/08/2024 2:29 PM [facility] Comment: THE ESTIMATED GFR IS CALCULATED [...] FAILURE: <15 ml/min/1.73 m2 05/08/2024 8:34 AM WOOD CASKET ASSEMBLER us Zeus Vo MD LABORATORY Final Result [facility] [address] [place] [address], * MRI WRIST RT WO CON (05/02/2024 8:41 AM WOOD CASKET ASSEMBLER) Anatomical Region Laterality Modality Wrist Magnetic Resonan ce 05/03/2024 2:33 PM WOOD CASKET ASSEMBLER Impressions 05/03/2024 2:44 PM WOOD CASKET ASSEMBLER IMPRESSION: 1. Findings suggestive of prior injury to the TFCC. 2. Mild tendinosis of the extensor carpi ulnaris without evidence of significant tenosynovitis. 3. ECU is slightly subluxed, which is nonspecific but suggestive of prior injury to the ECU sub-sheath . Ordered By: ZEUS VO Interpreted By: Jonathan Villaseñor MD, 05/03/2024 2:33 PM Narrative 05/03/2024 2:44 PM WOOD CASKET ASSEMBLER [address] [address] EXAMINATION: MRI of the right wrist without [...] Procedure Note Jonathan Villaseñor MD - 05/03/[address] [address] EXAMINATION: MRI of the right wrist without contrast INDICATION: Ordering indication states pain . [facility] with lateral right wrist pain [...] * (ABNORMAL) HEMOGLOBIN, GLYCOSYLATED (04/07/2024 8:21 AM WOOD CASKET ASSEMBLER) HGB A1C 5.7 4.5 - 6.2 % 04/11/2024 1:21 PM WOOD CASKET ASSEMBLER [address] ESTIMATED AVG GLUCOSE 117(H) 74 - 106 MG/DL 04/11/2024 1:21 PM WOOD CASKET ASSEMBLER [address] 04/07/2024 8:21 AM WOOD CASKET ASSEMBLER Pauline Estrada NP LABORATORY Final Resul t Performing Organization Address City/[facility]/ZIP Co de Phone Number [address] [place] [address], * (ABNORMAL) LIPID PANEL (04/07/2024 8:21 AM WOOD CASKET ASSEMBLER) Pathologist [facility] CHOLESTEROL 228(H) <200 MG/DL 04/07/2024 2:53 PM WOOD CASKET ASSEMBLER [facility] TRIGLYCERIDES 185(H) <150 MG/DL 04/07/2024 2:53 PM WOOD CASKET ASSEMBLER [facility] HDL 43 >40 MG/DL 04/07/2024 2:53 PM WOOD CASKET ASSEMBLER [facility] LDL-C 148(H) <100 MG/DL 04/07/2024 2:53 PM [facility] VLDL CALCULATION 37(H) 5 - 28 MG/DL 04/07/2024 2:53 PM [facility] CHOL/HDL RATIO 5.3(H) 0.0 - 4.0 04/07/2024 2:53 PM [facility] LDL/HDL 3.4(H) 0.41 - 2.13 04/07/2024 2:53 PM WOOD CASKET ASSEMBLER [facility] NON HDL CHOLESTEROL 185(H) <140 MG/DL 04/07/2024 2:53 PM WOOD CASKET ASSEMBLER [facility] 04/07/2024 8:21 AM WOOD CASKET ASSEMBLER Pauline Estrada NP LABORATORY Final Resul t Performing Organization Address City/[facility]/ZIP Co de Phone Number -[facility] [address] [place] [address], [place] [phone] * HEPATITIS C ANTIBODY (05/14/2021 7:46 AM WOOD CASKET ASSEMBLER) HEPATITIS C AB NON-REACTI VE NON-REACT ADAM 05/14/2021 8:31 PM WOOD CASKET ASSEMBLER [facility] Comment: ANTIBODIES TO HCV NOT DETECTED. DOES NOT EXCLUDE THE POSSIBILITY OF EXPOSURE TO HCV. 05/14/2021 7:46 AM WOOD CASKET ASSEMBLER Zeus Vo MD LABORATORY Final Result [facility] [address] [place] [address], [place] [phone] from Last 3 Months or Most Recently Relevant to Health Maintenance [place] [address] [place] [address] [facility] [employer] MEDICAL REIMBURSEMENTS OF [employer]ON[employer] Care Teams Pipe Line Walker Relationship Specialty Start Date End Date Zeus Vo MD [address] [address] PCP - General INTERNAL MEDICINE 03/30/24
--- OUTSIDE RECORDS SUMMARY | 2024-07-10 07:15 | XMS_ITS | Clinical Summary ---
Author Organization [facility] Address [address] [place] [address] Care Team Providers Care Mine Utility Operator Name Role Phone Unknown, Provider Primary Care Provider Unavaila ble Source Comments [facility],non-owned Affiliates and Associated Physician Practices is amultiple site organization consisting of ambulatory clinics and hospital sitesin [place], [place], [place] and [place]. This disclosure is being madepursuant to the Care Everywhere program and may not contain all information available regarding this patient. Last updated 17.[facility] Allergies Active Allergy Reactions Criticality Noted Date [...] Comments Blood Pressure 104/72 04/25/2016 12:20 PM SOCIAL SCIENCES PROFESSOR Pulse 87 04/25/2016 12:20 PM SOCIAL SCIENCES PROFESSOR Temperature 36.5 C (97.7 F) 04/25/2016 12:20 PM SOCIAL SCIENCES PROFESSOR Respiratory Rate 16 04/25/2016 12:20 PM SOCIAL SCIENCES PROFESSOR Oxygen Saturation 98% 04/25/2016 12:20 PM SOCIAL SCIENCES PROFESSOR Inhaled Oxygen Concentration - - Weight 104.3 kg (230 lb) 04/25/2016 12:20 PM SOCIAL SCIENCES PROFESSOR Height 175.3 cm (5' 9 ) 04/25/2016 12:20 PM SOCIAL SCIENCES PROFESSOR Body Mass Index 33.97 04/25/2016 12:20 PM SOCIAL SCIENCES PROFESSOR Plan of Treatment Health Maintenance Due [...] age to complete this topic Care Teams Mine Utility Operator Relationship Specialty Start Date End Date Unknown, Provider PCP - General 04/25/16
--- OUTSIDE RECORDS SUMMARY | 2024-07-10 07:15 | XMS_ITS | Encounter Summary ---
Author Organization [facility] Address [address] [place] [address] Care Team Providers Care Director Of Student Services Name Role Phone Zeus Vo MD Primary Care Provider [phone] Zeus Vo MD Primary Care Provider [phone] Encounter Details Date Type Department Care Team (Late st Contact Info) Description 07/23/2022 Grup[place] Message Enc [facility] Multispecialty Care [address] [place] [address] [facility], [facility] Provider Results Social History Tobacco Use Types [...] Patient Health Questionnaire-2 Score 0 07/22/[address] [facility] [place] of Occupat ional Health - Occupational Stress [...] Sex Assigned at Male 05/02/2024 7:54 AM TERMINAL MAKEUP OPERATOR Legal Sex Male 8:07 PM CDT [...] [facility] Mult[facility] Care - [address] [address] [address] [place] [address] Zeus Vo MD [address] [place] [address] documented as of this encounter Visit Diagnoses Not on filedocumented in this encounter Additional Health Concerns Assessment Noted Time PHQ-9 Depression Total Score: 0 05/14/19 22 7:24 AM TERMINAL MAKEUP OPERATOR documented as of this encounter Care Teams Director Of Student Services Relationship Specialty Start Date End Date Zeus Vo MD [address] [place] [address] PCP - General INTERNAL MEDICINE 04/07/21 02/10/24 Zeus Vo MD [address] [place] [address] PCP - General INTERNAL MEDICINE 03/30/24 documented as of this encounter
--- OUTSIDE RECORDS SUMMARY | 2024-07-10 07:15 | XMS_ITS | Encounter Summary ---
Author Organization [facility] Address [address] [place] [address] Care Team Providers Care Slasher Name Role Phone Zeus Vo MD Primary Care Provider Zeus Vo MD Primary Care Provider [phone] Encounter Details Date Type Department Care Team (Late st Contact Info) Description 11/05/2021 [employer] [place] Message Enc [facility] Medical Group Multispecialty Care - [address] [address] [address] [place] [address] Zeus Vo MD [address] [place] [address] [address] [place] [address] Order for CPAP Social History [...] on to questions 3-9 0 05/14/2021 [facility] [place] of Occupat ional Health - Occupational Stress [...] Sex Assigned at Male 05/02/2024 7:54 AM PARAMEDIC SUPERVISOR Legal Sex Male 8:07 PM CDT [...] [facility] Mult[facility]ty Care - [address] [address] [address] [place] [address] Zeus Vo MD [address] [place] [address] documented as of this encounter Visit Diagnoses Not on filedocumented in this encounter Additional Health Concerns Infection Onset Date Last Indicated Resolved Time COVID-19 Rule Out 03/03/2022 03/03/2022 03/03/2022 2:54 PM PARAMEDIC SUPERVISOR COVID-19 Rule Out 03/03/2022 03/03/2022 03/05/2022 1:12 AM PARAMEDIC SUPERVISOR Assessment Noted Time PHQ-9 Depression Total Score: 0 05/14/19 7:24 AM PARAMEDIC SUPERVISOR documented as of this encounter Care Teams Slasher Relationship Specialty Start Date End Date Zeus Vo MD [address] [place] [address] PCP - General INTERNAL MEDICINE 04/07/21 02/10/24 Zeus Vo MD [address] [address] PCP - General INTERNAL MEDICINE 03/30/24 documented as of this encounter
--- OUTSIDE RECORDS SUMMARY | 2024-07-10 07:15 | XMS_ITS | Encounter Summary ---
Author Organization [facility] Address [address] [place] [address] Care Team Providers Care Warehouse Order Picker Name Role Phone Zeus Vo MD Primary Care Provider [phone] Zeus Vo MD Primary Care Provider [phone] Encounter Details Date Type Department Care Team (Late st Contact Info) Description 09/04/2022 Beyond [employer] Message Enc [facility] Medical Group Multispecialty Care - [address] [address] [address] [place] [address] Zeus Vo MD [address] [place] [address] [address] [place] [address] Meds Social History Tobacco Use [...] 0 07/22/2022 [facility] - Occupational Stress [...] Sex Assigned at Male 05/02/2024 7:54 AM RESTRICTIVE PREPARATION OPERATOR Legal Sex Male 8:07 PM CDT Gender Identity Not on file Sexual Orientation Not on file documented as of this encounter Plan of Treatment Upcoming Encounters Date Type Department Care Team (Late st Contact Info) Description 08/09/2024 9:00 AM CDT Office Visit [facility] Medical Group Multispecialty Care - [address] [address] [address] [place] [address] Zeus Vo MD [address] [place] [address] documented as of this encounter Visit Diagnoses Not on filedocumented in this encounter Additional Health Concerns Assessment Noted Time PHQ-9 Depression Total Score: 0 05/14/19 22 7:24 AM RESTRICTIVE PREPARATION OPERATOR documented as of this encounter Care Teams Warehouse Order Picker Relationship Specialty Start Date End Date Zeus Vo MD [address] [place] [address] PCP - General INTERNAL MEDICINE 04/07/21 02/10/24 Zeus Vo MD [address] [place] [address] PCP - General INTERNAL MEDICINE 03/30/24 documented as of this encounter
[2024-07-10] MEDS: ONDANSETRON INJ 4 MG/2 ML VIAL IV PUSH (07:36)
[2024-07-10] MEDS: MORPHINE SULFATE (*CRX) 4 MG/ML INJ IV PUSH (07:37)
[2024-07-10] MEDS: SODIUM CHLORIDE 0.9% IV 1,000 ML 999 ML IV CONT (07:37)
[2024-07-10 07:38] LABS: Basophils Percent Auto 0.2 % (0.2-1.2); Eosinophils Percent Auto 0.2 % (0-4.4); Hematocrit 40.8 % (42.0-52.0); Hemoglobin 13.9 g/dL (14.0-18.0); Immature Granulocyte Absolute 0.03 K/mm3 (0.00-0.031); Immature Granulocyte Percent A 0.3 % (0-0.5); Lymphocytes Absolute Auto 1.36 K/mm3 (0.9-3.2); Lymphocytes Percent Auto 14.8 % (18.3-44.2); Mean Corpuscular HGB Conc 34.1 g/dl (32-36); Mean Corpuscular Hemoglobin 32.1 pg (26-34); Mean Corpuscular Volume 94.2 fl (80-100); Mean Platelet Volume 9.8 fl (7.4-10.4); Monocytes Absolute Auto 0.8 K/mm3 (0.1-0.6); Monocytes Percent Auto 8.9 % (2.6-8.5); Neutrophils Percent Auto 75.6 % (45.5-73.1); Platelet Count Result 203 k/mm3 (150-375); Red Blood Count 4.33 M/mm3 (4.6-6.20); Red Cell Distribution Width 13.3 % (11.5-14.5); White Blood Count 9.2 K/mm3 (4.5-10.0)
[2024-07-10 07:47] LABS: Alanine Aminotransferase 77 U/L (6-50); Albumin Level 4.5 g/dL (3.5-5.1); Alkaline Phosphatase 65 U/L (38-126); Anion Gap 12 mmol/L (4-12); Aspartate Amino Transferase 46 U/L (17-59); Bilirubin,Total 0.9 mg/dL (0.2-1.3); Blood Urea Nitrogen 16 mg/dL (9-20); Calcium 9.2 mg/dL (8.4-10.2); Carbon Dioxide 24 mmol/L (22-30); Chloride 103 mmol/L (98-107); Estimated CRCL calculation 68 ml/min; Estimated Glomerular Filt Rate 51; Glucose 115 mg/dL (65-110); Potassium 3.9 mmol/L (3.4-5.0); Sodium 139 mmol/L (137-145)
[2024-07-10 08:53] LABS: Add Urine Microscopic? YES; Appearance Urine Clear (Clear); Bacteria Urine None Seen /hpf; Bilirubin Urine Negative (Negative); Blood Urine 3+ (Negative); Color Urine Yellow (Yellow); Glucose Urine UA Negative (Negative); Ketones Urine Trace mg/dL (Negative); Leukocyte Esterase Ur 1+ LEU/UL (Negative); Nitrate Urine Negative (Negative); Non Pathogenic Casts 0-2; Protein Urine Trace mg/dL (Negative); Specific Grav Ur 1.026 (1.001-1.035); Squamous Epithelial Cell Urine None Seen /hpf (Few); Urobilinogen Urine 0.2 mg/dL (<2.0); pH Urine 5.5 (5.0-9.0)
[2024-07-10] MEDS: HYDROmorphone HCL INJ (*CRX) 1 MG/ML SYR IV PUSH (09:07)
--- NOTE | 2024-07-10 09:21 | ED.MALEGU ---
HPI - Male Genitourinary General Chief complaint: Urogenital-Male Stated complaint: kidney stone Time Seen by Provider: 07/10/24 07:14 History of Present Illness HPI Narrative: Patient is a 48-year-old male who presents ER with flank pain. Was seen over the weekend and diagnosed with kidney stones. He is passing a 4 mm stone on left side. He has not been able to keep down food/water/medication over last 24 hours so he returns for further evaluation. No urinary frequency or dysuria. Related Data Home Medications ?Medication ?Instructions ?Recorded ?Confirmed ?Last Taken ?Type allopurinol 200 mg tablet 200 mg PO DAILY 07/10/24 07/10/24 07/09/24 09:00 History atorvastatin 10 mg tablet 10 mg PO HS 07/10/24 07/10/24 07/09/24 21:00 History cholecalciferol (vitamin D3) 1,250 1,250 mcg PO WEEKLY 07/10/24 07/10/24 07/05/24 09:00 History mcg (50,000 unit) capsule losartan 25 mg tablet 25 mg PO DAILY 07/10/24 07/10/24 07/09/24 09:00 History Allergies Allergy/AdvReac Type Severity Reaction Status Date / Time codeine Allergy Mild Unknown Verified 07/09/24 03:36 Review of Systems Review of Systems: All systems reviewed & are unremarkable except as noted in HPI and below Constitutional: Constitutional: Reports no additional constitutional complaints Cardiovascular: Cardiovascular: Reports no additional cardiovascular complaints Respiratory: Respiratory: Reports no additional respiratory complaints Gastrointestinal: Gastrointestinal: Reports no additional gastrointestinal complaints Genitourinary: Genitourinary: Reports no additional male genitourinary complaints Musculoskeletal: Musculoskeletal: Reports no additional musculoskeletal complaints [facility] Past Medical History Medical History Hypertension Surgical History Surgical History No pertinent past surgical history Social History Social History Smoking status: Never smoker Second hand tobacco smoke exposure: No Alcohol intake: never Substance use: never Substance use type: does not use Do You Feel Safe in your Home?: Yes Lack of Transportation: No Lack of Food: Never True Current Housing: I Have Housing Concerned About Future Housing: No Difficulty Paying Gas/Electric Bills: No Difficulty Paying for Meds: No Currently Unemployed: No Education: Bachelor's Degree Difficulty w/ Childcare or Family Care: No Gender identity (if verbalized by the patient): Male Spiritual care concerns: No Exam Narrative: GENERAL: Uncomfortable-appearing, well-nourished, and in no acute distress. HEAD: Normocephalic, atraumatic. ENT: Mucous membranes moist. NECK: Supple. CHEST: Clear to auscultation. No respiratory distress. HEART: Regular rate and rhythm. Normal peripheral pulses. ABDOMEN: Soft, nontender, nondistended. No CVA tenderness EXTREMITIES: Normal range of motion. No edema. SKIN: Warm, dry, no rash. NEURO: Alert and oriented x3. PSYCH: Normal mood and affect. Course Course Emergency Course: Pain not controlled with morphine. Mildly improved with Dilaudid. Still nauseous. Discussed with urology and they will admit for observation/pain control. Possible procedure today. Vital Signs Vital signs: Vital Signs Temperature 97.6 F 07/10/24 07:15 Pulse Rate 81 07/10/24 07:15 Respiratory Rate 18 07/10/24 07:15 Blood Pressure 165/103 H 07/10/24 07:15 Pulse Oximetry 96 07/10/24 07:15 Oxygen Delivery Room Air 07/10/24 07:15 Temperature 97.2 F L 07/10/24 13:10 Pulse Rate 72 07/10/24 13:10 Respiratory Rate 18 07/10/24 13:10 Blood Pressure 160/92 H 07/10/24 13:10 Pulse Oximetry 100 07/10/24 13:10 Oxygen Delivery Room Air 07/10/24 13:10 MDM - Male Genitourinary Lab Data 07/10/24 07:33 07/10/24 07:33 Labs: Lab Results 07/10/24 07/10/24 Range/Units 07:33 08:43 WBC 9.2 (4.5-10.0) K/mm3 RBC 4.33 L (4.6-6.20) M/mm3 Hgb 13.9 L (14.0-18.0) g/dL Hct 40.8 L (42.0-52.0) % MCV 94.2 (80-100) fl MCH 32.1 (26-34) pg MCHC 34.1 (32-36) g/dl RDW 13.3 (11.5-14.5) % Plt Count 203 (150-375) k/mm3 MPV 9.8 (7.4-10.4) fl Immature Gran % (Auto) 0.3 (0-0.5) % Neut % (Auto) 75.6 H (45.5-73.1) % Lymph % (Auto) 14.8 L (18.3-44.2) % [place] % (Auto) 8.9 H (2.6-8.5) % Eos % (Auto) 0.2 (0-4.4) % Baso % (Auto) 0.2 (0.2-1.2) % Lymph # (Auto) 1.36 (0.9-3.2) K/mm3 [place] # (Auto) 0.8 H (0.1-0.6) K/mm3 Eos # (Auto) 0.0 (0-0.3) K/mm3 Baso # (Auto) 0.0 (0.0-0.1) K/mm3 Abs Immat Gran (auto) 0.03 (0.00-0.031) K/mm3 Absolute Neuts (auto) 7.0 H (1.3-6.7) K/mm3 Absolute Nucleated RBC 0.000 (0.0-0.012) K/mm3 Nucleated RBC % 0.0 (0.0-0.2) % Sodium 139 (137-145) mmol/L Potassium 3.9 (3.4-5.0) mmol/L Chloride 103 (98-107) mmol/L Carbon Dioxide 24 (22-30) mmol/L Anion Gap 12 (4-12) mmol/L BUN 16 (9-20) mg/dL Creatinine 1.48 H (0.7-1.3) mg/dL Estim Creat Clear Calc 68 ml/min Estimated GFR 51 L (59 - ) Glucose 115 H (65-110) mg/dL Calcium 9.2 (8.4-10.2) mg/dL Total Bilirubin 0.9 (0.2-1.3) mg/dL AST 46 (17-59) U/L ALT 77 H (6-50) U/L Alkaline Phosphatase 65 (38-126) U/L Total Protein 8.0 (6.3-8.2) g/dL Albumin 4.5 (3.5-5.1) g/dL Urine Color Yellow (Yellow) Urine Appearance Clear (Clear) Urine pH 5.5 (5.0-9.0) Ur Specific [place] 1.026 (1.001-1.035) Urine Protein Trace (Negative) mg/dL Urine Glucose (UA) Negative (Negative) mg/dL Urine Ketones Trace H (Negative) mg/dL Ur Blood (Man) 3+ H (Negative) Urine Nitrate Negative (Negative) Urine Bilirubin Negative (Negative) Urine Urobilinogen 0.2 (<2.0) mg/dL Leukocyte Esterase Rfl 1+ H (Negative) EDUAR/UL Urine RBC 11-20 H (0-2) /hpf Urine WBC 11-20 H (0-3) /hpf Ur Squamous Epith Cells None seen (Few) /hpf Urine Bacteria None seen /hpf Urine Casts 0-2 Imaging Data Radiologist's impression: ITS Impressions Abdomen X-Ray 07/10/24 08:18 Impression: No significant abnormality is seen on plain radiography. Discharge Plan Discharge Clinical Impression: Ureteral stone with hydronephrosis, Uncontrolled pain, Vomiting Patient Disposition: Still a Patient Condition: Stable
[2024-07-10] MEDS: TAMSULOSIN HCL 0.4 MG CAPSULE PO (09:43)
--- NOTE | 2024-07-10 09:52 | P.HP_ITS ---
H&P: HPI History of Present Illness Date/Time: 07/10/24 09:52 <Ana Maria Valente APRN - Last Filed: 07/10/24 15:16> Chief Complaint: Left abdominal pain, nausea, vomiting <Ana Maria Valente APRN - Last Filed: 07/10/24 15:16> Left abdominal pain, nausea, vomiting Left ureteral stone <Krishna Montgomery MD - Last Filed: 07/10/24 11:34> Narrative: Mr. Hall is a 48yo male unknown to our practice who presented to the ER this morning for evaluation of persistent left abdominal pain, nausea, vomiting r/t a left 4mm ureteral stone identified on CT imaging 07/08/24. He was seen in the ER y and discharged home with a trial of stone passage, but has been unable to hold down oral fluids. KUB this morning did not show a visible stone. Urinalysis is abnormal, but he has no clinical symptoms or signs of infection He is being admitted for pain control, antibiotics, and ureteral stent placement. Other medical history significant for HTN and obesity. Denies previous history of stones. We will plan on ureteral stent today. If all goes well he would likely be discharged home with definitive stone management as an outpatient <Ana Maria Valente APRN - Last Filed: 07/10/24 15:16> Mr. Hall is a 48yo male unknown to our practice who presented to the ER this morning for evaluation of persistent left abdominal pain, nausea, vomiting r/t a left 4mm ureteral stone identified on CT imaging 07/08/24. He was seen in the ER y and discharged home with a trial of stone passage, but has been unable to hold down oral fluids. KUB this morning did not show a visible s tone. Urinalysis is abnormal, but he has no clinical symptoms or signs of infection He is being admitted for pain control, antibiotics, and ureteral stent placement. Other medical history significant for HTN and obesity. Denies previous history if stones. We will plan on ureteral stent today. If all goes well he would likely be discharged home with definitive stone management as an outpatient <Krishna Montgomery MD - Last Filed: 07/10/24 11:34> Review of Systems Review of Systems: All systems reviewed & are unremarkable except as noted in HPI and below <Krishna Montgomery MD - Last Filed: 07/10/24 11:34> [facility] Past Medical History Medical History: Medical History Hypertension <Ana Maria Valente APRN - Last Filed: 07/10/24 15:16> Surgical History Surgical History: Surgical History No pertinent past surgical history <Ana Maria Valente APRN - Last Filed: 07/10/24 15:16> Social History Social History: Social History Smoking status: Never smoker Second hand tobacco smoke exposure: No Alcohol intake: never Substance use: never Substance use type: does not use Do You Feel Safe in your Home?: Yes Lack of Transportation: No Lack of Food: Never True Current Housing: I Have Housing Concerned About Future Housing: No Difficulty Paying Gas/Electric Bills: No Difficulty Paying for Meds: No Currently Unemployed: No Education: Bachelor's Degree Difficulty w/ Childcare or Family Care: No Gender identity (if verbalized by the patient): Male Spiritual care concerns: No <Ana Maria Valente APRN - Last Filed: 07/10/24 15:16> Meds Home Medications and Allergies Home medications: Home Medications ?Medication ?Instructions ?Recorded ?Confirmed ?Type ibuprofen 600 mg tablet 600 mg PO TID PRN pain #30 tabs 07/09/24 07/10/24 Rx ondansetron 4 mg disintegrating 4 mg PO Q8H PRN nausea and 07/09/24 07/10/24 Rx tablet vomiting #7 tabs tamsulosin 0.4 mg capsule 0.4 mg PO DAILY #12 caps 07/09/24 07/10/24 Rx allopurinol 200 mg tablet 200 mg PO DAILY 07/10/24 07/10/24 History atorvastatin 10 mg tablet 10 mg PO HS 07/10/24 07/10/24 History cholecalciferol (vitamin D3) 1,250 1,250 mcg PO WEEKLY 07/10/24 07/10/24 History mcg (50,000 unit) capsule losartan 25 mg tablet 25 mg PO DAILY 07/10/24 07/10/24 History <Ana Maria Valente APRN - Last Filed: 07/10/24 15:16> Allergies/Adverse reactions: Allergies Allergy/AdvReac Type Severity Reaction Status Date / Time codeine Allergy Mild Unknown Verified 07/09/24 03:36 <Ana Maria Valente APRN - Last Filed: 07/10/24 15:16> Vital Signs Vital Signs - 24 hr 07/10/24 07:15 07/10/24 07:42 07/10/24 09:11 Temperature 97.6 F Pulse Rate 81 83 73 Respiratory Rate 18 18 16 Blood Pressure 165/103 H 142/91 H 122/89 Pulse Oximetry 96 94 97 Oxygen Delivery Room Air <Ana Maria Valente APRN - Last Filed: 07/10/24 15:16> Exam Const: General: comfortable and uncomfortable <Krishna Montgomery MD - Last Filed: 07/10/24 11:34> HENMT: Mouth: Yes moist mucous membranes <Krishna Montgomery MD - Last Filed: 07/10/24 11:34> Eyes: General: appearance normal, both eyes and all related structures <Krishna Montgomery MD - Last Filed: 07/10/24 11:34> Neck: Neck: supple <Krishna Montgomery MD - Last Filed: 07/10/24 11:34> Resp: Effort & Inspection: normal respiratory effort <Krishna Montgomery MD - Last Filed: 07/10/24 11:34> GI: Other: Abdomen soft <Krishna Montgomery MD - Last Filed: 07/10/24 11:34> : Other: Deferred for the operating room <Krishna Montgomery MD - Last Filed: 07/10/24 11:34> Skin: Other: Not present <Krishna Montgomery MD - Last Filed: 07/10/24 11:34> Neuro: Other: Alert orient x3 <Krishna Montgomery MD - Last Filed: 07/10/24 11:34> Extrem: Other: Movement of all 4 extremities <Krishna Montgomery MD - Last Filed: 07/10/24 11:34> H&P: Results Labs Labs: Short CBC 07/10/24 Range/Units 07:33 WBC 9.2 (4.5-10.0) K/mm3 Hgb 13.9 L (14.0-18.0) g/dL Hct 40.8 L (42.0-52.0) % Plt Count 203 (150-375) k/mm3 BMP 07/10/24 07:33 Sodium 139 Potassium 3.9 Chloride 103 Carbon Dioxide 24 BUN 16 Creatinine 1.48 H Glucose 115 H Calcium 9.2 Liver Function 07/10/24 Range/Units 07:33 Total Bilirubin 0.9 (0.2-1.3) mg/dL AST 46 (17-59) U/L ALT 77 H (6-50) U/L Alkaline Phosphatase 65 (38-126) U/L Albumin 4.5 (3.5-5.1) g/dL Urine 07/10/24 Range/Units 08:43 Urine Color Yellow (Yellow) Urine Appearance Clear (Clear) Urine pH 5.5 (5.0-9.0) Ur Specific [place] 1.026 (1.001-1.035) Urine Protein Trace (Negative) mg/dL Urine Glucose (UA) Negative (Negative) mg/dL <Ana Maria Valente APRN - Last Filed: 07/10/24 15:16> Imaging CT scan - abdomen: My impression: Left proximal ureteral stone with mild hydronephrosis. No stone visible on KUB <Krishna Montgomery MD - Last Filed: 07/10/24 11:34> Assessment and Plan Assessment and plan (1) Ureteral stone with hydronephrosis: Code(s): N13.2 - Hydronephrosis with renal and ureteral calculous obstruction <Ana Maria Valente APRN - Last Filed: 07/10/24 15:16> Status: Acute <Ana Maria Valente APRN - Last Filed: 07/10/24 15:16> Assessment and Plan: - 07/08/24 CT left 4mm proximal stone with hydronephrosis <Ana Maria Valente APRN - Last Filed: 07/10/24 15:16> (2) Vomiting: Code(s): R11.10 - Vomiting, unspecified <Ana Maria Valente APRN - Last Filed: 07/10/24 15:16> Status: Acute <Ana Maria PickettTami Valente APRN - Last Filed: 07/10/24 15:16> (3) Uncontrolled pain: Code(s): R52 - Pain, unspecified <Ana Maria PickettTami ValenteBRET arteagaN - Last Filed: 07/10/24 15:16> Status: Acute <Ana Maria Chase Valente APRN - Last Filed: 07/10/24 15:16> (4) Abnormal urinalysis: Code(s): R82.90 - Unspecified abnormal findings in urine <Ana Maria PickettTami ValenteBRET arteagaN - Last Filed: 07/10/24 15:16> Status: Acute <Ana Maria PickettTami ValenteBRET arteagaN - Last Filed: 07/10/24 15:16> Assessment and Plan: - Keep NPO for possible cysto, left ureteroscopy, left ureteral stent as an add case in the OR (today vs. tomorrow pending OR availability) - UA suspicious for UTI, urine culture pending, start empiric antibiotics --> IV ceftriaxone ordered - PRN pain control, IV analgesics and antispasmodics ordered - Continue tamsulosin, strain all urine - Trend renal function (BL Cr 1.3) Patient will need definitive stone treatment and stent management as an outpatient following resolution of suspected UTI <Ana Maria PickettTami ValenteBRET arteagaN - Last Filed: 07/10/24 15:16> - Keep NPO for possible cysto, left retrograde pyelogram, left ureteral stent as an add case in the OR (today vs. tomorrow pending OR availability) -abnormal urinalysis but no clinical signs of infection - PRN pain control, IV analgesics and antispasmodics ordered - Continue tamsulosin, strain all urine Patient will need definitive stone treatment and stent management as an outpati ent We discussed both lithotripsy and ureteroscopy. Stone is not visible on KUB done today <Krishna Montgomery MD - Last Filed: 07/10/24 11:34>
[2024-07-10] MEDS: SODIUM CHLORIDE 0.9% IV 1,000 ML 125 ML IV CONT ×2 (10:27→21:45)
--- NOTE | 2024-07-10 10:32 | ADMGEN ---
This patient, Manuel Hall, was admitted to [facility] Room 329-01. Patient/family oriented to hospital policies and general routines including ID bracelet, bed and alarms, visiting hours, pain management, procedures, bathroom and other care routines, personal items, smoking policy, room service/diet, and visiting hours. Information on how to activate the Rapid Response Team has been discussed. Patient/Family are encouraged to report perceived risks to care and to ask questions if they do not understand what they are told or what they should do.
[2024-07-10] MEDS: HYDROmorphone HCL INJ (*CRX) 1 MG/ML SYR 0.2 MG IV PUSH (10:58)
--- NOTE | 2024-07-10 11:34 | WPDHPUPDATE1 ---
History and Physical Update Update Date/Time: 07/10/24 11:34 History and Physical has been reviewed, including an updated exam of the patient. There are NO changes in the patient's condition. Risks, benefits, and alternatives have been discussed and questions answered. Patient agrees to proceed with procedure.
[2024-07-10] MEDS: KETOROLAC 15 MG/ML VIAL (*BKC) IV PUSH ×2 (11:35→17:25)
--- NOTE | 2024-07-10 13:08 | PC.NURSE ---
To OR per [ ], IV [ ]. Report given to [Eloisa].
[2024-07-10] MEDS: LACTATED RINGERS 1,000 ML 30 ML IV CONT (13:20)
--- NOTE | 2024-07-10 14:15 | WPDANESEPPF ---
Anes - Initial Pre Proc Eval Procedure: Operation Date: 07/10/24 15:30 Proposed Procedures p Cystoscopy, Left Stent Placement - Krishna Montgomery MD Date/Time: 07/10/24 14:15 Surgeon: Krishna Montgomery MD Pre Op Diagnosis: kidney stone Patient Data Age: 48 Gender: M Height: 1.75 m Weight: 110.5 kg Last Vital Signs Temp 97.2 F L 07/10/24 13:10 Pulse 72 07/10/24 13:10 Resp 18 07/10/24 13:10 BP 160/92 H 07/10/24 13:10 Pulse Ox 100 07/10/24 13:10 O2 Del Method Room Air 07/10/24 13:10 Allergies Allergy/AdvReac Type Severity Reaction Status Date / Time codeine Allergy Mild Unknown Verified 07/09/24 03:36 Home Medications ?Medication ?Instructions ?Recorded ?Confirmed ?Type ibuprofen 600 mg tablet 600 mg PO TID PRN pain #30 tabs 07/09/24 07/10/24 Rx ondansetron 4 mg disintegrating 4 mg PO Q8H PRN nausea and 07/09/24 07/10/24 Rx tablet vomiting #7 tabs tamsulosin 0.4 mg capsule 0.4 mg PO DAILY #12 caps 07/09/24 07/10/24 Rx allopurinol 200 mg tablet 200 mg PO DAILY 07/10/24 07/10/24 History atorvastatin 10 mg tablet 10 mg PO HS 07/10/24 07/10/24 History cholecalciferol (vitamin D3) 1,250 1,250 mcg PO WEEKLY 07/10/24 07/10/24 History mcg (50,000 unit) capsule losartan 25 mg tablet 25 mg PO DAILY 07/10/24 07/10/24 History Laboratory Tests 07/10/24 07/10/24 07:33 08:43 WBC 9.2 K/mm3 (4.5-10.0) RBC 4.33 L M/mm3 (4.6-6.20) Hgb 13.9 L g/dL (14.0-18.0) Hct 40.8 L % (42.0-52.0) MCV 94.2 fl (80-100) MCH 32.1 pg (26-34) MCHC 34.1 g/dl (32-36) RDW 13.3 % (11.5-14.5) Plt Count 203 k/mm3 (150-375) MPV 9.8 fl (7.4-10.4) Immature Gran % (Auto) 0.3 % (0-0.5) Neut % (Auto) 75.6 H % (45.5-73.1) Lymph % (Auto) 14.8 L % (18.3-44.2) [place] % (Auto) 8.9 H % (2.6-8.5) Eos % (Auto) 0.2 % (0-4.4) Baso % (Auto) 0.2 % (0.2-1.2) Lymph # (Auto) 1.36 K/mm3 (0.9-3.2) [place] # (Auto) 0.8 H K/mm3 (0.1-0.6) Eos # (Auto) 0.0 K/mm3 (0-0.3) Baso # (Auto) 0.0 K/mm3 (0.0-0.1) Abs Immat Gran (auto) 0.03 K/mm3 (0.00-0.031) Absolute Neuts (auto) 7.0 H K/mm3 (1.3-6.7) Absolute Nucleated RBC 0.000 K/mm3 (0.0-0.012) Nucleated RBC % 0.0 % (0.0-0.2) Sodium 139 mmol/L (137-145) Potassium 3.9 mmol/L (3.4-5.0) Chloride 103 mmol/L (98-107) Carbon Dioxide 24 mmol/L (22-30) Anion Gap 12 mmol/L (4-12) BUN 16 mg/dL (9-20) Creatinine 1.48 H mg/dL (0.7-1.3) Estim Creat Clear Calc 68 ml/min Estimated GFR 51 L (59 - ) Glucose 115 H mg/dL (65-110) Calcium 9.2 mg/dL (8.4-10.2) Total Bilirubin 0.9 mg/dL (0.2-1.3) AST 46 U/L (17-59) ALT 77 H U/L (6-50) Alkaline Phosphatase 65 U/L (38-126) Total Protein 8.0 g/dL (6.3-8.2) Albumin 4.5 g/dL (3.5-5.1) Urine Color Yellow (Yellow) Urine Appearance Clear (Clear) Urine pH 5.5 (5.0-9.0) Ur Specific [place] 1.026 (1.001-1.035) Urine Protein Trace mg/dL (Negative) Urine Glucose (UA) Negative mg/dL (Negative) Urine Ketones Trace H mg/dL (Negative) Ur Blood (Man) 3+ H (Negative) Urine Nitrate Negative (Negative) Urine Bilirubin Negative (Negative) Urine Urobilinogen 0.2 mg/dL (<2.0) Leukocyte Esterase Rfl 1+ H EDUAR/UL (Negative) Urine RBC 11-20 H /hpf (0-2) Urine WBC 11-20 H /hpf (0-3) Ur Squamous Epith Cells None seen /hpf (Few) Urine Bacteria None seen /hpf Urine Casts 0-2 Patient hx anesthesia problems: none Family hx anesthesia problems: none Results Review: All pre-operative results and documents have been reviewed as part of the pre-operative evaluation. COUNT INCLUDES THE [facility] Past Medical History Medical History Hypertension Surgical History Surgical History No pertinent past surgical history Social History Social History Smoking status: Never smoker Second hand tobacco smoke exposure: No Alcohol intake: never Substance use: never Substance use type: does not use Do You Feel Safe in your Home?: Yes Lack of Transportation: No Lack of Food: Never True Current Housing: I Have Housing Concerned About Future Housing: No Difficulty Paying Gas/Electric Bills: No Difficulty Paying for Meds: No Currently Unemployed: No Education: Bachelor's Degree Difficulty w/ Childcare or Family Care: No Gender identity (if verbalized by the patient): Male Spiritual care concerns: No Anes - Eval Final PreProcedure Day of Procedure 07/10/24 14:15 Patient weight: obese Lungs: normal air movement Airway: Mallampati scale class III Neurological: alert and oriented Last oral intake: >/= 8 hours ASA classification: III Emergent: no Anesthetic plan: proceed Anesthesia type and monitoring: general ETT and standard monitoring Results Review: All pre-operative results and documents have been reviewed as part of the pre-operative evaluation. HTN, hyperlipidemia, HAYLEY noncompliant (mod HAYLEY per pt), obesity, now w GFR 51. Pt reports overall good health, goes to gym for wts routinely, no cp or sob. Informed Consent: The patient's anesthetic plan and its attendant risks and benefits were discussed with the patient/family/POA. Questions were solicited and answers provided to the satisfaction of the patient/family/POA.
[2024-07-10] MEDS: HYDROmorphone HCL INJ (*CRX) 1 MG/ML SYR 0.25 MG IV PUSH ×2 (14:32→14:55)
[2024-07-10] MEDS: HYDROcodone/acetaminophen (*CRX) 5-325 MG TABLET 1 TAB PO (21:45)
[2024-07-11] VITALS (9 sets, daily range): BP systolic 116–144; BP diastolic 60–86; PULSE 82–97; RESP 16–20; TEMP 36.2–39.1; O2SAT 91–97
[2024-07-11] MEDS: KETOROLAC 15 MG/ML VIAL (*BKC) IV PUSH ×2 (00:25→09:59)
[2024-07-11] MEDS: SODIUM CHLORIDE 0.9% IV 1,000 ML 125 ML IV CONT (05:26)
[2024-07-11 06:13] LABS: Basophils Percent Auto 0.2 % (0.2-1.2); Eosinophils Percent Auto 0.4 % (0-4.4); Hematocrit 38.6 % (42.0-52.0); Hemoglobin 13.1 g/dL (14.0-18.0); Immature Granulocyte Absolute 0.05 K/mm3 (0.00-0.031); Immature Granulocyte Percent A 0.5 % (0-0.5); Lymphocytes Absolute Auto 0.89 K/mm3 (0.9-3.2); Lymphocytes Percent Auto 8.5 % (18.3-44.2); Mean Corpuscular HGB Conc 33.9 g/dl (32-36); Mean Corpuscular Hemoglobin 32.3 pg (26-34); Mean Corpuscular Volume 95.1 fl (80-100); Monocytes Absolute Auto 1.1 K/mm3 (0.1-0.6); Monocytes Percent Auto 10.5 % (2.6-8.5); Neutrophils Absolute Auto 8.4 K/mm3 (1.3-6.7); Neutrophils Percent Auto 79.9 % (45.5-73.1); Platelet Count Result 141 k/mm3 (150-375); Red Blood Count 4.06 M/mm3 (4.6-6.20); Red Cell Distribution Width 13.1 % (11.5-14.5); White Blood Count 10.5 K/mm3 (4.5-10.0)
[2024-07-11 06:20] LABS: Anion Gap 7 mmol/L (4-12); Blood Urea Nitrogen 14 mg/dL (9-20); Calcium 7.9 mg/dL (8.4-10.2); Carbon Dioxide 23 mmol/L (22-30); Chloride 106 mmol/L (98-107); Estimated CRCL calculation 59 ml/min; Estimated Glomerular Filt Rate 43; Glucose 108 mg/dL (65-110); Potassium 4.1 mmol/L (3.4-5.0); Sodium 136 mmol/L (137-145)
--- NOTE | 2024-07-11 09:48 | WPDHPUPDATE1 ---
History and Physical Update Update Date/Time: 07/11/24 09:48 History and Physical has been reviewed, including an updated exam of the patient. There are NO changes in the patient's condition. Risks, benefits, and alternatives have been discussed and questions answered. Patient agrees to proceed with procedure. Proceed with cystoscopy, right retrograde, right ureteroscopy with stone extraction, possible laser, stent placement
[2024-07-11] MEDS: LACTATED RINGERS 1,000 ML 30 ML IV CONT (11:00)
--- NOTE | 2024-07-11 11:15 | P.PNAN_ITS ---
Anes - Initial Pre Proc Eval Procedure: Operation Date: 07/11/24 12:00 Proposed Procedures p Cystoscopy, Left Ureteroscopy, Possible Left Retrograde Pyelogram, Possible Left Ureteral Stent Placement, Possible Holmium Laser Lithotripsy - Helder Jackson MD Date/Time: 07/11/24 11:15 Surgeon: Krishna Montgomery MD Pre Op Diagnosis: kidney stone Patient Data Age: 48 Gender: M Height: 1.75 m Weight: 110.5 kg Last Vital Signs Temp 39.1 C H 07/11/24 10:30 Pulse 97 07/11/24 10:30 Resp 18 07/11/24 10:30 BP 144/82 H 07/11/24 10:30 Pulse Ox 97 07/11/24 10:30 O2 Del Method Room Air 07/11/24 10:30 Allergies Allergy/AdvReac Type Severity Reaction Status Date / Time codeine Allergy Mild Unknown Verified 07/11/24 10:55 Home Medications ?Medication ?Instructions ?Recorded ?Confirmed ?Type ibuprofen 600 mg tablet 600 mg PO TID PRN pain #30 tabs 07/09/24 07/10/24 Rx ondansetron 4 mg disintegrating 4 mg PO Q8H PRN nausea and 07/09/24 07/10/24 Rx tablet vomiting #7 tabs tamsulosin 0.4 mg capsule 0.4 mg PO DAILY #12 caps 07/09/24 07/10/24 Rx allopurinol 200 mg tablet 200 mg PO DAILY 07/10/24 07/10/24 History atorvastatin 10 mg tablet 10 mg PO HS 07/10/24 07/10/24 History cholecalciferol (vitamin D3) 1,250 1,250 mcg PO WEEKLY 07/10/24 07/10/24 History mcg (50,000 unit) capsule losartan 25 mg tablet 25 mg PO DAILY 07/10/24 07/10/24 History Laboratory Tests 07/11/24 05:54 WBC 10.5 H K/mm3 (4.5-10.0) RBC 4.06 L M/mm3 (4.6-6.20) Hgb 13.1 L g/dL (14.0-18.0) Hct 38.6 L % (42.0-52.0) MCV 95.1 fl (80-100) MCH 32.3 pg (26-34) MCHC 33.9 g/dl (32-36) RDW 13.1 % (11.5-14.5) Plt Count 141 L k/mm3 (150-375) MPV 10.0 fl (7.4-10.4) Immature Gran % (Auto) 0.5 % (0-0.5) Neut % (Auto) 79.9 H % (45.5-73.1) Lymph % (Auto) 8.5 L % (18.3-44.2) [place] % (Auto) 10.5 H % (2.6-8.5) Eos % (Auto) 0.4 % (0-4.4) Baso % (Auto) 0.2 % (0.2-1.2) Lymph # (Auto) 0.89 L K/mm3 (0.9-3.2) [place] # (Auto) 1.1 H K/mm3 (0.1-0.6) Eos # (Auto) 0.0 K/mm3 (0-0.3) Baso # (Auto) 0.0 K/mm3 (0.0-0.1) Abs Immat Gran (auto) 0.05 H K/mm3 (0.00-0.031) Absolute Neuts (auto) 8.4 H K/mm3 (1.3-6.7) Absolute Nucleated RBC 0.000 K/mm3 (0.0-0.012) Nucleated RBC % 0.0 % (0.0-0.2) Sodium 136 L mmol/L (137-145) Potassium 4.1 mmol/L (3.4-5.0) Chloride 106 mmol/L (98-107) Carbon Dioxide 23 mmol/L (22-30) Anion Gap 7 mmol/L (4-12) BUN 14 mg/dL (9-20) Creatinine 1.73 H mg/dL (0.7-1.3) Estim Creat Clear Calc 59 ml/min Estimated GFR 43 L (59 - ) Glucose 108 mg/dL (65-110) Calcium 7.9 L mg/dL (8.4-10.2) Patient hx anesthesia problems: none Family hx anesthesia problems: none Results Review: All pre-operative results and documents have been reviewed as part of the pre- operative evaluation. [facility] Past Medical History Medical History (Updated 07/11/24 @ 11:15 by Gordon Leonard DO) Hyperlipidemia On allopurinol therapy Hypertension Surgical History Surgical History No pertinent past surgical history Social History Social History Smoking status: Never smoker Second hand tobacco smoke exposure: No Alcohol intake: never Substance use: never Substance use type: does not use Do You Feel Safe in your Home?: Yes Lack of Transportation: No Lack of Food: Never True Current Housing: I Have Housing Concerned About Future Housing: No Difficulty Paying Gas/Electric Bills: No Difficulty Paying for Meds: No Currently Unemployed: No Education: Bachelor's Degree Difficulty w/ Childcare or Family Care: No Gender identity (if verbalized by the patient): Male Spiritual care concerns: No Anes - Eval Final PreProcedure Day of Procedure 07/11/24 11:15 Patient weight: obese Heart: regular rate and rhythm Lungs: clear to auscultation Airway: Mallampati scale class II Neurological: alert and oriented Last oral intake: >/= 8 hours ASA classification: III Emergent: no Anesthetic plan: proceed Anesthesia type and monitoring: general LMA and standard monitoring Results Review: All pre-operative results and documents have been reviewed as part of the pre- operative evaluation. Informed Consent: The patient's anesthetic plan and its attendant risks and benefits were discussed with the patient/family/POA. Questions were solicited and answers provided to the satisfaction of the patient/family/POA.
[2024-07-11] MEDS: LIDOCAINE 2% GEL UROJET 10 ML PKG MUCOUS MEM (11:47)
--- NOTE | 2024-07-11 12:15 | W.PM.PROC2 ---
Procedure Note - Detailed Date of Procedure 07/11/24 Pre-op Diagnosis left ureteral calculus Post-op Diagnosis Same Procedure Performed cystoscopy, left retrograde, left ureteroscopy with laser, stone extraction, stent placement. Surgeon Helder Jackson MD Anesthesia General Description of Procedure Patient was taken to the operative suite correctly identified. Once anesthesia was obtained was placed in dorsal lithotomy position and prepped and draped usual sterile fashion. Nineteen [place] scope was inserted the bladder direct vision. There were no tumors noted. Left ureteral orifice was cannulated with a guidewire. I dilated the orifice with an 8/10 dilator. I then placed a 2nd guidewire in and placed a flexible ureteral scope over the wire. The mid to proximal ureter was somewhat tight. I could not advance the scope. At this point I placed a ureteral access sheath and then inserted the scope. I was able to get up to the stone in the proximal ureter. Using 200 micron fiber I lasered the stone into 2 smaller pieces. These were then extracted with an escape basket. Pyelogram was then performed to confirm placement of the stent. 4.8 [place] contour stent was then placed with the proximal in the renal pelvis and the distal in the bladder. 2% viscous lidocaine was inserted into the urethra after the bladder was drained. He has taken recovery stable condition. Will plan on stent removal in a week's time. This completes dictation. Please send a copy of op note to my office Estimated Blood Loss 0 Drains Yes Packing No Pathology Yes Complications No immediate complications Condition Stable Disposition PACU
[2024-07-11] MEDS: HYDROcodone/acetaminophen (*CRX) 5-325 MG TABLET 1 TAB PO (16:33)
--- NOTE | 2024-07-17 14:41 | P.DS_ITS ---
DS: Admitting Diagnosis Discharge Date 07/11/24 Admitting Diagnosis Obstructing left ureteral stone DS: Discharge Diagnosis Discharge Diagnosis (1) Ureteral stone with hydronephrosis: Code(s): N13.2 - Hydronephrosis with renal and ureteral calculous obstruction Status: Acute Plan - Plan for ureteral stent removal in office next week with Dr. Jackson DS: Summary Hospital Course Reason for hospitalization: Left ureteral stone Hospital Course: Uncomplicated cystoscopy, left retrograde, left ureteroscopy with laser, stone extraction, stent placement with Dr. Jackson 07/11/24 Status at Discharge Functional status at discharge: independent ambulation Overall status at discharge: patient is progressing back to baseline Time Spent with Patient Time attestation: Total time spent providing and/or coordinating discharge services: 12 minutes Exam Const: General: comfortable and no acute distress DS: Data Data Completed and Pending Pending studies at discharge: Pending at discharge 07/11/24 12:09 Surgical [PTH] Routine Discharge Plan Discharge Attending physician on discharge: Krishna Montgomery Consulting providers: Ana Maria Valente; Ronnie Price; Gordon Leonard; Rogelio Florian; David Lugo Discharging Clinician: Helder Jackson Anticipated Discharge Date/Time: 07/11/24 14:10 Patient Disposition: Home Activity: may shower and as tolerated Diet: as tolerated Discharge Instructions: Follow-up in office in 1 week for cystoscopy/stent removal with Dr. Jackson. Increase oral fluid intake, goal 80-100oz water/day. Patient Instructions: Antibiotic Form Patient Language: Citizen Of [place] Stand Alone Forms: General Discharge Information, Work/School Release IP Follow-up/Referrals: Helder Jackson MD [Physician] - 1 Week (Office visit for cystoscopy with stent removal) Discharge Medications: New sulfamethoxazole-trimethoprim [Bactrim DS] 800-160 mg tablet 1 tablet PO Q12H Qty: 6 0RF oxybutynin chloride 5 mg tablet 5 mg PO BID PRN (Reason: bladder spasms) Qty: 30 0RF Rx Instructions: Take as needed for bladder spasms Continued tamsulosin 0.4 mg capsule 0.4 mg PO DAILY Qty: 12 0RF ondansetron 4 mg tablet,disintegrating 4 mg PO Q8H PRN (Reason: nausea and vomiting) Qty: 7 0RF ibuprofen 600 mg tablet 600 mg PO TID PRN (Reason: pain) Qty: 30 0RF allopurinol 200 mg tablet 200 mg PO DAILY atorvastatin 10 mg tablet 10 mg PO HS cholecalciferol (vitamin D3) 1,250 mcg (50,000 unit) capsule 1,250 mcg PO WEEKLY Rx Instructions: Wednesday losartan 25 mg tablet 25 mg PO DAILY Date of admission: 07/10/24 09:19 Primary Care Provider: Tavo,Zeus Admitting Provider: Krishna Montgomery Attending physician on admission: Helder Jackson Condition: Stable
== END 2024-07-11 17:00 | disposition home or self-care (01) ==
LOC: ANHED 07:52 → ANH3MEDSUR 10:20
PROVIDERS: Nurse Practitioner; Admitting Provider Urology; Emergency Provider Emergency Medicine; PCP Internal Medicine; Visit Provider Urology
PROC: (CPT 52352; principal; 2024-07-10 15:30)
DX: N13.2 Hydronephrosis with renal and ureteral calculous obstruction (principal); R52 Pain, unspecified; R11.2 Nausea with vomiting, unspecified; R82.90 Unspecified abnormal findings in urine; I10 Essential (primary) hypertension; E66.9 Obesity, unspecified; Z68.36 Body mass index [BMI] 36.0-36.9, adult; Z79.899 Other long term (current) drug therapy
CPT/HCPCS: 52356; 36415; 74018; 74420; 80048; 80053; 81001; 82365; 85025; 87086; 88300; 96361; 96374; 96375; 96376; 99285; A9270; C1769; C1894; C2617; J0696; J1171; J1885; J1938; J2250; J2270; J2405; J2704; J3010; J7030; J7120; Q9966